=== PATIENT | female | born 1965 | race Caucasian/White ===

== ENCOUNTER → 2017-08-22 14:17 | Outpatient (POV) | payer OTHER, MEDICAID, SELFPAY ==
[2017-08-22 14:52] VITALS: BP 135/79; PULSE 78; RESP 18; TEMP 36.3; O2SAT 94; BMI 27.3
--- NOTE | 2017-08-22 16:08 | HMH.PAINSOAP ---
[facility] Pain Management SOAP Note Subjective:: Patient is a pleasant 52-year-old white female who presents to our clinic for medication refills. We are treating her for pain secondary to degenerative disc disease of the lumbar spine and fibromyalgia. Patient has a quadriplegic son who she helps with the primary care for. Patient has chronic low back pain that she describes as constant, dull, aching. She also has intensifying of pain during long times of standing or having to help complete ADLs with her son. Patient is medically managed with [place] 7.5 mg 1 p.o. twice daily. She states that this does help her pain 50-60%. Patient is not currently on any anti-inflammatories. ROS General: no recent weight change, no fever, no sleep disturbances Respiratory: no cough, no shortness of air, no recurring pulmonary infections Cardiovascular/Peripheral Vascular: No chest pain, No palpitations, no edema, no shortness of breath. Gastrointestinal: no incontinence, normal bowel movements reported Genitourinary: no incontinence Musculoskeletal: Low back pain, neck pain Psychiatric: normal mood/ affect Neurological: [denies weakness in extremities], [denies balance issues] Objective:: Physical Exam General: Alert and oriented x3, no acute distress, pleasant and cooperative, [on room air] Lungs: Resps E/U, Symmetrical chest expansion, Musculoskeletal: Flexion and extension of lumbar spine somewhat guarded secondary to pain, deep tendon reflexes normal, strength in upper and lower extremities [5/5], normal gait noted Neurological: speech clear, screen printing machine operator equal, no gross sensory deficits Assessment:: Degenerative disc disease of the lumbar spine, fibromyalgia Plan:: We will plan on refilling the patient's medication will give her 2 prescriptions today of [place] 5 mg 1 p.o. twice daily. We will also start her on diclofenac 75 mg 1 p.o. twice daily to help with flares. Patient's Zamzam #[id number] reviewed and appropriate. Patient UDS has been appropriate in the past we will continue to monitor this. I have spoken with Dr. Sung he is reviewed the chart and he agrees with this plan of care. We will follow up with this patient in 3 months unless she needs this in the meantime. She can poultry picker one prescription in the interim. Patient has been prescribed a controlled substance after being counseled on the medication, medication safety, and possible side effects. ZAMZAM report has been obtained and reviewed prior to prescription and found to be appropriate. Opioid contract was reviewed and signed by the patient, and that they have agreed to all of the terms set forth by our compliance program. This note was dictated using voice recognition software may contain errors or omissions
--- NOTE | 2017-08-22 16:12 | P.CONS_ITS ---
[facility] Pain Management SOAP Note Subjective:: Patient is a pleasant 52-year-old white female who presents to our clinic for medication refills. We are treating her for pain secondary to degenerative disc disease of the lumbar spine and fibromyalgia. Patient has a quadriplegic son who she helps with the primary care for. Patient has chronic low back pain that she describes as constant, dull, aching. She also has intensifying of pain during long times of standing or having to help complete ADLs with her son. Patient is medically managed with [place] 7.5 mg 1 p.o. twice daily. She states that this does help her pain 50-60%. Patient is not currently on any anti-inflammatories. ROS General: no recent weight change, no fever, no sleep disturbances Respiratory: no cough, no shortness of air, no recurring pulmonary infections Cardiovascular/Peripheral Vascular: No chest pain, No palpitations, no edema, no shortness of breath. Gastrointestinal: no incontinence, normal bowel movements reported Genitourinary: no incontinence Musculoskeletal: Low back pain, neck pain Psychiatric: normal mood/ affect Neurological: [denies weakness in extremities], [denies balance issues] Objective:: Physical Exam General: Alert and oriented x3, no acute distress, pleasant and cooperative, [ on room air] Lungs: Resps E/U, Symmetrical chest expansion, Musculoskeletal: Flexion and extension of lumbar spine somewhat guarded secondary to pain, deep tendon reflexes normal, strength in upper and lower extremities [5/5], normal gait noted Neurological: speech clear, guidance counselor equal, no gross sensory deficits Assessment:: Degenerative disc disease of the lumbar spine, fibromyalgia Plan:: We will plan on refilling the patient's medication will give her 2 prescriptions today of [place] 5 mg 1 p.o. twice daily. We will also start her on diclofenac 75 mg 1 p.o. twice daily to help with flares. Patient's Zamzam # [id number] reviewed and appropriate. Patient UDS has been appropriate in the past we will continue to monitor this. I have spoken with Dr. Sung he is reviewed the chart and he agrees with this plan of care. We will follow up with this patient in 3 months unless she needs this in the meantime. She can fruit or nut picker one prescription in the interim. Patient has been prescribed a controlled substance after being counseled on the medication, medication safety, and possible side effects. ZAMZAM report has been obtained and reviewed prior to prescription and found to be appropriate. Opioid contract was reviewed and signed by the patient, and that they have agreed to all of the terms set forth by our compliance program. This note was dictated using voice recognition software may contain errors or omissions
--- NOTE | 2017-08-23 09:36 | PC.PHONENOTE ---
08/22/17-called in Rx for Diclofenac 75mg BID with 2 refills to pt pharmacy per provider order
== END ==
PROVIDERS: Family Provider Family Medicine Geriatric Medicine; PCP Family Medicine Geriatric Medicine; Visit Provider Clinical Nurse Specialist Family Health
DX: M51.36 Other intervertebral disc degeneration, lumbar region (principal)
CPT/HCPCS: 99212

== ENCOUNTER → 2017-10-24 09:12 | Outpatient (CLI) | payer OTHER, SELFPAY ==
[2017-10-24 11:29] LABS: Amphetamine/Metha Screen,Urine Negative ng/mL (<1000); Barbiturates Screen,Urine Negative ng/mL (<200); Benzodiazepines Screen,Urine Negative ng/mL (200); Cannabinoid Screen,Urine Negative ng/mL (<50); Cocaine Screen,Urine Negative ng/g (<300); Methadone Screen,Urine Negative ng/mL (<300); Opiate Screen,Urine Positive ng/mL (<300); Phencyclidine Screen,Urine Negative ng/mL (<25)
[2017-11-01 17:13] LABS: Codeine Negative (Cutoff=100); Hydrocodone Positive (.); Hydromorphone Negative (Cutoff=100); Morphine Negative (Cutoff=100)
[2017-11-02 14:45] LABS: Opiates Positive (.)
== END ==
PROVIDERS: Visit Provider Clinical Nurse Specialist Family Health
DX: Z79.899 Other long term (current) drug therapy (principal)
CPT/HCPCS: 80305; 80361; 80365; G0480

== ENCOUNTER → 2017-11-20 12:48 | Outpatient (POV) | payer OTHER, SELFPAY ==
[2017-11-20 13:04] VITALS: BP 120/87; PULSE 77; RESP 20; O2SAT 99; BMI 31.0
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
--- NOTE | 2018-03-12 08:25 | PC.NURSE ---
DICLOFENAC 75MG BID WITH TWO REFILLS FAXED TO [facility] IN [place]
== END ==
PROVIDERS: Family Provider Family Medicine Geriatric Medicine; PCP Family Medicine Geriatric Medicine; Visit Provider Clinical Nurse Specialist Family Health
DX: M79.7 Fibromyalgia (principal); M51.36 Other intervertebral disc degeneration, lumbar region
CPT/HCPCS: 99212

== ENCOUNTER → 2018-01-24 14:49 | Outpatient (CLI) | payer OTHER, SELFPAY ==
[2018-01-24 16:59] LABS: Amphetamine/Metha Screen,Urine Negative ng/mL (<1000); Barbiturates Screen,Urine Negative ng/mL (<200); Benzodiazepines Screen,Urine Negative ng/mL (<200); Cannabinoid Screen,Urine Negative ng/mL (<50); Cocaine Screen,Urine Negative ng/mL (<300); Methadone Screen,Urine Negative ng/mL (<300); Opiate Screen,Urine Positive ng/mL (<300); Phencyclidine Screen,Urine Negative ng/mL (<25)
[2018-02-05 22:12] LABS: Codeine Negative (Cutoff=100); Hydrocodone Positive (.); Hydromorphone Negative (Cutoff=100); Morphine Negative (Cutoff=100)
[2018-02-08 06:55] LABS: Opiates Positive (.)
== END ==
PROVIDERS: Visit Provider Clinical Nurse Specialist Family Health
DX: Z79.899 Other long term (current) drug therapy (principal)
CPT/HCPCS: 80305; 80361; 80365; G0480

== ENCOUNTER → 2018-03-27 09:38 | Outpatient (POV) | payer OTHER, SELFPAY ==
[2018-03-27 09:49] VITALS: BP 143/93; PULSE 66; RESP 18; O2SAT 98; BMI 28.1
--- NOTE | 2018-03-27 09:58 | HMH.PAINSOAP ---
[facility] Pain Management SOAP Note Subjective:: Patient is a pleasant 53-year-old white female who presents today for medication refills. Patient is currently being treated for pain secondary to degenerative disc disease lumbar spine and fibromyalgia. Patient is currently being managed with [place] 7.5 mg 1 p.o. twice daily. Patient was on Lyrica by her primary care and it worked very well for her. Patient would like to restart this. Patient was on Lyrica 75 mg 1 tab p.o. twice daily. Patient denies any side effects to this. Patient's tried and failed gabapentin, amitriptyline, Cymbalta. Patient states her medication helps up to 80% she rates her pain a 3 out of 10 today. Patient's ZAMZAM #[id number] reviewed and appropriate. ROS General: no recent weight change, no fever, no sleep disturbances Respiratory: no cough, no shortness of air, no recurring pulmonary infections Cardiovascular/Peripheral Vascular: No chest pain, No palpitations, no edema, no shortness of breath. Gastrointestinal: no incontinence, normal bowel movements reported Genitourinary: no incontinence Musculoskeletal: Back pain Psychiatric: normal mood/ affect Neurological: [denies weakness in extremities], [denies balance issues] Objective:: Physical Exam General: Alert and oriented x3, no acute distress, pleasant and cooperative, [on room air] Lungs: Resps E/U, Symmetrical chest expansion, Eyes: PERRL Musculoskeletal: Flexion and extension of lumbar spine somewhat guarded secondary to pain, deep tendon reflexes normal, strength in upper and lower extremities [5/5], slightly antalgic gait noted Neurological: speech clear, associate automation engineer equal, no gross sensory deficits Assessment:: Degenerative disc disease lumbar spine with lumbar radiculopathy, fibromyalgia Plan:: We will refill the patient's [place] 7.5 mg 1 p.o. twice daily and her Lyrica 75 mg 1 p.o. twice daily. We will give HER-2 months worth of prescriptions and she can sweet pickle maker the third month in the interim. Dr. Dennis is reviewed this chart and agrees with this plan of care. Patient's UDS has been appropriate in the past. Patient's ZAMZAM appropriate. I will follow-up with the patient in 3 months. Patient has been prescribed a controlled substance after being counseled on the medication, medication safety, and possible side effects. ZAMZAM report has been obtained and reviewed prior to prescription and found to be appropriate. Opioid contract was reviewed and signed by the patient, and that they have agreed to all of the terms set forth by our compliance program. This note was dictated using voice recognition software and may contain errors or omissions
--- NOTE | 2018-03-27 10:02 | P.CONS_ITS ---
[facility] Pain Management SOAP Note Subjective:: Patient is a pleasant 53-year-old white female who presents today for medication refills. Patient is currently being treated for pain secondary to degenerative disc disease lumbar spine and fibromyalgia. Patient is currently being managed with [place] 7.5 mg 1 p.o. twice daily. Patient was on Lyrica by her primary care and it worked very well for her. Patient would like to restart this. Patient was on Lyrica 75 mg 1 tab p.o. twice daily. Patient denies any side effects to this. Patient's tried and failed gabapentin, amitriptyline, Cymbalta. Patient states her medication helps up to 80% she rates her pain a 3 out of 10 today. Patient's ZAMZAM #[id number] reviewed and appropriate. ROS General: no recent weight change, no fever, no sleep disturbances Respiratory: no cough, no shortness of air, no recurring pulmonary infections Cardiovascular/Peripheral Vascular: No chest pain, No palpitations, no edema, no shortness of breath. Gastrointestinal: no incontinence, normal bowel movements reported Genitourinary: no incontinence Musculoskeletal: Back pain Psychiatric: normal mood/ affect Neurological: [denies weakness in extremities], [denies balance issues] Objective:: Physical Exam General: Alert and oriented x3, no acute distress, pleasant and cooperative, [on room air] Lungs: Resps E/U, Symmetrical chest expansion, Eyes: PERRL Musculoskeletal: Flexion and extension of lumbar spine somewhat guarded secondary to pain, deep tendon reflexes normal, strength in upper and lower extremities [5/5], slightly antalgic gait noted Neurological: speech clear, forming yardage control operator equal, no gross sensory deficits Assessment:: Degenerative disc disease lumbar spine with lumbar radiculopathy, fibromyalgia Plan:: We will refill the patient's [place] 7.5 mg 1 p.o. twice daily and her Lyrica 75 mg 1 p.o. twice daily. We will give HER-2 months worth of prescriptions and she can milk pickup driver the third month in the interim. Dr. Dennis is reviewed this chart and agrees with this plan of care. Patient's UDS has been appropriate in the past. Patient's ZAMZAM appropriate. I will follow-up with the patient in 3 months. Patient has been prescribed a controlled substance after being counseled on the medication, medication safety, and possible side effects. ZAMZAM report has been obtained and reviewed prior to prescription and found to be appropriate. Opioid contract was reviewed and signed by the patient, and that they have agreed to all of the terms set forth by our compliance program. This note was dictated using voice recognition software and may contain errors or omissions
--- NOTE | 2018-07-11 09:18 | PC.NURSE ---
07/09/18 refill for lyrica 75mg BID faxed to [facility] in [place]
== END ==
PROVIDERS: Family Provider Family Medicine Geriatric Medicine; PCP Family Medicine Geriatric Medicine; Visit Provider Clinical Nurse Specialist Family Health
DX: M51.16 Intervertebral disc disorders with radiculopathy, lumbar region (principal); M79.1 Myalgia
CPT/HCPCS: 99203

== ENCOUNTER → 2018-05-23 10:57 | Outpatient (CLI) | payer OTHER, SELFPAY ==
[2018-05-23 14:33] LABS: Amphetamine/Metha Screen,Urine Negative ng/mL (<1000); Barbiturates Screen,Urine Negative ng/mL (<200); Benzodiazepines Screen,Urine Negative ng/mL (<200); Cannabinoid Screen,Urine Negative ng/mL (<50); Cocaine Screen,Urine Negative ng/mL (<300); Methadone Screen,Urine Negative ng/mL (<300); Opiate Screen,Urine Positive ng/mL (<300); Phencyclidine Screen,Urine Negative ng/mL (<25)
[2018-05-30 15:59] LABS: Opiates Negative (Cutoff=100)
== END ==
PROVIDERS: Visit Provider Clinical Nurse Specialist Family Health
DX: Z79.899 Other long term (current) drug therapy (principal)
CPT/HCPCS: 80305; 80361; 80365; G0480

== ENCOUNTER → 2018-06-18 13:38 | Outpatient (POV) | payer OTHER, SELFPAY ==
[2018-06-18 14:06] VITALS: BP 171/99; PULSE 63; RESP 18; O2SAT 98; BMI 25.0
--- NOTE | 2018-06-18 14:34 | HMH.PAINSOAP ---
[facility] Pain Management SOAP Note Subjective:: Patient is a pleasant 53-year-old white female who presents today for medication refills. She is currently being treated for pain secondary to degenerative disc disease lumbar spine and fibromyalgia. She patient is doing well on her [place] 7.5 mg 1 p.o. twice daily. He denies side effects. Zamzam reviewed and appropriate. Patient is also on Lyrica 75 mg 1 p.o. twice daily ROS General: no recent weight change, no fever, no sleep disturbances Respiratory: no cough, no shortness of air, no recurring pulmonary infections Cardiovascular/Peripheral Vascular: No chest pain, No palpitations, no edema, no shortness of breath. Gastrointestinal: no incontinence, normal bowel movements reported Genitourinary: no incontinence Musculoskeletal: Back pain Psychiatric: normal mood/ affect Neurological: [denies weakness in extremities], [denies balance issues] Objective:: Physical Exam General: Alert and oriented x3, no acute distress, pleasant and cooperative, [on room air] Lungs: Resps E/U, Symmetrical chest expansion, Eyes: PERRL Musculoskeletal: Flexion and extension of lumbar spine somewhat guarded secondary to pain, deep tendon reflexes normal, strength in upper and lower extremities [5/5], antalgic gait noted Neurological: speech clear, wad printing machine operator equal, no gross sensory deficits Assessment:: Degenerative disc disease lumbar spine with lumbar radiculopathy and fibromyalgia Plan:: We will refill the patient's [place] 7.5 mg 1 p.o. twice daily and her Lyrica 75 mg 1 p.o. twice daily we will give her 2 months worth of prescriptions and she can diamond picker the third month in the interim. Zamzam reviewed and appropriate. Dr. Dennis is reviewed this chart and agrees with this plan of care. Patient has been prescribed a controlled substance after being counseled on the medication, medication safety, and possible side effects. ZAMZAM report has been obtained and reviewed prior to prescription and found to be appropriate. Opioid contract was reviewed and signed by the patient, and that they have agreed to all of the terms set forth by our compliance program. This note was dictated using voice recognition software and may contain errors or omissions
--- NOTE | 2018-06-18 14:40 | P.CONS_ITS ---
[facility] Pain Management SOAP Note Subjective:: Patient is a pleasant 53-year-old white female who presents today for medication refills. She is currently being treated for pain secondary to degenerative disc disease lumbar spine and fibromyalgia. She patient is doing well on her [place] 7.5 mg 1 p.o. twice daily. He denies side effects. Zamzam reviewed and appropriate. Patient is also on Lyrica 75 mg 1 p.o. twice daily ROS General: no recent weight change, no fever, no sleep disturbances Respiratory: no cough, no shortness of air, no recurring pulmonary infections Cardiovascular/Peripheral Vascular: No chest pain, No palpitations, no edema, no shortness of breath. Gastrointestinal: no incontinence, normal bowel movements reported Genitourinary: no incontinence Musculoskeletal: Back pain Psychiatric: normal mood/ affect Neurological: [denies weakness in extremities], [denies balance issues] Objective:: Physical Exam General: Alert and oriented x3, no acute distress, pleasant and cooperative, [on room air] Lungs: Resps E/U, Symmetrical chest expansion, Eyes: PERRL Musculoskeletal: Flexion and extension of lumbar spine somewhat guarded secondary to pain, deep tendon reflexes normal, strength in upper and lower extremities [5/5], antalgic gait noted Neurological: speech clear, cocktail server equal, no gross sensory deficits Assessment:: Degenerative disc disease lumbar spine with lumbar radiculopathy and fibromyalgia Plan:: We will refill the patient's [place] 7.5 mg 1 p.o. twice daily and her Lyrica 75 mg 1 p.o. twice daily we will give her 2 months worth of prescriptions and she can order picker the third month in the interim. Zamzam reviewed and appropriate. Dr. Dennis is reviewed this chart and agrees with this plan of care. Patient has been prescribed a controlled substance after being counseled on the medication, medication safety, and possible side effects. ZAMZAM report has been obtained and reviewed prior to prescription and found to be appropriate. Opioid contract was reviewed and signed by the patient, and that they have agreed to all of the terms set forth by our compliance program. This note was dictated using voice recognition software and may contain errors or omissions
[2018-06-18 18:41] LABS: Amphetamine/Metha Screen,Urine Negative ng/mL (<1000); Barbiturates Screen,Urine Negative ng/mL (<200); Benzodiazepines Screen,Urine Negative ng/mL (<200); Cannabinoid Screen,Urine Negative ng/mL (<50); Cocaine Screen,Urine Negative ng/mL (<300); Methadone Screen,Urine Negative ng/mL (<300); Opiate Screen,Urine Positive ng/mL (<300); Phencyclidine Screen,Urine Negative ng/mL (<25)
[2018-06-24 20:13] LABS: Codeine Negative (Cutoff=100); Hydrocodone Positive (.); Hydromorphone Negative (Cutoff=100); Morphine Negative (Cutoff=100)
[2018-06-24 21:27] LABS: Opiates Positive (.)
== END ==
PROVIDERS: PCP Family Medicine; Visit Provider Clinical Nurse Specialist Family Health
DX: M51.16 Intervertebral disc disorders with radiculopathy, lumbar region (principal); M79.7 Fibromyalgia; Z79.899 Other long term (current) drug therapy
CPT/HCPCS: 80305; 80361; 80365; 99213; G0480

== ENCOUNTER → 2018-09-11 10:42 | Outpatient (POV) | payer OTHER, SELFPAY ==
[2018-09-11 11:04] VITALS: BP 112/71; PULSE 62; RESP 18; O2SAT 98; BMI 28.1
--- NOTE | 2018-09-11 11:30 | HMH.PAINSOAP ---
[facility] Pain Management SOAP Note Subjective:: Patient is a pleasant 53-year-old white female who presents today for medication refills. She is currently being treated for pain secondary to degenerative disc disease lumbar spine and fibromyalgia. She is currently on [place] 7.5 mg 1 p.o. twice daily along with Lyrica 75 mg 1 p.o. twice daily. She rates her pain a 7 out of 10 today however she states that she takes her medication it is a 1 out of 10. Patient's ZAMZAM reviewed and appropriate. Urine drug screen has been appropriate. ROS General: no recent weight change, no fever, no sleep disturbances Respiratory: no cough, no shortness of air, no recurring pulmonary infections Cardiovascular/Peripheral Vascular: No chest pain, No palpitations, no edema, no shortness of breath. Gastrointestinal: no incontinence, normal bowel movements reported Genitourinary: no incontinence Musculoskeletal: Back pain, hip pain Psychiatric: normal mood/ affect, Neurological: [denies weakness in extremities], [denies balance issues] Objective:: Physical Exam General: Alert and oriented x3, no acute distress, pleasant and cooperative, [on room air] Lungs: Resps E/U, Symmetrical chest expansion, Eyes: PERRL Musculoskeletal: Flexion and extension of lumbar spine somewhat guarded secondary to pain, deep tendon reflexes normal, strength in upper and lower extremities [5/5], slightly antalgic gait noted Neurological: speech clear, contracts administrator equal, no gross sensory deficits Assessment:: Degenerative disc disease lumbar spine with lumbar radiculopathy along with fibromyalgia and hip pain Plan:: We will refill the patient's Piru 7.5 mg 1 p.o. twice daily and Lyrica 75 mg 1 p.o. twice daily we will give her 1 month worth of prescriptions she can be seen in 3 months she can fish bait picker her other prescriptions in the interim. We will also get an x-ray of her bilateral hips if she continues to have pain. Patient is going to call our office and let us know. Patient has been prescribed a controlled substance after being counseled on the medication, medication safety, and possible side effects. ZAMZAM report has been obtained and reviewed prior to prescription and found to be appropriate. Opioid contract was reviewed and signed by the patient, and that they have agreed to all of the terms set forth by our compliance program. Dr. Dennis has reviewed this note and agrees with this plan of care. This note was dictated using voice recognition software and may contain errors or omissions
== END ==
PROVIDERS: Visit Provider Clinical Nurse Specialist Family Health
DX: M51.16 Intervertebral disc disorders with radiculopathy, lumbar region (principal); M25.569 Pain in unspecified knee; M79.7 Fibromyalgia
CPT/HCPCS: 99213

== ENCOUNTER → 2018-10-17 13:08 | Outpatient (CLI) | payer OTHER, SELFPAY ==
[2018-10-17 17:39] LABS: Amphetamine/Metha Screen,Urine Negative ng/mL (<1000); Barbiturates Screen,Urine Negative ng/mL (<200); Benzodiazepines Screen,Urine Negative ng/mL (<200); Cannabinoid Screen,Urine Negative ng/mL (<50); Cocaine Screen,Urine Negative ng/mL (<300); Methadone Screen,Urine Negative ng/mL (<300); Opiate Screen,Urine Positive ng/mL (<300); Phencyclidine Screen,Urine Negative ng/mL (<25)
[2018-10-25 00:07] LABS: Codeine Negative (Cutoff=100); Hydrocodone Positive (.); Hydromorphone Negative (Cutoff=100); Morphine Negative (Cutoff=100)
[2018-10-25 07:11] LABS: Opiates Positive (.)
== END ==
PROVIDERS: Visit Provider Clinical Nurse Specialist Family Health
DX: Z79.899 Other long term (current) drug therapy (principal)
CPT/HCPCS: 80305; 80361; 80365; G0480

== ENCOUNTER → 2018-12-11 11:36 | Outpatient (POV) | payer OTHER, SELFPAY ==
[2018-12-11 11:47] VITALS: BP 143/77; PULSE 65; RESP 18; O2SAT 98; BMI 29.0
--- NOTE | 2018-12-11 12:07 | HMH.PAINSOAP ---
[facility] Pain Management SOAP Note Subjective:: Patient is a pleasant 53-year-old white female who presents today for medication refills. She is currently being treated for pain secondary to degenerative disc disease lumbar spine and fibromyalgia. She is currently on [place] 7.5 mg 1 p.o. twice daily along with Lyrica 75 mg 1 p.o. twice daily. She denies any side effects to her medications. [facility] #[id number] has been reviewed as appropriate. She rates her pain a 0 out of 10 today. However, she does complain of intermittent left hip pain. She says this is worse with ambulation, comes and goes, and is an achy pain. She does not have an interest in any type of steroid injection, states steroids always make me gained 30 to 40 pounds, even with an injection . 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 She says the medication is very effective in helping her print form her ADLs. The patient is continuing with NSAIDs and a home stretching program. ROS General: no recent weight change, no fever, no sleep disturbances Respiratory: no cough, no shortness of air, no recurring pulmonary infections Cardiovascular/Peripheral Vascular: No chest pain, No palpitations, no edema, no shortness of breath. Gastrointestinal: no incontinence, normal bowel movements reported Genitourinary: no incontinence Musculoskeletal: Back pain, left hip pain Psychiatric: normal mood/ affect, [denies depression], [denies anxiety] Neurological: [denies weakness in extremities], [denies balance issues] Objective:: Physical Exam General: Alert and oriented x3, no acute distress, pleasant and cooperative, [on room air] Lungs: Resps E/U, Symmetrical chest expansion, Eyes: PERRL Musculoskeletal: Flexion and extension of lumbar spine somewhat guarded secondary to pain, deep tendon reflexes normal, strength in upper and lower extremities [5/5], slightly antalgic gait noted Neurological: speech clear, homeowner association manager equal, no gross sensory deficits Assessment:: Degenerative disc disease lumbar spine with lumbar radiculopathy along with fibromyalgia and hip pain Plan:: We will refill patient's [place] 7.5 mg 1 p.o. twice daily she will continue her Lyrica 75 mg 1 p.o. twice daily. We will give her 2 months of her prescriptions and she can curing pickling packer her third month in the interim. She will follow-up in 3 months. She is been instructed to call the office if she has any concerns prior to her next appointment. Patient has been prescribed a controlled substance after being counseled on the medication, medication safety, and possible side effects. ZAMZAM report has been obtained and reviewed prior to prescription and found to be appropriate. Opioid contract was reviewed and signed by the patient, and that they have agreed to all of the terms set forth by our compliance program. Dr. Dennis has reviewed this note and agrees with this plan of care. This note was dictated using voice recognition software and may contain errors or omissions
--- NOTE | 2018-12-11 12:10 | P.CONS_ITS ---
[facility] Pain Management SOAP Note Subjective:: Patient is a pleasant 53-year-old white female who presents today for medication refills. She is currently being treated for pain secondary to degenerative disc disease lumbar spine and fibromyalgia. She is currently on [place] 7.5 mg 1 p.o. twice daily along with Lyrica 75 mg 1 p.o. twice daily. She denies any side effects to her medications. [facility] #[id number] has been reviewed as appropriate. She rates her pain a 0 out of 10 today. However, she does complain of intermittent left hip pain. She says this is worse with ambulation, comes and goes, and is an achy pain. She does not have an interest in any type of steroid injection, states steroids always make me gained 30 to 40 pounds, even with an injection . 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 She says the medication is very effective in helping her print form her ADLs. The patient is continuing with NSAIDs and a home stretching program. ROS General: no recent weight change, no fever, no sleep disturbances Respiratory: no cough, no shortness of air, no recurring pulmonary infections Cardiovascular/Peripheral Vascular: No chest pain, No palpitations, no edema, no shortness of breath. Gastrointestinal: no incontinence, normal bowel movements reported Genitourinary: no incontinence Musculoskeletal: Back pain, left hip pain Psychiatric: normal mood/ affect, [denies depression], [denies anxiety] Neurological: [denies weakness in extremities], [denies balance issues] Objective:: Physical Exam General: Alert and oriented x3, no acute distress, pleasant and cooperative, [on room air] Lungs: Resps E/U, Symmetrical chest expansion, Eyes: PERRL Musculoskeletal: Flexion and extension of lumbar spine somewhat guarded secondary to pain, deep tendon reflexes normal, strength in upper and lower extremities [5/5], slightly antalgic gait noted Neurological: speech clear, glass installer technician equal, no gross sensory deficits Assessment:: Degenerative disc disease lumbar spine with lumbar radiculopathy along with fibromyalgia and hip pain Plan:: We will refill patient's [place] 7.5 mg 1 p.o. twice daily she will continue her Lyrica 75 mg 1 p.o. twice daily. We will give her 2 months of her prescriptions and she can belt picker her third month in the interim. She will follow-up in 3 months. She is been instructed to call the office if she has any concerns prior to her next appointment. Patient has been prescribed a controlled substance after being counseled on the medication, medication safety, and possible side effects. ZAMZAM report has been obtained and reviewed prior to prescription and found to be appropriate. Opioid contract was reviewed and signed by the patient, and that they have agreed to all of the terms set forth by our compliance program. Dr. Dennis has reviewed this note and agrees with this plan of care. This note was dictated using voice recognition software and may contain errors or omissions
== END ==
PROVIDERS: PCP Family Medicine; Visit Provider Clinical Nurse Specialist Family Health
DX: M51.16 Intervertebral disc disorders with radiculopathy, lumbar region (principal); M79.18 Myalgia, other site; M25.559 Pain in unspecified hip
CPT/HCPCS: 99212

== ENCOUNTER → 2019-02-11 11:37 | Outpatient (POV) | payer OTHER, SELFPAY ==
[2019-02-11 11:59] VITALS: BP 133/88; PULSE 83; RESP 18; O2SAT 98; BMI 27.4
--- NOTE | 2019-02-11 12:16 | HMH.PAINSOAP ---
[facility] Pain Management SOAP Note Subjective:: Patient is a pleasant 53-year-old white female who presents today for follow-up. Patient is currently being treated for pain secondary to degenerative disc disease lumbar spine with lumbar radiculopathy along with fibromyalgia and hip pain. She presents today for medication refills. [facility] #[id number] reviewed and appropriate. She is on [place] 7.5 mg 1 p.o. twice daily along with Lyrica 75 mg 1 p.o. twice daily. Patient has had a diagnosis of a mandibular defect. Patient is having extreme pain in her jaw. Patient is awaiting a maxillofacial surgeon consultation. Patient and I discussed increasing to 3 times a day temporarily. She rates her pain today a 7 out of 10 in her jaw area. Urine drug screens have been appropriate. ROS General: no recent weight change, no fever, no sleep disturbances Respiratory: no cough, no shortness of air, no recurring pulmonary infections Cardiovascular/Peripheral Vascular: No chest pain, No palpitations, no edema, no shortness of breath. Gastrointestinal: no incontinence, normal bowel movements reported Genitourinary: no incontinence Musculoskeletal: Back pain, hip pain, left mandibular pain Psychiatric: normal mood/ affect Neurological: [denies weakness in extremities], [denies balance issues] Objective:: Physical Exam General: Alert and oriented x3, no acute distress, pleasant and cooperative, [on room air] Lungs: Resps E/U, Symmetrical chest expansion, Eyes: PERRL Musculoskeletal: Flexion and extension of lumbar spine somewhat guarded secondary to pain, deep tendon reflexes normal, strength in upper and lower extremities [5/5], slightly antalgic gait noted Neurological: speech clear, bioengineer equal, no gross sensory deficits Assessment:: Degenerative disc disease lumbar spine with lumbar radiculopathy along with fibromyalgia, hip pain, left jaw pain Plan:: We will refill the patient's [place] 7.5 mg 1 p.o. 3 times daily will continue her Lyrica 75 mg 1 p.o. twice daily. We will give her 2 months worth of prescriptions she will return in 2 months for follow-up and we will reassess at that time. I discussed with her her maxillofacial surgeon is a very important appointment to have. Patient has been prescribed a controlled substance after being counseled on the medication, medication safety, and possible side effects. ZAMZAM report has been obtained and reviewed prior to prescription and found to be appropriate. Opioid contract was reviewed and signed by the patient, and that they have agreed to all of the terms set forth by our compliance program. Dr. Dennis has reviewed this note and agrees with this plan of care. This note was dictated using voice recognition software and may contain errors or omissions Pain Management Hx Components *Have you ever received a pneumonia vaccine?: Yes *Have you received a flu vaccine this season?: Yes - *Social History *Occupational Status:: other *Travel in the last 8 weeks: None
--- NOTE | 2019-02-11 12:19 | P.CONS_ITS ---
[facility] Pain Management SOAP Note Subjective:: Patient is a pleasant 53-year-old white female who presents today for follow-up. Patient is currently being treated for pain secondary to degenerative disc disease lumbar spine with lumbar radiculopathy along with fibromyalgia and hip pain. She presents today for medication refills. [facility]zam #[id number] reviewed and appropriate. She is on [place] 7.5 mg 1 p.o. twice daily along with Lyrica 75 mg 1 p.o. twice daily. Patient has had a diagnosis of a mandibular defect. Patient is having extreme pain in her jaw. Patient is awaiting a maxillofacial surgeon consultation. Patient and I discussed increasing to 3 times a day temporarily. She rates her pain today a 7 out of 10 in her jaw area. Urine drug screens have been appropriate. ROS General: no recent weight change, no fever, no sleep disturbances Respiratory: no cough, no shortness of air, no recurring pulmonary infections Cardiovascular/Peripheral Vascular: No chest pain, No palpitations, no edema, no shortness of breath. Gastrointestinal: no incontinence, normal bowel movements reported Genitourinary: no incontinence Musculoskeletal: Back pain, hip pain, left mandibular pain Psychiatric: normal mood/ affect Neurological: [denies weakness in extremities], [denies balance issues] Objective:: Physical Exam General: Alert and oriented x3, no acute distress, pleasant and cooperative, [on room air] Lungs: Resps E/U, Symmetrical chest expansion, Eyes: PERRL Musculoskeletal: Flexion and extension of lumbar spine somewhat guarded secondary to pain, deep tendon reflexes normal, strength in upper and lower extremities [5/5], slightly antalgic gait noted Neurological: speech clear, tub mender equal, no gross sensory deficits Assessment:: Degenerative disc disease lumbar spine with lumbar radiculopathy along with fibromyalgia, hip pain, left jaw pain Plan:: We will refill the patient's [place] 7.5 mg 1 p.o. 3 times daily will continue her Lyrica 75 mg 1 p.o. twice daily. We will give her 2 months worth of prescriptions she will return in 2 months for follow-up and we will reassess at that time. I discussed with her her maxillofacial surgeon is a very important appointment to have. Patient has been prescribed a controlled substance after being counseled on the medication, medication safety, and possible side effects. ZAMZAM report has been obtained and reviewed prior to prescription and found to be appropriate. Opioid contract was reviewed and signed by the patient, and that they have agreed to all of the terms set forth by our compliance program. Dr. Dennis has reviewed this note and agrees with this plan of care. This note was dictated using voice recognition software and may contain errors or omissions Pain Management Hx Components *Have you ever received a pneumonia vaccine?: Yes *Have you received a flu vaccine this season?: Yes - *Social History *Occupational Status:: other *Travel in the last 8 weeks: None
[2019-02-11 15:12] LABS: Amphetamine/Metha Screen,Urine Negative ng/mL (<1000); Barbiturates Screen,Urine Negative ng/mL (<200); Benzodiazepines Screen,Urine Negative ng/mL (<200); Cannabinoid Screen,Urine Negative ng/mL (<50); Cocaine Screen,Urine Negative ng/mL (<300); Methadone Screen,Urine Negative ng/mL (<300); Opiate Screen,Urine Positive ng/mL (<300); Phencyclidine Screen,Urine Negative ng/mL (<25)
[2019-02-17 22:14] LABS: Codeine Negative (Cutoff=100); Hydrocodone Positive (.); Hydromorphone Negative (Cutoff=100); Morphine Negative (Cutoff=100)
[2019-02-17 22:48] LABS: Opiates Positive (.)
--- NOTE | 2019-03-14 09:50 | PC.NURSE ---
LYRICA 75MG PO BID WITH 2 REFILLS CALLED INTO [facility] PER PROVIDER ORDER
== END ==
PROVIDERS: PCP Nurse Practitioner Family; Visit Provider Clinical Nurse Specialist Family Health
DX: M51.16 Intervertebral disc disorders with radiculopathy, lumbar region (principal); M79.7 Fibromyalgia; M25.559 Pain in unspecified hip; R68.84 Jaw pain
CPT/HCPCS: 80305; 80361; 80365; 99212; G0480

== ENCOUNTER → 2019-05-13 12:50 | Outpatient (POV) | payer OTHER, SELFPAY ==
[2019-05-13 13:24] VITALS: BP 154/91; PULSE 104; RESP 18; O2SAT 98; BMI 24.7
--- NOTE | 2019-05-13 13:31 | HMH.PAINSOAP ---
[facility] Pain Management SOAP Note Subjective:: Patient is a pleasant 54-year-old white female who presents today for follow-up and medication refill she is currently being treated for pain secondary to degenerative disc disease lumbar spine with lumbar radiculopathy along with fibromyalgia and hip pain. 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 Patient is having injections of steroids placed in her eardrum. She is also having a appointment on June 10 with a maxillofacial surgeon. In regards to her jaw pain ROS General: no recent weight change, no fever, no sleep disturbances Respiratory: no cough, no shortness of air, no recurring pulmonary infections Cardiovascular/Peripheral Vascular: No chest pain, No palpitations, no edema, no shortness of breath. Gastrointestinal: no new onset incontinence, normal bowel movements reported Genitourinary: no new onset incontinence Musculoskeletal: Back pain, jaw pain, joint pain Psychiatric: normal mood/ affect, Neurological: [denies new onset weakness in extremities], [denies new onset balance issues] Objective:: Physical Exam General: Alert and oriented x3, no acute distress, pleasant and cooperative, [on room air] Lungs: Resps E/U, Symmetrical chest expansion, Eyes: PERRL Musculoskeletal: Flexion and extension of lumbar spine somewhat guarded secondary to pain, deep tendon reflexes normal, strength in upper and lower extremities [5/5], [abnormal gait noted] Neurological: speech clear, transitional kindergarten teacher equal, no gross sensory deficits Assessment:: Degenerative disc disease lumbar spine with lumbar radiculopathy and left jaw pain Plan:: We will refill her [place] 7.5 mg 1 p.o. 3 times daily and give her 2 months worth of medication. She can greens picker her third month in the interim. We will see her back in 3 months reassess her symptoms that time she is been instructed to call the office if she has any issues prior to her next appointment. Patient has been prescribed a controlled substance after being counseled on the medication, medication safety, and possible side effects. ZAMZAM report has been obtained and reviewed prior to prescription and found to be appropriate. Opioid contract was reviewed and signed by the patient, and that they have agreed to all of the terms set forth by our compliance program. Dr. Dennis has reviewed this note and agrees with this plan of care. This note was dictated using voice recognition software and may contain errors or omissions [facility] History I have reviewed the patient's past medical history: Yes *Have you ever received a pneumonia vaccine?: Yes *Have you received a flu vaccine this season?: Yes - *Social History *Occupational Status:: other *Travel in the last 8 weeks: None Family Hx:: Non-contributory
--- NOTE | 2019-05-13 13:36 | P.CONS_ITS ---
[facility] Pain Management SOAP Note Subjective:: Patient is a pleasant 54-year-old white female who presents today for follow-up and medication refill she is currently being treated for pain secondary to degenerative disc disease lumbar spine with lumbar radiculopathy along with fibromyalgia and hip pain. 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 Patient is having injections of steroids placed in her eardrum. She is also having a appointment on June 10 with a maxillofacial surgeon. In regards to her jaw pain ROS General: no recent weight change, no fever, no sleep disturbances Respiratory: no cough, no shortness of air, no recurring pulmonary infections Cardiovascular/Peripheral Vascular: No chest pain, No palpitations, no edema, no shortness of breath. Gastrointestinal: no new onset incontinence, normal bowel movements reported Genitourinary: no new onset incontinence Musculoskeletal: Back pain, jaw pain, joint pain Psychiatric: normal mood/ affect, Neurological: [denies new onset weakness in extremities], [denies new onset balance issues] Objective:: Physical Exam General: Alert and oriented x3, no acute distress, pleasant and cooperative, [on room air] Lungs: Resps E/U, Symmetrical chest expansion, Eyes: PERRL Musculoskeletal: Flexion and extension of lumbar spine somewhat guarded secondary to pain, deep tendon reflexes normal, strength in upper and lower extremities [5/5], [abnormal gait noted] Neurological: speech clear, client service representative equal, no gross sensory deficits Assessment:: Degenerative disc disease lumbar spine with lumbar radiculopathy and left jaw pain Plan:: We will refill her [place] 7.5 mg 1 p.o. 3 times daily and give her 2 months worth of medication. She can bead picker her third month in the interim. We will see her back in 3 months reassess her symptoms that time she is been instructed to call the office if she has any issues prior to her next appointment. Patient has been prescribed a controlled substance after being counseled on the medication, medication safety, and possible side effects. ZAMZAM report has been obtained and reviewed prior to prescription and found to be appropriate. Opioid contract was reviewed and signed by the patient, and that they have agreed to all of the terms set forth by our compliance program. Dr. Dennis has reviewed this note and agrees with this plan of care. This note was dictated using voice recognition software and may contain errors or omissions [facility] History I have reviewed the patient's past medical history: Yes *Have you ever received a pneumonia vaccine?: Yes *Have you received a flu vaccine this season?: Yes - *Social History *Occupational Status:: other *Travel in the last 8 weeks: None Family Hx:: Non-contributory
== END ==
PROVIDERS: PCP Nurse Practitioner Family; Visit Provider Clinical Nurse Specialist Family Health
DX: M51.16 Intervertebral disc disorders with radiculopathy, lumbar region (principal)
CPT/HCPCS: 99212

== ENCOUNTER → 2019-07-24 13:00 | Outpatient (CLI) | payer OTHER, SELFPAY ==
[2019-07-24 13:47] LABS: Amphetamine/Metha Screen,Urine Positive ng/mL (<1000); Barbiturates Screen,Urine Negative ng/mL (<200); Benzodiazepines Screen,Urine Negative ng/mL (<200); Cannabinoid Screen,Urine Negative ng/mL (<50); Cocaine Screen,Urine Negative ng/mL (<300); Methadone Screen,Urine Negative ng/mL (<300); Opiate Screen,Urine Positive ng/mL (<300); Phencyclidine Screen,Urine Negative ng/mL (<25)
[2019-07-28 14:22] LABS: Codeine Negative (Cutoff=100); Hydrocodone Positive (.); Hydromorphone Negative (Cutoff=100); Morphine Negative (Cutoff=100)
[2019-07-28 17:08] LABS: Opiates Positive (.)
== END ==
PROVIDERS: Visit Provider Clinical Nurse Specialist Family Health
DX: Z79.899 Other long term (current) drug therapy (principal)
CPT/HCPCS: 80305; 80361; 80365; G0480

== ENCOUNTER → 2019-08-13 09:23 | Outpatient (POV) | payer OTHER, SELFPAY ==
[2019-08-13 09:42] VITALS: BP 113/42; PULSE 75; RESP 18; O2SAT 99; BMI 24.2
--- NOTE | 2019-08-13 09:42 | HMH.PAINSOAP ---
[facility] Pain Management SOAP Note Subjective:: Patient is a pleasant 54-year-old white female who presents today for medication refills. Patient has regained some of her hearing in her right ear and a little bit of nerve sensation in that area. Patient was having injections however she is now got chronic tinnitus. She has an appointment with the maxillofacial surgeon for surgery on the August 28 she is going to let us know if she has any medicine from that visit. Patient is currently on [place] 7.5 mg 1 p.o. 3 times daily and Lyrica 75 mg 1 p.o. twice daily. Patient denies side effects or medication. Overall doing well with them. Zamzam #[id number] reviewed and appropriate. Patient did have an a urine drug screens are positive for amphetamines however she was taking cold medicine at the time we will continue to monitor. General: no recent weight change, no fever, no sleep disturbances Respiratory: no cough, no shortness of air, no recurring pulmonary infections Cardiovascular/Peripheral Vascular: No chest pain, No palpitations, no edema, no shortness of breath. Gastrointestinal: no new onset incontinence, normal bowel movements reported Genitourinary: no new onset incontinence Musculoskeletal: Back pain, leg pain Psychiatric: normal mood/ affect Neurological: [denies new onset weakness in extremities], [denies new onset balance issues] Objective:: Physical Exam General: Alert and oriented x3, no acute distress, pleasant and cooperative, [on room air] Lungs: Resps E/U, Symmetrical chest expansion, Eyes: PERRL Musculoskeletal: Flexion and extension of lumbar spine somewhat guarded secondary to pain, deep tendon reflexes normal, strength in upper and lower extremities [5/5], [abnormal gait noted] Neurological: speech clear, assembler carbon brushes equal, no gross sensory deficits Assessment:: Degenerative disc disease lumbar spine with lumbar radiculopathy Plan:: We will refill her [place] 7.5 mg 1 p.o. 3 times daily and see her back in 3 months. She has been instructed to call the office if she has any issues prior to her next appointment will give her 2 months prescriptions and then we will allow her to pick up truck driver 1 in the interim. Patient has been prescribed a controlled substance after being counseled on the medication, medication safety, and possible side effects. ZAMZAM report has been obtained and reviewed prior to prescription and found to be appropriate. Opioid contract was reviewed and signed by the patient, and that they have agreed to all of the terms set forth by our compliance program. Dr. Dennis has reviewed this note and agrees with this plan of care. This note was dictated using voice recognition software and may contain errors or omissions [facility] History I have reviewed the patient's past medical history: Yes *Have you ever received a pneumonia vaccine?: Yes *Have you received a flu vaccine this season?: Yes - *Social History *Occupational Status:: other *Travel in the last 8 weeks: None Family Hx:: Non-contributory
== END ==
PROVIDERS: PCP Nurse Practitioner Family; Visit Provider Clinical Nurse Specialist Family Health
DX: M51.16 Intervertebral disc disorders with radiculopathy, lumbar region (principal)
CPT/HCPCS: 99212

== ENCOUNTER → 2019-11-28 11:02 | Outpatient (POV) | payer OTHER, SELFPAY ==
--- NOTE | 2019-11-28 13:12 | HMH.PAINSOAP ---
[facility] Pain Management SOAP Note Subjective:: Patient is a pleasant 54-year-old white female who is following up today via telehealth medicine. This encounter was performed as telemedicine. The visit was performed via a secure to a video and audio to minimize risk and transmission of COVID19. Patient understands limitations of telemedicine visits which include inability to check reflexes, possibly missing subtle findings on the physical exam. Alternative options were presented to the patient and the patient did elect to proceed with the visit. The patient and I specifically discussed risk factors for COVID19. These risks include, but are not limited to age greater than 60, heart or lung disease, diabetes, immunosuppression, and travel. We also discussed NSAIDs may worsen COVID19 infection or symptoms. Patient should not use NSAIDs to treat COVID19 signs or symptoms. Patient was also informed that any type of corticosteroid of any form (oral or injection) will decrease the patient's immune system response and may increase the likelihood of COVID19 infection and symptoms. Patient is following up today for medication refills. At last visit, the patient was reportedly seeking treatment with a maxillofacial surgeon for possible surgical intervention of jaw pain. Patient says she did undergo surgery, and is slowly getting relief. She does report to still have some tinnitus in her right ear. Patient is being treated with our clinic for degenerative disc disease lumbar spine with lumbar radiculopathy symptoms. Patient does take [place] 7.5 mg 1 tablet p.o. 3 times daily. She denies any side effects to the medication. She also takes Lyrica 75 mg 1 tablet p.o. twice daily. She denies any side effects from medication. Her Angel #[id number] has been reviewed and is appropriate. Her urine drug screens have been appropriate. Her morphine equivalent is 23. Review of Systems General: No recent weight changes, no fever, no sleep disturbances Respiratory: No cough, no shortness of air, no recurring pulmonary infections Cardiovascular/peripheral vascular: No chest pain, no palpitations, no edema, no shortness of breath Gastrointestinal: No new onset incontinence, normal bowel movements reported Genitourinary: No new onset incontinence Musculoskeletal: Low back pain Psychiatric: Normal mood/affect Neurological: [Denies weakness in extremities], [denies balance issues] Objective:: Constitutional: Healthy appearing, well-developed, alert and oriented, no acute distress noted Psychiatric: Judgment and insight intact. Mood normal, affect appropriate Head: Normocephalic, atraumatic, extraocular movement intact Respiratory: Nonlabored, non-dyspneic Cardiovascular: No cyanosis, no clubbing, no edema observed Skin: Head and neck, no lesions or rashes noted. 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 Patient has been instructed to contact clinic if she has any before her next appointment. Dr. Dennis has reviewed this note and agrees with this plan of care. This note was dictated using voice recognition software and make contain errors or omissions. [facility] History I have reviewed the patient's past medical history: Yes *Have you ever received a pneumonia vaccine?: Yes *Have you received a flu vaccine this season?: Yes - *Social History *Occupational Status:: other *Travel in the last 8 weeks: None Family Hx:: Non-contributory
== END ==
PROVIDERS: Visit Provider Clinical Nurse Specialist Family Health
DX: M51.16 Intervertebral disc disorders with radiculopathy, lumbar region (principal)
CPT/HCPCS: 99212

== ENCOUNTER → 2020-03-02 11:30 | Outpatient (POV) | payer OTHER, SELFPAY ==
--- NOTE | 2020-03-02 12:15 | HMH.PAINSOAP ---
[facility] Pain Management SOAP Note Subjective:: Patient is a pleasant 55-year-old white female who we are following up with today. Patient is currently being medically managed with [place] 7.5 mg 1 tab p.o. 3 times daily and Lyrica 75 mg 1 p.o. twice daily. She denies side effects from medication. [facility] #[id number] reviewed and appropriate. Patient did receive some medication from her dentist. She has had quite a bit of surgery and will be returning on the to see [facility] for potential breaking and readjustment of her jaw. Her current morphine equivalent is 23. Patient's pain medication is mostly for her lower back. It does benefit her. ROS General: no recent weight change, no fever, no sleep disturbances Respiratory: no cough, no shortness of air, no recurring pulmonary infections Cardiovascular/Peripheral Vascular: No chest pain, No palpitations, no edema, no shortness of breath. Gastrointestinal: no new onset incontinence, normal bowel movements reported Genitourinary: no new onset incontinence Musculoskeletal: Mouth pain, jaw pain, back pain Psychiatric: normal mood/ affect Neurological: [denies new onset weakness in extremities], [denies new onset balance issues] Objective:: Physical Exam General: Alert and oriented x3, no acute distress, pleasant and cooperative, [on room air] Lungs: Resps E/U, Symmetrical chest expansion, Eyes: PERRL Musculoskeletal: Flexion and extension of lumbar spine somewhat guarded secondary to pain, deep tendon reflexes normal, strength in upper and lower extremities [5/5], normal gait noted Neurological: speech clear, laborer aquatic life equal, no gross sensory deficits Assessment:: Degenerative disc disease lumbar spine lumbar radiculopathy Plan:: We will continue her [place] 7.5 mg 1 p.o. 3 times daily and Lyrica 75 mg 1 p.o. twice daily. We will give her 2 months with medication see her back in 2 months reassess her symptoms at that time she has been instructed to call the office if she has any issues prior to her next appointment. Dr. Dennis has reviewed this note and agrees with this plan of care. This note was dictated using voice recognition software and may contain errors or omissions [facility] History I have reviewed the patient's past medical history: Yes *Have you ever received a pneumonia vaccine?: Yes *Have you received a flu vaccine this season?: Yes - *Social History *Occupational Status:: other *Travel in the last 8 weeks: None Family Hx:: Non-contributory
== END ==
PROVIDERS: PCP Nurse Practitioner Family; Visit Provider Clinical Nurse Specialist Family Health
DX: M51.16 Intervertebral disc disorders with radiculopathy, lumbar region (principal)
CPT/HCPCS: 99212

== ENCOUNTER → 2020-05-25 10:58 | Outpatient (POV) | payer OTHER, SELFPAY ==
[2020-05-25 11:10] VITALS: BP 125/88; PULSE 79; RESP 18; TEMP 36.8; O2SAT 98; BMI 21.7
--- NOTE | 2020-05-25 11:50 | P.CONS_ITS ---
[facility] Pain Management SOAP Note Subjective:: Pleasant 55-year-old white female who we are following up with today. She is currently being medically managed with [place] 7.5 mg 1 p.o. 3 times daily. She is also on Lyrica 75 mg 1 p.o. twice daily. She is currently undergoing treatment for jaw pain. Patient is currently going to have her have a breaking and readjustment of her jaw. Her current morphine equivalent is 23. Zamzam reviewed and appropriate. Zamzam #[id number] reviewed. ROS General: no recent weight change, no fever, no sleep disturbances Respiratory: no cough, no shortness of air, no recurring pulmonary infections Cardiovascular/Peripheral Vascular: No chest pain, No palpitations, no edema, no shortness of breath. Gastrointestinal: no new onset incontinence, normal bowel movements reported Genitourinary: no new onset incontinence Musculoskeletal: Back pain, leg pain mouth pain, jaw pain Psychiatric: normal mood/ affect. Neurological: [denies new onset weakness in extremities], [denies new onset balance issues] Objective:: Physical Exam General: Alert and oriented x3, no acute distress, pleasant and cooperative, [on room air] Lungs: Resps E/U, Symmetrical chest expansion, Eyes: PERRL Musculoskeletal: Flexion and extension of lumbar spine somewhat guarded secondary to pain, deep tendon reflexes normal, strength in upper and lower extremities [5/5], [abnormal gait noted] Neurological: speech clear, event organizer equal, no gross sensory deficits Assessment:: Degenerative disc disease lumbar spine with lumbar radiculopathy Plan:: We will continue her [place] 7.5 mg 1 p.o. 3 times daily and Lyrica 75 mg 1 p.o. twice daily. Patient will be seen back in 3 months reassess at that time she has been instructed to call the office if she has any issues prior to her next appointment. Dr. Dennis has reviewed this note and agrees with this plan of care. This note was dictated using voice recognition software and may contain errors or omissions Patient has been prescribed a controlled substance after being counseled on the medication, medication safety, and possible side effects. ZAMZAM report has been obtained and reviewed prior to prescription and found to be appropriate. Opioid contract was reviewed and signed by the patient, and that they have agreed to all of the terms set forth by our compliance program. [facility] History I have reviewed the patient's past medical history: Yes *Have you ever received a pneumonia vaccine?: Yes *Have you received a flu vaccine this season?: Yes - *Social History *Occupational Status:: other *Travel in the last 8 weeks: None Family Hx:: Non-contributory
== END ==
PROVIDERS: PCP Nurse Practitioner Family; Visit Provider Clinical Nurse Specialist Family Health
DX: M51.16 Intervertebral disc disorders with radiculopathy, lumbar region (principal)
CPT/HCPCS: 99212

== ENCOUNTER → 2020-08-31 09:46 | Outpatient (POV) | payer OTHER, SELFPAY ==
--- NOTE | 2020-08-31 09:57 | HMH.VVPMSO ---
[facility] PM Virtual Visit SOAP Consent for virtual visit:: With the recent concerns about the COVID-19, we are trying to minimize exposure to you by shifting to telehealth appointments whenever possible. It restricts me from seeing you in person, but the trade off is protecting you during this pandemic. Can you see and hear me okay, and do you consent to this option? If not, I would be happy to see if we can reschedule your appointment in the future, when feasible. Has patient consented to this virtual visit?: Yes Subjective:: Patient is a pleasant 55-year-old white female who presents today for virtual visit. Patient currently being medically managed with [place] 7.5 mg 1 p.o. 3 times daily and Lyrica 75 mg 1 p.o. twice daily. Patient's Zamzam reviewed per [facility]. Patient appropriate. Current morphine equivalent is 23. Patient was unable to make her appointment due to her son being currently hospitalized at . Patient rates her pain today 4 out of 10. She still having difficulty with her jaw. ROS General: no recent weight change, no fever, no sleep disturbances Respiratory: no cough, no shortness of air, no recurring pulmonary infections Cardiovascular/Peripheral Vascular: No chest pain, No palpitations, no edema, no shortness of breath. Gastrointestinal: no new onset incontinence, normal bowel movements reported Genitourinary: no new onset incontinence Musculoskeletal: Back pain, leg pain, mouth pain, jaw pain Psychiatric: normal mood/ affect Neurological: [denies new onset weakness in extremities], [denies new onset balance issues] Objective:: Physical exam: Constitutional: Healthy appearing, well-developed, alert, in no acute distress Psychiatric: Judgment and insight intact, Alert and oriented x4 Mood and affect: Mood normal, affect appropriate Head and face: Inspection: Normocephalic atraumatic, extraocular movement intact Respiratory: Breathing nonlabored, nondyspneic Cardiovascular: No cyanosis, clubbing, or edema observed Skin: Head and neck: Skin with no lesions or rash observed Gait: Able to walk without assistive device: Able to heel and toe walk Neurologic: Sensation grossly intact per patient Musculoskeletal: Decreased range of motion lumbar spine noted Assessment:: Degenerative disc disease lumbar spine lumbar radiculopathy and back pain Plan:: We will continue her Erwin 7.5 mg 1 p.o. 3 times daily and Lyrica 75 mg 1 p.o. twice daily. Patient will be back in 3 months and reassess at that time. She has been instructed to call the office if she has any issues prior to her next appointment. Patient has been prescribed a controlled substance after being counseled on the medication, medication safety, and possible side effects. ZAMZAM report has been obtained and reviewed prior to prescription and found to be appropriate. Opioid contract was reviewed and signed by the patient, and that they have agreed to all of the terms set forth by our compliance program. This encounter was performed as a telemedicine visit via secure 2 way video and audio to minimize risk and transmission of Covid-19. The patient and we understand the limitations of a telemedicine visit including inability to check reflexes, possibly missing subtle findings on physical exam. Alternative options were presented to the patient and the patient elected to proceed with the visit. Dr. Dennis has reviewed this patient's chart and this note and agrees with plan of care. Patient has been instructed to call the office if they have any issues prior to the next appointment. Time In:: 09:50 Time Out:: 10:00 [facility] History I have reviewed the patient's past medical history: Yes *Have you ever received a pneumonia vaccine?: Yes *Have you received a flu vaccine this season?: Yes - *Social History *Occupational Status:: other *Travel in the last 8 weeks: None Family Hx:: Non-contributory
== END ==
PROVIDERS: Visit Provider Clinical Nurse Specialist Family Health
DX: M51.16 Intervertebral disc disorders with radiculopathy, lumbar region (principal)
CPT/HCPCS: 99212; G0463

== ENCOUNTER → 2020-12-03 14:43 | Outpatient (POV) | payer OTHER, SELFPAY ==
[2020-12-03 14:59] VITALS: BP 135/82; PULSE 78; RESP 18; O2SAT 97; BMI 24.2
--- NOTE | 2020-12-03 16:04 | HMH.PAINSOAP ---
[facility] Pain Management SOAP Note Subjective:: Patient is a 55-year-old white female who presents today for follow-up and for medication refills. She has been treated for degenerative disc disease lumbar spine with lumbar radiculopathy symptoms. 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 She is managed with [place] 7.5 mg 1 tablet p.o. 3 times daily and Lyrica 75 mg 1 tablet p.o. twice daily. She denies any side effects to the medication. The patient's Zamzam and drug screens have been appropriate. She does rate her pain a 7 out of 10. Review of Systems General: No recent weight changes, no fever, no sleep disturbances Respiratory: No cough, no shortness of air, no recurring pulmonary infections Cardiovascular/peripheral vascular: No chest pain, no palpitations, no edema, no shortness of breath Gastrointestinal: No new onset incontinence, normal bowel movements reported Genitourinary: No new onset incontinence Musculoskeletal: Chronic low back pain Psychiatric: Normal mood/affect Neurological: [Denies weakness in extremities], [denies balance issues] Objective:: Physical exam General: Alert and oriented x3, no acute distress, pleasant and cooperative, [on room air] Lungs: Respirations even and unlabored, symmetrical chest expansion Eyes: PERRL Musculoskeletal: Flexion and extension of lumbar spine somewhat guarded secondary to pain, deep tendon reflexes normal, strength in upper and lower extremities [5/5], [abnormal gait noted] Neurological: Speech clear, brick layer equal, no gross sensory deficit Assessment:: Degenerative disc disease lumbar spine with lumbar radiculopathy symptoms Plan:: We will refill the patient's [place] 7.5 mg 1 tablet p.o. 3 times daily and Lyrica 75 mg 1 tablet p.o. twice daily. We discussed a month of Skelaxin to try for her musculoskeletal pain. We will plan to see her back in the clinic in 3 months for reevaluation of symptoms. We will give her a month of medication. She will need to contact clinic for her second and third months. Patient has been prescribed a controlled substance after being counseled on the medication, medication safety, and possible side effects. ZAMZAM report has been obtained and reviewed prior to prescription and found to be appropriate. Opioid contract was reviewed and signed by the patient, and that they have agreed to all of the terms set forth by our compliance program. Risks and benefits of the medication have been explained in detail to the patient. The patient has been advised to consult with his/her primary care provider and pharmacist regarding drug-drug interaction of medications currently prescribed. Patient has been instructed to contact the clinic with any concerns before the next appointment. Dr. Dennis has reviewed this note and agrees with this plan of care. This note was dictated using voice recognition software and make contain errors or omissions. [facility] History I have reviewed the patient's past medical history: Yes *Have you ever received a pneumonia vaccine?: No *Have you received a flu vaccine this season?: No - *Social History Smoking Status: Never smoker Alcohol Intake: never *Occupational Status:: unemployed *Travel in the last 8 weeks: None Family Hx:: Non-contributory
== END ==
PROVIDERS: Visit Provider Clinical Nurse Specialist Family Health
DX: M51.16 Intervertebral disc disorders with radiculopathy, lumbar region (principal)
CPT/HCPCS: 99212; G0463

== ENCOUNTER → 2021-02-01 13:47 | Outpatient (POV) | payer OTHER, SELFPAY ==
[2021-02-01 14:01] VITALS: BP 114/67; PULSE 66; RESP 18; O2SAT 95; BMI 21.9
--- NOTE | 2021-02-01 14:01 | P.CONS_ITS ---
[facility] Pain Management SOAP Note Subjective:: Patient is a pleasant 55-year-old white female who presents today for follow-up and medication refills. She is currently being treated for degenerative disc disease of the lumbar spine with lumbar radiculopathy. She is rating her pain today a 4 out of 10. She denies any changes to the location or type of pain today. She is currently managed with [place] 7.51 tablet p.o. 3 times a day and Lyrica 75 mg 1 tablet p.o. twice daily. She states that sometimes the medication does make her feel nauseous. She tries to take the medication with food. She has not been prescribed Zofran in the past to help with her nausea. Her Angel number is [phone] she has an active morphine equivalent of 23 her previous drug screens have been reviewed and appropriate. Review of Systems General: No recent weight changes, no fever, no sleep disturbances Respiratory: No cough, no shortness of air, no recurring pulmonary infections Cardiovascular/peripheral vascular: No chest pain, no palpitations, no edema, no shortness of breath Gastrointestinal: No new onset incontinence, normal bowel movements reported Genitourinary: No new onset incontinence Musculoskeletal: Low back pain Psychiatric: [Normal mood/affect] Neurological: [Denies weakness in extremities], [denies balance issues] Objective:: Physical exam General: Alert and oriented x3 no acute distress, pleasant and cooperative, [on room air] Lungs: Respirations even and unlabored, symmetrical chest expansion Eyes: PERRL Musculoskeletal: Flexion and extension of the lumbar spine nonguarded, deep tendon reflexes normal, strength in upper and lower extremities 5 out of 5 normal gait noted Neurological: Speech clear, gem expert equal, no gross sensory deficit Assessment:: Degenerative disc disease lumbar spine with lumbar radiculopathy Plan:: We will provide the patient with 1 month worth of Lyrica 75 mg twice daily and [place] 7.5/325 3 times a day. We will need to see the patient back in 1 month for follow-up and medication refills. She is welcome to contact the clinic if she has any questions or concerns prior to her next appointment date. Dr. Dennis has reviewed this note and agrees with this plan of care. This note was dictated using voice recognition software and make contain errors or omissions. [facility] History *Have you ever received a pneumonia vaccine?: No *Have you received a flu vaccine this season?: No - *Social History Smoking Status: Never smoker Alcohol Intake: never *Occupational Status:: unemployed *Travel in the last 8 weeks: None Family Hx:: Non-contributory
== END ==
PROVIDERS: Visit Provider Family Medicine
DX: M51.16 Intervertebral disc disorders with radiculopathy, lumbar region (principal)
CPT/HCPCS: 99212; G0463

== ENCOUNTER → 2021-03-04 12:29 | Outpatient (POV) | payer OTHER, SELFPAY ==
--- NOTE | 2021-03-04 12:45 | P.CONS_ITS ---
[facility] Pain Management SOAP Note Subjective:: Patient is a 56-year-old white female who presents today for medication refills. She has been treated for degenerative disc disease lumbar spine with lumbar radiculopathy symptoms. Her pain score 3 out of 10 today. 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 She reports that she, along with her mother and son had Covid approximately 3 weeks ago. The symptoms have subsided. She is managed with [place] 7.5 mg 1 tablet p.o. 3 times daily and Lyrica 75 mg 1 tablet p.o. twice daily. She does get significant relief with her medication regimen. She says that it helps her to be able to care for her son. She is treated for low back pain with pain into her lower extremities. Review of Systems General: No recent weight changes, no fever, no sleep disturbances Respiratory: No cough, no shortness of air, no recurring pulmonary infections Cardiovascular/peripheral vascular: No chest pain, no palpitations, no edema, no shortness of breath Gastrointestinal: No new onset incontinence, normal bowel movements reported Genitourinary: No new onset incontinence Musculoskeletal: [] Low back pain with radiation into bilateral legs Psychiatric: [Normal mood/affect] Neurological: [Denies weakness in extremities], [denies balance issues] Objective:: Physical exam General: Alert and oriented x3, no acute distress, pleasant and cooperative, [on room air] Lungs: Respirations even and unlabored, symmetrical chest expansion Eyes: PERRL Musculoskeletal: Flexion and extension of [] lumbar [spine] somewhat guarded secondary to pain, strength in upper and lower extremities [5/5], [antalgic gait noted] Neurological: Speech clear, [group leader wafer polishing equal], no gross sensory deficit Assessment:: Degenerative disc disease lumbar spine with lumbar radiculopathy symptoms Plan:: We will refill the patient's [place] 7.5 mg 1 tablet p.o. 3 times daily and Lyrica 75 mg 1 tablet p.o. twice daily. Patient's Zamzam #[id number] has been reviewed and is appropriate. Drug screen is appropriate. Morphine equivalent is 23. Patient will get a month medication will be seen back in the clinic in 1 month. Risks and benefits of the medication have been explained in detail to the patient. The patient has been advised to consult with his/her primary care provider and pharmacist regarding drug-drug interaction of medications currently prescribed. Patient has been prescribed a controlled substance after being counseled on the medication, medication safety, and possible side effects. ZAMZAM report has been obtained and reviewed prior to prescription and found to be appropriate. Opioid contract was reviewed and signed by the patient, and that they have agreed to all of the terms set forth by our compliance program. Patient has been instructed to contact the clinic with any concerns before the next appointment. Dr. Dennis has reviewed this note and agrees with this plan of care. This note was dictated using voice recognition software and make contain errors or omissions. [facility] History I have reviewed the patient's past medical history: Yes *Have you ever received a pneumonia vaccine?: No *Have you received a flu vaccine this season?: No - *Social History Smoking Status: Never smoker Alcohol Intake: never *Occupational Status:: unemployed *Travel in the last 8 weeks: None Family Hx:: Non-contributory
[2021-03-04 12:55] VITALS: BP 125/56; PULSE 78; RESP 18; O2SAT 96; BMI 21.9
== END ==
PROVIDERS: Visit Provider Clinical Nurse Specialist Family Health
DX: M51.16 Intervertebral disc disorders with radiculopathy, lumbar region (principal)
CPT/HCPCS: 99212; G0463

== ENCOUNTER → 2021-04-01 13:24 | Outpatient (POV) | payer OTHER, SELFPAY ==
[2021-04-01 13:41] VITALS: BP 117/70; PULSE 85; RESP 18; O2SAT 95; BMI 21.9
--- NOTE | 2021-04-01 14:14 | HMH.PAINSOAP ---
[facility] Pain Management SOAP Note Subjective:: Patient is a pleasant 56-year-old female who presents today for medication refills. Patient rates her pain a 2 out of 10. She is doing well overall with her medication regimen. She does continue to have low back pain and does do heavy lifting throughout the day. She takes care of her son who is quadriplegic. She is managed with Victor 7.5 mg 1 tablet p.o. 3 times daily and Lyrica 75 mg 1 tablet p.o. twice daily. Patient will undergo a drug screen today. She denies any side effects to the medicine. Zamzam #[id number] has been reviewed and is appropriate. Morphine equivalent is 23. Review of Systems General: No recent weight changes, no fever, no sleep disturbances Respiratory: No cough, no shortness of air, no recurring pulmonary infections Cardiovascular/peripheral vascular: No chest pain, no palpitations, no edema, no shortness of breath Gastrointestinal: No new onset incontinence, normal bowel movements reported Genitourinary: No new onset incontinence Musculoskeletal: Chronic low back pain Psychiatric: [Normal mood/affect] Neurological: [Denies weakness in extremities], [denies balance issues] Objective:: Physical exam General: Alert and oriented x3, no acute distress, pleasant and cooperative, [on room air] Lungs: Respirations even and unlabored, symmetrical chest expansion Eyes: PERRL Musculoskeletal: Flexion and extension of lumbar [spine] somewhat guarded secondary to pain, strength in upper and lower extremities [5/5], [antalgic gait noted] Neurological: Speech clear, [pbx technician equal], no gross sensory deficit Assessment:: Degenerative disc disease lumbar spine with lumbar radiculopathy symptoms Plan:: We will refill the patient's Lyrica 75 mg 1 tablet p.o. twice daily and Victor 7.5 mg 1 tablet p.o. 3 times daily. Patient will get a month medication will be seen back in the clinic in 1 month for reevaluation of symptoms. Risks and benefits of the medication have been explained in detail to the patient. The patient has been advised to consult with his/her primary care provider and pharmacist regarding drug-drug interaction of medications currently prescribed. Patient has been prescribed a controlled substance after being counseled on the medication, medication safety, and possible side effects. ZAMZAM report has been obtained and reviewed prior to prescription and found to be appropriate. Opioid contract was reviewed and signed by the patient, and that they have agreed to all of the terms set forth by our compliance program. Patient has been instructed to contact the clinic with any concerns before the next appointment. Dr. Dennis has reviewed this note and agrees with this plan of care. This note was dictated using voice recognition software and make contain errors or omissions. [facility] History I have reviewed the patient's past medical history: Yes *Have you ever received a pneumonia vaccine?: No *Have you received a flu vaccine this season?: No - *Social History Smoking Status: Never smoker Alcohol Intake: never *Occupational Status:: unemployed *Travel in the last 8 weeks: None Family Hx:: Non-contributory
[2021-04-01 15:09] LABS: Amphetamine/Metha Screen,Urine Negative ng/ml (<1000)
[2021-04-01 15:11] LABS: Barbiturates Screen,Urine Negative ng/ml (<200); Benzodiazepines Screen,Urine Negative ng/ml (<200)
[2021-04-01 15:12] LABS: Cannabinoid Screen,Urine Negative ng/ml (<50)
[2021-04-01 15:13] LABS: Cocaine Screen,Urine Negative ng/ml (<300); Methadone Screen,Urine Negative ng/ml (<300)
[2021-04-01 15:14] LABS: Opiate Screen,Urine Positive ng/ml (<300)
[2021-04-01 15:15] LABS: Phencyclidine Screen,Urine Negative ng/ml (<25)
[2021-04-13 15:38] LABS: Codeine Negative (Cutoff=100); Hydrocodone Positive (.); Hydrocodone Confirm 723 ng/mL (Cutoff=100); Hydromorphone Negative (Cutoff=100); Morphine Negative (Cutoff=100); Opiates Positive (.)
== END ==
PROVIDERS: Visit Provider Clinical Nurse Specialist Family Health
DX: M51.16 Intervertebral disc disorders with radiculopathy, lumbar region (principal)
CPT/HCPCS: 80305; 80361; 99212; G0463; G0480

== ENCOUNTER → 2021-04-29 13:59 | Outpatient (POV) | payer OTHER, SELFPAY ==
[2021-04-29 14:24] VITALS: BP 125/68; PULSE 74; RESP 18; O2SAT 95; BMI 21.9
--- NOTE | 2021-05-03 07:55 | HMH.PAINSOAP ---
[facility] Pain Management SOAP Note Subjective:: Patient is a 56-year-old white female who presents today for medication refills. The patient is having significantly increased pain into her low back area. She does heavy lifting throughout the day. She does care for her quadriplegic son who is nearly 300 pounds. She is his sole caregiver. She says that she is feeling worse pain in her low back area. She does rate her pain at 7 out of 10. The patient is managed with [place] 7.51 tablet p.o. 3 times daily and Lyrica 75 mg 1 tablet p.o. twice daily. She denies any side effects to the medicine. The Zamzam and drug screen are appropriate. Patient says the pain does go into her bilateral lower extremities causing extremities along with pain into her lower extremities. Review of Systems General: No recent weight changes, no fever, no sleep disturbances Respiratory: No cough, no shortness of air, no recurring pulmonary infections Cardiovascular/peripheral vascular: No chest pain, no palpitations, no edema, no shortness of breath Gastrointestinal: No new onset incontinence, normal bowel movements reported Genitourinary: No new onset incontinence Musculoskeletal: Low back pain with radiation into bilateral lower extremities Psychiatric: [Normal mood/affect] Neurological: [Denies weakness in extremities], [denies balance issues] Objective:: Physical exam General: Alert and oriented x3, no acute distress, pleasant and cooperative Lungs: Respirations even and unlabored, symmetrical chest expansion Eyes: PERRL Musculoskeletal: Flexion and extension of lumbar [spine] somewhat guarded secondary to pain, [antalgic gait noted] Neurological: Speech clear, no gross sensory deficit Assessment:: Degenerative disc disease lumbar spine with lumbar radiculopathy symptoms Plan:: Patient and I did discuss increasing her medication today. We will increase her [place] to 7.5 mg 1 tablet p.o. 4 times daily and Lyrica will stay at 75 mg 1 tablet p.o. twice daily. We will give the patient a month medication plan to see her back in the clinic in 1 month for reevaluation of symptoms. Risks and benefits of the medication have been explained in detail to the patient. The patient does understand the risk of dependence on the medication when given over a prolonged period. Patient has been advised of risks of oversedation with the prescribed medication. Narcan has been offered to the paitent in the event of oversedation. Patient has been advised that a family member should also be educated regarding administration of Narcan. The patient has been advised to consult with his/her primary care provider and pharmacist regarding drug-drug interaction of medications currently prescribed. Patient has been prescribed a controlled substance after being counseled on the medication, medication safety, and possible side effects. ZAMZAM report has been obtained and reviewed prior to prescription and found to be appropriate. Opioid contract was reviewed and signed by the patient, and that they have agreed to all of the terms set forth by our compliance program. Patient has been instructed to contact the clinic with any concerns before the next appointment. Dr. Dennis has reviewed this note and agrees with this plan of care. This note was dictated using voice recognition software and make contain errors or omissions. [facility] History I have reviewed the patient's past medical history: Yes *Have you ever received a pneumonia vaccine?: No *Have you received a flu vaccine this season?: No - *Social History Smoking Status: Never smoker Alcohol Intake: never *Occupational Status:: unemployed *Travel in the last 8 weeks: None Family Hx:: Non-contributory
== END ==
PROVIDERS: Visit Provider Clinical Nurse Specialist Family Health
DX: M51.16 Intervertebral disc disorders with radiculopathy, lumbar region (principal)
CPT/HCPCS: 99212; G0463

== ENCOUNTER → 2021-06-03 14:44 | Outpatient (POV) | payer OTHER, SELFPAY ==
[2021-06-03 14:56] VITALS: BP 173/74; PULSE 89; RESP 18; O2SAT 97; BMI 21.9
--- NOTE | 2021-06-03 15:06 | HMH.PAINSOAP ---
[facility] Pain Management SOAP Note Subjective:: Patient is a 56-year-old white female who presents today for medication refills. She is treated for continued low back pain. We have the patient on [place] 7.5 mg 1 tablet p.o. 4 times daily and Lyrica 75 mg 1 tablet p.o. twice daily. She is reported to have significant constipation. She has tried MiraLAX, Mylanta, as well as senna stool softeners. She is got minimal relief. She says that the severe constipation is causing her to have worsening low back pain. Today, she rates her pain a 6 out of 10. She says she does have a history of IBS in her 20s. She does say that she does have opiate-induced constipation as well. Review of Systems General: No recent weight changes, no fever, no sleep disturbances Respiratory: No cough, no shortness of air, no recurring pulmonary infections Cardiovascular/peripheral vascular: No chest pain, no palpitations, no edema, no shortness of breath Gastrointestinal: No new onset incontinence, severe constipation Genitourinary: No new onset incontinence Musculoskeletal: Low back pain with radiation into bilateral lower extremities Psychiatric: [Normal mood/affect] Neurological: [Denies weakness in extremities], [denies balance issues] Objective:: Physical exam General: Alert and oriented x3, no acute distress, pleasant and cooperative Lungs: Respirations even and unlabored, symmetrical chest expansion Eyes: PERRL Musculoskeletal: Flexion and extension of lumbar [spine] somewhat guarded secondary to pain, [antalgic gait noted] Neurological: Speech clear, no gross sensory deficit Assessment:: Degenerative disc disease lumbar spine with lumbar radiculopathy symptoms, opiate-induced constipation Plan:: We will continue the patient's [place] 7.5 mg 1 tablet p.o. 4 times daily, Lyrica 75 mg 1 tablet p.o. twice daily, and Movantik 12.5 mg 1 tablet p.o. daily. We will see her back in a month for further evaluation. She plans to ask for GI consult with her primary care provider next week with her follow-up with him. Risks and benefits of the medication have been explained in detail to the patient. The patient does understand the risk of dependence on the medication when given over a prolonged period. Patient has been advised of risks of oversedation with the prescribed medication. Narcan has been offered to the paitent in the event of oversedation. Patient has been advised that a family member should also be educated regarding administration of Narcan. The patient has been advised to consult with his/her primary care provider and pharmacist regarding drug-drug interaction of medications currently prescribed. Patient has been prescribed a controlled substance after being counseled on the medication, medication safety, and possible side effects. ZAMZAM report has been obtained and reviewed prior to prescription and found to be appropriate. Opioid contract was reviewed and signed by the patient, and that they have agreed to all of the terms set forth by our compliance program. Patient has been instructed to contact the clinic with any concerns before the next appointment. Dr. Dennis has reviewed this note and agrees with this plan of care. This note was dictated using voice recognition software and make contain errors or omissions. [facility] History I have reviewed the patient's past medical history: Yes *Have you ever received a pneumonia vaccine?: No *Have you received a flu vaccine this season?: Yes - *Social History Smoking Status: Never smoker Alcohol Intake: never *Occupational Status:: unemployed *Travel in the last 8 weeks: None Family Hx:: Non-contributory
[2021-06-03 15:57] LABS: Amphetamine/Metha Screen,Urine Negative ng/ml (<1000)
[2021-06-03 15:58] LABS: Barbiturates Screen,Urine Negative ng/ml (<200); Benzodiazepines Screen,Urine Negative ng/ml (<200)
[2021-06-03 15:59] LABS: Cannabinoid Screen,Urine Negative ng/ml (<50)
[2021-06-03 16:00] LABS: Cocaine Screen,Urine Negative ng/ml (<300); Methadone Screen,Urine Negative ng/ml (<300)
[2021-06-03 16:01] LABS: Opiate Screen,Urine Positive ng/ml (<300); Phencyclidine Screen,Urine Negative ng/ml (<25)
== END ==
PROVIDERS: Visit Provider Clinical Nurse Specialist Family Health
DX: M51.16 Intervertebral disc disorders with radiculopathy, lumbar region (principal); K59.03 Drug induced constipation; T40.605A Adverse effect of unspecified narcotics, initial encounter
CPT/HCPCS: 80305; 99212; G0463

== ENCOUNTER → 2021-07-08 10:47 | Outpatient (POV) | payer OTHER, SELFPAY ==
--- NOTE | 2021-07-08 10:53 | HMH.VVPMSO ---
[facility] PM Virtual Visit SOAP Consent for virtual visit:: With the recent concerns about the COVID-19, we are trying to minimize exposure to you by shifting to telehealth appointments whenever possible. It restricts me from seeing you in person, but the trade off is protecting you during this pandemic. Can you see and hear me okay, and do you consent to this option? If not, I would be happy to see if we can reschedule your appointment in the future, when feasible. Has patient consented to this virtual visit?: Yes Subjective:: Patient is a 56-year-old white female who is following up today via telehealth. Due to weather, we have rescheduled patient for telehealth visit today. Patient is treated in the clinic with oral medications. She does have chronic low back pain. She cares for her paraplegic son at home who is morbidly obese. She does have significant pain that goes into her lower extremities as well. We do manage the patient with [place] 7.5 mg 1 tablet p.o. 4 times daily, Lyrica 75 mg 1 tablet p.o. twice daily. She does also have severe constipation that is opiate induced. She takes [id number] medications with MiraLAX daily, Mylanta and stool softeners. She is got minimal relief. We did order Movantik for the patient, but the medication was denied by her insurance. The patient's PCP did order her Trulance which she says gave her excellent results, but was also denied by insurance. She has been seen a Cologuard test home by her insurance company. The patient says that the constipation does worsen her pain to the low back area. She has tried [id number] remedies with minimal relief. Today, the patient rates her pain a 6 out of 10. This is baseline for the patient. The patient is currently in her home, provider is in clinic setting. Review of Systems General: No recent weight changes, no fever, no sleep disturbances Respiratory: No cough, no shortness of air, no recurring pulmonary infections Cardiovascular/peripheral vascular: No chest pain, no palpitations, no edema, no shortness of breath Gastrointestinal: No new onset incontinence, normal bowel movements reported Genitourinary: No new onset incontinence Musculoskeletal: Low back pain with radiation into bilateral lower extremities Psychiatric: [Normal mood/affect] Neurological: [Denies weakness in extremities], [denies balance issues] Objective:: Physical exam General: Alert and oriented x3, no acute distress, pleasant and cooperative Assessment:: Degenerative disc disease lumbar spine with lumbar radiculopathy symptoms Plan:: We will continue the patient on [place] 7.5 mg 1 tablet p.o. 4 times daily and Lyrica 75 mg 1 tablet p.o. twice daily. She is consulting with her PCP to get approval from her insurance for CONEXANCE MD which helped her tremendously with her constipation patient symptoms. We will follow-up with patient in 1 month for further evaluation medication refill. Zamzam #[id number] has been reviewed and is appropriate. Morphine equivalent is 30. Drug screen is appropriate. Risks and benefits of the medication have been explained in detail to the patient. The patient does understand the risk of dependence on the medication when given over a prolonged period. Patient has been advised of risks of oversedation with the prescribed medication. Narcan has been offered to the paitent in the event of oversedation. Patient has been advised that a family member should also be educated regarding administration of Narcan. The patient has been advised to consult with his/her primary care provider and pharmacist regarding drug-drug interaction of medications currently prescribed. Patient has been prescribed a controlled substance after being counseled on the medication, medication safety, and possible side effects. ZAMZAM report has been obtained and reviewed prior to prescription and found to be appropriate. Opioid contract was reviewed and sign
== END ==
PROVIDERS: Visit Provider Clinical Nurse Specialist Family Health
DX: M51.16 Intervertebral disc disorders with radiculopathy, lumbar region (principal)
CPT/HCPCS: 99212; G0463

== ENCOUNTER → 2021-08-05 07:52 | Outpatient (POV) | payer OTHER, SELFPAY ==
--- NOTE | 2021-08-05 09:12 | HMH.VVPMSO ---
[facility] Virtual Visit SOAP Consent for virtual visit:: With the recent concerns about the COVID-19, we are trying to minimize exposure to you by shifting to telehealth appointments whenever possible. It restricts me from seeing you in person, but the trade off is protecting you during this pandemic. Can you see and hear me okay, and do you consent to this option? If not, I would be happy to see if we can reschedule your appointment in the future, when feasible. Has patient consented to this virtual visit?: Yes Subjective:: Patient is a 56-year-old white female who is following up via telehealth medicine by phone call today. We are doing telehealth visit due to weather conditions medically. Patient is managed with oral medications for chronic low back pain with lumbar radicular symptoms. She take care of her paraplegic son at home. She does do all care for him with heavy lifting throughout the day. We do manage the patient with [place] 7.5 mg 1 tablet p.o. 4 times daily and Lyrica 75 mg 1 tablet p.o. twice daily. She denies any side effects and is doing well with the medicines. She gets up to 60% relief with the medicines. Zamzam's and drug screens have been appropriate. Review of Systems General: No recent weight changes, no fever, no sleep disturbances Respiratory: No cough, no shortness of air, no recurring pulmonary infections Cardiovascular/peripheral vascular: No chest pain, no palpitations, no edema, no shortness of breath Gastrointestinal: No new onset incontinence, normal bowel movements reported Genitourinary: No new onset incontinence Musculoskeletal: Chronic low back pain Psychiatric: [Normal mood/affect] Neurological: [Denies weakness in extremities], [denies balance issues] Objective:: Physical exam General: Alert and oriented x3, no acute distress, pleasant and cooperative Assessment:: Degenerative disc disease lumbar spine with lumbar radiculopathy symptoms Plan:: We will continue the patient's [place] 7.5 mg 1 tablet p.o. 4 times daily and Lyrica 75 mg 1 tablet p.o. twice daily. We will give the patient a month medication she will be seen back in the clinic in 1 month. Risks and benefits of the medication have been explained in detail to the patient. The patient does understand the risk of dependence on the medication when given over a prolonged period. Patient has been advised of risks of oversedation with the prescribed medication. Narcan has been offered to the paitent in the event of oversedation. Patient has been advised that a family member should also be educated regarding administration of Narcan. The patient has been advised to consult with his/her primary care provider and pharmacist regarding drug-drug interaction of medications currently prescribed. Patient has been prescribed a controlled substance after being counseled on the medication, medication safety, and possible side effects. ZAMZAM report has been obtained and reviewed prior to prescription and found to be appropriate. Opioid contract was reviewed and signed by the patient, and that they have agreed to all of the terms set forth by our compliance program. Patient has been instructed to contact the clinic with any concerns before the next appointment. Dr. Dennis has reviewed this note and agrees with this plan of care. This note was dictated using voice recognition software and make contain errors or omissions. Time In:: 09:05 Time Out:: 09:18 [facility] History I have reviewed the patient's past medical history: Yes *Have you ever received a pneumonia vaccine?: No *Have you received a flu vaccine this season?: Yes - *Social History Smoking Status: Never smoker Alcohol Intake: never *Occupational Status:: unemployed *Travel in the last 8 weeks: None Family Hx:: Non-contributory
== END ==
PROVIDERS: Visit Provider Clinical Nurse Specialist Family Health
DX: M51.16 Intervertebral disc disorders with radiculopathy, lumbar region (principal)
CPT/HCPCS: 99212; G0463

== ENCOUNTER → 2021-09-13 11:42 | Outpatient (POV) | payer OTHER, SELFPAY ==
[2021-09-13 12:04] VITALS: BP 123/63; PULSE 71; RESP 20; TEMP 36.8; O2SAT 99; BMI 23.3
--- NOTE | 2021-09-13 12:17 | P.CONS_ITS ---
[facility] Pain Management SOAP Note Subjective:: This patient is a very pleasant 56-year-old white female who follows up in our clinic today for evaluation and medication refills. Patient is being managed with oral medications for chronic low back pain as well as lumbar radiculopathy symptoms. Patient has labor-intensive home life in regards to caring for her quadriplegic son. She continues each day with heavy lifting. We do manage her with [place] 7.5 mg 1 p.o. 4 times daily. Lyrica 75 mg 1 p.o. twice daily. She denies any side effects with the medications. She is getting 60 to 70% improvement with the medications. Angel and drug screens have been appropriate in the past. Objective:: Patient is awake alert oriented x3. No acute distress. Flexion-extension lumbar spine somewhat guarded secondary to pain. Deep tendon reflexes upper and lower extremities normal. Motor strength lumbar extremities normal. Gait is normal. Assessment:: Degenerative disc lumbar spine multilevels. Lumbar radiculopathy symptoms. Plan:: We will refill patient's medications as listed above. Patient also complaining of some right index finger pain. Discussed options of referral to orthopedic surgery. However, patient not interested at this time. Upon examination of the fingers she does have some point tenderness over the proximal knuckle. Otherwise full range of motion. She will return to see us in 1 month. [facility] History *Have you ever received a pneumonia vaccine?: No *Have you received a flu vaccine this season?: Yes - *Social History Smoking Status: Never smoker Alcohol Intake: never *Occupational Status:: other *Travel in the last 8 weeks: None Family Hx:: Non-contributory
[2021-09-13 16:58] LABS: Barbiturates Screen,Urine Negative ng/ml (<200)
[2021-09-13 16:59] LABS: Benzodiazepines Screen,Urine Negative ng/ml (<200); Cannabinoid Screen,Urine Negative ng/ml (<50)
[2021-09-13 17:00] LABS: Cocaine Screen,Urine Negative ng/ml (<300); Methadone Screen,Urine Negative ng/ml (<300)
[2021-09-13 17:02] LABS: Opiate Screen,Urine Negative ng/ml (<300); Phencyclidine Screen,Urine Negative ng/ml (<25)
[2021-09-13 17:15] LABS: Amphetamine/Metha Screen,Urine Negative ng/ml (<1000)
[2021-09-29 11:13] LABS: Opiates Negative (Cutoff=100)
== END ==
PROVIDERS: Visit Provider Nurse Anesthetist, Certified Registered
DX: M51.16 Intervertebral disc disorders with radiculopathy, lumbar region (principal)
CPT/HCPCS: 80305; 80361; 80365; 99212; G0463; G0480

== ENCOUNTER → 2021-10-14 13:33 | Outpatient (POV) | payer OTHER, SELFPAY ==
[2021-10-14 14:30] VITALS: BP 110/79; PULSE 72; RESP 18; TEMP 36.4; O2SAT 99; BMI 990.9
== END ==
PROVIDERS: Visit Provider Student in an Organized Health Care Education/Training Program
DX: M51.16 Intervertebral disc disorders with radiculopathy, lumbar region (principal)
CPT/HCPCS: 99212; G0463

== ENCOUNTER → 2021-10-14 14:09 | Outpatient (CLI) | payer OTHER, SELFPAY ==
--- NOTE | 2021-10-14 15:10 | P.CONS_ITS ---
[facility] Pain Management SOAP Note Subjective:: Patient is a pleasant 56-year-old female who is here for medication refill and follow-up. Patient is currently being treated for degenerative disc disease of the lumbar spine with lumbar radiculopathy symptoms. Patient is being managed with Lyrica 75 mg twice a day and [place] 7.5 mg 4 times a day. Patient denies any side effects from the medications. Patient denies any changes to the location and type of pain. Patient states that this is adequately helping manage their pain. Rates pain as 3 out of 10. Angel number [phone] with an active morphine equivalent 30. Drug screens have been reviewed and appropriate. Review of Systems: General: No recent weight changes, no fever, no sleep disturbances Respiratory: No cough, no shortness of air, no recurring pulmonary infections Cardiovascular/peripheral vascular: No chest pain, no palpitations, no edema, no shortness of breath Gastrointestinal: No new onset incontinence, normal bowel movements reported Genitourinary: No new onset incontinence Musculoskeletal: Low back pain Psychiatric: [Normal mood/affect] Neurological: [Denies weakness in extremities], [denies balance issues] Objective:: Physical Exam: General: Alert and oriented x3, no acute distress, pleasant and cooperative, [on room air] Lungs: Respirations even and unlabored, symmetrical chest expansion Eyes: PERRL Musculoskeletal: Flexion and extension of lumbar [spine] somewhat guarded secondary to pain, [antalgic gait noted] Neurological: Speech clear, no gross sensory deficit Assessment:: Degenerative disc disease of lumbar spine with lumbar radiculopathy symptoms Plan:: We will continue the patient's Lyrica 75 mg twice a day and [place] 7.5 mg 4 times a day. We will provide the patient with 1 month of refills. We would like to see the patient back in 1 month for follow-up and reevaluation of chronic pain syndrome. Patient has been advised of risks of oversedation with the prescribed medication. Narcan has been offered to the patient in the event of oversedation. Patient has been advised that a family member should also be educated regarding administration of Narcan. Patient has been instructed to contact the clinic with any concerns before the next appointment. Dr. Dennis has reviewed this note and agrees with this plan of care. This note was dictated using voice recognition software and make contain errors or omissions. [facility] History *Have you ever received a pneumonia vaccine?: No *Have you received a flu vaccine this season?: Yes - *Social History Smoking Status: Never smoker Alcohol Intake: never *Occupational Status:: employed *Travel in the last 8 weeks: Inside the [facility] Family Hx:: Non-contributory
[2021-10-14 17:32] LABS: Barbiturates Screen,Urine Negative ng/ml (<200)
[2021-10-14 17:33] LABS: Benzodiazepines Screen,Urine Negative ng/ml (<200)
[2021-10-14 17:34] LABS: Amphetamine/Metha Screen,Urine Negative ng/ml (<1000); Cannabinoid Screen,Urine Negative ng/ml (<50)
[2021-10-14 17:35] LABS: Cocaine Screen,Urine Negative ng/ml (<300)
[2021-10-14 17:36] LABS: Methadone Screen,Urine Negative ng/ml (<300); Opiate Screen,Urine Positive ng/ml (<300)
[2021-10-14 17:37] LABS: Phencyclidine Screen,Urine Negative ng/ml (<25)
[2021-10-28 22:08] LABS: Codeine Negative (Cutoff=100); Hydrocodone Positive (.); Hydromorphone Negative (Cutoff=100); Morphine Negative (Cutoff=100); Opiates Positive (.)
== END ==
PROVIDERS: Visit Provider Student in an Organized Health Care Education/Training Program
DX: Z79.891 Long term (current) use of opiate analgesic (principal)
CPT/HCPCS: 80305; 80361; 80365; G0480

== ENCOUNTER → 2021-11-11 14:40 | Outpatient (POV) | payer OTHER, SELFPAY ==
[2021-11-11 15:16] VITALS: BP 126/74; PULSE 66; RESP 18; TEMP 36.9; O2SAT 95; BMI 22.6
--- NOTE | 2021-11-11 15:57 | P.CONS_ITS ---
[facility] Pain Management SOAP Note Subjective:: Patient is a pleasant 56-year-old female who is here for medication refill and follow-up. Patient is currently being treated for degenerative disc disease of the lumbar spine with lumbar radiculopathy symptoms. Patient is being managed with Lyrica 75 mg twice a day and [employer] 7.5 mg 4 times a day. Patient denies any side effects from the medications. Patient denies any changes to the location and type of pain. Patient states that this is adequately helping manage their pain. Rates pain as 4 out of 10. [facility] number [id number] with an active morphine equivalent 30. Drug screens have been reviewed and appropriate. Review of Systems: General: No recent weight changes, no fever, no sleep disturbances Respiratory: No cough, no shortness of air, no recurring pulmonary infections Cardiovascular/peripheral vascular: No chest pain, no palpitations, no edema, no shortness of breath Gastrointestinal: No new onset incontinence, normal bowel movements reported Genitourinary: No new onset incontinence Musculoskeletal: Low back pain Psychiatric: [Normal mood/affect] Neurological: [Denies weakness in extremities], [denies balance issues] Objective:: Physical Exam: General: Alert and oriented x3, no acute distress, pleasant and cooperative Lungs: Respirations even and unlabored, symmetrical chest expansion Eyes: PERRL Musculoskeletal: Flexion and extension of lumbar [spine] somewhat guarded secondary to pain, [antalgic gait noted] Neurological: Speech clear, no gross sensory deficit Assessment:: Degenerative disc disease of lumbar spine with lumbar radiculopathy symptoms Plan:: We will continue the patient's [employer] 7.5 mg 4 times a day and Lyrica 75 mg twice a day. We will provide the patient with 1 month of refills. We would like to see the patient back in 1 month for follow-up and reevaluation of chronic pain syndrome. Patient has been advised of risks of oversedation with the prescribed medication. Narcan has been offered to the patient in the event of oversedation. Patient has been advised that a family member should also be educated regarding administration of Narcan. Patient has been instructed to contact the clinic with any concerns before the next appointment. Dr. Dennis has reviewed this note and agrees with this plan of care. This note was dictated using voice recognition software and make contain errors or omissions. [facility] History *Have you ever received a pneumonia vaccine?: No *Have you received a flu vaccine this season?: Yes - *Social History Smoking Status: Never smoker Alcohol Intake: never *Occupational Status:: employed *Travel in the last 8 weeks: None Family Hx:: Non-contributory
== END ==
PROVIDERS: Visit Provider Student in an Organized Health Care Education/Training Program
DX: M51.16 Intervertebral disc disorders with radiculopathy, lumbar region (principal)
CPT/HCPCS: 99212; G0463

== ENCOUNTER → 2021-12-16 12:46 | Outpatient (POV) | payer OTHER, SELFPAY ==
[2021-12-16 13:04] VITALS: BP 121/79; PULSE 75; RESP 20; TEMP 37.1; O2SAT 97; BMI 21.9
--- NOTE | 2021-12-16 15:04 | HMH.PAINSOAP ---
[facility] Pain Management SOAP Note Subjective:: Patient is a pleasant 56-year-old female who is here for medication refill and follow-up. Patient is currently being treated for degenerative disc disease of lumbar spine with lumbar radiculopathy symptoms. Patient is being managed with Lyrica 75 mg twice a day and [place] 7.5 mg 4 times a day. Patient denies any side effects from the medications. Patient denies any changes to the location and type of pain. Patient states that this is adequately helping manage their pain. Rates pain as 6 out of 10. [facility] number [id number] with an active morphine equivalent 30. Drug screens have been reviewed and appropriate. Review of Systems: General: No recent weight changes, no fever, no sleep disturbances Respiratory: No cough, no shortness of air, no recurring pulmonary infections Cardiovascular/peripheral vascular: No chest pain, no palpitations, no edema, no shortness of breath Gastrointestinal: No new onset incontinence, normal bowel movements reported Genitourinary: No new onset incontinence Musculoskeletal: Low back pain Psychiatric: [Normal mood/affect] Neurological: [Denies weakness in extremities], [denies balance issues] Objective:: Physical Exam: General: Alert and oriented x3, no acute distress, pleasant and cooperative Lungs: Respirations even and unlabored, symmetrical chest expansion Eyes: PERRL Musculoskeletal: Flexion and extension of lumbar [spine] somewhat guarded secondary to pain, [antalgic gait noted] Neurological: Speech clear, no gross sensory deficit Assessment:: Degenerative disease of lumbar spine with lumbar radiculopathy symptoms Plan:: We will continue the patient's [place] 7.5 mg 4 times a day and Lyrica 75 mg twice a day. We will provide the patient with 1 month of refills. We would like to see the patient back in 1 month for follow-up and reevaluation of chronic pain syndrome. Patient has been advised of risks of oversedation with the prescribed medication. Narcan has been offered to the patient in the event of oversedation. Patient has been advised that a family member should also be educated regarding administration of Narcan. Patient has been instructed to contact the clinic with any concerns before the next appointment. Dr. Dennis has reviewed this note and agrees with this plan of care. This note was dictated using voice recognition software and make contain errors or omissions. [facility] History *Have you ever received a pneumonia vaccine?: No *Have you received a flu vaccine this season?: Yes - *Social History Smoking Status: Never smoker Alcohol Intake: never *Occupational Status:: other *Travel in the last 8 weeks: None Family Hx:: Non-contributory
== END ==
PROVIDERS: Visit Provider Student in an Organized Health Care Education/Training Program
DX: M51.16 Intervertebral disc disorders with radiculopathy, lumbar region (principal)
CPT/HCPCS: 99212; G0463

== ENCOUNTER → 2022-01-25 13:49 | Outpatient (POV) | payer OTHER, SELFPAY ==
--- NOTE | 2022-01-25 14:01 | HMH.PAINSOAP ---
[facility] Pain Management SOAP Note Subjective:: This patient is a pleasantHe is Currently being managed with Dilaudid 5 mg/mL patient is a pleasant 56-year-old female who presents today for medication refill and follow-up. We are currently treating the patient for degenerative disc disease of lumbar spine with lumbar radiculopathy symptoms. She is being managed with Lyrica 75 mg twice a day and [place] 7.5 mg 4 times a day. Patient denies any side effects from these medications. Today she rates her pain a 8 out of 10. She states her pain is in her lower back and describes it as a throbbing sensation. She states her medicine does adequately help manage this pain however today she may have overdone it helping her quadriplegic son this morning. She denies any change in the location or type of pain. Patient's Angel is [phone]. It has been reviewed and is appropriate. Review of Systems: General: No recent weight changes, no fever, no sleep disturbances Respiratory: No cough, no shortness of air, no recurring pulmonary infections Cardiovascular/peripheral vascular: No chest pain, no palpitations, no edema, no shortness of breath Gastrointestinal: No new onset incontinence, normal bowel movements reported Genitourinary: No new onset incontinence Musculoskeletal: Low back pain Psychiatric: [Normal mood/affect] Neurological: [Denies weakness in extremities], [denies balance issues] Objective:: Physical Exam: General: Alert and oriented x3, no acute distress, pleasant and cooperative Lungs: Respirations even and unlabored, symmetrical chest expansion Eyes: PERRL Musculoskeletal: Flexion and extension of lumbar [spine] somewhat guarded secondary to pain, [antalgic gait noted] Neurological: Speech clear, no gross sensory deficit Assessment:: Degenerative disease of lumbar spine with lumbar radiculopathy symptoms Plan:: Plan: Patient is having significant pain at today's visit, however she states this is not a normal occurrence. We will continue the patient's [place] 7.5 mg 4 times a day and Lyrica 75 mg twice a day. We will provide the patient with 1 month of refills. Patient will return to clinic in 1 month for follow-up and medication refill. Patient has been advised of risks of oversedation with the prescribed medication. Narcan has been offered to the patient in the event of oversedation. Patient has been advised that a family member should also be educated regarding administration of Narcan. Patient has been instructed to contact the clinic with any concerns before the next appointment. Dr. Dennis has reviewed this note and agrees with this plan of care. This note was dictated using voice recognition software and make contain errors or omissions. [facility] History I have reviewed the patient's past medical history: Yes *Have you ever received a pneumonia vaccine?: No *Have you received a flu vaccine this season?: Yes - *Social History Smoking Status: Never smoker Alcohol Intake: never *Occupational Status:: other *Travel in the last 8 weeks: Inside the [facility] Family Hx:: Non-contributory
[2022-01-25 14:15] VITALS: BP 134/81; PULSE 71; RESP 18; TEMP 36.8; O2SAT 100; BMI 21.9
== END ==
PROVIDERS: Visit Provider Nurse Anesthetist, Certified Registered
DX: M51.16 Intervertebral disc disorders with radiculopathy, lumbar region (principal)
CPT/HCPCS: 99212; G0463

== ENCOUNTER → 2022-02-28 14:37 | Outpatient (POV) | payer OTHER, SELFPAY ==
[2022-02-28 14:50] VITALS: BP 136/84; PULSE 79; RESP 20; TEMP 36.9; O2SAT 97; BMI 21.1
--- NOTE | 2022-02-28 14:56 | A.OFFVIS_ITS ---
[facility] Pain Management SOAP Note Subjective:: Patient is a pleasant 57-year-old female who presents today for follow-up and medication refill. We are currently treating the patient for degenerative disc disease of lumbar spine with lumbar radiculopathy symptoms. Today she rates her pain a 3 out of 10 and states the pain is primarily in her low back. She states that this is a aching, throbbing sensation that is worse with increased activity. 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 She is currently managed with Lyrica 75 mg twice a day and [place] 7.5 mg 4 times a day. Patient denies any side effects from this medication. She states these medications are providing adequate pain relief. Patient does have medication for constipation as needed. Her Angel is [phone]. Its been reviewed and appropriate. Review of Systems: General: No recent weight changes, no fever, no sleep disturbances Respiratory: No cough, no shortness of air, no recurring pulmonary infections Cardiovascular/peripheral vascular: No chest pain, no palpitations, no edema, no shortness of breath Gastrointestinal: No new onset incontinence, normal bowel movements reported Genitourinary: No new onset incontinence Musculoskeletal: Low back pain Psychiatric: [Normal mood/affect] Neurological: [Denies weakness in extremities], [denies balance issues] Objective:: Physical Exam: General: Alert and oriented x3, no acute distress, pleasant and cooperative Lungs: Respirations even and unlabored, symmetrical chest expansion Eyes: PERRL Musculoskeletal: Flexion and extension of lumbar [spine] somewhat guarded seco ndary to pain, [antalgic gait noted] Neurological: Speech clear, no gross sensory deficit Assessment:: Degenerative disc disease of lumbar spine with lumbar radiculopathy symptoms Plan:: Patient continues to have significant pain in her low back with increased activity. I will refill the patient's [place] 7.5 mg 4 times a day and Lyrica 75 mg twice a day. I will provide the patient with a 1 month supply of these medications. Patient will return to clinic in 1 month for follow-up, medication refill and reevaluation of symptoms. Patient has been instructed to contact the clinic with any concerns before the next appointment. Dr. Dennis has reviewed this note and agrees with this plan of care. This note was dictated using voice recognition software and make contain errors or omissions. PFSH PFSH Social History Smoking Status: Never smoker alcohol intake: never current occupational status: other Travel in the last 8 weeks: None
== END | disposition home or self-care (01) ==
PROVIDERS: PCP Nurse Practitioner Family; Visit Provider Nurse Practitioner Family
DX: M51.16 Intervertebral disc disorders with radiculopathy, lumbar region (principal)
CPT/HCPCS: 99212; G0463

== ENCOUNTER → 2022-03-31 13:50 | Outpatient (POV) | payer OTHER, SELFPAY ==
--- NOTE | 2022-03-31 13:57 | EXP.PAIN.SOA ---
[facility] Pain Management SOAP Note Subjective:: Patient is a pleasant 57-year-old female who presents today for medication refill and follow-up. We are currently treating the patient for degenerative disc disease of lumbar spine with lumbar radiculopathy symptoms. Today she rates her pain a 7 out of 10. She states the pain is in her low back. She describes this as a aching, throbbing sensation that is worse with increased activity. 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 Patient is currently managed with Lyrica 75 mg twice a day and [place] 7.5 mg 4 times a day. Patient denies any side effects from these medications. She states these medications do adequately treat her pain. Her Angel is [phone]. It has been reviewed and appropriate. Review of Systems: General: No recent weight changes, no fever, no sleep disturbances Respiratory: No cough, no shortness of air, no recurring pulmonary infections Cardiovascular/peripheral vascular: No chest pain, no palpitations, no edema, no shortness of breath Gastrointestinal: No new onset incontinence, normal bowel movements reported Genitourinary: No new onset incontinence Musculoskeletal: Low back pain Psychiatric: [Normal mood/affect] Neurological: [Denies weakness in extremities], [denies balance issues] Objective:: Physical Exam: General: Alert and oriented x3, no acute distress, pleasant and cooperative Lungs: Respirations even and unlabored, symmetrical chest expansion Eyes: PERRL Musculoskeletal: Flexion and extension of lumbar [spine] somewhat guarded secondary to pain, [antalgic gait noted] Neurological: Speech clear, no gross sensory deficit Assessment:: Degenerative disc disease of lumbar spine with lumbar radiculopathy symptoms Plan:: Patient continues to have significant pain in her low back however it is managed with the current medication regimen. I will refill the patient's Lyrica 75 mg twice a day and [place] 7.5 mg 4 times a day and provide a 1 month supply of this medication. Patient will return to clinic in 1 month for follow-up, reevaluation of symptoms and medication refill. Patient has been advised of risks of oversedation with the prescribed medication. Narcan has been offered to the patient in the event of oversedation. Patient has been advised that a family member should also be educated regarding administration of Narcan. Patient has been instructed to contact the clinic with any concerns before the next appointment. Dr. Dennis has reviewed this note and agrees with this plan of care. This note was dictated using voice recognition software and make contain errors or omissions. PFSH PFSH Social History Smoking Status: Never smoker alcohol intake: never current occupational status: other Travel in the last 8 weeks: None
[2022-03-31 14:00] VITALS: BP 125/76; PULSE 77; RESP 18; TEMP 36.7; O2SAT 96; BMI 21.1
== END | disposition home or self-care (01) ==
PROVIDERS: Visit Provider Nurse Practitioner Family
DX: M51.16 Intervertebral disc disorders with radiculopathy, lumbar region (principal); Z79.899 Other long term (current) drug therapy
CPT/HCPCS: 99212; G0463

== ENCOUNTER → 2022-04-25 13:41 | Outpatient (POV) | payer OTHER, SELFPAY ==
[2022-04-25 13:48] VITALS: BP 129/77; PULSE 77; RESP 18; TEMP 36.9; O2SAT 98; BMI 21.9
--- NOTE | 2022-04-25 13:53 | A.OFFVIS_ITS ---
[facility] Pain Management SOAP Note Subjective:: Patient is a pleasant 57-year-old female who who presents today for medication refill and follow-up. We are currently treating the patient for degenerative disc disease of lumbar spine with lumbar radiculopathy symptoms. Today she rates her pain a 3 out of 10. She states the pain is in her low back and describes it as a aching throbbing sensation that is worse with increased activity. Patient denies any new trauma or or injury. Patient denies any change in location or type of pain she experiences. Patient is very active and has a quadriplegic son at home that she takes care of and requires frequent lifting. Patient is currently managed with pregabalin 75 mg twice a day and [place] 7.5 mg 4 times a day. Patient denies any side effects from this medication. She states these medications do adequately manage her pain symptoms. She is requesting refill at today's visit. Her Angel is [phone] with a morphine equivalent of 30. It has been reviewed and appropriate. Review of Systems: General: No recent weight changes, no fever, no sleep disturbances Respiratory: No cough, no shortness of air, no recurring pulmonary infections Cardiovascular/peripheral vascular: No chest pain, no palpitations, no edema, no shortness of breath Gastrointestinal: No new onset incontinence, normal bowel movements reported Genitourinary: No new onset incontinence Musculoskeletal: Low back pain Psychiatric: [Normal mood/affect] Neurological: [Denies weakness in extremities], [denies balance issues] Objective:: Physical Exam: General: Alert and oriented x3, no acute distress, pleasant and cooperative Lungs: Respirations even and unlabored, symmetrical chest expansion Eyes: PERRL Musculoskeletal: Flexion and extension of lumbar [spine] somewhat guarded secondary to pain, [antalgic gait noted] Neurological: Speech clear, no gross sensory deficit Assessment:: Degenerative disc disease lumbar spine with lumbar radiculopathy symptoms Plan:: Patient continues to have pain in her low back however she is managed well with her current medication regimen. I will refill the patient's pregabalin 75 mg twice a day and [place] 7.5 mg 4 times a day and provide a 1 month supply of this medication. Patient will return to clinic in 1 month for reevaluation of symptoms, medication refill and follow-up. Patient has been advised of risks of oversedation with the prescribed medication. Narcan has been offered to the patient in the event of oversedation. Patient has been advised that a family member should also be educated regarding administration of Narcan. Patient has been instructed to contact the clinic with any concerns before the next appointment. Dr. Dennis has reviewed this note and agrees with this plan of care. This note was dictated using voice recognition software and make contain errors or omissions. PFSH PFSH Social History Smoking Status: Never smoker alcohol intake: never current occupational status: unemployed Travel in the last 8 weeks: None
== END | disposition home or self-care (01) ==
PROVIDERS: Visit Provider Nurse Practitioner Family
DX: M51.16 Intervertebral disc disorders with radiculopathy, lumbar region (principal); Z79.899 Other long term (current) drug therapy
CPT/HCPCS: 99212; G0463

== ENCOUNTER → 2022-04-25 14:02 | Outpatient (CLI) | payer OTHER, SELFPAY ==
[2022-04-25 16:12] LABS: Amphetamine/Metha Screen,Urine Negative ng/ml (<1000)
[2022-04-25 16:14] LABS: Barbiturates Screen,Urine Negative ng/ml (<200); Benzodiazepines Screen,Urine Negative ng/ml (<200)
[2022-04-25 16:15] LABS: Cannabinoid Screen,Urine Negative ng/ml (<50)
[2022-04-25 16:20] LABS: Cocaine Screen,Urine Negative ng/ml (<300)
[2022-04-25 16:22] LABS: Methadone Screen,Urine Negative ng/ml (<300); Opiate Screen,Urine Positive ng/ml (<300)
[2022-04-25 16:23] LABS: Phencyclidine Screen,Urine Negative ng/ml (<25)
[2022-05-03 12:02] LABS: Codeine Negative (Cutoff=100); Hydrocodone Positive (.); Hydromorphone Negative (Cutoff=100); Morphine Negative (Cutoff=100); Opiates Positive (.)
== END ==
PROVIDERS: PCP Nurse Practitioner Family; Visit Provider Nurse Practitioner Family
DX: Z79.891 Long term (current) use of opiate analgesic (principal)
CPT/HCPCS: 80305; 80361; 80365; G0480

== ENCOUNTER → 2022-06-20 14:05 | Outpatient (POV) | payer OTHER, SELFPAY ==
[2022-06-20 14:35] VITALS: BP 106/62; PULSE 71; RESP 18; O2SAT 96; BMI 21.1
--- NOTE | 2022-06-20 15:51 | A.OFFVIS_ITS ---
[facility] Pain Management SOAP Note Subjective:: Patient is a pleasant 57 year-old female who is here for medication refill and follow-up. Patient is currently being treated for degenerative disease of lumbar spine with lumbar radiculopathy symptoms. Patient is being managed with Lyrica 75 mg twice a day and [place] 7.5 mg 4 times a day. Patient denies any side effects from the medications. Patient denies any changes to the location and type of pain. Patient states that this is adequately helping manage their pain. She does take care of her quadriplegic son at home. Rates pain as 7 out of 10. [facility] number [phone] with an active morphine equivalent 30. Drug screens have been reviewed and appropriate. Review of Systems: General: No recent weight changes, no fever, no sleep disturbances Respiratory: No cough, no shortness of air, no recurring pulmonary infections Cardiovascular/peripheral vascular: No chest pain, no palpitations, no edema, no shortness of breath Gastrointestinal: No new onset incontinence, normal bowel movements reported Genitourinary: No new onset incontinence Musculoskeletal: Low back pain Psychiatric: [Normal mood/affect] Neurological: [Denies weakness in extremities], [denies balance issues] Objective:: Physical Exam: General: Alert and oriented x3, no acute distress, pleasant and cooperative Lungs: Respirations even and unlabored, symmetrical chest expansion Eyes: PERRL Musculoskeletal: Flexion and extension of lumbar [spine] somewhat guarded s econdary to pain, [antalgic gait noted] Neurological: Speech clear, no gross sensory deficit Assessment:: Degenerative disc disease of lumbar spine with lumbar radiculopathy symptoms Plan:: We will continue the patient's Lyrica 75 mg twice a day and [place] 7.5 mg 4 times a day. We will provide the patient with 1 month of refills. We would like to see the patient back in 1 month for follow-up and reevaluation of chronic pain syndrome. Patient has been advised of risks of oversedation with the prescribed medication. Narcan has been offered to the patient in the event of oversedation. Patient has been advised that a family member should also be educated regarding administration of Narcan. Patient has been instructed to contact the clinic with any concerns before the next appointment. Dr. Dennis has reviewed this note and agrees with this plan of care. This note was dictated using voice recognition software and make contain errors or omissions. [facility] Disclaimer: The information contained in this section may have been updated after the patient was seen, as this information can be updated by other users. Social History Smoking Status: Never smoker alcohol intake: never current occupational status: unemployed Travel in the last 8 weeks: None
--- NOTE | 2022-06-20 15:54 | EXP.PAIN.SOA ---
[facility] Pain Management SOAP Note Subjective:: Patient is a pleasant 49-year-old female who PFSH PFSH Disclaimer: The information contained in this section may have been updated after the patient was seen, as this information can be updated by other users. Social History Smoking Status: Never smoker alcohol intake: never current occupational status: other Travel in the last 8 weeks: None
== END | disposition home or self-care (01) ==
PROVIDERS: Visit Provider Student in an Organized Health Care Education/Training Program
DX: M51.16 Intervertebral disc disorders with radiculopathy, lumbar region (principal)
CPT/HCPCS: 99212; G0463

== ENCOUNTER → 2022-08-01 14:57 | Outpatient (POV) | payer OTHER, SELFPAY ==
--- NOTE | 2022-08-01 15:37 | A.OFFVIS_ITS ---
[facility] Pain Management SOAP Note Subjective:: Patient is a pleasant 57-year-old female who presents today for medication refill and follow-up. We are currently treating the patient for degenerative disc disease of lumbar spine with lumbar radiculopathy symptoms. Today she rates her pain a 2 out of 10. Patient does state that she has been experiencing burning sensations in her right lower lumbar area over the last several months and has forgotten to tell us at prior visits. Patient states this is unrelated to any specific trauma or injury. Patient states it is random when she experiences this pain. Patient states initially she did think she was coming down with shingles however it never progressed any further and did go away h owever it has continued to flareup occasionally. Patient is currently managed with [place] 7.5 mg 4 times a day and pregabalin 75 mg twice a day. Patient denies any side effects from these medications. She states these medications do help manage her pain symptoms. Patient is requesting refills at today's visit. Her Angel is [phone]. Its been reviewed and appropriate. Review of Systems: General: No recent weight changes, no fever, no sleep disturbances Respiratory: No cough, no shortness of air, no recurring pulmonary infections Cardiovascular/peripheral vascular: No chest pain, no palpitations, no edema, no shortness of breath Gastrointestinal: No new onset incontinence, normal bowel movements reported Genitourinary: No new onset incontinence Musculoskeletal: Low back pain Psychiatric: [Normal mood/affect] Neurological: [Denies weakness in extremities], [denies balance issues] Objective:: Physical Exam: General: Alert and oriented x3, no acute distress, pleasant and cooperative Lungs: Respirations even and unlabored, symmetrical chest expansion Eyes: PERRL Musculoskeletal: Flexion and extension of lumbar [spine] somewhat guarded secondary to pain, [antalgic gait noted] Neurological: Speech clear, no gross sensory deficit ORT score updated with low risk Assessment:: Degenerative disc disease of lumbar spine with lumbar radiculopathy symptoms Plan:: Patient continues to experience significant pain in her low back with limited range of motion. I will refill the patient's pregabalin 75 mg twice a day and [place] 7.5 mg 4 times a day and provide a 1 month supply of this medication. I will order the patient a compounding cream at today's visit. Patient will return to clinic in 1 month for reevaluation of symptoms, medication refill and follow-up. Patient has been advised of risks of oversedation with the prescribed medication. Narcan has been offered to the patient in the event of oversedation. Patient has been advised that a family member should also be educated regarding administration of Narcan. Patient has been instructed to contact the clinic with any concerns before the next appointment. Dr. Dennis has reviewed this note and agrees with this plan of care. This note was dictated using voice recognition software and make contain errors or omissions. [facility] Disclaimer: The information contained in this section may have been updated after the patient was seen, as this information can be updated by other users. Social History Smoking Status: Never smoker alcohol intake: never current occupational status: unemployed Travel in the last 8 weeks: None
[2022-08-01 16:13] VITALS: BP 132/44; PULSE 86; RESP 18; O2SAT 98; BMI 21.1
[2022-08-01 17:00] LABS: Amphetamine/Metha Screen,Urine Negative ng/ml (<1000)
[2022-08-01 17:01] LABS: Barbiturates Screen,Urine Negative ng/ml (<200); Benzodiazepines Screen,Urine Negative ng/ml (<200)
[2022-08-01 17:02] LABS: Cannabinoid Screen,Urine Negative ng/ml (<50)
[2022-08-01 17:03] LABS: Cocaine Screen,Urine Negative ng/ml (<300)
[2022-08-01 17:04] LABS: Methadone Screen,Urine Negative ng/ml (<300); Opiate Screen,Urine Positive ng/ml (<300)
[2022-08-01 17:05] LABS: Phencyclidine Screen,Urine Negative ng/ml (<25)
[2022-08-08 23:25] LABS: Codeine Negative (Cutoff=100); Hydrocodone Positive (.); Hydromorphone Negative (Cutoff=100); Morphine Negative (Cutoff=100); Opiates Positive (.)
== END | disposition home or self-care (01) ==
PROVIDERS: Visit Provider Nurse Practitioner Family
DX: M51.16 Intervertebral disc disorders with radiculopathy, lumbar region (principal); Z79.899 Other long term (current) drug therapy
CPT/HCPCS: 80305; 80361; 80365; 99212; G0463; G0480

== ENCOUNTER → 2022-08-29 12:49 | Outpatient (POV) | payer OTHER, SELFPAY ==
[2022-08-29 13:07] VITALS: BP 120/67; PULSE 66; RESP 18; O2SAT 98; BMI 22.6
--- NOTE | 2022-08-29 13:08 | A.OFFVIS_ITS ---
[facility] Pain Management SOAP Note Subjective:: Patient is a pleasant 57-year-old female who presents today for medication refill and follow-up. We are currently treating the patient for degenerative disc disease of lumbar spine with lumbar radiculopathy symptoms. Today she rates her pain a 2 out of 10. Patient denies any new trauma or injury. Patient denies any change location or or type of pain she experiences. Patient is currently managed with [place] 7.5 mg 4 times a day and pregabalin 75 mg twice a day. Patient denies any side effects from these medications. Her Angel is [phone]. Its been reviewed and appropriate. Review of Systems: General: No recent weight changes, no fever, no sleep disturbances Respiratory: No cough, no shortness of air, no recurring pulmonary infections Cardiovascular/peripheral vascular: No chest pain, no palpitations, no edema, no shortness of breath Gastrointestinal: No new onset incontinence, normal bowel movements reported Genitourinary: No new onset incontinence Musculoskeletal: Low back pain Psychiatric: [Normal mood/affect] Neurological: [Denies weakness in extremities], [denies balance issues] Objective:: Physical Exam: General: Alert and oriented x3, no acute distress, pleasant and cooperative Lungs: Respirations even and unlabored, symmetrical chest expansion Eyes: PERRL Musculoskeletal: Flexion and extension of lumbar [spine] somewhat guarded secondary to pain, [antalgic gait noted] Neurological: Speech clear, no gross sensory deficit Assessment:: Degenerative disc disease of lumbar spine with lumbar radiculopathy symptoms Plan:: Patient is doing well with her current medication regimen. I will refill her [place] 7.5 mg 4 times a day and pregabalin 75 mg twice a day and provide a 1 month supply of this medication. Patient will return to clinic in 1 month for reevaluation of symptoms, medication refill and follow-up. Patient has been advised of risks of oversedation with the prescribed medication. Narcan has been offered to the patient in the event of oversedation. Patient has been advised that a family member should also be educated regarding administration of Narcan. Patient has been instructed to contact the clinic with any concerns before the next appointment. Dr. Dennis has reviewed this note and agrees with this plan of care. This note was dictated using voice recognition software and make contain errors or omissions. [facility] Disclaimer: The information contained in this section may have been updated after the patient was seen, as this information can be updated by other users. Social History Smoking Status: Never smoker alcohol intake: never current occupational status: other Travel in the last 8 weeks: None
== END | disposition home or self-care (01) ==
PROVIDERS: Visit Provider Nurse Practitioner Family
DX: M51.16 Intervertebral disc disorders with radiculopathy, lumbar region (principal)
CPT/HCPCS: 99212; G0463

== ENCOUNTER → 2022-10-26 14:43 | Outpatient (POV) | payer OTHER, SELFPAY ==
--- NOTE | 2022-10-26 14:44 | A.OFFVIS_ITS ---
[facility] Pain Management SOAP Note Subjective:: Patient is a pleasant 57-year-old female who presents today for 1 month follow- up and medication refill.? We are currently treating the patient for degenerative disc disease of lumbar spine with lumbar radiculopathy symptoms.? Today she rates her pain a 2 out of 10.? Patient denies any new trauma or injury.? Patient denies any change location or or type of pain she experiences.? Patient states she continues to have low back pain with radiating symptoms into her legs. She does describe this as an aching, throbbing sensation that is worse with increased activity. She also states that she does think she may be getting some arthritis into her right hand but states she has no other complai nts today. Patient is currently managed with [place] 7.5 mg 4 times a day and pregabalin 75 mg twice a day.? Patient denies any side effects from these medications.? Her Angel is [phone].? Its been reviewed and appropriate. Review of Systems: General: No recent weight changes, no fever, no sleep disturbances Respiratory: No cough, no shortness of air, no recurring pulmonary infections Cardiovascular/peripheral vascular: No chest pain, no palpitations,? no edema, no shortness of breath Gastrointestinal: No new onset incontinence, normal bowel movements reported Genitourinary: No new onset incontinence Musculoskeletal: Low back pain Psychiatric: [Normal mood/affect] Neurological: [Denies weakness in extremities], [denies balance issues] Objective:: Physical Exam: General: Alert and oriented x3, no acute distress, pleasant and cooperative Lungs: Respirations even and unlabored, symmetrical chest expansion Eyes: PERRL Musculoskeletal: Flexion and extension of lumbar [spine] somewhat guarded secondary to pain, [antalgic gait noted] Neurological: Speech clear, no gross sensory deficit Assessment:: Degenerative disc disease of lumbar spine with lumbar radiculopathy symptoms Plan:: Patient is doing well with her current medication regimen. I will refill her [place] 7.5 mg 4 times a day and pregabalin 75 mg twice a day and provide a 1 month supply of this medication. Patient will return to clinic in 1 month for reevaluation of symptoms and medication refill. Patient has been advised of risks of oversedation with the prescribed medication. Narcan has been offered to the patient in the event of oversedation. Patient has been advised that a family member should also be educated regarding administration of Narcan. Patient has been instructed to contact the clinic with any concerns before the next appointment. Dr. Dennis has reviewed this note and agrees with this plan of care. This note was dictated using voice recognition software and make contain errors or omissions. [facility] Disclaimer: The information contained in this section may have been updated after the patient was seen, as this information can be updated by other users. Social History Smoking Status: Never smoker alcohol intake: never current occupational status: other Travel in the last 8 weeks: None
[2022-10-26 15:05] VITALS: BP 116/77; PULSE 73; RESP 18; O2SAT 97; BMI 21.9
== END | disposition home or self-care (01) ==
PROVIDERS: PCP Nurse Practitioner Family; Visit Provider Nurse Practitioner Family
DX: M51.16 Intervertebral disc disorders with radiculopathy, lumbar region (principal)
CPT/HCPCS: 99212; G0463

== ENCOUNTER → 2022-12-19 15:04 | Outpatient (POV) | payer OTHER, SELFPAY ==
--- NOTE | 2022-12-19 15:27 | A.OFFVIS_ITS ---
[facility] Pain Management SOAP Note Subjective:: Patient is a pleasant 57-year-old female who presents today for medication refill and follow-up. We are currently treating the patient for degenerative disc disease of lumbar spine with lumbar radiculopathy symptoms. Today she rates her pain a 3 out of 10. Patient denies any new trauma or injury. Patient denies any change location or type of pain she experiences. Patient is currently managed with pregabalin 75 mg twice a day and [place] 7.5 mg 4 times a day. Patient denies any side effects from this medication. She is requesting a refill at today's visit. Her Angel is [phone]. Its been reviewed and appropriate. Review of Systems: General: No recent weight changes, no fever, no sleep disturbances Respiratory: No cough, no shortness of air, no recurring pulmonary infections Cardiovascular/peripheral vascular: No chest pain, no palpitations, no edema, no shortness of breath Gastrointestinal: No new onset incontinence, normal bowel movements reported Genitourinary: No new onset incontinence Musculoskeletal: Low back pain Psychiatric: [Normal mood/affect] Neurological: [Denies weakness in extremities], [denies balance issues] Objective:: Physical Exam: General: Alert and oriented x3, no acute distress, pleasant and cooperative Lungs: Respirations even and unlabored, symmetrical chest expansion Eyes: PERRL Musculoskeletal: Flexion and extension of lumbar [spine] somewhat guarded secondary to pain, [antalgic gait noted] Neurological: Speech clear, no gross sensory deficit Assessment:: Degenerative disc disease of lumbar spine with lumbar radiculopathy symptoms Plan:: We will refill the patient's [place] 7.5 mg 4 times a day and pregabalin 75 mg twice a day and provide a 1 month supply of this medication. Patient will return to clinic in 1 month for reevaluation of symptoms and medication refill. Patient has been advised of risks of oversedation with the prescribed medication. Narcan has been offered to the patient in the event of oversedation. Patient has been advised that a family member should also be educated regarding administration of Narcan. Patient has been instructed to contact the clinic with any concerns before the next appointment. Dr. Dennis has reviewed this note and agrees with this plan of care. This note was dictated using voice recognition software and make contain errors or omissions. [facility] Disclaimer: The information contained in this section may have been updated after the patient was seen, as this information can be updated by other users. Social History Smoking Status: Never smoker alcohol intake: never current occupational status: other Travel in the last 8 weeks: None
[2022-12-19 15:42] VITALS: BP 131/63; PULSE 69; RESP 18; BMI 22.6
== END | disposition home or self-care (01) ==
PROVIDERS: Visit Provider Nurse Practitioner Family
DX: M51.16 Intervertebral disc disorders with radiculopathy, lumbar region (principal)
CPT/HCPCS: 99212; G0463

== ENCOUNTER → 2022-12-19 15:51 | Outpatient (CLI) | payer OTHER, SELFPAY ==
[2022-12-19 16:35] LABS: Barbiturates Screen,Urine Negative ng/ml (<200)
[2022-12-19 16:36] LABS: Benzodiazepines Screen,Urine Negative ng/ml (<200)
[2022-12-19 16:37] LABS: Amphetamine/Metha Screen,Urine Negative ng/ml (<1000); Methadone Screen,Urine Negative ng/ml (<300)
[2022-12-19 16:38] LABS: Cannabinoid Screen,Urine Negative ng/ml (<50)
[2022-12-19 16:39] LABS: Cocaine Screen,Urine Negative ng/ml (<300); Opiate Screen,Urine Positive ng/ml (<300)
[2022-12-19 16:40] LABS: Phencyclidine Screen,Urine Negative ng/ml (<25)
[2022-12-26 10:29] LABS: Codeine Negative (Cutoff=100); Hydrocodone Positive (.); Hydromorphone Negative (Cutoff=100); Morphine Negative (Cutoff=100); Opiates Positive (.)
== END ==
PROVIDERS: Nurse Practitioner Family; Visit Provider Anesthesiology
DX: Z79.891 Long term (current) use of opiate analgesic (principal)
CPT/HCPCS: 80305; 80361; 80365; G0480

== ENCOUNTER → 2023-01-16 15:26 | Outpatient (POV) | payer OTHER, SELFPAY ==
--- NOTE | 2023-01-16 15:28 | A.OFFVIS_ITS ---
[facility] Pain Management SOAP Note Subjective:: Patient is a pleasant 57-year-old female who presents today for 1 month follow- up and medication refill. We are currently treating the patient for degenerative disc disease of lumbar spine with lumbar radiculopathy symptoms. Today she rates her pain a 7 out of 10. Patient denies any new trauma or injury. Patient denies any change location or type of pain she experiences. Patient is currently managed with pregabalin 75 mg twice a day and [place] 7.5 mg 4 times a day. Patient denies any side effects from this medication. She is requesting a refill at today's visit. She is prescribed compounding cream that she states provides additional improvement. Her Angel is [phone]. Its been reviewed and appropriate. Review of Systems: General: No recent weight changes, no fever, no sleep disturbances Respiratory: No cough, no shortness of air, no recurring pulmonary infections Cardiovascular/peripheral vascular: No chest pain, no palpitations, no edema, no shortness of breath Gastrointestinal: No new onset incontinence, normal bowel movements reported Genitourinary: No new onset incontinence Musculoskeletal: Low back pain Psychiatric: [Normal mood/affect] Neurological: [Denies weakness in extremities], [denies balance issues] Objective:: Physical Exam: General: Alert and oriented x3, no acute distress, pleasant and cooperative Lungs: Respirations even and unlabored, symmetrical chest expansion Eyes: PERRL Musculoskeletal: Flexion and extension of lumbar [spine] somewhat guarded secondary to pain, [antalgic gait noted] Neurological: Speech clear, no gross sensory deficit Assessment:: Degenerative disc disease of lumbar spine with lumbar radiculopathy symptoms Plan:: I will refill the patient's pregabalin 75 mg twice a day and [place] 7.5 mg 4 times a day and provide a 1 month supply of this medication. Patient will return to clinic in 1 month for reevaluation of symptoms and medication refill. Patient has been advised of risks of oversedation with the prescribed medication. Narcan has been offered to the patient in the event of oversedation. Patient has been advised that a family member should also be educated regarding administration of Narcan. Patient has been instructed to contact the clinic with any concerns before the next appointment. Dr. Dennis has reviewed this note and agrees with this plan of care. This note was dictated using voice recognition software and make contain errors or omissions. [facility] Disclaimer: The information contained in this section may have been updated after the patient was seen, as this information can be updated by other users. Social History Smoking Status: Never smoker alcohol intake: never current occupational status: unemployed Travel in the last 8 weeks: None
[2023-01-16 15:30] VITALS: BP 135/71; PULSE 77; RESP 18; O2SAT 97; BMI 22.3
== END | disposition home or self-care (01) ==
PROVIDERS: Visit Provider Nurse Practitioner Family
DX: M51.16 Intervertebral disc disorders with radiculopathy, lumbar region (principal)
CPT/HCPCS: 99212; G0463

== ENCOUNTER → 2023-02-16 14:38 | Outpatient (POV) | payer OTHER, SELFPAY ==
--- NOTE | 2023-02-16 15:03 | A.OFFVIS_ITS ---
[facility] Pain Management SOAP Note Subjective:: Patient is a pleasant 57-year-old female who presents today for 1 month follow- up and medication refill. We are currently treating the patient for degenerative disc disease of lumbar spine with lumbar radiculopathy symptoms. Today she rates her pain a 4 out of 10. Patient denies any new trauma or injury. She does state that she continues to have low back pain however is doing well with her current medication regimen. Patient is currently managed with pregabalin 75 mg twice a day and [place] 7.5 mg 4 times a day. She denies any side effects from this medication. Her Angel is [phone]. Its been reviewed and appropriate. Review of Systems: General: No recent weight changes, no fever, no sleep disturbances Respiratory: No cough, no shortness of air, no recurring pulmonary infections Cardiovascular/peripheral vascular: No chest pain, no palpitations, no edema, no shortness of breath Gastrointestinal: No new onset incontinence, normal bowel movements reported Genitourinary: No new onset incontinence Musculoskeletal: Low back pain Psychiatric: [Normal mood/affect] Neurological: [Denies weakness in extremities], [denies balance issues] Objective:: Physical Exam: General: Alert and oriented x3, no acute distress, pleasant and cooperative Lungs: Respirations even and unlabored, symmetrical chest expansion Eyes: PERRL Musculoskeletal: Flexion and extension of lumbar [spine] somewhat guarded secondary to pain, [antalgic gait noted] Neurological: Speech clear, no gross sensory deficit Assessment:: Degenerative disc disease of lumbar spine with lumbar radiculopathy symptoms Plan:: I will refill the patient's pregabalin 75 mg twice a day and [place] 7.5 mg 4 times a day and provide a 1 month supply of this medication. Patient will return to clinic in 1 month for reevaluation of symptoms and plan of care. Patient has been advised of risks of oversedation with the prescribed medication. Narcan has been offered to the patient in the event of oversedation. Patient has been advised that a family member should also be educated regarding administration of Narcan. Patient has been instructed to contact the clinic with any concerns before the next appointment. Dr. Dennis has reviewed this note and agrees with this plan of care. This note was dictated using voice recognition software and make contain errors or omissions. [facility] Disclaimer: The information contained in this section may have been updated after the patient was seen, as this information can be updated by other users. Social History Smoking Status: Never smoker alcohol intake: never current occupational status: unemployed Travel in the last 8 weeks: None
[2023-02-16 15:15] VITALS: RESP 18; BMI 23.3
== END | disposition home or self-care (01) ==
PROVIDERS: Visit Provider Nurse Practitioner Family
DX: M51.16 Intervertebral disc disorders with radiculopathy, lumbar region (principal)
CPT/HCPCS: 99212; G0463

== ENCOUNTER → 2023-03-23 13:26 | Outpatient (POV) | payer OTHER, SELFPAY ==
--- NOTE | 2023-03-23 13:48 | EXP.PAIN.SOA ---
[facility] Pain Management SOAP Note Subjective:: Patient is a pleasant 58-year-old female who presents today for medication refill. We are currently treating the patient for degenerative disc disease of the lumbar spine with lumbar radiculopathy symptoms. Today she rates her pain a 4 out of 10. Patient does state here in the last couple of weeks she has been experiencing leg weakness where they will give out and she has fallen a couple of times. Patient denies any significant trauma or injury related to these falls however she is concerned whether or not if something new is going on. Patient does take care of her disabled son who is upwards of 300+ pounds and that she does pick him up from time to time. Patient denies any recent physical therapy. She states that she frequently does not have a lot of time to herself due to take caring of her disabled son. Patient also has a history of restless leg syndrome and is on 2 mg at night for this. Patient is also prescribed Skelaxin 800 mg twice daily from her primary care provider. She is scheduled pregabalin 75 mg twice a day and [place] 7.5 mg 4 times a day from our office. Patient denies any side effects from these medications. Her Angel is [phone]. Its been reviewed and appropriate. Review of Systems: General: No recent weight changes, no fever, no sleep disturbances Respiratory: No cough, no shortness of air, no recurring pulmonary infections Cardiovascular/peripheral vascular: No chest pain, no palpitations, no edema, no shortness of breath Gastrointestinal: No new onset incontinence, normal bowel movements reported Genitourinary: No new onset incontinence Musculoskeletal: Bilateral hip pain Psychiatric: [Normal mood/affect] Neurological: [Denies weakness in extremities], [denies balance issues] Objective:: Physical Exam: General: Alert and oriented x3, no acute distress, pleasant and cooperative Lungs: Respirations even and unlabored, symmetrical chest expansion Eyes: PERRL Musculoskeletal: Flexion and extension of bilateral hips somewhat guarded secondary to pain, [antalgic gait noted] Neurological: Speech clear, no gross sensory deficit Assessment:: Degenerative disc disease of lumbar spine with lumbar radiculopathy symptoms, bilateral hip pain Plan:: Patient is experiencing pain into her bilateral hips with limited range of motion. I have discussed with the patient that she may benefit from intra-articular hip injections however she states she cannot tolerate the steroid and the injections. I will order x-ray imaging of her bilateral hips and sacroiliac joints. I will also send in her refills of her pregabalin 75 mg twice a day and [place] 7.5 mg 4 times a day and provide a 1 month supply of these medications. Patient has also been counseled that she may benefit from physical therapy however at this time she states her schedule is very difficult due to caring for her son and that she does not think she be able to go to these appointments. I have counseled her that she can call at a later date if she decides she would like us to proceed forward in order this evaluation. Patient will return to clinic in 1 month for reevaluation of symptoms and plan of care. Patient has been advised of risks of oversedation with the prescribed medication. Narcan has been offered to the patient in the event of oversedation. Patient has been advised that a family member should also be educated regarding administration of Narcan. Patient has been instructed to contact the clinic with any concerns before the next appointment. Dr. Dennis has reviewed this note and agrees with this plan of care. This note was dictated using voice recognition software and make contain errors or omissions. [facility] Disclaimer: The information contained in this section may have been updated after the patient was seen, as this information can be updated by other users. Social History Smoking Status: Never smoker alcohol intake: never
[2023-03-23 14:14] VITALS: BP 120/66; PULSE 83; RESP 18; O2SAT 95; BMI 22.6
== END | disposition home or self-care (01) ==
PROVIDERS: Visit Provider Nurse Practitioner Family
DX: M51.16 Intervertebral disc disorders with radiculopathy, lumbar region (principal); M25.551 Pain in right hip; M25.552 Pain in left hip
CPT/HCPCS: 99212; G0463

== ENCOUNTER → 2023-03-23 13:53 | Outpatient (CLI) | payer OTHER, SELFPAY ==
--- NOTE | 2023-03-23 13:57 | XR_ITS ---
FINAL REPORT CLINICAL HISTORY: NEW SAMEER HIP PAIN COMPARISON: None FINDINGS: LEFT HIP: Two views of the left hip demonstrate no acute fracture or dislocation. The joint spaces appear normal. The visualized bony structures are well aligned. No soft tissue abnormality is seen. IMPRESSION: No acute bony abnormality. Reviewed, Interpreted and Dictated by Redd Harris MD Transcribed by Bela Moran Authenticated and . [facility]
--- NOTE | 2023-03-23 13:57 | XR_ITS ---
FINAL REPORT CLINICAL HISTORY: NEW SAMEER HIP PAIN COMPARISON: None FINDINGS: RIGHT HIP Two views of the right hip demonstrate no acute fracture or dislocation. The joint spaces appear normal. The visualized bony structures are well aligned. No soft tissue abnormality is seen. IMPRESSION: No acute bony abnormality. Reviewed, Interpreted and Dictated by Redd Harris MD Transcribed by Bela Moran Authenticated and . [facility]
--- NOTE | 2023-03-23 13:57 | XR_ITS ---
FINAL REPORT TECHNIQUE: SI joints 3 views CLINICAL HISTORY: NEW SAMEER HIP PAIN COMPARISON: None FINDINGS: SACROILIAC JOINTS: The sacroiliac joints are normal in appearance. No evidence of fracture or dislocation is seen. IMPRESSION: Unremarkable SI joints. Reviewed, Interpreted and Dictated by Redd Harris MD Transcribed by Bela Moran Authenticated and [facility]
== END ==
PROVIDERS: PCP Nurse Practitioner Family; Visit Provider Nurse Practitioner Family
DX: M25.551 Pain in right hip (principal); M25.552 Pain in left hip; M53.3 Sacrococcygeal disorders, not elsewhere classified
CPT/HCPCS: 72202; 73502

== ENCOUNTER → 2023-05-03 14:22 | Outpatient (POV) | payer OTHER, SELFPAY ==
--- NOTE | 2023-05-03 14:26 | A.OFFVIS_ITS ---
[facility] Pain Management SOAP Note Subjective:: Patient is a pleasant 58-year-old female who presents today for medication refill and follow-up. We are currently treating the patient for degenerative disc disease of lumbar spine with lumbar radiculopathy symptoms. Today she rates her pain a 3 out of 10. Patient denies any new trauma or injury. She does state that she is a little under the weather today and that she has just been having some headache and a little sore throat and believe it is going through around her house. Patient is currently managed with Skelaxin 800 mg twice a day from her PCP and pregabalin 75 mg twice a day and [place] 7.5 mg 4 times a day from our office. Patient denies any side effects from this medication. Her Angel has been reviewed and is appropriate. Review of Systems: General: No recent weight changes, no fever, no sleep disturbances Respiratory: No cough, no shortness of air, no recurring pulmonary infections Cardiovascular/peripheral vascular: No chest pain, no palpitations, no edema, no shortness of breath Gastrointestinal: No new onset incontinence, normal bowel movements reported Genitourinary: No new onset incontinence Musculoskeletal: Low back pain Psychiatric: [Normal mood/affect] Neurological: [Denies weakness in extremities], [denies balance issues] Objective:: Physical Exam: General: Alert and oriented x3, no acute distress, pleasant and cooperative Lungs: Respirations even and unlabored, symmetrical chest expansion Eyes: PERRL Musculoskeletal: Flexion and extension of lumbar spine somewhat guarded secondary to pain, [antalgic gait noted] Neurological: Speech clear, no gross sensory deficit Assessment:: Degenerative disc disease of lumbar spine with lumbar radiculopathy symptoms Plan:: Patient continues to do well with her current medication regimen. I will refill the patient's [place] 7.5 mg 4 times a day and pregabalin 75 mg twice a day and provide a 1 month supply of these medications. Patient will return to clinic in 1 month for reevaluation of symptoms and medication refill. Patient has been advised of risks of oversedation with the prescribed medication. Narcan has been offered to the patient in the event of oversedation. Patient has been advised that a family member should also be educated regarding administration of Narcan. Patient has been instructed to contact the clinic with any concerns before the next appointment. Dr. Dennis has reviewed this note and agrees with this plan of care. This note was dictated using voice recognition software and make contain errors or omissions. [facility] Disclaimer: The information contained in this section may have been updated after the patient was seen, as this information can be updated by other users. Social History Smoking Status: Never smoker alcohol intake: never current occupational status: other Travel in the last 8 weeks: None
[2023-05-03 14:55] VITALS: BP 128/71; PULSE 80; RESP 18; O2SAT 97; BMI 22.6
== END | disposition home or self-care (01) ==
PROVIDERS: Visit Provider Nurse Practitioner Family
DX: M51.16 Intervertebral disc disorders with radiculopathy, lumbar region (principal)
CPT/HCPCS: 99212; G0463

== ENCOUNTER → 2023-06-12 14:56 | Outpatient (POV) | payer OTHER, SELFPAY ==
[2023-06-12 15:15] VITALS: BP 129/71; PULSE 87; RESP 18; O2SAT 95; BMI 22.6
--- NOTE | 2023-06-12 15:18 | A.OFFVIS_ITS ---
[facility] Pain Management SOAP Note Subjective:: Patient is a pleasant 58-year-old female who presents today for medication refill and 1 month follow-up. We are currently treating the patient for degenerative disc disease of lumbar spine with lumbar radiculopathy symptoms. Today she rates her pain a 3 out of 10. Patient denies any new trauma or injury. She is currently managed with Skelaxin 800 mg twice a day from her primary care provider and pregabalin 75 mg twice a day with [place] 7.5 mg 4 times a day from the office. Patient denies any side effects from this medication. Her Angel has been reviewed and is appropriate. Review of Systems: General: No recent weight changes, no fever, no sleep disturbances Respiratory: No cough, no shortness of air, no recurring pulmonary infections Cardiovascular/peripheral vascular: No chest pain, no palpitations, no edema, no shortness of breath Gastrointestinal: No new onset incontinence, normal bowel movements reported Genitourinary: No new onset incontinence Musculoskeletal: Low back pain Psychiatric: [Normal mood/affect] Neurological: [Denies weakness in extremities], [denies balance issues] Objective:: Physical Exam: General: Alert and oriented x3, no acute distress, pleasant and cooperative Lungs: Respirations even and unlabored, symmetrical chest expansion Eyes: PERRL Musculoskeletal: Flexion and extension of lumbar [spine] somewhat guarded secondary to pain, [antalgic gait noted] Neurological: Speech clear, no gross sensory deficit Assessment:: Degenerative disc disease of lumbar spine with lumbar radiculopathy symptoms Plan:: We will refill her pregabalin 75 mg twice a day and [place] 7.5 mg 4 times a day and provide a 1 month supply of these medications. Patient will return to clinic in 1 month for reevaluation of symptoms and plan of care. Patient has been advised of risks of oversedation with the prescribed medication. Narcan has been offered to the patient in the event of oversedation. Patient has been advised that a family member should also be educated regarding administration of Narcan. Patient has been instructed to contact the clinic with any concerns before the next appointment. Dr. Dennis has reviewed this note and agrees with this plan of care. This note was dictated using voice recognition software and make contain errors or omissions. [facility] Disclaimer: The information contained in this section may have been updated after the patient was seen, as this information can be updated by other users. Social History Smoking Status: Never smoker alcohol intake: never current occupational status: other Travel in the last 8 weeks: None
== END | disposition home or self-care (01) ==
PROVIDERS: Visit Provider Nurse Practitioner Family
DX: M51.16 Intervertebral disc disorders with radiculopathy, lumbar region (principal)
CPT/HCPCS: 99212; G0463

== ENCOUNTER → 2023-07-10 14:41 | Outpatient (POV) | payer OTHER, SELFPAY ==
[2023-07-10 14:51] VITALS: BP 129/70; PULSE 73; RESP 18; O2SAT 98; BMI 22.6
--- NOTE | 2023-07-10 14:55 | EXP.PAIN.SOA ---
[facility] Pain Management SOAP Note Subjective:: Patient is a pleasant 58-year-old female who presents today for 1 month follow-up and medication refill. We are currently treating the patient for degenerative disc disease of lumbar spine with lumbar radiculopathy symptoms. Today she rates her pain a 3 out of 10. Patient denies any new trauma or injury. She is currently managed with Skelaxin 800 mg twice a day from her primary care provider and pregabalin 75 mg twice a day and [place] 7.5 mg 4 times a day from our office. She denies any side effects from this medication. She does state that she needs a refill on her constipation medication. Patient does state that her son just got out of the hospital for UTI symptoms. Patient does take care of her son. Her Angel has been reviewed and is appropriate. Review of Systems: General: No recent weight changes, no fever, no sleep disturbances Respiratory: No cough, no shortness of air, no recurring pulmonary infections Cardiovascular/peripheral vascular: No chest pain, no palpitations, no edema, no shortness of breath Gastrointestinal: No new onset incontinence, normal bowel movements reported Genitourinary: No new onset incontinence Musculoskeletal: Low back pain Psychiatric: [Normal mood/affect] Neurological: [Denies weakness in extremities], [denies balance issues] Objective:: Physical Exam: General: Alert and oriented x3, no acute distress, pleasant and cooperative Lungs: Respirations even and unlabored, symmetrical chest expansion Eyes: PERRL Musculoskeletal: Flexion and extension of lumbar [spine] somewhat guarded secondary to pain, [antalgic gait noted] Neurological: Speech clear, no gross sensory deficit Assessment:: Degenerative disc disease of lumbar spine with lumbar radiculopathy symptoms Plan:: I will refill the patient's pregabalin 75 mg twice daily, [place] 7.5 mg 4 times a day and naloxegol 12.5 mg daily and provide a 1 month supply of these medications. Patient will return to clinic in 1 month for reevaluation of symptoms and plan of care. Patient has been advised of risks of oversedation with the prescribed medication. Narcan has been offered to the patient in the event of oversedation. Patient has been advised that a family member should also be educated regarding administration of Narcan. Patient has been instructed to contact the clinic with any concerns before the next appointment. Dr. Dennis has reviewed this note and agrees with this plan of care. This note was dictated using voice recognition software and make contain errors or omissions. [facility] Disclaimer: The information contained in this section may have been updated after the patient was seen, as this information can be updated by other users. Social History Smoking Status: Never smoker alcohol intake: never current occupational status: other Travel in the last 8 weeks: None
== END | disposition home or self-care (01) ==
PROVIDERS: Visit Provider Nurse Practitioner Family
DX: M51.16 Intervertebral disc disorders with radiculopathy, lumbar region (principal)
CPT/HCPCS: 99212; G0463

== ENCOUNTER → 2023-08-23 13:01 | Outpatient (POV) | payer OTHER, SELFPAY ==
--- NOTE | 2023-08-23 13:24 | EXP.PAIN.SOA ---
[facility] Pain Management SOAP Note Subjective:: Patient is a pleasant 58-year-old female who presents today for medication refill and follow-up. We are currently treating the patient for degenerative disc disease of lumbar spine. Today she rates her pain a 5 out of 10. Patient denies any new trauma or injury. Patient is currently managed with pregabalin 75 mg twice a day and [place] 7.5 mg 3 times a day. She denies any side effects from this medication. Her Angel has been reviewed and is appropriate. Review of Systems: General: No recent weight changes, no fever, no sleep disturbances Respiratory: No cough, no shortness of air, no recurring pulmonary infections Cardiovascular/peripheral vascular: No chest pain, no palpitations, no edema, no shortness of breath Gastrointestinal: No new onset incontinence, normal bowel movements reported Genitourinary: No new onset incontinence Musculoskeletal: Low back pain Psychiatric: [Normal mood/affect] Neurological: [Denies weakness in extremities], [denies balance issues] Objective:: Physical Exam: General: Alert and oriented x3, no acute distress, pleasant and cooperative Lungs: Respirations even and unlabored, symmetrical chest expansion Eyes: PERRL Musculoskeletal: Flexion and extension of lumbar [spine] somewhat guarded secondary to pain, [antalgic gait noted] Neurological: Speech clear, no gross sensory deficit Assessment:: Degenerative disc disease of lumbar spine with lumbar radiculopathy symptoms Plan:: I will refill the patient's pregabalin 75 mg twice a day and [place] 7.5 mg 3 times a day and provide a 1 month supply of this medication. Patient will return to clinic in 1 month for reevaluation of symptoms and plan of care. Risks and benefits of the medication have been explained in detail to the patient. The patient does understand the risk of dependence on the medication when given over a prolonged period. Patient has been advised of risks of oversedation with the prescribed medication. Narcan has been offered to the paitent in the event of oversedation. Patient has been advised that a family member should also be educated regarding administration of Narcan. The patient has been advised to consult with his/her primary care provider and pharmacist regarding drug-drug interaction of medications currently prescribed. Patient has been prescribed a controlled substance after being counseled on the medication, medication safety, and possible side effects. Opioid contract was reviewed and signed by the patient, and that they have agreed to all of the terms set forth by our compliance program. Patient has been instructed to contact the clinic with any concerns before the next appointment. Dr. Dennis has reviewed this note and agrees with this plan of care. This note was dictated using voice recognition software and make contain errors or omissions. [facility] Disclaimer: The information contained in this section may have been updated after the patient was seen, as this information can be updated by other users. Social History Smoking Status: Never smoker alcohol intake: never current occupational status: other Travel in the last 8 weeks: None
[2023-08-23 14:03] VITALS: BP 128/78; PULSE 71; RESP 18; O2SAT 96; BMI 21.7
[2023-08-23 18:45] LABS: Amphetamine/Metha Screen,Urine Negative ng/ml (<1000)
[2023-08-23 18:46] LABS: Barbiturates Screen,Urine Negative ng/ml (<200); Benzodiazepines Screen,Urine Negative ng/ml (<200)
[2023-08-23 18:47] LABS: Cannabinoid Screen,Urine Negative ng/ml (<50)
[2023-08-23 18:48] LABS: Cocaine Screen,Urine Negative ng/ml (<300); Methadone Screen,Urine Negative ng/ml (<300)
[2023-08-23 18:49] LABS: Opiate Screen,Urine Positive ng/ml (<300)
[2023-08-23 18:58] LABS: Phencyclidine Screen,Urine Negative ng/ml (<25)
[2023-08-29 04:07] LABS: Codeine Negative (Cutoff=100); Hydrocodone Positive (.); Hydromorphone Negative (Cutoff=100); Morphine Negative (Cutoff=100); Opiates Positive (.)
== END | disposition home or self-care (01) ==
PROVIDERS: PCP Nurse Practitioner Family; Visit Provider Nurse Practitioner Family
DX: M51.16 Intervertebral disc disorders with radiculopathy, lumbar region (principal)
CPT/HCPCS: 36415; 80307; 80361; 80365; 99212; G0463; G0480

== ENCOUNTER 2023-10-30 15:00 | Outpatient (POV) | payer OTHER, SELFPAY ==
[2023-10-30 15:12] VITALS: BP 107/43; PULSE 47; RESP 16; O2SAT 97; BMI 20.9
--- NOTE | 2023-10-30 15:15 | A.OFFVIS_ITS ---
[facility] Pain Management SOAP Note Subjective:: Patient is a pleasant 58-year-old female who presents today for medication refill and follow-up. Today she rates her pain a 4 out of 10. Patient denies any new trauma or injury. Patient states she did miss her last appointment due to a in the family. Patient is currently managed with pregabalin 75 mg twice a day and [place] 7.5 mg 3 times a day. She denies any side effects from this medication. Her Angel has been reviewed and is appropriate. Review of Systems: General: No recent weight changes, no fever, no sleep disturbances Respiratory: No cough, no shortness of air, no recurring pulmonary infections Cardiovascular/peripheral vascular: No chest pain, no palpitations, no edema, no shortness of breath Gastrointestinal: No new onset incontinence, normal bowel movements reported Genitourinary: No new onset incontinence Musculoskeletal: Low back pain Psychiatric: [Normal mood/affect] Neurological: [Denies weakness in extremities], [denies balance issues] Objective:: Physical Exam: General: Alert and oriented x3, no acute distress, pleasant and cooperative Lungs: Respirations even and unlabored, symmetrical chest expansion Eyes: PERRL Musculoskeletal: Flexion and extension of lumbar [spine] somewhat guarded secondary to pain, [antalgic gait noted] Neurological: Speech clear, no gross sensory deficit Assessment:: Degenerative disc disease of lumbar spine with lumbar radiculopathy symptoms Plan:: I will refill the patient's pregabalin 75 mg twice a day and [place] 7.5 mg 3 times a day and provide a 1 month supply of this medication. Patient will return to clinic in 1 month for reevaluation of symptoms and plan of care. Risks and benefits of the medication have been explained in detail to the patient. The patient does understand the risk of dependence on the medication when given over a prolonged period. Patient has been advised of risks of oversedation with the prescribed medication. Narcan has been offered to the paitent in the event of oversedation. Patient has been advised that a family member should also be educated regarding administration of Narcan. The patient has been advised to consult with his/her primary care provider and pharmacist regarding drug-drug interaction of medications currently prescribed. Patient has been prescribed a controlled substance after being counseled on the medication, medication safety, and possible side effects. Opioid contract was reviewed and signed by the patient, and that they have agreed to all of the terms set forth by our compliance program. Patient has been instructed to contact the clinic with any concerns before the next appointment. Dr. Dennis has reviewed this note and agrees with this plan of care. This note was dictated using voice recognition software and make contain errors or omissions. [facility] Disclaimer: The information contained in this section may have been updated after the patient was seen, as this information can be updated by other users. Social History Smoking Status: Never smoker alcohol intake: never current occupational status: other Travel in the last 8 weeks: None
== END 2023-10-30 23:59 | disposition home or self-care (01) ==
PROVIDERS: Visit Provider Nurse Practitioner Family
DX: M51.16 Intervertebral disc disorders with radiculopathy, lumbar region (principal)
CPT/HCPCS: 99212; G0463

== ENCOUNTER 2023-11-23 15:06 | Outpatient (POV) | payer OTHER, SELFPAY ==
[2023-11-23 15:15] VITALS: BP 123/81; PULSE 81; RESP 16; O2SAT 98; BMI 20.1
--- NOTE | 2023-11-23 15:27 | A.OFFVIS_ITS ---
[facility] Pain Management SOAP Note Subjective:: Patient is a pleasant 58-year-old female who presents today for 1 month follow- up and medication refill. She rates her pain today at 3 out of 10. She denies any new trauma or injury. She is currently managed with pregabalin 75 mg twice a day and [place] 7.5 mg 3 times a day. She denies any side effects from this medication. Patient does state that she still is caring for her disabled son and initially today's visit she felt that he might be getting ready to get sick however he ended up feeling okay. Patient does state that she is scheduled for vacation next week to go to [place]. Her Angel has been reviewed and is appropriate. Review of Systems: General: No recent weight changes, no fever, no sleep disturbances Respiratory: No cough, no shortness of air, no recurring pulmonary infections Cardiovascular/peripheral vascular: No chest pain, no palpitations, no edema, no shortness of breath Gastrointestinal: No new onset incontinence, normal bowel movements reported Genitourinary: No new onset incontinence Musculoskeletal: Low back pain Psychiatric: [Normal mood/affect] Neurological: [Denies weakness in extremities], [denies balance issues] Objective:: Physical Exam: General: Alert and oriented x3, no acute distress, pleasant and cooperative Lungs: Respirations even and unlabored, symmetrical chest expansion Eyes: PERRL Musculoskeletal: Flexion and extension of lumbar [spine] somewhat guarded secondary to pain, [antalgic gait noted] Neurological: Speech clear, no gross sensory deficit Assessment:: Degenerative disc disease of lumbar spine with lumbar radiculopathy symptoms Plan:: I will refill the patient's pregabalin and [place] and provide a 1 month supply of this medication. I have counseled the patient in future if there is an issue where her son ends up getting sick and she is not able to make her appointment week hand from time to time to do a telehealth visit in that scenario. Patient acknowledges understanding and agrees with plan of care. Patient will return to clinic in 1 month for reevaluation of symptoms and plan of care. Risks and benefits of the medication have been explained in detail to the patient. The patient does understand the risk of dependence on the medication when given over a prolonged period. Patient has been advised of risks of oversedation with the prescribed me dication. Narcan has been offered to the paitent in the event of oversedation. Patient has been advised that a family member should also be educated regarding administration of Narcan. The patient has been advised to consult with his/her primary care provider and pharmacist regarding drug-drug interaction of medications currently prescribed. Patient has been prescribed a controlled substance after being counseled on the medication, medication safety, and possible side effects. Opioid contract was reviewed and signed by the patient, and that they have agreed to all of the terms set forth by our compliance program. Patient has been instructed to contact the clinic with any concerns before the next appointment. Dr. Dennis has reviewed this note and agrees with this plan of care. This note was dictated using voice recognition software and make contain errors or omissions. [facility] Disclaimer: The information contained in this section may have been updated after the patient was seen, as this information can be updated by other users. Social History Smoking Status: Never smoker alcohol intake: never current occupational status: other Travel in the last 8 weeks: None
== END 2023-11-23 23:59 | disposition home or self-care (01) ==
PROVIDERS: Visit Provider Nurse Practitioner Family
DX: M51.16 Intervertebral disc disorders with radiculopathy, lumbar region (principal)
CPT/HCPCS: 99212; G0463

== ENCOUNTER 2023-12-20 15:22 | Outpatient (POV) | payer OTHER, SELFPAY ==
--- NOTE | 2023-12-20 15:38 | A.OFFVIS_ITS ---
[facility] Pain Management SOAP Note Subjective:: Patient is a pleasant 58-year-old female who presents today for medication refill and follow-up. Today she rates her pain a 3 out of 10. Patient denies any new trauma or injury. Patient does state that she ended up going on vacation however she woke up the first day and was sick. Patient also states that they had flank issues with being able to use their debit cards but thankfully they did bring vinson. Patient denies any other new changes from her last visit. She states she is still doing well with her pregabalin 75 mg twice a day and [place] 7.5 mg 3 times a day. Her Angel has been reviewed and is appropriate. Review of Systems: General: No recent weight changes, no fever, no sleep disturbances Respiratory: No cough, no shortness of air, no recurring pulmonary infections Cardiovascular/peripheral vascular: No chest pain, no palpitations, no edema, no shortness of breath Gastrointestinal: No new onset incontinence, normal bowel movements reported Genitourinary: No new onset incontinence Musculoskeletal: Low back pain Psychiatric: [Normal mood/affect] Neurological: [Denies weakness in extremities], [denies balance issues] Objective:: Physical Exam: General: Alert and oriented x3, no acute distress, pleasant and cooperative Lungs: Respirations even and unlabored, symmetrical chest expansion Eyes: PERRL Musculoskeletal: Flexion and extension of lumbar [spine] somewhat guarded secondary to pain, [antalgic gait noted] Neurological: Speech clear, no gross sensory deficit Assessment:: Degenerative disc disease of lumbar spine with lumbar radiculopathy symptoms Plan:: I will refill the patient's pregabalin and [place] and provide a 1 month supply of this medication. Patient will return to clinic in 1 month for reevaluation of symptoms and plan of care. Risks and benefits of the medication have been explained in detail to the patient. The patient does understand the risk of dependence on the medication when given over a prolonged period. Patient has been advised of risks of oversedation with the prescribed medication. Narcan has been offered to the paitent in the event of oversedation. Patient has been advised that a family member should also be educated regarding administration of Narcan. The patient has been advised to consult with his/her primary care provider and pharmacist regarding drug-drug interaction of medications currently prescribed. Patient has been prescribed a controlled substance after being counseled on the medication, medication safety, and possible side effects. Opioid contract was reviewed and signed by the patient, and that they have agreed to all of the terms set forth by our compliance program. Patient has been instructed to contact the clinic with any concerns before the next appointment. Dr. Dennis has reviewed this note and agrees with this plan of care. This note was dictated using voice recognition software and make contain errors or omissions. [facility] Disclaimer: The information contained in this section may have been updated after the patient was seen, as this information can be updated by other users. Social History Smoking Status: Never smoker alcohol intake: never current occupational status: other Travel in the last 8 weeks: None
[2023-12-20 15:44] VITALS: BP 126/67; PULSE 75; RESP 18; O2SAT 96; BMI 21.7
== END 2023-12-20 23:59 | disposition home or self-care (01) ==
PROVIDERS: Visit Provider Nurse Practitioner Family
DX: M51.16 Intervertebral disc disorders with radiculopathy, lumbar region (principal)
CPT/HCPCS: 99212; G0463

== ENCOUNTER 2024-01-18 14:42 | Outpatient (POV) | payer OTHER, SELFPAY ==
[2024-01-18 14:50] VITALS: BP 139/81; PULSE 71; RESP 16; O2SAT 96; BMI 21.7
--- NOTE | 2024-01-18 15:04 | EXP.PAIN.SOA ---
[facility] Disclaimer: The information contained in this section may have been updated after the patient was seen, as this information can be updated by other users. Social History Smoking Status: Never smoker alcohol intake: never current occupational status: other Travel in the last 8 weeks: None PM Subjective & Objective Subjective Subjective:: Patient is a pleasant 58-year-old female who presents today for medication refill and follow-up. Today she rates her pain a 3 out of 10. Patient denies any new trauma or injury. She does state that she still has her chronic low back pain but she is having a lot of pain in her right index finger. Patient states she has not hit it on anything and does not believe that it is broken however there it feels like it is. She states the pain is just constant throbbing. Patient states that her medications just do not seem to touch it. She is prescribed pregabalin 75 mg twice a day and [place] 7.5 mg 3 times a day. Her Angel has been reviewed and is appropriate. Review of Systems: General: No recent weight changes, no fever, no sleep disturbances Respiratory: No cough, no shortness of air, no recurring pulmonary infections Cardiovascular/peripheral vascular: No chest pain, no palpitations, no edema, no shortness of breath Gastrointestinal: No new onset incontinence, normal bowel movements reported Genitourinary: No new onset incontinence Musculoskeletal: Low back pain, right index finger pain Psychiatric: [Normal mood/affect] Neurological: [Denies weakness in extremities], [denies balance issues] Pain at rest (0-10 scale): 3 Objective Objective:: Physical Exam: General: Alert and oriented x3, no acute distress, pleasant and cooperative Lungs: Respirations even and unlabored, symmetrical chest expansion Eyes: PERRL Musculoskeletal: Flexion and extension of lumbar [spine] somewhat guarded secondary to pain, [antalgic gait noted] Neurological: Speech clear, no gross sensory deficit Has patient had previous pain injection?: No Conservative treatment options previously tried: Home exercise plan Length of treatment: Longer than 6 weeks Meds Home Medications and Allergies Home Medications Medication Instructions Recorded Confirmed Type ropinirole 2 mg tablet,extended 2 mg PO HS Pain 03/27/18 01/18/24 History release 24 hr metaxalone 800 mg tablet 800 mg PO BID . 09/13/21 01/18/24 History naloxegol 12.5 mg tablet 12.5 mg PO DAILY . #30 tabs 07/10/23 01/18/24 Rx pregabalin 75 mg capsule 75 mg PO BID Pain #60 caps 11/23/23 01/18/24 Rx hydrocodone 7.5 mg-acetaminophen 1 tab PO QID Pain #120 tabs 12/20/23 01/18/24 Rx 325 mg tablet pregabalin 75 mg capsule (Lyrica) 75 mg PO BID #60 caps 12/20/23 01/18/24 Rx New Prescriptions to Start Prescriptions: Allergies Allergy/AdvReac Type Severity Reaction Status Date / Time penicillin G [PENICILLIN G] Allergy Unknown I-HIVES Unverified 06/20/17 14:11 Assessment and Plan *Assessment and plan (1) Degenerative disc disease, lumbar: Status: Acute Category: Medical Code(s): M51.36 - Other intervertebral disc degeneration, lumbar region (2) Lumbar radiculopathy: Status: Acute Category: Medical Code(s): M54.16 - Radiculopathy, lumbar region (3) Strain of right index finger: Status: Acute Category: Medical Plan I will refill the patient's pregabalin and [place] and provide a 1 month supply of this medication. I will also send in refills on her compounded cream. I have recommended that she try the cream on her index finger however if it does not get better we can always do a injection. We will follow-up with this at her next visit in 1 month. Risks and benefits of the medication have been explained in detail to the patient. The patient does understand the risk of dependence on the medication when given over a prolonged period. Patient has been advised of risks of oversedation with the prescribed medication. Narcan has been offered to the paitent in the event of oversedation. Patient has been advised that a family member should also be educated regarding administration of Narcan. The patient has been advised to consult with his/her primary care provider and pharmacist regarding drug-drug interaction of medications currently prescribed. Patient has been prescribed a controlled substance after being counseled on the medication, medication safety, and possible side effects. Opioid contract was reviewed and signed by the patient, and that they have agreed to all of the terms set forth by our compliance program. Patient has been instructed to contact the clinic with any concerns before the next appointment. Dr. Bux has reviewed this note and agrees with this plan of care. This note was dictated using voice recognition software and make contain errors or omissions.
== END 2024-01-18 23:59 | disposition home or self-care (01) ==
PROVIDERS: Visit Provider Nurse Practitioner Family
DX: M51.16 Intervertebral disc disorders with radiculopathy, lumbar region (principal); S66.510A Strain of intrinsic muscle, fascia and tendon of right index finger at wrist and hand level, initial encounter
CPT/HCPCS: 99212; G0463

== ENCOUNTER 2024-04-04 15:29 | Outpatient (POV) | payer OTHER, SELFPAY ==
[2024-04-04 15:42] VITALS: BP 120/63; PULSE 68; RESP 18; O2SAT 95; BMI 22.6
--- NOTE | 2024-04-04 15:47 | EXP.PAIN.SOA ---
[facility] Disclaimer: The information contained in this section may have been updated after the patient was seen, as this information can be updated by other users. Social History Smoking Status: Never smoker alcohol intake: never current occupational status: other Travel in the last 8 weeks: None PM Subjective & Objective Subjective Subjective:: Patient is a pleasant 59-year-old female who presents today for medication refill and follow-up. Today she rates her pain a 3 out of 10. She denies any new trauma or injury. She does state that her finger is doing better and that she did try the compounded cream on it and it did seem to help. Patient is currently managed with pregabalin 75 mg twice a day and [place] 7.5 mg 3 times a day. She denies any side effects from this medication. Her Angel has been reviewed and is appropriate. Review of Systems: General: No recent weight changes, no fever, no sleep disturbances Respiratory: No cough, no shortness of air, no recurring pulmonary infections Cardiovascular/peripheral vascular: No chest pain, no palpitations, no edema, no shortness of breath Gastrointestinal: No new onset incontinence, normal bowel movements reported Genitourinary: No new onset incontinence Musculoskeletal: Low back pain Psychiatric: [Normal mood/affect] Neurological: [Denies weakness in extremities], [denies balance issues] Pain at rest (0-10 scale): 3 Objective Objective:: Physical Exam: General: Alert and oriented x3, no acute distress, pleasant and cooperative Lungs: Respirations even and unlabored, symmetrical chest expansion Eyes: PERRL Musculoskeletal: Flexion and extension of lumbar [spine] somewhat guarded secondary to pain, [antalgic gait noted] Neurological: Speech clear, no gross sensory deficit Has patient had previous pain injection?: No Conservative treatment options previously tried: Home exercise plan Length of treatment: Longer than 12 weeks Meds Home Medications and Allergies Home Medications ?Medication ?Instructions ?Recorded ?Confirmed ?Type ropinirole 2 mg tablet,extended 2 mg PO HS Pain 03/27/18 04/04/24 History release 24 hr metaxalone 800 mg tablet 800 mg PO BID . 09/13/21 04/04/24 History naloxegol 12.5 mg tablet 12.5 mg PO DAILY . #30 tabs 07/10/23 04/04/24 Rx pregabalin 75 mg capsule (Lyrica) 75 mg PO BID #60 caps 01/18/24 04/04/24 Rx hydrocodone 7.5 mg-acetaminophen 1 tab PO QID #72 tabs 03/18/24 04/04/24 Rx 325 mg tablet New Prescriptions to Start Prescriptions: Allergies Allergy/AdvReac Type Severity Reaction Status Date / Time penicillin G [PENICILLIN G] Allergy Unknown I-HIVES Unverified 06/20/17 14:11 Assessment and Plan *Assessment and plan (1) Lumbar radiculopathy: Status: Acute Category: Medical Code(s): M54.16 - Radiculopathy, lumbar region (2) Degenerative disc disease, lumbar: Status: Acute Category: Medical Code(s): M51.36 - Other intervertebral disc degeneration, lumbar region Plan Patient's pregabalin and [place] will be sent in with a 1 month supply. Patient will return to clinic in 1 month for reevaluation of symptoms and plan of care. Risks and benefits of the medication have been explained in detail to the patient. The patient does understand the risk of dependence on the medication when given over a prolonged period. Patient has been advised of risks of oversedation with the prescribed medication. Narcan has been offered to the paitent in the event of oversedation. Patient has been advised that a family member should also be educated regarding administration of Narcan. The patient has been advised to consult with his/her primary care provider and pharmacist regarding drug-drug interaction of medications currently prescribed. Patient has been prescribed a controlled substance after being counseled on the medication, medication safety, and possible side effects. Opioid contract was reviewed and signed by the patient, and that they have agreed to all of the terms set forth by our compliance program. Patient has been instructed to contact the clinic with any concerns before the next appointment. Dr. Dennis has reviewed this note and agrees with this plan of care. This note was dictated using voice recognition software and make contain errors or omissions.
== END 2024-04-04 23:59 | disposition home or self-care (01) ==
PROVIDERS: PCP Nurse Practitioner Family; Visit Provider Nurse Practitioner Family
DX: M51.16 Intervertebral disc disorders with radiculopathy, lumbar region (principal)
CPT/HCPCS: 99212; G0463

== ENCOUNTER 2024-05-13 13:49 | Outpatient (POV) | payer OTHER, SELFPAY ==
--- NOTE | 2024-05-13 14:34 | EXP.PAIN.SOA ---
[facility] Disclaimer: The information contained in this section may have been updated after the patient was seen, as this information can be updated by other users. Social History Smoking Status: Never smoker alcohol intake: never current occupational status: other Travel in the last 8 weeks: None PM Subjective & Objective Subjective Subjective:: Patient is a pleasant 59-year-old female who presents today for medication refill and 1 month follow-up. Today she rates her pain a 5 out of 10. Patient states that she still has her chronic pain however she has been experiencing more pain in her right hand related to arthritis. She states this has made her very limited of her activities. She states her mom also fell and that she is having to care for her with dealing with a broken wrist. 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 Patient is currently managed with pregabalin 75 mg twice a day and [place] 7.5 mg 3 times a day. She denies any side effects from this medication. Her Angel has been reviewed and is appropriate. Review of Systems: General: No recent weight changes, no fever, no sleep disturbances Respiratory: No cough, no shortness of air, no recurring pulmonary infections Cardiovascular/peripheral vascular: No chest pain, no palpitations, no edema, no shortness of breath Gastrointestinal: No new onset incontinence, normal bowel movements reported Genitourinary: No new onset incontinence Musculoskeletal: Right hand pain, low back pain Psychiatric: [Normal mood/affect] Neurological: [Denies weakness in extremities], [denies balance issues] Pain at rest (0-10 scale): 5 Objective Objective:: Physical Exam: General: Alert and oriented x3, no acute distress, pleasant and cooperative Lungs: Respirations even and unlabored, symmetrical chest expansion Eyes: PERRL Musculoskeletal: Flexion and extension of lumbar [spine] somewhat guarded secondary to pain, [antalgic gait noted] Neurological: Speech clear, no gross sensory deficit Has patient had previous pain injection?: No Conservative treatment options previously tried: Home exercise plan Length of treatment: Longer than 12 weeks Meds Home Medications and Allergies Home Medications ?Medication ?Instructions ?Recorded ?Confirmed ?Type ropinirole 2 mg tablet,extended 2 mg PO HS Pain 03/27/18 04/04/24 History release 24 hr metaxalone 800 mg tablet 800 mg PO BID . 03/14/22 10/03/24 History naloxegol 12.5 mg tablet 12.5 mg PO DAILY . #30 tabs 07/10/23 04/04/24 Rx hydrocodone 7.5 mg-acetaminophen 1 tab PO QID #120 tabs 04/04/24 Rx 325 mg tablet hydrocodone 7.5 mg-acetaminophen 1 tab PO TID #90 tabs 04/04/24 Rx 325 mg tablet pregabalin 75 mg capsule (Lyrica) 75 mg PO BID #60 caps 04/04/24 Rx pregabalin 75 mg capsule (Lyrica) 75 mg PO BID #60 caps 04/04/24 Rx hydrocodone 7.5 mg-acetaminophen 1 tab PO QID #32 tabs 05/06/24 Rx 325 mg tablet New Prescriptions to Start Prescriptions: Allergies Allergy/AdvReac Type Severity Reaction Status Date / Time penicillin G [PENICILLIN G] Allergy Unknown I-HIVES Unverified 06/20/17 14:11 Assessment and Plan *Assessment and plan (1) Lumbar radiculopathy: Status: Acute Category: Medical Code(s): M54.16 - Radiculopathy, lumbar region (2) Degenerative disc disease, lumbar: Status: Acute Category: Medical Code(s): M51.36 - Other intervertebral disc degeneration, lumbar region Plan Patient is experiencing worsening pain in her right hand related to arthritis. I did discuss with the patient that she may benefit from Voltaren gel as well as a daily anti-inflammatory. Patient denies any heart or kidney issue. I will send in a prescription of meloxicam 15 mg daily with a 2-week dose. Patient was counseled to discontinue all other NSAIDs while taking this medication and to take it with food to minimize GI upset. Patient was counseled if it does help she can call her office between now and her next visit to get additional refills. I will refill the patient's pregabalin and [place] and provide a 1 month supply of this medication. Patient will return to clinic in 1 month for reevaluation of symptoms and plan of care. Risks and benefits of the medication have been explained in detail to the patient. The patient does understand the risk of dependence on the medication when given over a prolonged period. Patient has been advised of risks of oversedation with the prescribed medication. Narcan has been offered to the paitent in the event of oversedation. Patient has been advised that a family member should also be educated regarding administration of Narcan. The patient has been advised to consult with his/her primary care provider and pharmacist regarding drug-drug interaction of medications currently prescribed. Patient has been prescribed a controlled substance after being counseled on the medication, medication safety, and possible side effects. Opioid contract was reviewed and signed by the patient, and that they have agreed to all of the terms set forth by our compliance program. Patient has been instructed to contact the clinic with any concerns before the next appointment. Dr. Dennis has reviewed this note and agrees with this plan of care. This note was dictated using voice recognition software and make contain errors or omissions.
[2024-05-13 14:57] VITALS: BP 124/75; PULSE 66; RESP 16; O2SAT 97; BMI 21.7
== END 2024-05-13 23:59 | disposition home or self-care (01) ==
PROVIDERS: PCP Nurse Practitioner Family; Visit Provider Nurse Practitioner Family
DX: M51.16 Intervertebral disc disorders with radiculopathy, lumbar region (principal)
CPT/HCPCS: 99212; G0463

== ENCOUNTER 2024-06-10 11:32 | Outpatient (POV) | payer OTHER, SELFPAY ==
--- NOTE | 2024-06-10 11:36 | A.OFFVIS_ITS ---
[facility] Disclaimer: The information contained in this section may have been updated after the patient was seen, as this information can be updated by other users. Social History Smoking Status: Never smoker alcohol intake: never current occupational status: other Travel in the last 8 weeks: None PM Subjective & Objective Subjective Subjective:: Patient is a pleasant 59-year-old female who presents today via telehealth appointment for medication refill and follow-up. Today she rates her pain a 5 out of 10. She denies any new trauma or injury or change to her pains. She does state that her entire household has came down with COVID and she is recovering from it currently however her mother just came down with it. Patient is currently managed with pregabalin 75 mg twice a day and [place] 7.5 mg 3 times a day. She denies any side effects from this medication. At our last visit she did get a prescription of meloxicam 15 mg daily to see if that would help daily aches and pains as well. Patient was having issues with her right hand and states that she did also try the compounded cream and it really did help. Patient states since the cream helped she did not go ahead and take the meloxicam. Her Angel has been reviewed and is appropriate. Review of Systems: General: No recent weight changes, no fever, no sleep disturbances Respiratory: No cough, no shortness of air, no recurring pulmonary infections Cardiovascular/peripheral vascular: No chest pain, no palpitations, no edema, no shortness of breath Gastrointestinal: No new onset incontinence, normal bowel movements reported Genitourinary: No new onset incontinence Musculoskeletal: Low back pain Psychiatric: [Normal mood/affect] Neurological: [Denies weakness in extremities], [denies balance issues] Pain at rest (0-10 scale): 5 Objective Objective:: General: Alert and oriented x3, pleasant and cooperative Lungs: Patient is able to say complete sentences without dyspnea Neurological: Speech clear Has patient had previous pain injection?: No Conservative treatment options previously tried: Home exercise plan Length of treatment: Longer than 12 weeks Meds Home Medications and Allergies Home Medications ?Medication ?Instructions ?Recorded ?Confirmed ?Type ropinirole 2 mg tablet,extended 2 mg PO HS Pain 03/27/18 05/13/24 History release 24 hr metaxalone 800 mg tablet 800 mg PO BID . 09/13/21 05/13/24 History naloxegol 12.5 mg tablet 12.5 mg PO DAILY . #30 tabs 07/10/23 05/13/24 Rx hydrocodone 7.5 mg-acetaminophen 1 tab PO TID #90 tabs 04/04/24 05/13/24 Rx 325 mg tablet pregabalin 75 mg capsule (Lyrica) 75 mg PO BID #60 caps 04/04/24 05/13/24 Rx hydrocodone 7.5 mg-acetaminophen 1 tab PO QID #32 tabs 05/06/24 05/13/24 Rx 325 mg tablet diclofenac sodium 1 % topical gel 2 g topical QID #100 grams 05/13/24 Rx (Arthritis Pain (diclofenac)) hydrocodone 7.5 mg-acetaminophen 1 tab PO QID #120 tabs 05/13/24 Rx 325 mg tablet meloxicam 15 mg tablet 15 mg PO DAILY #14 tabs 05/13/24 Rx pregabalin 75 mg capsule (Lyrica) 75 mg PO BID #60 caps 05/13/24 Rx New Prescriptions to Start Prescriptions: Allergies Allergy/AdvReac Type Severity Reaction Status Date / Time penicillin G (PENICILLIN G) Allergy Unknown I-HIVES Unverified 06/20/17 14:11 Assessment and Plan *Assessment and plan (1) Lumbar radiculopathy: Status: Acute Category: Medical Code(s): M54.16 - Radiculopathy, lumbar region (2) Degenerative disc disease, lumbar: Status: Acute Category: Medical Code(s): M51.36 - Other intervertebral disc degeneration, lumbar region Plan I will refill the patient's pregabalin and [place] and provide a 1 month supply of this medication. Patient will return to clinic in 1 month for reevaluation of symptoms and plan of care. Patient did give verbal consent for this audio appointment and it did last for approximately 5 minutes [id number] Risks and benefits of the medication have been explained in detail to the patient. The patient does understand the risk of dependence on the medication when given over a prolonged period. Patient has been advised of risks of oversedation with the prescribed medication. Narcan has been offered to the paitent in the event of oversedation. Patient has been advised that a family member should also be educated regarding administration of Narcan. The patient has been advised to consult with his/her primary care provider and pharmacist regarding drug-drug interaction of medications currently prescribed. Patient has been prescribed a controlled substance after being counseled on the medication, medication safety, and possible side effects. Opioid contract was reviewed and signed by the patient, and that they have agreed to all of the terms set forth by our compliance program. Patient has been instructed to contact the clinic with any concerns before the next appointment. Dr. Dennis has reviewed this note and agrees with this plan of care. This note was dictated using voice recognition software and make contain errors or omissions.
== END 2024-06-10 23:59 | disposition home or self-care (01) ==
PROVIDERS: Visit Provider Nurse Practitioner Family
DX: M51.16 Intervertebral disc disorders with radiculopathy, lumbar region (principal)
CPT/HCPCS: 99212; G0463

== ENCOUNTER 2024-07-22 14:46 | Outpatient (POV) | payer OTHER, SELFPAY ==
--- NOTE | 2024-07-22 15:02 | EXP.PAIN.SOA ---
[facility] Disclaimer: The information contained in this section may have been updated after the patient was seen, as this information can be updated by other users. Social History Smoking Status: Never smoker alcohol intake: never current occupational status: other Travel in the last 8 weeks: None Have you lived/traveled outside [place] in past 30 days?: No Contact w/someone who lives/traveled outside [place] past 30 days?: No Exposure to someone with infectious disease in past 14 days?: No Do you have a fever (greater than 100.4 F or 38 C)?: No Have you tested positive for COVID-19: No Exposed to someone with COVID-19 in past 14 days?: No Do you have a sore throat?: No Do you have a cough?: No Do you have any weakness?: No Do you have any diarrhea?: No Are you experiencing any unusual bleeding?: No Do you have any muscle aches/pain?: No Do you have any abdominal pain?: No Are you experiencing loss of taste or smell?: No PM Subjective & Objective Subjective Subjective:: Patient is a pleasant 5-year-old female who presents today for medication refill and follow-up. Today she rates her pain a 3 out of 10. Patient does state that she is finally started recovering from COVID. She states that it did end up getting everybody in her household sick. Patient is currently managed with [place] 7.5 mg 3 times a day and pregabalin 75 mg twice a day. She denies any side effects from this medication. Her Angel has been reviewed and is appropriate. Review of Systems: General: No recent weight changes, no fever, no sleep disturbances Respiratory: No cough, no shortness of air, no recurring pulmonary infections Cardiovascular/peripheral vascular: No chest pain, no palpitations, no edema, no shortness of breath Gastrointestinal: No new onset incontinence, normal bowel movements reported Genitourinary: No new onset incontinence Musculoskeletal: Low back pain Psychiatric: [Normal mood/affect] Neurological: [Denies weakness in extremities], [denies balance issues] Pain at rest (0-10 scale): 3 Objective Objective:: Physical Exam: General: Alert and oriented x3, no acute distress, pleasant and cooperative Lungs: Respirations even and unlabored, symmetrical chest expansion Eyes: PERRL Musculoskeletal: Flexion and extension of lumbar [spine] somewhat guarded secondary to pain, [antalgic gait noted] Neurological: Speech clear, no gross sensory deficit Has patient had previous pain injection?: No Conservative treatment options previously tried: Prescription medications Length of treatment: Longer than 12 weeks Meds Home Medications and Allergies Home Medications ?Medication ?Instructions ?Recorded ?Confirmed ?Type ropinirole 2 mg tablet,extended 2 mg PO HS Pain 03/27/18 05/13/24 History release 24 hr metaxalone 800 mg tablet 800 mg PO BID . 09/13/21 05/13/24 History naloxegol 12.5 mg tablet 12.5 mg PO DAILY . #30 tabs 07/10/23 05/13/24 Rx hydrocodone 7.5 mg-acetaminophen 1 tab PO QID #32 tabs 05/06/24 05/13/24 Rx 325 mg tablet diclofenac sodium 1 % topical gel 2 g topical QID #100 grams 05/13/24 Rx (Arthritis Pain (diclofenac)) hydrocodone 7.5 mg-acetaminophen 1 tab PO QID #120 tabs 05/13/24 Rx 325 mg tablet meloxicam 15 mg tablet 15 mg PO DAILY #14 tabs 05/13/24 Rx hydrocodone 7.5 mg-acetaminophen 1 tab PO TID #90 tabs 06/10/24 Rx 325 mg tablet pregabalin 75 mg capsule (Lyrica) 75 mg PO BID #60 caps 06/10/24 Rx pregabalin 75 mg capsule (Lyrica) 75 mg PO BID #16 caps 07/15/24 Rx New Prescriptions to Start Prescriptions: Allergies Allergy/AdvReac Type Severity Reaction Status Date / Time penicillin G (PENICILLIN G) Allergy Unknown I-HIVES Unverified 06/20/17 14:11 Assessment and Plan *Assessment and plan (1) Lumbar radiculopathy: Status: Acute Category: Medical Code(s): M54.16 - Radiculopathy, lumbar region (2) Degenerative disc disease, lumbar: Status: Acute Category: Medical Code(s): M51.369 - Other intervertebral disc degeneration, lumbar region without mention of lumbar back pain or lower extremity pain Plan Will refill the patient's pregabalin and [place] and provide a 1 month supply of this medication. Patient will return to clinic in 1 month for reevaluation of symptoms and plan of care. Risks and benefits of the medication have been explained in detail to the patient. The patient does understand the risk of dependence on the medication when given over a prolonged period. Patient has been advised of risks of oversedation with the prescribed medication. Narcan has been offered to the paitent in the event of oversedation. Patient has been advised that a family member should also be educated regarding administration of Narcan. The patient has been advised to consult with his/her primary care provider and pharmacist regarding drug-drug interaction of medications currently prescribed. Patient has been prescribed a controlled substance after being counseled on the medication, medication safety, and possible side effects. Opioid contract was reviewed and signed by the patient, and that they have agreed to all of the terms set forth by our compliance program. A UDS is needed to verify patient's compliance with our office pain contract. This is ordered based off specific treatments related to chronic pain with the potential to abuse certain medications. Patient has been instructed to contact the clinic with any concerns before the next appointment. Dr. Dennis has reviewed this note and agrees with this plan of care. This note was dictated using voice recognition software and make contain errors or omissions.
[2024-07-22 15:40] VITALS: BP 138/62; PULSE 76; RESP 18; O2SAT 95; BMI 21.6
== END 2024-07-22 23:59 | disposition home or self-care (01) ==
PROVIDERS: PCP Nurse Practitioner Family; Visit Provider Nurse Practitioner Family
DX: M51.16 Intervertebral disc disorders with radiculopathy, lumbar region (principal)
CPT/HCPCS: 99212; G0463

== ENCOUNTER 2024-08-22 14:46 | Outpatient (POV) | payer OTHER, SELFPAY ==
--- NOTE | 2024-08-22 14:53 | EXP.PAIN.SOA ---
[facility] Disclaimer: The information contained in this section may have been updated after the patient was seen, as this information can be updated by other users. Social History Smoking Status: Never smoker alcohol intake: never current occupational status: other Travel in the last 8 weeks: None PM Subjective & Objective Subjective Subjective:: Patient is a pleasant 59-year-old female who presents today for 1 month follow-up and medication refill. Today she rates her pain a 3 out of 10. She denies any new trauma or injury. She does states that everyone is healthy in her household currently and that she is hoping that that stays that way. Patient has previously been under the weather with COVID. She is managed with [place] 7.5 mg 3 times a day and pregabalin 75 mg twice a day from our office. She is also managed with compounded cream. She denies any side effects or changes to her pharmacy. Her Angel has been reviewed and is appropriate. Review of Systems: General: No recent weight changes, no fever, no sleep disturbances Respiratory: No cough, no shortness of air, no recurring pulmonary infections Cardiovascular/peripheral vascular: No chest pain, no palpitations, no edema, no shortness of breath Gastrointestinal: No new onset incontinence, normal bowel movements reported Genitourinary: No new onset incontinence Musculoskeletal: Low back pain Psychiatric: [Normal mood/affect] Neurological: [Denies weakness in extremities], [denies balance issues] Pain at rest (0-10 scale): 3 Objective Objective:: Physical Exam: General: Alert and oriented x3, no acute distress, pleasant and cooperative Lungs: Respirations even and unlabored, symmetrical chest expansion Eyes: PERRL Musculoskeletal: Flexion and extension of lumbar [spine] somewhat guarded secondary to pain, [antalgic gait noted] Neurological: Speech clear, no gross sensory deficit Has patient had previous pain injection?: No Conservative treatment options previously tried: Prescription medications Length of treatment: Longer than 12 weeks Meds Home Medications and Allergies Home Medications ?Medication ?Instructions ?Recorded ?Confirmed ?Type ropinirole 2 mg tablet,extended 2 mg PO HS Pain 03/27/18 07/22/24 History release 24 hr metaxalone 800 mg tablet 800 mg PO BID . 09/13/21 07/22/24 History naloxegol 12.5 mg tablet 12.5 mg PO DAILY . #30 tabs 07/10/23 07/22/24 Rx diclofenac sodium 1 % topical gel 2 g topical QID #100 grams 05/13/24 07/22/24 Rx (Arthritis Pain (diclofenac)) meloxicam 15 mg tablet 15 mg PO DAILY #14 tabs 05/13/24 07/22/24 Rx hydrocodone 7.5 mg-acetaminophen 1 tab PO TID #90 tabs 06/10/24 07/22/24 Rx 325 mg tablet pregabalin 75 mg capsule (Lyrica) 75 mg PO BID #16 caps 07/15/24 07/22/24 Rx hydrocodone 7.5 mg-acetaminophen 1 tab PO QID #120 tabs 07/22/24 Rx 325 mg tablet pregabalin 75 mg capsule (Lyrica) 75 mg PO BID #60 caps 07/22/24 Rx New Prescriptions to Start Prescriptions: Allergies Allergy/AdvReac Type Severity Reaction Status Date / Time penicillin G (PENICILLIN G) Allergy Unknown I-HIVES Unverified 06/20/17 14:11 Assessment and Plan *Assessment and plan (1) Lumbar radiculopathy: Status: Acute Category: Medical Code(s): M54.16 - Radiculopathy, lumbar region (2) Degenerative disc disease, lumbar: Status: Acute Category: Medical Code(s): M51.369 - Other intervertebral disc degeneration, lumbar region without mention of lumbar back pain or lower extremity pain Plan I will refill the patient's [place] and pregabalin and provide a 1 month supply of these medications. Patient will return to clinic in 1 month. Risks and benefits of the medication have been explained in detail to the patient. The patient does understand the risk of dependence on the medication when given over a prolonged period. Patient has been advised of risks of oversedation with the prescribed medication. Narcan has been offered to the paitent in the event of oversedation. Patient has been advised that a family member should also be educated regarding administration of Narcan. The patient has been advised to consult with his/her primary care provider and pharmacist regarding drug-drug interaction of medications currently prescribed. Patient has been prescribed a controlled substance after being counseled on the medication, medication safety, and possible side effects. Opioid contract was reviewed and signed by the patient, and that they have agreed to all of the terms set forth by our compliance program. A UDS is needed to verify patient's compliance with our office pain contract. This is ordered based off specific treatments related to chronic pain with the potential to abuse certain medications. Patient has been instructed to contact the clinic with any concerns before the next appointment. Dr. Dennis has reviewed this note and agrees with this plan of care. This note was dictated using voice recognition software and make contain errors or omissions.
[2024-08-22 15:06] VITALS: BP 127/65; PULSE 71; RESP 18; O2SAT 96; BMI 22.2
== END 2024-08-22 23:59 | disposition home or self-care (01) ==
PROVIDERS: PCP Nurse Practitioner Family; Visit Provider Nurse Practitioner Family
DX: M51.16 Intervertebral disc disorders with radiculopathy, lumbar region (principal)
CPT/HCPCS: 99212; G0463

== ENCOUNTER 2024-09-19 14:49 | Outpatient (POV) | payer OTHER, SELFPAY ==
[2024-09-19 15:36] VITALS: BP 118/76; PULSE 95; RESP 14; O2SAT 95; BMI 22.2
--- NOTE | 2024-09-19 15:49 | A.OFFVIS_ITS ---
[facility] Disclaimer: The information contained in this section may have been updated after the patient was seen, as this information can be updated by other users. Social History Smoking Status: Never smoker alcohol intake: never current occupational status: other Travel in the last 8 weeks: None PM Subjective & Objective Subjective Subjective:: Patient is a pleasant 59-year-old female who presents today for monthly medication refill. She rates her pain today at 3 out of 10. She denies any new injuries or falls. She is doing well with the [place] 7.5 mg 3 times a day and pregabalin 75 mg twice a day and compounded cream. She denies any side effects. Her Angel has been reviewed and is appropriate. Review of Systems: General: No recent weight changes, no fever, no sleep disturbances Respiratory: No cough, no shortness of air, no recurring pulmonary infections Cardiovascular/peripheral vascular: No chest pain, no palpitations, no edema, no shortness of breath Gastrointestinal: No new onset incontinence, normal bowel movements reported Genitourinary: No new onset incontinence Musculoskeletal: Low back pain Psychiatric: [Normal mood/affect] Neurological: [Denies weakness in extremities], [denies balance issues] Pain at rest (0-10 scale): 3 Objective Objective:: Physical Exam: General: Alert and oriented x3, no acute distress, pleasant and cooperative Lungs: Respirations even and unlabored, symmetrical chest expansion Eyes: PERRL Musculoskeletal: Flexion and extension of lumbar [spine] somewhat guarded secondary to pain Neurological: Speech clear, no gross sensory deficit Has patient had previous pain injection?: No Conservative treatment options previously tried: Prescription medications Length of treatment: Longer than 12 weeks Meds Home Medications and Allergies Home Medications ?Medication ?Instructions ?Recorded ?Confirmed ?Type ropinirole 2 mg tablet,extended 2 mg PO HS Pain 03/27/18 09/19/24 History release 24 hr metaxalone 800 mg tablet 800 mg PO BID . 09/13/21 09/19/24 History naloxegol 12.5 mg tablet 12.5 mg PO DAILY . #30 tabs 07/10/23 09/19/24 Rx diclofenac sodium 1 % topical gel 2 g topical QID #100 grams 05/13/24 09/19/24 Rx (Arthritis Pain (diclofenac)) meloxicam 15 mg tablet 15 mg PO DAILY #14 tabs 05/13/24 09/19/24 Rx pregabalin 75 mg capsule (Lyrica) 75 mg PO BID #16 caps 07/15/24 09/19/24 Rx hydrocodone 7.5 mg-acetaminophen 1 tab PO QID #120 tabs 07/22/24 09/19/24 Rx 325 mg tablet hydrocodone 7.5 mg-acetaminophen 1 tab PO TID #90 tabs 08/22/24 09/19/24 Rx 325 mg tablet pregabalin 75 mg capsule (Lyrica) 75 mg PO BID #60 caps 08/22/24 09/19/24 Rx New Prescriptions to Start Prescriptions: Allergies Allergy/AdvReac Type Severity Reaction Status Date / Time penicillin G (PENICILLIN G) Allergy Unknown I-HIVES Unverified 06/20/17 14:11 Assessment and Plan *Assessment and plan (1) Lumbar radiculopathy: Status: Acute Category: Medical Code(s): M54.16 - Radiculopathy, lumbar region (2) Degenerative disc disease, lumbar: Status: Acute Category: Medical Code(s): M51.369 - Other intervertebral disc degeneration, lumbar region without mention of lumbar back pain or lower extremity pain Plan I will refill her [place] and pregabalin and provide a 1 month supply of this medication. Patient will return to clinic in 1 month. Risks and benefits of the medication have been explained in detail to the patient. The patient does understand the risk of dependence on the medication when given over a prolonged period. Patient has been advised of risks of oversedation with the prescribed me dication. Narcan has been offered to the paitent in the event of oversedation. Patient has been advised that a family member should also be educated regarding administration of Narcan. The patient has been advised to consult with his/her primary care provider and pharmacist regarding drug-drug interaction of medications currently prescribed. Patient has been prescribed a controlled substance after being counseled on the medication, medication safety, and possible side effects. Opioid contract was reviewed and signed by the patient, and that they have agreed to all of the terms set forth by our compliance program. A UDS is needed to verify patient's compliance with our office pain contract. This is ordered based off specific treatments related to chronic pain with the potential to abuse certain medications. Patient has been instructed to contact the clinic with any concerns before the next appointment. Dr. Dennis has reviewed this note and agrees with this plan of care. This note was dictated using voice recognition software and make contain errors or omissions.
== END 2024-09-19 23:59 | disposition home or self-care (01) ==
PROVIDERS: PCP Nurse Practitioner Family; Visit Provider Nurse Practitioner Family
DX: M51.16 Intervertebral disc disorders with radiculopathy, lumbar region (principal)
CPT/HCPCS: 99212; G0463

== ENCOUNTER 2024-10-28 15:04 | Outpatient (POV) | payer OTHER, SELFPAY ==
--- OUTSIDE RECORDS SUMMARY | 2024-10-28 15:06 | XMS_ITS | Continuity of Care Document ---
Author Organization [facility] Phone Care Team Providers Care Elevator Pilot Name Role Phone MEL BELL Unavailable ZACHARY BREEN Primary Care MEL BELL Primary Attending MEL BELL Admitting ALLERGIES AND ADVERSE REACTIONS ALLERGIES AND ADVERSE REACTIONS Code System Allergy Substance Adverse Reaction Date Reaction (Severity) Comment Status Reported By Updated By [id number] RXNorm PENICILLIN Hives hives active [id number] 5 on October 26, 2024 1:07:11 PM UTC FAMILY HISTORY RELATION: Father Status: Cause of : Unknown Age at : Unknown SNOMED-CT Diagnosis Age At Onset Information not available RELATION: Mother Status: LIVING SNOMED-CT Diagnosis Age At Onset Information not available RESULTS Patient: MAYUR SHAH Date of : [birth year] LABORATORY RESULTS ORDER 100: UA AND MICRO/CULT IF INDICATED (LOINC: 72290-9) ORDER DATE: October 26, 2024 1:19:00 PM UTC Specimen Source: URINE Specimen Type: Urine specime n PERFORMING LAB: [facility] [address] [facility] [place] [id number] Result Comment: Final Result Date: October 26, 2024 1:33:00 PM UTC (TECH: KSM) LOINC TEST FLAG RESULT REFERENCE RANGE UPDA RINA BY 5778-6 Color of Urine N yellow YELLOW October 26, 2024 1:33:00 PM UTC (TECH: KSM) 5767-9 Appearance of Urine N clear CLEAR October 26, 2024 1:33:00 PM UTC (TECH: KSM) 5792-7 Glucose [Mass/volume] in Urine by Test strip N NORM NORMAL October 26, 2024 1:33:00 PM UTC (TECH: KSM) 23302-8 Bilirubin.total [Mass/volume] in Urine by Automated test strip N NEGATIVE NEGATIVE October 26, 2024 1:33:00 PM UTC (TECH: Yhat) 5797-6 Ketones [Mass/volume] in Urine by Test strip N NEGATIVE NEGATIVE October 26, 2024 1:33:00 PM UTC (TECH: Yhat) 2965-2 Specific gravity of Urine N 1.010 1.005 - 1.035 October 26, 2024 1:33:00 PM UTC (TECH: Yhat) 76218-1 Erythrocytes [#/volume] in Urine by Automated test strip N NEGATIVE NEGATIVE October 26, 2024 1:33:00 PM UTC (TECH: Yhat) 50151-0 pH of Urine by Automated test strip N 6.00 5.0 - 7.5 October 26, 2024 1:33:00 PM UTC (TECH: Yhat) 96866-3 Protein [Presence] in Urine by Test strip N 15 (TRACE) mg/dL NEGATIVE October 26, 2024 1:33:00 PM UTC (TECH: Yhat) 86775-9 Urobilinogen [Mass/volume] in Urine by Automated test strip N NORM NORMAL October 26, 2024 1:33:00 PM UTC (TECH: Yhat) 88257-5 Nitrate [Presence] in Urine N NEGATIVE NEGATIVE October 26, 2024 1:33:00 PM UTC (TECH: Yhat) 28647-3 Leukocytes [#/volume] in Urine by Test strip N NEGATIVE NEGATIVE October 26, 2024 1:33:00 PM UTC (TECH: Yhat) 08128-0 Other elements in Urine sediment N NOT REQUIRED October 26, 2024 1:33:00 PM UTC (TECH: Yhat) 17576-6 Microscopic observation [Identifier] in Urine sediment by Light microscopy N NO October 26, 2024 1:33:00 PM UTC (TECH: Yhat) ORDER 200: URINE DRUG SCREEN - EXL MAX (LOINC: 22748-3) ORDER DATE: October 26, 2024 1:19:00 PM UTC Specimen Source: URINE Specimen Type: Urine specime n PERFORMING LAB: [address] [id number] Result Comment: Final Result Date: October 26, 2024 1:45:00 PM UTC (TECH: KSM) LOINC TEST [place] [address]-9 Amphetamine+Methamph eta mine [Presence] in Urine N NEGATIVE NEGATIVE October 26, 2024 1:45:00 PM UTC (TECH: KSM) 3377-9 Barbiturates [Presen ce] in Urine N NEGATIVE NEGATIVE October 26, 2024 1:45:00 PM UTC (TECH: KSM) 54170-8 Benzodiazepine metabolites [Presence] in Urine by Screen method N NEGATIVE NEGATIVE October 26, 2024 1:45:00 PM UTC (TECH: KSM) 3414-0 Buprenorphine [Presence] in Urine N NEGATIVE NEGATIVE October 26 1:45:00 PM UTC (TECH: KSM) 3397-7 Cocaine [Presence] i n Urine N NEGATIVE NEGATIVE October 26, 2024 1:45:00 PM UTC (TECH: KSM) 49311-3 Methadone [Presence] in Specimen N NEGATIVE NEGATIVE October 26, 2024 1:45:00 PM UTC (TECH: KSM) 32908-6 Opiates [Mass/volume ] in Specimen N NEGATIVE NEGATIVE October 26, 2024 1:45:00 PM UTC (TECH: KSM) 69616-3 oxyCODONE [Presence] in Specimen N NEGATIVE NEGATIVE October 26, 2024 1:45:00 PM UTC (TECH: KSM) 3427-2 Cannabinoids [Presen ce] in Urine N NEGATIVE NEGATIVE October 26, 2024 1:45:00 PM UTC (TECH: KSM) 39684-8 Phencyclidine [Presence] in Specimen N NEGATIVE NEGATIVE October 26, 2024 1:45:00 PM UTC (TECH: KSM) 57911-2 Fentanyl [Presence] in Urine N NEGATIVE NEGATIVE October 26, 2024 1:45:00 PM UTC (TECH: KSM) 85721-1 Tricyclic antidepressants [Presence] in Specimen N NEGATIVE NEGATIVE October 26, 2024 1:45:00 PM UTC (TECH: KSM) 58583-3 Internal control result N PASS PASS October 26, 2024 1:45:00 PM UTC (TECH: KSM) ORDER 300: CBC AUTO W DIFF ( LOINC: 28513-6) ORDER DATE: October 26, 2024 1:19:00 PM UTC Specimen Source: Whole Blood Specimen Type: Whole blood s ample PERFORMING LAB: [address] [id number] Result Comment: Final Result Date: October 26, 2024 1:35:00 PM UTC (TECH: Yhat) LOINC TEST FLAG RESULT REFERENCE RANGE UPDA RINA BY 6690-2 Leukocytes [#/volume] in Blood by Automated count N 8.4 10^3/uL 4.5 10^3/uL - 11.5 10^3/uL October 26, 2024 1:35:00 PM UTC (TECH: Yhat) 789-8 Erythrocytes [#/volume] in Blood by Automated count N 4.31 10^6/uL 4.25 10^6/uL - 5.57 10^6/uL October 26, 2024 1:35:00 PM UTC (TECH: Yhat) 718-7 Hemoglobin [Mass/volume] in Blood N 13.0 g/dL 12.0 g/dL - 15.7 g/dL October 26, 2024 1:35:00 PM UTC (TECH: Yhat) 17095-3 Hematocrit [Volume Fraction] of Blood N 40.7 % 36.0 % - 47.0 % October 26 1:35:00 PM UTC (TECH: Yhat) 787-2 Erythrocyte mean corpuscular volume [Entitic volume] by Automated count N 94.4 fl 80 fl - 95 fl October 26, 2024 1:35:00 PM UTC (TECH: Yhat) 86589-9 Erythrocyte mean corpuscular hemoglobin [Entitic mass] in Blood from Fetus by Automated count N 30.2 pg 27.0 pg - 34.0 pg October 26, 2024 1:35:00 PM UTC (TECH: Yhat) 70584-6 Erythrocyte mean corpuscular hemoglobin concentration [Mass/volume] in Blood from Fetus by Automated count L 31.9 g/dL 32.0 g/dL - 36.0 g/dL October 26, 2024 1:35:00 PM UTC (TECH: Yhat) 50352-9 Platelets [#/volume] in Blood N 222 10^3/uL 150 10^3/uL - 450 10^3/uL October 26, 2024 1:35:00 PM UTC (TECH: Yhat) 33617-1 Erythrocyte distribution width [Ratio] L 11.8 % 12.3 % - 15.1 % October 26, 2024 1:35:00 PM UTC (TECH: Yhat) 50805-2 Platelet mean volume [Entitic volume] in Blood by Automated count N 9.5 fl 7.4 fl - 10.4 fl October 26, 2024 1:35:00 PM UTC (TECH: Yhat) 77216-2 Granulocytes/100 leukocytes in Blood by Automated count H 75.6 % 40 % - 75 % October 26 1:35:00 PM UTC (TECH: Yhat) 736-9 Lymphocytes/100 leukocytes in Blood by Automated count L 14.0 % 15 % - 57 % October 26 1:35:00 PM UTC (TECH: Yhat) 5905-5 Monocytes/100 leukocytes in Blood by Automated count N 8.6 % 4.0 % - 12.0 % October 26 1:35:00 PM UTC (TECH: Yhat) 713-8 Eosinophils/100 leukocytes in Blood by Automated count N 1.0 % 0.0 % - 4.0 % October 26 1:35:00 PM UTC (TECH: Yhat) 706-2 Basophils/100 leukocytes in Blood by Automated count N 0.4 % 0.0 % - 1.0 % October 26 1:35:00 PM UTC (TECH: Yhat) 71395-6 Immature granulocytes [#/volume] in Blood N 0.4 % 0.0 % - 0.8 % October 26 1:35:00 PM UTC (TECH: Yhat) 19668-7 Granulocytes [#/volume] in Blood by Automated count N 6.38 10^3/uL October 26 1:35:00 PM UTC (TECH: Yhat) 731-0 Lymphocytes [#/volume] in Blood by Automated count N 1.18 10^3/uL October 26 1:35:00 PM UTC (TECH: Yhat) 742-7 Monocytes [#/volume] in Blood by Automated count N 0.72 10^3/uL October 26, 2024 1:35:00 PM UTC (TECH: Yhat) 711-2 Eosinophils [#/volume] in Blood by Automated count N 0.08 10^3/uL October 26 1:35:00 PM UTC (TECH: Yhat) 704-7 Basophils [#/volume] in Blood by Automated count N 0.03 10^3/uL October 26, 2024 1:35:00 PM UTC (TECH: Yhat) 02716-0 Immature granulocytes [#/volume] in Blood N 0.03 10^3/uL October 26 1:35:00 PM UTC (TECH: Yhat) 95756-3 Manual differential performed [Presence] in Blood N NO October 26, 2024 1:35:00 PM UTC (TECH: Yhat) ORDER 400: COMP METABOLIC PA TANA (LOINC: 77112-7) ORDER DATE: October 26, 2024 1:19:00 PM UTC Specimen Source: Plasma Specimen Type: Plasma specim en PERFORMING LAB: [address] [id number] Result Comment: Final Result Date: October 26, 2024 1:46:00 PM UTC (TECH: [employer]) LOINC TEST FLAG RESULT REFERENCE RANGE UPDA RINA BY 2951-2 Sodium [Moles/volume ] in Serum or Plasma N 141 mmol/L 136 mmol/L - 145 mmol/L October 26, 2024 1:46:00 PM UTC (TECH: Yhat) 2823-3 Potassium [Moles/volume] in Serum or Plasma N 4.3 mmol/L 3.5 mmol/L - 5.1 mmol/L October 26, 2024 1:46:00 PM UTC (TECH: KSM) 5-0 Chloride [Moles/volu me] in Serum or Plasma N 105 mmol/L 98 mmol/L - 107 mmol/L October 26, 2024 1:46:00 PM UTC (TECH: KSM) 2027-9 Carbon dioxide, tota l [Moles/volume] in Serum or Plasma N 30 mmol/L 21 mmol/L - 32 mmol/L October 26, 2024 1:46:00 PM UTC (TECH: KSM) 74770-6 Anion gap 3 in Serum or Plasma N 6.0 October 26, 2024 1:46:00 PM UTC (TECH: Yhat) 2345-7 Glucose [Mass/volume ] in Serum or Plasma N 98 mg/dL 70 mg/dL - 110 mg/dL October 26, 2024 1:46:00 PM UT (TECH: Yhat) 3094-0 Urea nitrogen [Mass/volume] in Serum or Plasma N 18 mg/dL 7 mg/dL - 18 mg/dL October 26, 2024 1:46:00 PM UTC (TECH: Yhat) 2160-0 Creatinine [Mass/volume] in Serum or Plasma H 1.7 mg/dL 0.6 mg/dL - 1.0 mg/dL October 26, 2024 1:46:00 PM UT (TECH: Yhat) 3097-3 Urea nitrogen/Creatinine [Mass Ratio] in Serum or Plasma N 10.6 - October 26, 2024 1:46:00 PM [facility] (TECH: Yhat) 66129-6 Glomerular filtratio n rate/1.73 sq M.predicted by Creatinine-based formula (MDRD) L 34 mL/min >60 October 26, 2024 1:46:00 PM UT (TECH: Yhat) 27051-2 Osmolality of Serum or Plasma by calculated by sum of electrolytes N 295 mosm/kg 275 mosm/kg - 301 mosm/kg October 26, 2024 1:46:00 PM UT (TECH: Yhat) 2885-2 Protein [Mass/volume ] in Serum or Plasma N 7.2 g/dL 6.4 g/dL - 8.2 g/dL October 26, 2024 1:46:00 PM UT (TECH: Yhat) 1751-7 Albumin [Mass/volume ] in Serum or Plasma N 3.8 g/dL 3.4 g/dL - 5.0 g/dL October 26, 2024 1:46:00 PM UT (TECH: Yhat) 91588-2 Calcium [Mass/volume ] in Serum or Plasma H 11.1 mg/dL 8.5 mg/dL - 10.1 mg/dL October 26, 2024 1:46:00 PM UT (TECH: Yhat) 22551-3 Calcium [Mass/volume ] corrected for total protein in Serum or Plasma H 11.3 mg/dL 8.5 mg/dL - 10.1 mg/dL October 26, 2024 1:46:00 PM UTC (TECH: Yhat) 1975-2 Bilirubin.total [Mass/volume] in Serum or Plasma N 0.7 mg/dL 0.4 mg/dL - 1.5 mg/dL October 26, 2024 1:46:00 PM UTC (TECH: Yhat) 1920-8 Aspartate aminotransferase [Enzymatic activity/volume] in Serum or Plasma N 36 U/L 15 U/L - 37 U/L October 26, 2024 1:46:00 PM UTC (TECH: Yhat) 1742-6 Alanine aminotransferase [Enzymatic activity/volume] in Serum or Plasma N 35 U/L 12 U/L - 78 U/L October 26, 2024 1:46:00 PM UTC (TECH: Yhat) 6768-6 Alkaline phosphatase [Enzymatic activity/volume] in Serum or Plasma N 77 U/L 53 U/L - 141 U/L October 26, 2024 1:46:00 PM UTC (TECH: Yhat) ORDER 500: MAGNESIUM (LOINC: 74378-6) ORDER DATE: October 26, 2024 1:19:00 PM UTC Specimen Source: Plasma Specimen Type: Plasma specim en PERFORMING LAB: [address] [id number] Result Comment: Final Result Date: October 26, 2024 1:46:00 PM UTC (TECH: Yhat) LOINC TEST FLAG [place] [address]-6 Magnesium [Mass/volume] in Serum or Plasma H 2.8 mg/dL 1.8 mg/dL - 2.4 mg/dL October 26, 2024 1:46:00 PM UTC (TECH: Yhat) ORDER 600: LIPASE (LOINC: 30 40-3) ORDER DATE: October 26, 2024 1:19:00 PM UTC Specimen Source: Plasma Specimen Type: Plasma specim en PERFORMING LAB: [address] [id number] Result Comment: Final Result Date: October 26, 2024 1:46:00 PM UTC (TECH: [employer]) LOINC TEST FLAG RESULT REFERENCE RANGE UPDA RINA BY 3040-3 Lipase [Enzymatic activity/volume] in Serum or Plasma N 19 U/L 16 U/L - 77 U/L October 26, 2024 1:46:00 PM UTC (TECH: KSM) ORDER 700: TROPONIN QUANT (L OINC: 06384-2) ORDER DATE: October 26, 2024 1:19:00 PM UTC Specimen Source: Plasma Specimen Type: Plasma specim en PERFORMING LAB: [address] [id number] Result Comment: Final Result Date: October 26, 2024 1:45:00 PM UTC (TECH: KSM) LOINC TEST FLAG [place] [address]-4 Troponin I.cardiac panel - Serum or Plasma by High sensitivity method N 5 ng/L 0 ng/L - 51 ng/L October 26 1:45:00 PM UTC (TECH: KSM) ORDER 800: LACTIC ACID (LOIN C: 96592-5) ORDER DATE: October 26, 2024 1:19:00 PM UTC Specimen Source: Serum/Plasm a Specimen Type: Acellular blo od (serum or plasma) specimen PERFORMING LAB: [address] [id number] Result Comment: Final Result Date: October 26, 2024 1:52:00 PM UTC (TECH: KSM) LOINC TEST [place] [address]-5 Lactate [Mass/volume] in Serum or Plasma N 2.0 mmole/L 0.4 mmole/L - 2.0 mmole/L October 26, 2024 1:52:00 PM UTC (TECH: KSM) ORDER 900: PROCALCITONIN (LO INC: 10785-4) ORDER DATE: October 26, 2024 1:19:00 PM UTC Specimen Source: Serum/Plasm a Specimen Type: Acellular blo od (serum or plasma) specimen PERFORMING LAB: [address] [id number] Result Comment: Final Result Date: October 26, 2024 1:54:00 PM UTC (TECH: KSM) LOINC TEST [place] [address]-5 Procalcitonin [Mass/volume] in Serum or Plasma N 0.11 ng/ml 0.00 ng/ml - 0.5 ng/ml October 26, 2024 1:54:00 PM UTC (TECH: KSM) LABORATORY NARRATIVE RESULTS Information is not available RADIOLOGY RESULTS ORDER 1200: CT ABD/PELVIS OR AL CONTR ONLY (LOINC: 11927-7) ORDER DATE: October 26, 2024 2:02:00 PM [facility] PERFORMING LAB: [address] [id number] Final Result Date: October 26, 2024 2:21:[address] [place] [address] Name: PABLO MERCHANT Exam Date: 10/26/2024 : 1965 Age 59 years Gender: F Physician: MEL BELL Facility: [facility] Facility HSV: Outpatient Exam: CT ABD/PELVIS ORAL CONTR ONLY CT ABDOMEN PELVIS WITHOUT IV CONTRAST, 10/26/2024 9:21 AM CDT CLINICAL INDICATION: Female, 59 years old. Pain LLQ TECHNIQUE: CT abdomen and pelvis was performed without IV contrast, as per department protocol. Axial, sagittal and coronal reconstructions were obtained. One or more of the following dose reduction techniques were used: Automated exposure control, adjustment of the mA and/or kV according to patient size, and/or iterative reconstruction. Unless otherwise specified, incidental findings do not require dedicated imaging follow-up. [id number]. ORAL CONTRAST: Yes. COMPARISON: Abdominal radiograph 10/25/2023 FINDINGS: LOWER CHEST: The visualized lung bases are clear. LIVER: Multiple simple fluid density probably lobular appearing lesions in the liver favored to represent hepatic cysts. The largest of these measures 3.5 cm in the dome of the liver. GALLBLADDER: Cholelithiasis in an otherwise normal-appearing gallbladder. BILE DUCTS: No significant biliary ductal dilatation. PANCREAS: Grossly normal noncontrasted appearance of the pancreas without peripancreatic inflammation or peripancreatic fluid collection. SPLEEN: Normal size. ADRENALS: Grossly normal. KIDNEYS AND URETERS: Grossly normal noncontrasted appearance of the kidneys. No hydronephrosis. URINARY BLADDER: Grossly normal given its level distention. GASTROINTESTINAL TRACT: Moderate to large hiatal hernia. No abnormal distention of the stomach, small bowel, or colon to suggest bowel obstruction. No pericolonic inflammatory change. Oral contrast extends to the rectum. APPENDIX: The appendix is not well visualized, but there are no inflammatory changes in the expected region of the appendix. LYMPH NODES: No lymphadenopathy. VASCULATURE: No abdominal aortic aneurysm. REPRODUCTIVE ORGANS: Uterus surgically absent. No suspicious adnexal mass appreciated. MUSCULOSKELETAL: No acute fracture. No suspicious lytic or sclerotic lesion. PERITONEUM: No free fluid visualized in the abdomen or pelvis. No Legally authenticated by JAYDEN STRAUSS 2024-10-26 10:21:53 pneumoperitoneum. IMPRESSION: No acute abnormality visualized in the abdomen or pelvis. No evidence of bowel obstruction. Oral contrast extends to the rectum. Moderate to large hiatal hernia. Electronically signed by: Rica Simms MD 10/26/2024 10:29 AM EDT RP Dictated By: RICA SIMMS Transcribed By: Transcribed On: 10/26/2024 10:21 AM Electronically signed by: RICA SIMMS 10/26/2024 Thank you for referring PABLO MERCHANT to [facility]. Legally authenticated by JAYDEN STRAUSS 2024-10-26 10:21:53 PATHOLOGY NARRATIVE RESULTS Information is not available MICROBIOLOGY RESULTS No Micro Labs/Results Exist for Patient BLOOD ADMIN RESULTS Information is not available MEDICATIONS HOME MEDICATIONS Status RXNORM [facility] Medication Dose Route Frequency Dates Comments Reported By Updated By Active [id number] 7007 hydrocodone -acetaminop hen 7.5-325 mg tablet 1.0 TAB ORAL QID Last Dose: [id number] on October 26, 2024 1:09:40 PM [facility] Active [employer] tMed omeprazole oral unknown 0.0 Last Dose: [id number] on October 26, 2024 1:09:40 PM [facility] DISCHARGE MEDICATIONS Status RXNORM [facility] Medication Dose Route Frequency Dates Comments Physician Updated By No Discharge Medication Info rmation Available INPATIENT MEDICATIONS Status RXNORM [facility] Medication Dose Route Frequency Rat e Quantity Dates Comments Physician Updated By Lauren inued [id number] 7036 911 dicyclomine (BENTYL) 10 MG CAPS 10.0 MG ORAL ONE TIME ONLY Start: October 26, 2024 2:34:0 0 PM [place] End: October 26, 2024 2:34:0 0 PM [facility] RAY Avendano MD INTERFAC ED on October 26, 2024 2:33:00 PM [facility] SOCIAL HISTORY SOCIAL HISTORY SNOMED-CT Social History Element Description Effective Dates Offered Cessation Comment UpdatedBy [id number] Current Tobacco smoking status Current Every Day Smoker [email or web address] on October 26, 2024 1:10:34 PM [place] [id number] Historical Tobacco smoking status Never Smoked [id number] on October 25, 2024 1:31:59 PM UT [id number] Historical Tobacco smoking status Former Smoker Yes [id number] on July 01, 2015 7:52:42 PM [place] SOCIAL HISTORY - Gender Sex: Female SOCIAL HISTORY - Status : status i nformation is not available Intention in Next Year: intention information is not available SOCIAL HISTORY - Sexual Behavior Sexual Orientation Gender Identity SNOMED-CT Description SNO MED -CT Description Activity Level No of Partners Partner Type UpdatedBy Information is not available VITAL SIGNS PATIENT VITAL SIGNS This section displays the mo st recent value for each vital sign as of October 28, 2024 6:11:47 AM [place] Loinc Code Vital Sign Activity Date Result Updated By 8310-5 Body temperature October 26, 2024 12:56:00 PM UT 97.8 [degF] [id number] on October 27, 2024 3:24:[place] [address]-4 Body weight Measured October 26 025 1:06:58 PM [place] 63.0 kg (139.0 lb) [id number] on October 26, 2024 1:06:58 PM UT 8462-4 Diastolic blood pressure October 26, 2024 2:00:00 PM UT 56.0 mm[Hg] [id number] on October 27, 2024 3:24:18 PM UT 8867-4 Heart rate October 26, 2024 1:59:00 PM UT 71 /min [id number] on October 27, 2024 3:24:17 [place] [address]-5 Oxygen saturation in Arterial blood by Pulse oximetry October 26, 2024 1:59:00 PM UT 99.0 % [id number] on October 27, 2024 3:24:17 PM UT 9279-1 Respiratory rate October 26, 2024 1:59:00 PM UT 17 /min [id number] on October 27, 2024 3:24:17 PM UT 8480-6 Systolic blood pressure October 26, 2024 2:00:00 PM UT 113.0 mm[Hg] [id number] on October 27, 2024 3:24:18 PM [place] PEDIATRIC GROWTH CHART - VITAL SIGNS This section displays Head C ircumference Percentile, Weight for Length Percentile and BMI Percentile Loinc Code Pediatric Measure Age (Months) Result Updat ed By No Pediatric Growth Chart Pe rcentile Information Available. HEALTH CONCERNS Problems Concern Status Health Concern problem infor mation not available. Smoking Status Status Years Used Consumed packs p er day Health Concern smoking histo ry information not available. Family History Concern Status Health Concern family histor y information not available. ENCOUNTERS ENCOUNTER INFORMATION Reason for Visit CONSTIPATION Admission October 26, 2024 12:55:00 PM [place] B [address] [id number] Discharge October 26, 2024 3:23:00 PM [facility] DI SCHARGED TO HOME OR SELF CARE ENCOUNTER DIAGNOSES Notes information is not erlin ilable. Code System Diagnosis Onset Date Diagnosis information is not available. ABSTRACT DIAGNOSES Code System Diagnosis Updated By R10.32 ICD10 LEFT LOWER QUADRANT PAIN BYE 3630 on October 28, 2024 6:11:13 AM [facility] K59.00 ICD10 CONSTIPATION, UNSPECIFIED BY [id number] on October 28, 2024 6:11:13 AM [facility] K21.9 ICD10 GASTRO-ESOPHAGEA L REFLUX DISEASE WITHOUT ESOPHAGITIS [id number] on October 28, 2024 6:11:14 AM [facility] K80.80 ICD10 OTHER CHOLELITHI ASIS WITHOUT OBSTRUCTION [id number] on October 28, 2024 6:11:14 AM [facility] K58.0 ICD10 IRRITABLE BOWEL SYNDROME WIT H DIARRHEA [id number] on October 28, 2024 6:11:14 AM [facility] Z72.0 ICD10 TOBACCO USE [id number] on 2024 6:11:14 AM [facility] Z88.0 ICD10 ALLERGY STATUS TO PENICILLIN [id number] on October 28, 2024 6:11:14 AM [facility] Z79.899 ICD10 OTHER SHELTER (CURRENT) DR ERNST THERAPY [id number] on October 28, 2024 6:11:14 AM [facility] CARE TEAM Care Elevator Pilot Role MEL BELL Referring MORIAH YUE Primary Care MEL BELL Primary Attending MEL BELL Admitting CARE TEAM CARE pet care worker Role on Team Status Start Date End Date Update d By RAY Avendano MD Referring normal October 26, 2024 1:01:58 PM [place] October 26, 2024 3:23:00 PM [facility] [id number] on October 26, 2024 1:01:58 PM [facility] RAY Avendano MD Attending normal October 26, 2024 1:01:58 PM [facility] October 26, 2024 3:23:00 PM [facility] [id number] on October 26, 2024 1:01:58 PM [facility] RAY Avendano MD Admitting normal October 26, 2024 1:01:58 PM [facility] October 26, 2024 3:23:00 PM [facility] [id number] on October 26, 2024 1:01:58 PM [facility] NUHA MALDONADO PCP normal October 26, 2024 12:55:13 PM [place] October 26, 2024 3:23:00 PM [facility] [id number] on October 26, 2024 1:01:58 PM [facility]
--- OUTSIDE RECORDS SUMMARY | 2024-10-28 15:06 | XMS_ITS | Data Portability ---
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 [email or web address] Not available 02/18/2023 04:12:33 Plan of Treatment Reminders Order Date Submit Date Provider Last Modified By Organization Details Last Modified Time Details Appointments FOLLOW UP 2024 02:30P M ZACHARY BREEN NP Not available Not available Not available Lab urinalysi s, dipstick 2023 024 [facility], [address] [place], [address], 08/15/2023 12:54:27 vitamin B12 + folate, serum or blood [email or web address] (Laboratory), [address] [place], [address], 02/24/2023 07:57:18 vitamin D, 25-hydrox y, total, serum [email or web address] (Laboratory), [address], [address], 02/24/2023 07:57:18 iron + TIBC + ferritin, serum [address] (Laboratory), [address] [place], [address], 02/24/2023 07:57:18 CBC w/ auto diff 2022 023 [facility] (Laboratory), [address], [address], 02/17/2023 16:39:59 CMP, serum or plasma 2022 023 [facility] (Laboratory), [address], [address], 02/17/2023 17:44:44 CITLALI (antinucl ear antibodie s) screen, serum [address] (Laboratory), [address] [place], [address], 02/24/2023 07:57:18 TSH + free T4, serum [address] (Laboratory), [address], [address], 02/24/2023 07:57:18 CMP, serum or plasma 2022 023 [facility] (Laboratory), [address], [address], 10/19/2022 16:52:48 CBC w/ auto diff 2022 023 [facility] (Laboratory), [address], [address], 10/19/2022 16:52:48 lipid panel, serum 2022 023 [facility] (Laboratory), [address], [address], 10/19/2022 16:52:48 TSH, serum or plasma 2022 023 [facility] (Laboratory), [address] [place], [address], 10/19/2022 16:52:48 Referral None recorded. Procedures None recorded. Surgeries None recorded. Imaging None recorded. Medication Orders Tubersol 5 tub. unit/0.1 mL intraderm al injection solution 2023 024 [email or web address] Not available 10/02/2023 12:35:59 Bactrim DS 800 mg-160 mg tablet 2023 024 [id number], [address] [place], [address], 08/15/2023 11:43:59 Amitiza 24 mcg capsule 2022 023 [id number], [address] [place], [address], 10/20/2022 11:09:17 atorvasta tin 40 mg tablet 2022 023 [facility], [address] [place], [address], 10/20/2022 11:09:07 omeprazol e 40 mg capsule,d elayed release 2022 023 [facility], [address] [place], [address], 10/20/2022 11:09:06 fluoxetin e 40 mg capsule 2022 023 [facility]/Pharmacy #3016, [address] [place], [address], 10/20/2022 11:09:13 buspirone 10 mg tablet 2022 023 [facility]/Pharmacy #3016, [address] [place], [address], 10/20/2022 11:09:07 bupropion HCl XL 300 mg 24 hr tablet, extended release 2022 023 [facility]/Pharmacy #3016, [address], [place], [address], 10/20/2022 11:09:12 Patient TargetsNo targets recorded. Patient InstructionsNo instructions recorded. Reason for Referral None Reported. Results Created Date Observation Date Name Description Value Unit Range Abnormal Flag Note LastModifiedBy Organization Detail LastModifiedTime 10/20/1910/19/2022 CBC AUTO W DIFF WBC 5.2 10 4.5-11 .5 Not Available [facility] (Lab Registration) [address] [place], [address], 10/19/2022 16:57:59 10/20/19 23 10/19/2022 CBC AUTO W DIFF RBC 4.25 10 4.25-5 .57 Not Available [facility] (Lab Registration) [address] [place], [address], 10/19/2022 16:57:59 10/20/19 23 10/19/2022 CBC AUTO W DIFF HGB 12.8 g/dL 12.0-1 5.7 Not Available [facility] (Lab Registration) [address] [place], [address], 10/19/2022 16:57:59 10/20/19 23 10/19/2022 CBC AUTO W DIFF HCT 39.4 % 36.0-4 7.0 Not Available [facility] (Lab Registration) [address] [place], [address], 10/19/2022 16:57:59 10/20/19 23 10/19/2022 CBC AUTO W DIFF MCV 92.7 fL 80-95 Not Available [facility] (Lab Registration) [address] [place], [address], 10/19/2022 16:57:59 10/20/19 23 10/19/2022 CBC AUTO W DIFF MCH 30.1 pg 27.0-3 4.0 Not Available [facility] (Lab Registration) [address] [place], [address], 10/19/2022 16:57:59 10/20/19 23 10/19/2022 CBC AUTO W DIFF MCHC 32.5 g/dL 32.0-3 6.0 Not Available [facility] (Lab Registration) [address], [address], 10/19/2022 16:57:59 10/20/19 23 10/19/2022 CBC AUTO W DIFF platelet count 308 10 150-45 0 Not Available [facility] (Lab Registration) [address] [place], [address], 10/19/2022 16:57:59 10/20/19 23 10/19/2022 CBC AUTO W DIFF RDW 11.8 % 12.3-1 5.1 low Not Available [facility] (Lab Registration) [address] [place], [address], 10/19/2022 16:57:59 10/20/19 23 10/19/2022 CBC AUTO W DIFF MPV 10.1 fL 7.4-10 .4 Not Available [facility] (Lab Registration) [address] [place], [address], 10/19/2022 16:57:59 10/20/19 23 10/19/2022 CBC AUTO W DIFF granulocyte% 60.1 % 40-75 Not Available [facility] (Lab Registration) [address], [address], 10/19/2022 16:57:59 10/20/19 23 10/19/2022 CBC AUTO W DIFF lymphocyte% 30.7 % 15-57 Not Available [facility] (Lab Registration) [address] [place], [address], 10/19/2022 16:57:59 10/20/19 23 10/19/2022 CBC AUTO W DIFF monocyte% 7.1 % 4.0-12 .0 Not Available [facility] (Lab Registration) [address] [place], [address], 10/19/2022 16:57:59 10/20/19 23 10/19/2022 CBC AUTO W DIFF eosinophil% 1.3 % 0.0-4. 0 Not Available [facility] (Lab Registration) [address] [place], [address], 10/19/2022 16:57:59 10/20/19 23 10/19/2022 CBC AUTO W DIFF basophil% 0.8 % 0.0-1. 0 Not Available [facility] (Lab Registration) [address] [place], [address], 10/19/2022 16:57:59 10/20/19 23 10/19/2022 CBC AUTO W DIFF immature granulocytes % 0.0 % 0.0-0. 8 Not Available [facility] (Lab Registration) [address], [address], 10/19/2022 16:57:59 10/20/19 23 10/19/2022 CBC AUTO W DIFF granulocyte# 3.14 10 Not Available [facility] (Lab Registration) [address], [address], 10/19/2022 16:57:59 10/20/19 23 10/19/2022 CBC AUTO W DIFF lymphocyte# 1.60 10 Not Available [facility] (Lab Registration) [address], [address], 10/19/2022 16:57:59 10/20/19 23 10/19/2022 CBC AUTO W DIFF monocyte# 0.37 10 Not Available [facility] (Lab Registration) [address] [place], [address], 10/19/2022 16:57:59 10/20/19 23 10/19/2022 CBC AUTO W DIFF eosinophil# 0.07 10 Not Available [facility] (Lab Registration) [address] [place], [address], 10/19/2022 16:57:59 10/20/19 23 10/19/2022 CBC AUTO W DIFF basophil# 0.04 10 Not Available [facility] (Lab Registration) [address] [place], [address], 10/19/2022 16:57:59 10/20/19 23 10/19/2022 CBC AUTO W DIFF immature granulocytes # 0.00 10 Not Available [facility] (Lab Registration) [address] [place], [address], 10/19/2022 16:57:59 10/20/19 23 10/19/2022 CBC AUTO W DIFF manual differential NO Not Available [facility] (Lab Registration) [address] [place], [address], 10/19/2022 16:57:59 10/20/19 23 10/19/2022 CBC AUTO W DIFF note Brandon s other porras noted testi ng perfo rmed at: [facility] [address] [place], [place] [address] [phone] Praneeth smith MD CLIA: [id number] Not Available [facility] (Lab Registration) [address] [place], [address], 10/19/2022 16:57:59 10/20/19 23 10/19/2022 THYRO ID STIMU LATIN G HORMO NE thyroid stimulating hormone 0.92 mIU/m L 0.34-4 .80 Not Available [facility] (Lab Registration) [address] [place], [address], 10/19/2022 17:18:44 10/20/19 23 10/19/2022 THYRO ID STIMU LATIN G HORMO NE note Brandon smith other porras noted testi ng perfo rmed at: [facility] [address] [place], [place] [address] [phone] Praneeth smith MD CLIA: [id number] Not Available [facility] (Lab Registration) [address], [address], 10/19/2022 17:18:44 10/20/19 23 10/19/2022 COMP METAB OLIC PANEL sodium 138 mmol/ L 136-14 5 Not Available [facility] (Lab Registration) [address], [address], 10/19/2022 17:18:45 10/20/19 23 10/19/2022 COMP METAB OLIC PANEL potassium 4.4 mmol/ L 3.5-5. 1 Not Available [facility] (Lab Registration) [address], [address], 10/19/2022 17:18:45 10/20/19 23 10/19/2022 COMP METAB OLIC PANEL chloride 103 mmol/ L 98-107 Not Available [facility] (Lab Registration) [address], [address], 10/19/2022 17:18:45 10/20/19 23 10/19/2022 COMP METAB OLIC PANEL carbon dioxide 30 mmol/ L 21-32 Not Available [facility] (Lab Registration) [address], [address], 10/19/2022 17:18:45 10/20/19 23 10/19/2022 COMP METAB OLIC PANEL anion gap 5.0 Not Available [facility] (Lab Registration) [address], [address], 10/19/2022 17:18:45 10/20/19 23 10/19/2022 COMP METAB OLIC PANEL glucose 82 mg/dL 70-110 Not Available [facility] (Lab Registration) [address], [address], 10/19/2022 17:18:45 10/20/19 23 10/19/2022 COMP METAB OLIC PANEL blood urea nitrogen 17 mg/dL 7-18 Not Available [facility] (Lab Registration) [address], [address], 10/19/2022 17:18:45 10/20/19 23 10/19/2022 COMP METAB OLIC PANEL creatinine 0.9 mg/dL 0.6-1. 0 Not Available [facility] (Lab Registration) [address], [address], 10/19/2022 17:18:45 10/20/19 23 10/19/2022 COMP METAB OLIC PANEL BUN/creatini ne ratio 18.9 ratio 9-21 Not Available [facility] (Lab Registration) [address], [address], 10/19/2022 17:18:45 10/20/19 23 10/19/2022 COMP METAB OLIC PANEL estimated glom filtration rate 68 mL/mi n >60- Not Available [facility] (Lab Registration) [address], [address], 10/19/2022 17:18:45 10/20/19 23 10/19/2022 COMP METAB OLIC PANEL total protein 7.3 g/dL 6.4-8. 2 Not Available [facility] (Lab Registration) [address], [address], 10/19/2022 17:18:45 10/20/19 23 10/19/2022 COMP METAB OLIC PANEL albumin 4.1 g/dL 3.4-5. 0 Not Available [facility] (Lab Registration) [address], [address], 10/19/2022 17:18:45 10/20/19 23 10/19/2022 COMP METAB OLIC PANEL calcium 10.7 mg/dL 8.5-10 .1 high Not Available [facility] (Lab Registration) [address], [address], 10/19/2022 17:18:45 10/20/19 23 10/19/2022 COMP METAB OLIC PANEL corrected calcium 10.6 mg/dL 8.5-10 .1 high Not Available [facility] (Lab Registration) [address], [address], 10/19/2022 17:18:45 10/20/19 23 10/19/2022 COMP METAB OLIC PANEL bilirubin total 0.6 mg/dL 0.4-1. 5 Not Available [facility] (Lab Registration) [address], [address], 10/19/2022 17:18:45 10/20/19 23 10/19/2022 COMP METAB OLIC PANEL AST (SGOT) 26 U/L 15-37 Not Available [facility] (Lab Registration) [address], [address], 10/19/2022 17:18:45 10/20/19 23 10/19/2022 COMP METAB OLIC PANEL ALT (SGPT) 31 U/L 12-78 Not Available [facility] (Lab Registration) [address], [address], 10/19/2022 17:18:45 10/20/19 23 10/19/2022 COMP METAB OLIC PANEL alk phosphatase 87 U/L 50-120 Not Available [facility] (Lab Registration) [address], [address], 10/19/2022 17:18:45 10/20/19 23 10/19/2022 COMP METAB OLIC PANEL note Unles s other porras noted testi ng perfo rmed at: [facility] [address] [facility] [address] [employer] [place] [address] [phone] Praneeth smith MD CLIA: [id number] Not Available [facility] (Lab Registration) [address], [address], 10/19/2022 17:18:45 10/20/19 23 10/19/2022 LIPID PANEL triglyceride 132 mg/dL 20-200 The [employer] n[employer] (NCEP ) has set the follo wing guide lines for Fasti ng Trigl yceri jsoeluis: LOGAN L: <150 mg/dL BORDE RLINE HIGH: 150 - 199 mg/dL HIGH: 200 - 499 mg/dL VERY HIGH: > or =500 mg/dL Not Available [facility] (Lab Registration) [address] [place], [address], 10/19/2022 17:18:46 10/20/19 23 10/19/2022 LIPID PANEL cholesterol 152 mg/dL 0-200 The Natio nal [employer]ca t[employer]gr am (NCEP ) has set the follo wing guide lines for Fasti ng Suzanna stero l: AME ABLE: <200 mg/dL BORDE RLINE HIGH: 200 - 239 mg/dL HIGH: > or =240 mg/dL Not Available [facility] (Lab Registration) [address], [address], 10/19/2022 17:18:46 10/20/1910/19/2022 LIPID PANEL HDL cholesterol 55 mg/dL 60- low The Natio nal Suaznna [employer] l [employer]ca tion [employer]gr am (NCEP ) has set the follo wing guide lines for Fasti ng HDL Suzanna stero l: LOW HDL: <40 mg/dL LOGAN L: 40 - 60 mg/dL AME ABLE: >60 mg/dL Not Available [facility] (Lab Registration) [address], [address], 10/19/2022 17:18:46 10/20/1910/19/2022 LIPID PANEL LDL calculated 71 mg/dL 100- low The [employer]io nal [employer]ca t[employer]gr am (NCEP ) has set the follo wing guide lines for Fasti ng LDL Suzanna stero l: OPTIM AL: < 100 mg/dL LOW RISK: 100 - 129 mg/dL BORDE RLINE HIGH: 130 - 159 mg/dL HIGH: 160 - 189 mg/dL VERY HIGH: > or = 190 mg/dL Not Available [facility] (Lab Registration) [address], [place], [address], 10/19/2022 17:18:46 10/20/19 23 10/19/2022 LIPID PANEL chol/HDL ratio 3 ratio -5 Not Available [facility] (Lab Registration) [address], [address], 10/19/2022 17:18:46 10/20/19 23 10/19/2022 LIPID PANEL note Unles s other porras noted testi ng perfo rmed at: [facility] [address] [employer] [employer] [place] [address] [phone] Praneeth smith MD CLIA: [id number] Not Available [facility] (Lab Registration) [address] [place], [address], 10/19/2022 17:18:46 02/18/20 23 02/17/2023 CBC AUTO W DIFF WBC 5.2 10 4.5-11 .5 Not Available [facility] (Lab Registration) [address], [address], 02/17/2023 16:39:59 02/18/20 23 02/17/2023 CBC AUTO W DIFF RBC 4.49 10 4.25-5 .57 Not Available [facility] (Lab Registration) [address] [place], [address], 02/17/2023 16:39:59 02/18/20 23 02/17/2023 CBC AUTO W DIFF HGB 13.4 g/dL 12.0-1 5.7 Not Available [facility] (Lab Registration) [address], [address], 02/17/2023 16:39:59 02/18/20 23 02/17/2023 CBC AUTO W DIFF HCT 41.2 % 36.0-4 7.0 Not Available [facility] (Lab Registration) [address] [place], [address], 02/17/2023 16:39:59 02/18/20 23 02/17/2023 CBC AUTO W DIFF MCV 91.8 fL 80-95 Not Available [facility] (Lab Registration) [address], [address], 02/17/2023 16:39:59 02/18/20 23 02/17/2023 CBC AUTO W DIFF MCH 29.8 pg 27.0-3 4.0 Not Available [facility] (Lab Registration) [address], [address], 02/17/2023 16:39:59 02/18/20 23 02/17/2023 CBC AUTO W DIFF MCHC 32.5 g/dL 32.0-3 6.0 Not Available [facility] (Lab Registration) [address] [place], [address], 02/17/2023 16:39:59 02/18/20 23 02/17/2023 CBC AUTO W DIFF platelet count 314 10 150-45 0 Not Available [facility] (Lab Registration) [address] [place], [address], 02/17/2023 16:39:59 02/18/20 23 02/17/2023 CBC AUTO W DIFF RDW 11.8 % 12.3-1 5.1 low Not Available [facility] (Lab Registration) [address] [place], [address], 02/17/2023 16:39:59 02/18/20 23 02/17/2023 CBC AUTO W DIFF MPV 10.5 fL 7.4-10 .4 high Not Available [facility] (Lab Registration) [address] [place], [address], 02/17/2023 16:39:59 02/18/20 23 02/17/2023 CBC AUTO W DIFF granulocyte% 57.6 % 40-75 Not Available [facility] (Lab Registration) [address] [place], [address], 02/17/2023 16:39:59 02/18/20 23 02/17/2023 CBC AUTO W DIFF lymphocyte% 33.2 % 15-57 Not Available [facility] (Lab Registration) [address] [place], [address], 02/17/2023 16:39:59 02/18/20 23 02/17/2023 CBC AUTO W DIFF monocyte% 7.1 % 4.0-12 .0 Not Available [facility] (Lab Registration) [address], [address], 02/17/2023 16:39:59 02/18/20 23 02/17/2023 CBC AUTO W DIFF eosinophil% 1.3 % 0.0-4. 0 Not Available [facility] (Lab Registration) [address] [place], [address], 02/17/2023 16:39:59 02/18/20 23 02/17/2023 CBC AUTO W DIFF basophil% 0.8 % 0.0-1. 0 Not Available [facility] (Lab Registration) [address] [place], [address], 02/17/2023 16:39:59 02/18/20 23 02/17/2023 CBC AUTO W DIFF immature granulocytes % 0.0 % 0.0-0. 8 Not Available [facility] (Lab Registration) [address] [place], [address], 02/17/2023 16:39:59 02/18/20 23 02/17/2023 CBC AUTO W DIFF granulocyte# 3.02 10 Not Available [facility] (Lab Registration) [address] [place], [address], 02/17/2023 16:39:59 02/18/20 23 02/17/2023 CBC AUTO W DIFF lymphocyte# 1.74 10 Not Available [facility] (Lab Registration) [address], [place], [address], 02/17/2023 16:39:59 02/18/20 23 02/17/2023 CBC AUTO W DIFF monocyte# 0.37 10 Not Available [facility] (Lab Registration) [address], [address], 02/17/2023 16:39:59 02/18/20 23 02/17/2023 CBC AUTO W DIFF eosinophil# 0.07 10 Not Available [facility] (Lab Registration) [address], [address], 02/17/2023 16:39:59 02/18/20 23 02/17/2023 CBC AUTO W DIFF basophil# 0.04 10 Not Available [facility] (Lab Registration) [address] [place], [address], 02/17/2023 16:39:59 02/18/20 23 02/17/2023 CBC AUTO W DIFF immature granulocytes # 0.00 10 Not Available [facility] (Lab Registration) [address], [address], 02/17/2023 16:39:59 02/18/20 23 02/17/2023 CBC AUTO W DIFF manual differential NO Not Available [facility] (Lab Registration) [address], [address], 02/17/2023 16:39:59 02/18/20 23 02/17/2023 CBC AUTO W DIFF note Unles s other porras noted testi ng perfo rmed at: [facility] [facility] [address] [employer] [address] [phone] Praneeth smith MD CLIA: [id number] Not Available [facility] (Lab Registration) [address], [address], 02/17/2023 16:39:59 02/18/20 23 02/17/2023 THYRO ID STIMU LATIN G HORMO NE thyroid stimulating hormone 0.97 mIU/m L 0.34-4 .80 Not Available [facility] (Lab Registration) [address], [address], 02/17/2023 17:44:42 02/18/20 23 02/17/2023 THYRO ID STIMU LATIN G HORMO NE note Unles s other porras noted testi ng perfo rmed at: [facility] [address] [place] [address] [phone] Praneeth smith MD CLIA: [id number] Not Available [facility] (Lab Registration) [address], [address], 02/17/2023 17:44:42 02/18/20 23 02/17/2023 T4 FREE T4,free 0.98 NG/dL 0.76-1 .46 Effec tive today 013 new Refer ence Range . Not Available [facility] (Lab Registration) [address], [address], 02/17/2023 17:44:42 02/18/20 23 02/17/2023 T4 FREE note Unles s other porras noted testi ng perfo rmed at: [facility] [address] [facility] [address] [place] [address] [phone] Praneeth smith MD CLIA: [id number] Not Available [facility] (Lab Registration) [address], [address], 02/17/2023 17:44:42 02/18/20 23 02/17/2023 VITAM IN D TOTAL (D2+D 3) vitamin D25 (D2+D3) 58.9 NG/mL 30-100 Not Available [facility] (Lab Registration) [address], [address], 02/17/2023 17:44:43 08/18/20 23 02/17/2023 VITAM IN D TOTAL (D2+D 3) note Unles s other porras noted testi ng perfo rmed at: [facility] [address] [place] [address] [phone] Praneeth smith MD CLIA: [id number] Not Available [facility] (Lab Registration) [address], [place], [address], 02/17/2023 17:44:43 02/18/20 23 02/17/2023 VITAM IN B12 vitamin B12 918 pg/mL 193-98 6 Not Available [facility] (Lab Registration) [address], [place], [address], 02/17/2023 17:44:44 02/18/20 23 02/17/2023 VITAM IN B12 folate (folic acid), serum 51.5 NG/mL 8.6-58 .9 Not Available [facility] (Lab Registration) [address], [place], [address], 02/17/2023 17:44:44 02/18/20 23 02/17/2023 VITAM IN B12 note Unles s other porras noted testi ng perfo rmed at: [facility] [address] [facility] [address] [place] [address] [phone] Praneeth simth MD CLIA: [id number] Not Available [facility] (Lab Registration) [address], [place], [address], 02/17/2023 17:44:44 02/18/20 23 02/17/2023 COMP METAB OLIC PANEL sodium 140 mmol/ L 136-14 5 Not Available [facility] (Lab Registration) [address] [place], [address], 02/17/2023 17:44:44 02/18/20 23 02/17/2023 COMP METAB OLIC PANEL potassium 4.3 mmol/ L 3.5-5. 1 Not Available [facility] (Lab Registration) [address], [address], 02/17/2023 17:44:44 02/18/20 23 02/17/2023 COMP METAB OLIC PANEL chloride 103 mmol/ L 98-107 Not Available [facility] (Lab Registration) [address], [address], 02/17/2023 17:44:44 02/18/20 23 02/17/2023 COMP METAB OLIC PANEL carbon dioxide 28 mmol/ L 21-32 Not Available [facility] (Lab Registration) [address], [address], 02/17/2023 17:44:44 02/18/20 23 02/17/2023 COMP METAB OLIC PANEL anion gap 9.0 Not Available [facility] (Lab Registration) [address], [address], 02/17/2023 17:44:44 02/18/20 23 02/17/2023 COMP METAB OLIC PANEL glucose 85 mg/dL 70-110 Not Available [facility] (Lab Registration) [address], [address], 02/17/2023 17:44:44 02/18/20 23 02/17/2023 COMP METAB OLIC PANEL blood urea nitrogen 19 mg/dL 7-18 high Not Available [facility] (Lab Registration) [address], [address], 02/17/2023 17:44:44 02/18/20 23 02/17/2023 COMP METAB OLIC PANEL creatinine 0.9 mg/dL 0.6-1. 0 Not Available [facility] (Lab Registration) [address], [address], 02/17/2023 17:44:44 02/18/20 23 02/17/2023 COMP METAB OLIC PANEL BUN/creatini ne ratio 21.1 ratio 9-21 high Not Available [facility] (Lab Registration) [address], [address], 02/17/2023 17:44:44 02/18/20 23 02/17/2023 COMP METAB OLIC PANEL estimated glom filtration rate 68 mL/mi n >60- Not Available [facility] (Lab Registration) [address], [address], 02/17/2023 17:44:44 02/18/20 23 02/17/2023 COMP METAB OLIC PANEL total protein 7.8 g/dL 6.4-8. 2 Not Available [facility] (Lab Registration) [address], [address], 02/17/2023 17:44:44 02/18/20 23 02/17/2023 COMP METAB OLIC PANEL albumin 4.4 g/dL 3.4-5. 0 Not Available [facility] (Lab Registration) [address], [address], 02/17/2023 17:44:44 02/18/20 23 02/17/2023 COMP METAB OLIC PANEL calcium 10.9 mg/dL 8.5-10 .1 high Not Available [facility] (Lab Registration) [address] [place], [address], 02/17/2023 17:44:44 02/18/20 23 02/17/2023 COMP METAB OLIC PANEL corrected calcium 10.6 mg/dL 8.5-10 .1 high Not Available [facility] (Lab Registration) [address], [address], 02/17/2023 17:44:44 02/18/20 23 02/17/2023 COMP METAB OLIC PANEL bilirubin total 0.5 mg/dL 0.4-1. 5 Not Available [facility] (Lab Registration) [address], [address], 02/17/2023 17:44:44 02/18/20 23 02/17/2023 COMP METAB OLIC PANEL AST (SGOT) 25 U/L 15-37 Not Available [facility] (Lab Registration) [address], [place], [address], 02/17/2023 17:44:44 02/18/20 23 02/17/2023 COMP METAB OLIC PANEL ALT (SGPT) 30 U/L 12-78 Not Available [facility] (Lab Registration) [address], [place], [address], 02/17/2023 17:44:44 02/18/20 23 02/17/2023 COMP METAB OLIC PANEL alk phosphatase 82 U/L 50-120 Not Available [facility] (Lab Registration) [address] [place], [address], 02/17/2023 17:44:44 02/18/20 23 02/17/2023 COMP METAB OLIC PANEL note Unles s other porras noted testi ng perfo rmed at: [facility] [address] [place] [address] [phone] Praneeth smith MD CLIA: [id number] Not Available [facility] (Lab Registration) [address] [place], [address], 02/17/2023 17:44:44 02/18/20 23 02/17/2023 PRINCE TIN ferritin 81 NG/mL 8-388 Not Available [facility] (Lab Registration) [address] [place], [address], 02/17/2023 17:45:40 02/18/20 23 02/17/2023 PRINCE TIN note Unles s other porras noted testi ng perfo rmed at: [facility] [address] [place] [address] [phone] Praneeth smith MD CLIA: [id number] Not Available [facility] (Lab Registration) [address] [place], [address], 02/17/2023 17:45:40 02/18/20 23 02/17/2023 IRON/ TIBC/ %SAT (IRON STUDI ES) iron 75 ug/dL 35-150 Not Available [facility] (Lab Registration) [address], [address], 02/17/2023 17:45:41 02/18/20 23 02/17/2023 IRON/ TIBC/ %SAT (IRON STUDI ES) total iron bind cap (TIBC) 368 ug/dL 250-45 0 Not Available [facility] (Lab Registration) [address] [place], [address], 02/17/2023 17:45:41 02/18/20 23 02/17/2023 IRON/ TIBC/ %SAT (IRON STUDI ES) % saturation 20 % 15-55 Not Available [facility] (Lab Registration) [address] [place], [address], 02/17/2023 17:45:41 02/18/20 23 02/17/2023 IRON/ TIBC/ %SAT (IRON STUDI ES) note Unles s other porras noted testi ng perfo rmed at: [facility] [address] [place] [address] [phone] Praneeth smith MD CLIA: [id number] Not Available [facility] (Lab Registration) [address] [place], [address], 02/17/2023 17:45:41 02/18/20 23 02/17/2023 CITLALI QUAL SCREE N note Unles s other porras noted testi ng perfo rmed at: [facility] [address] [place] [address] [phone] Praneeth smith MD CLIA: [id number] Not Available [facility] (Lab Registration) [address] [place], [address], 2023 13:10:51 02/18/2002/20/2023 CITLALI QUAL SCREE N CITLALI direct Negati ve negati ve Perfo rmed at: - [facility] [address], [place] [address] Lab Direc tor: Joe andrew PhD, Phone : [phone] SENT TO REFER [facility]CE LAB Not Available [facility] (Lab Registration) [address] [place], [address], 2023 13:10:51 08/15/19 24 08/15/2023 urina lysis , dipst ick Leukocytes (reference range) modera te Not Available [address] [place], [address], 08/15/2023 11:52:20 08/15/19 24 08/15/2023 urina lysis , dipst ick Nitrite (reference range:) negati ve Not Available [place] [address] [place], [address], 08/15/2023 11:52:20 08/15/19 24 08/15/2023 urina lysis , dipst ick Urobilinogen (reference range) 0.2 Not Available [place] [address] [place], [address], 08/15/2023 11:52:20 08/15/19 24 08/15/2023 urina lysis , dipst ick Protein (reference range) negati ve Not Available [place] [address] [place], [address], 08/15/2023 11:52:20 08/15/19 24 08/15/2023 urina lysis , dipst ick pH (reference range 5-8.5) 5.5 Not Available [place] [address] [place], [address], 08/15/2023 11:52:20 08/15/19 24 08/15/2023 urina lysis , dipst ick Blood (reference range:) large Not Available [address] [place], [address], 08/15/2023 11:52:20 08/15/19 24 08/15/2023 urina lysis , dipst ick Specific [place] (reference range) 1.030 Not Available [address] [place], [address], 08/15/2023 11:52:20 08/15/19 24 08/15/2023 urina lysis , dipst ick Ketone (reference range) negati ve Not Available [address] [place], [address], 08/15/2023 11:52:20 08/15/19 24 08/15/2023 urina lysis , dipst ick Bilirubin (reference range) small Not Available [address] [place], [address], 08/15/2023 11:52:20 08/15/19 24 08/15/2023 urina lysis , dipst ick Glucose (reference range) negati ve Not Available [address] [place], [address], 08/15/2023 11:52:20 08/15/19 24 08/15/2023 urina lysis , dipst ick Color (reference range: yellow-brown ) Dark Yellow Not Available [address] [place], [address], 08/15/2023 11:52:20 02/16/20 23 02/07/2018 MAMMO , cristinoe silverio, digit al, bilat eral No observ ation record ed. [email or web address] Not Available 2022 09:32:40 02/16/2007/08/2015 colon oscop y proce dure (PROC ) No observ ation record ed. Not Available 2022 09:31:45 03/23/2003/23/2023 imagi ng inter preta tion No observ ation record ed. [address], [place], [address], 03/24/2023 14:41:33 03/23/20 23 03/23/2023 imagi ng inter preta tion No observ ation record ed. [address], [place], [address], 03/24/2023 14:41:28 03/23/20 23 03/23/2023 imagi ng inter preta tion No observ ation record ed. [address], [place], [address], 03/24/2023 14:41:23 Result Notes None recorded. Problems Name Problem SNOMED Code Status Onset Date Resolution Date Notes Provider Name and Address Organization Details Recorded Time Fibromyalgia 096429999 Active 2022 MORIAH Padilla - [facility] - [place] & [place] 3 15:45:05 Chronic pain 17616195 Active 2022 Suzy lozoya [place] - [facility] - [place] & [place] 3 15:45:12 Anxiety 21983417 Active 2022 Suzy lozoya [place] - [facility] - [place] [facility] [place] 3 15:45:17 Gastroesophage al reflux disease 638403021 Active 2022 Suzy lozoya [place] - [facility] - [place] [facility] [place] 3 15:45:24 Irritable bowel syndrome 17572960 Active 2022 Suzy lozoya [place] - [facility] - [place] [facility] [place] 3 15:45:30 Mixed hyperlipidemia 649376073 Active 2022 Suzy Sky null, [place] - [facility] - [place] [facility] [place] 3 15:45:41 Essential hypertension 22040829 Active 2022 Suzy Sky null, [place] - [facility] - [place] [facility] [place] 3 15:45:57 Chronic constipation 836357642 Active 2022 Suzy Sky null[place] - [facility] - [place] [facility] [place] 3 15:46:10 Depressive disorder 60773081 Active 2022 Suzy Sky null, [place] - [facility] - [place] [facility] [place] 3 15:46:20 Restless legs 01396345 Active 2022 Suzy Sky null, [place] - [facility] - [place] [facility] [place] 3 15:46:29 Problem Notes None recorded. Procedures Surgical History Date Name Laterality Status Provider Name and Address Organization Details Recorded Time 07/08/19 16 colonoscopy completed Angela Muñoz [place] - [facility] - [place] [facility] [place] 02/15/2023 09:28:53 section completed Suzy Alvinna [place] - [facility] - [place] [facility] [place] 10/19/2022 15:47:48 Hysterectomy completed Suzydoug MAJOR - [facility] - [place] [facility] [place] 10/19/2022 15:47:59 Imaging Results Imaging Date Name Status LastModified by Organization Details LastModified Time 02/07/2018 MAMMO, screening, digital, bilateral completed [email or web address] Information not available 02/15/2023 09:32:40 07/08/2015 colonoscopy procedure (PROC) completed [email or web address] Information not available 02/15/2023 09:31:45 03/23/2023 imaging interpretation completed [address], [place], [address], 03/24/2023 14:41:33 03/23/2023 imaging interpretation completed [address], [place], [address], 03/24/2023 14:41:28 03/23/2023 imaging interpretation completed [email or web address] [facility] [address], [place], [address], 03/24/2023 14:41:23 Procedure Notes None recorded. Medical Equipment None Reported. Allergies Allergen ID Allergen Name Allergen Category Reaction Reaction Severity Criticality Documentation Date Start Date Code Code System Note Provider Name and Address Organization Details Recorded Time 57258 Product containin g penicilli n (product) medicatio n Not available Not available Not available 02/15/2023 47765 8001 SNOMED Angela [facility], [place] - [facility] - [place] & [place] 3 09:28:03 Medications Name Sig Start Date Stop Date Status Note LastModified by Organization Details LastModified Time amantadine HCl 100 mg tablet 08/15 completed Not Available Not Available Not Available fluoxetine 40 mg capsule TAKE 2 CAPSULES BY MOUTH EVERY MORNING active Not Available Not Available No t Available atorvastati n 40 mg tablet TAKE 1 TABLET BY MOUTH EVERY DAY active Not Available Not Available No t Available loperamide 2 mg capsule TAKE 1 CAPSULE AFTER FIRST LOOSE STOOL AND AFTER EACH SUBSEQUEN T BOWEL MOVEMENT. MAX 8 CAPSULES/ DAY active Not Available Not Available No t Available azithromyci n 250 mg tablet 02/17 completed Not Available Not Available Not Available ondansetron HCl 4 mg tablet TAKE 1 TABLET BY MOUTH EVERY 6 HOURS NEEDED FOR NAUSEA AND VOMITING. active Not Available Not Available No t Available Tubersol 5 tub. unit/0.1 mL intradermal injection solution Inject 0.1 mL by intraderm al route. 2023 active Not Available Not Available Not Avai lable sulfamethox azole 800 mg-trimetho prim 160 mg tablet TAKE 1 TABLET BY MOUTH EVERY 12 HOURS FOR 7 DAYS active Not Available Not Available No t Available omeprazole 40 mg capsule,del ayed release TAKE 1 CAPSULE BY MOUTH EVERY DAY 30 MINUTES BEFORE MORNING MEAL active Not Available Not Available No t Available hydrocodone 7.5 mg-acetamin ophen 325 mg tablet TAKE 1 TABLET BY MOUTH FOUR TIMES A DAY FOR PAIN active Not Available Not Available No t Available ropinirole 0.5 mg tablet TAKE 1 TABLET BY MOUTH 1 TO 3 HOURS BEFORE BEDTIME ONCE A DAY 10/19 completed Not Available Not Available Not Available buspirone 10 mg tablet Take 1 tablet twice a day by oral route for 90 days. 2023 active Not Available Not Available Not Avai lable polymyxin B sulfate 10,000 unit-trimet hoprim 1 mg/mL eye drops INSTILL 1 DROP INTO AFFECTED EYE EVERY 6 HOURS active Not Available Not Available No t Available mupirocin 2 % topical ointment active Not Available Not Available Not Available dicyclomine 10 mg capsule TAKE 1 CAPSULE BY MOUTH EVERY 6 HOURS NEEDED active Not Available Not Available No t Available bupropion HCl XL 300 mg 24 hr tablet, extended release TAKE 1 TABLET BY MOUTH EVERY DAY IN THE MORNING active Not Available Not Available No t Available pregabalin 75 mg capsule TAKE 1 CAPSULE BY MOUTH TWICE A DAY FOR PAIN active Not Available Not Available No t Available Amitiza 24 mcg capsule Take 1 capsule twice a day by oral route for 90 days. 2022 active Not Available Not Available Not Avai lable Movantik 12.5 mg tablet active Not Available Not Available Not Available Vitals Date Recorded Body height Body mass index (BMI) Body weight Body temperature Oxygen saturation Oxygen saturation in Arterial blood by Pulse oximetry Heart rate Systolic blood pressure Diastolic blood pressure Provider Name and Address Organization Details Last Updated DateTime 3 165.1 cm 24.3 kg/m2 67987.4 9 g 97 [degF] 97 % 97 % 78 /min 117 mm[Hg] 62 mm[Hg] Suzy Esquivelna MD - NT [facility] & [place] 3 14:53:17 Date Recorded Body height Body mass index (BMI) Body weight Body temperature Oxygen saturation Oxygen saturation in Arterial blood by Pulse oximetry Heart rate Respiratory rate Systolic blood pressure Diastolic blood pressure Provider Name and Address Organization Details Last Updated DateTime 3 165.1 cm 24.5 kg/m2 67303.5 2 g 97.5 [degF] 97 % 97 % 81 /min 16 /min 122 mm[Hg] 71 mm[Hg] Thania Givens [place] - [facility] & [place] 3 14:02:38 Date Recorded Body height Body mass index (BMI) Body weight Body temperature Oxygen saturation Oxygen saturation in Arterial blood by Pulse oximetry Heart rate Respiratory rate Systolic blood pressure Diastolic blood pressure Provider Name and Address Organization Details Last Updated DateTime 3 165.1 cm 24 kg/m2 42122.3 g 98.1 [degF] 97 % 97 % 82 /min 18 /min 131 mm[Hg] 86 mm[Hg] Jordan MAJOR [facility] & [place] 3 14:30:56 Date Recorded Body height Body mass index (BMI) Body weight Body temperature Oxygen saturation Oxygen saturation in Arterial blood by Pulse oximetry Heart rate Respiratory rate Systolic blood pressure Diastolic blood pressure Provider Name and Address Organization Details Last Updated DateTime 4 165.1 cm 22.8 kg/m2 06530.1 5 g 97.5 [degF] 96 % 96 % 68 /min 18 /min 117 mm[Hg] 70 mm[Hg] Jordan MAJOR [facility] & [place] 4 11:36:07 Social History Question Answer Notes LastModified by Organizat ion Details LastModified Time Tobacco Smoking Status [facility] [place] 10/19/2022 14:55:16 Do You Have An Advance Directive? No Information not available 11/29/2022 What Is Your Level Of Alcohol Consumption? None Information not available 10/19/2022 Are You Blind Or Do You Have Difficulty Seeing? No Information not available 11/29/2022 What Is Your Level Of Caffeine Consumption? Moderate Information not available 11/29/2022 When Did You Quit Smoking? 6-10yearssinc elastcigarett e Information not available 11/29/2022 What Was The Date Of Your Most Recent Tobacco Screening? 10/16/2022 Information not available 11/29/2022 At What Age Did You Start Smoking Tobacco? 15 Information not available 11/29/2022 Are You Passively Exposed To Smoke? No Information no t available 11/29/2022 Do You Feel Stressed (tense, Restless, Nervous, Or Anxious, Or Unable To Sleep At Night)? [id number] Information not available 11/29/2022 Do You Use Any Illicit Or Recreational Drugs? No Information not available 10/19/2022 Has Tobacco Cessation Counseling Been Provided? No Information not available 11/29/2022 How Many Years Have You Smoked Tobacco? 36 Information not available 11/29/2022 Do You Or Have You Ever Used Any Other Forms Of Tobacco Or Nicotine? No Information not available 11/29/2022 Sex: Unknown Functional Status Question Answer Note LastModified by Organization D etails LastModified Time What is your exercise level? Moderate Information not available 11/29/2022 Mental Status None recorded. Family History Relationship Description Onset Age of this Age Resolved Age Notes LastModified by Organization Details LastModified Time Mother Essential hypertension [email or web address] Not available 15:46:53 Father Malignant neoplasm of lung dece ed [email or web address] Not available 10/19/2022 15:47:05 Father Malignant neoplasm of liver dece ed [email or web address] Not available 10/19/2022 15:47:24 Father Essential hypertension [email or web address] Not available 15:47:29 Medical History Condition Response None Y Depression Y Constipation Y Anxiety Disorder Y Reflux/GERD Y High Cholesterol Y Fibromyalgia Y Hypertension Y Gynecological HistoryNo gynecological history recorded. Obstetrics History GPAL:G 0 P 0 0 0 0 Immunizations Vaccine Type Date Status Note Provider Nam e and Address Organization Details Recorded Time Influenza, recombinant, quadrivalent, PF 05/06/2020 christy [place] [facility] [place] [facility] [place] 02/15/2023 09:21:16 COVID-19, mRNA, LNP-S, PF, 30 mcg/0.3 mL dose 07/23/2020 christy [place]zoya[place] [facility] [place] [facility] [place] 02/15/2023 09:21:16 COVID-19, mRNA, LNP-S, PF, 30 mcg/0.3 mL dose 08/14/2020 christy Muñoz null, [place] - [facility] & [place] 02/15/2023 09:21:16 COVID-19, mRNA, LNP-S, PF, 30 mcg/0.3 mL dose 05/25/2021 christy lozoya[place] - [facility] - [place] [facility] [place] 02/15/2023 09:21:16 TST-PPD intradermal 09/13/2018 christy Miller Muñoz null, [place] - [facility] & [place] 02/15/2023 09:21:16 Influenza, split virus, quadrivalent, PF 07/05/2019 completed Angela Toni null, [place] - [facility] - [place] [facility] [place] 02/15/2023 09:21:16 Influenza, split virus, quadrivalent, PF 04/27/2017 completed Angela Toni null, [place]IAH Jacob [facility] - [place] [facility] [place] 02/15/2023 09:21:16 Influenza, split virus, quadrivalent, PF 05/14/2018 completed Angela Toni null, [place]IA[place] Jacob [facility] & [place] 02/15/2023 09:21:16 Influenza, split virus, quadrivalent, PF 05/19/2021 completed Angela Toni lozoya, [place] Jacob [facility] & [place] 02/15/2023 09:21:16 Past Encounters Encounter ID Performer Location Encounter Start Date Encounter Closed Date Diagnosis/Indication Diagnosis SNOMED-CT Code Diagnosis ICD10 Code Diagnosis Note [id number] ZACHARY BREEN NP [email or web address] [address] [address] 10/19/2022 14:26:14 10/19/2022 16:02:29 Essential hypertension 13161946 I10 educated on goal of less than 130/90meet ing goaladvise d low sodium diet, healthy lifestyle including exercise as ablecontin ue current medication regimenER if any symptoms such as chest pain, shortness of breath lab work obtained by roberta escobar ac Fatigue 57475231 R53.83 sleep hygienecar egiver burden, have own time Gastroesop hageal reflux disease 461274081 K21.9 Avoid spicy foods, carbonated beverages, lying down 30 minutes to 1 hour after eating Eat smaller portion sizes Take medication s as prescribed Weight management Depressive disorder 6688 9007 F33.1 controlled denies SI/HIconti nue medication s as prescribed Mixed hyperlipidemia 267 495605 E78.2 Patient advised to exercise, eat a prudent diet and lose weight as appropriat e. Chronic constipation 236 804381 K59.09 T40.2X5S opioid induced constipati oncontroll edcontinue as prescribed [id number] ZACHARY BREEN NP [address] [place] [address] 11/29/2022 13:49:07 11/29/2022 14:27:44 Infection of skin 994567002 L08.9 continue antibiotic therapyrev iewed ER recordsdis cussed hibiclens, gave to pt in clinicavoi d scratching keep clean and dryf/u if symptoms persist or worsen [id number] ZACHARY BREEN NP [address] [place] [address] 02/17/2023 14:09:49 02/17/2023 15:00:45 Loss of hair 686771827 L65.9 awaiting lab workf/u if symptoms persist or worsen consider dermatolog y referral [id number] Floyd Olmedo MD [address] [place] [address] 08/15/2023 11:22:58 08/15/2023 11:45:00 Urinary tract infectious disease 22954316 N39.0 urinalysis is abnormal Acute hemo rrhagic cystitis 55369898 N30.01 Patient having systemic symptoms with fatigue poor appetite and chills. proceed with antibiotic treatment. [id number] Mehran Simms MD [address] [place] [address] 10/02/2023 12:24:27 10/02/2023 12:30:57 Tuberculosis screening 974685063 Z11.1 Health Concerns Section Related Observation LastModified by Organization Detai ls LastModified Time None Recorded Concern Status LastModified by Organization Details LastModified Time None Recorded Advance Directives Directive N: Payers Encounter Date Sequence Insurance Name Policy Number Policy Cordero Covered Member ID Cordero Member ID Guarantor Name 10/19/2022 1 [employer] [facility] (MEDICAID HMO) Jeane Bee [id number] Jeane Bee 11/29/2022 1 [employer] [facility] (MEDICAID HMO) Jeane Bee [id number] Jeane Bee 02/17/2023 1 [employer] [facility] (MEDICAID HMO) Jeane Bee [id number] Jeane eBe 08/15/2023 1 [facility] (MEDICAID HMO) Jeane Bee [id number] Jeane Bee 10/02/2023 1 [facility] (MEDICAID HMO) Jeane Bee [id number] Jeane Bee Notes Date Note Type Note Provider Name and Address Organization Details Recorded Time 10/19/2022 text/html 57 yr old female who presents for chronic care follow up. 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 TMJ improved after surgery but has constant ringing in her ear. Taking all medications as prescribed. Denies chest pain, shortness of breath. Seeing pain management for pain medications and lyrica. ZACHARY BREEN NP [address] [place], [address], [facility] & [place] 10/20/2022 11:10:13 11/29/2022 text/html 57 yr old female who presents with lesions of right hand, middle finger swelling, right leg, left hand and left heel. Reports lesions doing fine with normal nicks or cat scratch then took care of son with positive infection of wounds. Seen in ER and given bactrim and zpack which she is taking. Reports throat was also swabbed and strep positive. ER visit was 2 days ago. Some improvement with antibiotic regimen ZACHARY BREEN NP [address] [place], [address], [facility] & [place] 12/01/2022 21:46:58 02/17/2023 text/html Ms. Bee pres ents today for follow-up on hair loss and labs.Jeane has been having hair loss since the end of October. Her regular hairdresser said that she has thin hair, breakage, and has changed texture. She denies any rash infection or COVID. She has a history of hypothyroidism. She did her hair before her wedding and by the time she got , she has lost a lot of hair. The only thing that she could think of that she had done different was taking one month? s worth of collagen supplement for hair, nails, and skin for people that are aging. Since the discontinuation of her supplement, her hair hasn't improved. She has spent a lot of money for conditioning her hair. She has upcoming appointment with her hairdresser next week for hair conditioning. She is afraid to color her hair. She has been using two different hair products. She states her hair is getting better because she has been trying to take care of it and only washing once or twice a week. She ordered a big bottle of tea tree shampoo and conditioner from [facility], but they were not sealed, so she threw them away. ZACHARY BREEN NP [address] [place] [address], [phone], [facility] & [place] 02/19/2023 19:18:34 08/15/2023 text/html patient seen for acute visit. She reports 2 week history of dysuria frequency. Today she saw blood in her urine she has had some fatigue poor appetite and felt chilled. She denies any flank pain. No recent urinary tract infections. Floyd Olmedo MD [address] [place] [address], [phone], [facility] & [place] 08/15/2023 12:23:53 OBGyn Episode No OBEpisode recorded.
[2024-10-28 15:16] VITALS: BP 127/75; PULSE 72; RESP 16; O2SAT 96; BMI 22.6
--- NOTE | 2024-10-28 15:25 | A.OFFVIS_ITS ---
[facility] Disclaimer: The information contained in this section may have been updated after the patient was seen, as this information can be updated by other users. Social History Smoking Status: Never smoker alcohol intake: never current occupational status: other Travel in the last 8 weeks: None PM Subjective & Objective Subjective Subjective:: Patient is a pleasant 59-year-old female who presents today for 1 month follow- up and medication refill. Today she rates her pain a 8 out of 10. She does state that she has been recently hospitalized due to an IBS flareup. Patient states she did also have her liver with a cyst on it and stated that the provider also mentioned that her kidney did not look well. Patient states that they were recommending she be seen to have her gallbladder taken out. Patient is scheduled to see a provider there in [place] however she states she really does not know how she would be able to do this due to the fact that she cares for her son. Patient does state that the medication for the opioid induced constipation naloxeol is helping. Patient is managed with our office of Haughton 7.5 mg 3 times a day and pregabalin 75 mg twice a day along with compounded cream. She denies any side effects. Patient was also just refilled on meloxicam however she does state today that she did not request that that it was the pharmacy. Patient denies any other changes. Her Angel has been reviewed and is appropriate. Review of Systems: General: No recent weight changes, no fever, no sleep disturbances Respiratory: No cough, no shortness of air, no recurring pulmonary infections Cardiovascular/peripheral vascular: No chest pain, no palpitations, no edema, no shortness of breath Gastrointestinal: No new onset incontinence, normal bowel movements reported Genitourinary: No new onset incontinence Musculoskeletal: Low back pain, abdominal pain Psychiatric: [Normal mood/affect] Neurological: [Denies weakness in extremities], [denies balance issues] Pain at rest (0-10 scale): 8 Objective Objective:: Physical Exam: General: Alert and oriented x3, no acute distress, pleasant and cooperative Lungs: Respirations even and unlabored, symmetrical chest expansion Eyes: PERRL Musculoskeletal: Flexion and extension of lumbar [spine] somewhat guarded secondary to pain Neurological: Speech clear, no gross sensory deficit Has patient had previous pain injection?: No Conservative treatment options previously tried: Prescription medications Length of treatment: Longer than 12 weeks Meds Home Medications and Allergies Home Medications ?Medication ?Instructions ?Recorded ?Confirmed ?Type ropinirole 2 mg tablet,extended 2 mg PO HS Pain 03/27/18 10/28/24 History release 24 hr metaxalone 800 mg tablet 800 mg PO BID . 09/13/21 10/28/24 History naloxegol 12.5 mg tablet 12.5 mg PO DAILY . #30 tabs 07/10/23 10/28/24 Rx diclofenac sodium 1 % topical gel 2 g topical QID #100 grams 05/13/24 10/28/24 Rx (Arthritis Pain (diclofenac)) pregabalin 75 mg capsule (Lyrica) 75 mg PO BID #16 caps 07/15/24 10/28/24 Rx hydrocodone 7.5 mg-acetaminophen 1 tab PO QID #120 tabs 09/19/24 10/28/24 Rx 325 mg tablet meloxicam 15 mg tablet See Rx Instructions .Route 10/16/24 10/28/24 Rx .COMPLEX #30 tabs hydrocodone 7.5 mg-acetaminophen 1 tab PO TID #90 tabs 10/28/24 Rx 325 mg tablet pregabalin 75 mg capsule (Lyrica) 75 mg PO BID #60 caps 10/28/24 Rx New Prescriptions to Start Prescriptions: hydrocodone-acetaminophen FrancisJanet Annalise pregabalin [Lyrica] Janet Blanco Allergies Allergy/AdvReac Type Severity Reaction Status Date / Time penicillin G (PENICILLIN G) Allergy Unknown I-HIVES Unverified 06/20/17 14:11 Assessment and Plan *Assessment and plan (1) Lumbar radiculopathy: Status: Acute Category: Medical Code(s): M54.16 - Radiculopathy, lumbar region (2) Degenerative disc disease, lumbar: Status: Acute Category: Medical Code(s): M51.369 - Other intervertebral disc degeneration, lumbar region without mention of lumbar back pain or lower extremity pain Plan I will refill the patient's pregabalin and Haughton and provide a 1 month supply of this medication along with the naloxegol. Patient will return to clinic in 1 month for reevaluation of symptoms and plan of care. Risks and benefits of the medication have been explained in detail to the patient. The patient does understand the risk of dependence on the medication when given over a prolonged period. Patient has been advised of risks of oversedation with the prescribed medication. Narcan has been offered to the paitent in the event of oversedation. Patient has been advised that a family member should also be educated regarding administration of Narcan. The patient has been advised to consult with his/her primary care provider and pharmacist regarding drug-drug interaction of medications currently prescribed. Patient has been prescribed a controlled substance after being counseled on the medication, medication safety, and possible side effects. Opioid contract was reviewed and signed by the patient, and that they have agreed to all of the terms set forth by our compliance program. A UDS is needed to verify patient's compliance with our office pain contract. This is ordered based off specific treatments related to chronic pain with the potential to abuse certain medications. Patient has been instructed to contact the clinic with any concerns before the next appointment. Dr. Dennis has reviewed this note and agrees with this plan of care. This note was dictated using voice recognition software and make contain errors or omissions.
== END 2024-10-28 23:59 | disposition home or self-care (01) ==
PROVIDERS: PCP Nurse Practitioner Family; Visit Provider Nurse Practitioner Family
DX: M51.16 Intervertebral disc disorders with radiculopathy, lumbar region (principal); Z79.891 Long term (current) use of opiate analgesic
CPT/HCPCS: 99212; G0463

== ENCOUNTER 2024-12-06 15:19 | Outpatient (POV) | payer OTHER, SELFPAY ==
--- OUTSIDE RECORDS SUMMARY | 2024-11-01 22:17 | XMS_ITS | Continuity of Care Document ---
Author Organization [facility] [employer] Phone Care Team Providers Care Biofuels Engineering Manager Name Role Phone ZACHARY BREEN Unavailable ZACHARY BREEN Admitting [phone] ZACHARY BREEN Primary Care [phone] ZACHARY BREEN Primary Attending ALLERGIES AND ADVERSE REACTIONS FAMILY HISTORY RESULTS MEDICATIONS SOCIAL HISTORY HEALTH CONCERNS ENCOUNTERS CARE TEAM
--- OUTSIDE RECORDS SUMMARY | 2024-11-19 08:00 | XMS_ITS | Encounter Summary ---
Author Organization [facility] Address [address] [place] [address] Care Team Providers Care Air Drier Name Role Phone Ian Nelson APRN Primary Care Provider + Reason for Referral * Consultation (Routine) - Closed Specialty Diagnoses / Procedures Referred By Kalli chang Referred To Contact Oral Surgery Diagnoses Pain, dental Seyd Kumari DDS [address] [address] Phone: tel: fax: [facility] [address] [address] Phone: tel: fax: Referral ID Status Reason Start Date Expiration Date V isits Requested Visits Authorized [id number] Closed Specialty Services Required 11/19/2024 05/21/2026 1 1 Scheduling Instructions Please evaluate and EXT #31. Thanks Reason for Visit * Reason Comments Dental Pain LR Pain Encounter Details Date Type Department Care Team (Late st Contact Info) Description 11/19/2024 8:00 AM EDT Office Visit [facility] [address] [place] [address] Care, Dentistry Urgent Pain, dental (Primary Dx) Social History Tobacco Use Types Packs/Day Years Used Date Smoking Tobacco: Never Smokeless Tobacco: Never Tobacco Cessation:Counseling Given: Not Answered Alcohol Use Standard Drinks/Week Comments Never 0 (1 standard drink = 0.6 oz pur e alcohol) Comments Unknown Sex and Gender Information Value Date Recorded Sex Assigned at Not on file Legal Sex Female 8:50 PM EDT Gender Identity Not on file Sexual Orientation Not on file documented as of this encounter Last Filed Vital Signs Vital Sign Reading Time Taken Comments Blood Pressure 128/84 11/19/2024 8:13 AM EDT Pulse 80 11/19/2024 8:13 AM EDT Temperature - - Respiratory Rate - - Oxygen Saturation - - Inhaled Oxygen Concentration - - Weight - - Height - - Body Mass Index - - documented in this encounter Miscellaneous Notes * Addendum Note - Pipo Treadwell - 11/19/2024 8:00 AM EDTAddended by: PIPO TREADWELL on: 11/19/2024 09:16 AM Modules accepted: Orders * Progress Notes - Pipo Treadwell - 11/19/2024 8:00 AM EDT Urgent Care Assessment Chief Complaint Patient presents with Dental Pain LR Pain Pt reports biting a hamburger the day before yesterday and a LR tooth broke exposing a nerve . Pt went to [facility] dental yesterday and they took an xray and said #31 needed EXT. Dental Pain This is a new problem. The current episode started in the past 7 days. The problem occurs constantly. The problem has been gradually improving. The pain is at a severity of 10/10. The pain is severe.Pertinent negatives include no difficulty swallowing, facial pain, fever, oral bleeding, sinus pressure or thermal sensitivity. She has tried acetaminophen for the symptoms. The treatment provided mild relief. ROS Negative for: shortness of breath, chest pain, fever, and fatigue Positive for: None Patient is alert, awake, and well oriented. Medical History[1] Current Medications[2] New Medications Ordered This Visit Medications HYDROcodone-acetaminophen (Hycet) 7.5-325 MG/15ML solution Sig: Take by mouth every 6 hours as needed for severe pain. buPROPion XL (Wellbutrin XL) 300 MG 24 hr tablet Sig: Take 1 tablet by mouth daily. Do not crush, chew, or split. atorvastatin (Lipitor) 40 MG tablet Sig: Take 1 tablet by mouth daily. dicyclomine (Bentyl) 10 MG capsule Sig: Take 1 capsule by mouth 4 times a day. omeprazole (PriLOSEC) [address] capsule Sig: Take 1 capsule by mouth daily. Do not crush or chew. FLUoxetine (PROzac) 40 MG capsule Sig: Take 1 capsule by mouth daily. busPIRone (Buspar) 10 MG tablet Sig: Take by mouth 3 times a day. Allergies[3] Tobacco Use History[4] Patient reports no history of alcohol use. Visit Vitals BP 128/84 Pulse 80 Smoking Status Never Clinical Exam: Extraoral: normal findings Intraoral: CC Area: LR #31 Diagnostic Testing: Palpation: Positive Percussion: Positive Cold: Prolonged, 11 sec Mobility: Class 0 General Appearance: Swelling: No Remaining Dentition: in good health Multiple Missing Teeth: Yes Radiographic Exam: Film ordered: Panoramic film Date Ordered: 11/19/24 Radiographic Indications: Dental pain Location: LRQ Radiographic Observations: #31 old nondenominational, possible fracture Radiographic Interpretation/Diagnosis: Dental pain Assessment/Diagnosis: Tooth/teeth # : 31 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 Do not crush, chew,or split., Disp: , Rfl: busPIRone (Buspar) 10 MG tablet, Take by mouth 3 times a day., Disp: , Rfl: dicyclomine (Bentyl) 10 MG capsule, Take 1 capsule by mouth 4 times a day., Disp: , Rfl: FLUoxetine (PROzac) 40 MG capsule, Take 1 capsule by mouth daily., Disp: , Rfl: HYDROcodone-acetaminophen (Hycet) 7.5-325 MG/15ML solution, Take by mouth every 6 hours as needed for severe pain., Disp: , Rfl: omeprazole (PriLOSEC) [address] capsule, Take 1 capsule by mouth daily. Do not crush or chew., Disp:, Rfl: [3] Allergies Allergen Reactions Penicillins Rash [4] Social History Tobacco Use Smoking Status Never Smokeless Tobacco Never Cosigned by Jerome Sylvester DMD at 11/28/2024 10:27 AM EDT Associated attestation - Jerome Sylvester DMD - 11/28/2024 10:27 AM EDT I was present with the dental student for the service. I personally examined the patient, authorized the procedures that were performed, and evaluated the performance of the procedure after it was completed. I have verified all of the dental student???s documentation for this encounter. documented in this encounter Plan of Treatment Scheduled Referrals Name Type Priority Associated Diagnoses Order Schedule Referral to Oral Maxillofacial Surgery Outpatient Referral Routine Pain, dental Expected: 11/19/2024, Expires: 05/22/2026 documented as of this encounter Procedures Procedure Name Priority Date/Time Associated Diagnosis Comments PANORAMIC RADIOGRAPHIC IMAGE Routine 11/19/2024 8:00 AM EDT Pain, dental LIMITED ORAL EVALUATION - PROBLEM FOCUSED Routine 11/19/2024 8:00 AM EDT Pain, dental documented in this encounter Visit Diagnoses Diagnosis Pain, dental- Primary documented in this encounter Additional Health Concerns Assessment Noted Time A Body Mass Index follow-up plan has been documented for the patient 11/19/2024 9:07 AM EDT documented as of this encounter Care Teams Air Drier Relationship Specialty Start Date End Date Ian Nelson APRN [facility] [address], [place] [address] PCP - General 11/13/20 documented as of this encounter
--- OUTSIDE RECORDS SUMMARY | 2024-11-19 10:15 | XMS_ITS | Encounter Summary ---
Author Organization [facility] Address [address] [place] [address] Care Team Providers Care Trains Service Conductor Name Role Phone Nathanmelodie Ian Conley APRN Primary Care Provider + Reason for Visit * Reason Comments Dental Pain I need my tooth out . * Consultation (Routine) - Closed Specialty Diagnoses / Procedures Referred By Kalli chang Referred To Contact Oral Surgery Diagnoses Pain, dental Syed Kumari, DDS [address] [facility] [address] [place] [address] Phone: tel: fax: [facility] delinquent tax collector assistant [facility] [address] [address] Phone: tel: fax: Referral ID Status Reason Start Date Expiration Date V isits Requested Visits Authorized [id number] Closed Specialty Services Required 11/19/2024 05/21/2026 1 1 Encounter Details Date Type Department Care Team (Late st Contact Info) Description 11/19/2024 10:15 AM EDT Evaluation [facility] [address] [phone] Bruss, Ynes Pain, dental Social [...] Ynes Perez - 11/19/2024 10:15 AM EDT [facility] Operative Report - EXT #31 Patient presents to [facility] sl[facility] from [facility] clinic. Patient [facility] [place] [facility] [place] and wasreferred to us for treatment. Medical, Surgical, and medication history was taken by DMD student in [facility] and confirmed withpatient at this appointment. Vitals: 11/19/24 1030 BP: 127/84 Pulse: 102 SpO2: 98% PMH and R/B/A's reviewed, informed consent signed. [facility]. Pre-op dx: Symptomatic irreversible pulpitis / Symptomatic [...] pain Location: LRQ Radiographic Observations: #31 old yarsani, possible fracture Radiographic Interpretation/Diagnosis: Dental pain Ynes Perez Cosigned by Howard Dickens DDS at 12/03/2024 12:40 PM EDT Associated attestation - Howard Dickens DDS - 12/03/2024 12:40 PM EDT I was present during all critical and ovalles portions of the procedure(s) and immediately available [facility] services the entire duration. See resident note [...] documented as of this encounter Care Teams Trains Service Conductor Relationship Specialty Start Date End Date Ian Nelson APRN [address] [place], [place] [address] PCP - General 11/13/20 documented as of this encounter
--- OUTSIDE RECORDS SUMMARY | 2024-12-06 15:21 | XMS_ITS | Encounter Summary ---
Author Organization [facility] Address [address] [place] [address] Care Team Providers Care C++ Quant Developer Name Role Phone Ian Nelson GLASS MOULD CLEANER Primary Care Provider + Encounter Details Date Type Department Care Team (Latest Contact Info) Description 11/19/2024 Travel Social History Tobacco Use Types Packs/Day Years [...] on file documented as of this encounter Plan of Treatment Not on file documented as of this encounter Visit Diagnoses Not on filedocumented in this encounter Additional Health Concerns Assessment Noted Time A Body Mass Index follow-up plan has been documented for the patient 11/19/2024 9:07 AM EDT documented as of this encounter Care Teams C++ Quant Developer Relationship Specialty Start Date End Date Ian Nelson, GLASS MOULD CLEANER [address] [place] [address] PCP - General 11/13/20 documented as of this encounter
--- OUTSIDE RECORDS SUMMARY | 2024-12-06 15:21 | XMS_ITS | Clinical Summary ---
Author Organization [facility] Address [address] [place] [address] Care Team Providers Care Mixing Plant Dumper Name Role Phone Ian Nelson APRN Primary Care Provider + Allergies Active Allergy Reactions Criticality Noted Date Comments Penicillins Rash Low 11/19/2024 Medications HYDROcodone-chani taminophen (Hycet) 7.5-325 MG/15ML solution Take by mouth every 6 hours as needed for severe pain. Active buPROPion XL (Wellbutrin XL) 300 MG 24 hr tablet Take 1 tablet by mouth daily. Do not crush, chew, or split. Active atorvastatin (Lipitor) 40 MG tablet Take 1 tablet by mouth daily. Active dicyclomine (Bentyl) 10 MG capsule Take 1 capsule by mouth 4 times a day. Active omeprazole (PriLOSEC) [address] capsule Take 1 capsule by mouth daily. Do not crush or chew. Active FLUoxetine (PROzac) 40 MG capsule Take 1 capsule by mouth daily. Active busPIRone (Buspar) 10 MG tablet Take by mouth 3 times a day. Active Active Problems No known active problems Encounters Date Type Department Care Team Description 11/19/2024 10:15 AM EDT Evaluation [facility] [address] [address] Bruss, Ynes Pain, dental 11/19/2024 8:00 AM EDT Office Visit [facility] [address] [place] [address] Care, Dentistry Urgent Pain, dental (Primary Dx) 11/19/2024 Travel from Last 3 Months Social History Tobacco Use Types Packs/Day Years [...] on file Sexual Orientation Not on file Last Filed Vital Signs Vital Sign Reading [...] Mass Index 22.6 11/19/2024 10:30 AM EDT Plan of Treatment Health Maintenance Due Date Last Done Comments Dental Oral Exam 1964 Dental Prophylaxis 1964 Dental X-Ray: Bitewings 1964 [facility]-Depression Screening 1964 [facility]-HIV Screening 1964 [facility]-/Child/Adol SDOH Screenings 1964 [facility]- SDOH Screenings 02/19/1982 [facility]-Adult SDOH Screenings 02/19/1982 [facility]-DTaP,Tdap,and Td Vaccines (1 - Tdap) 02/19/1983 [facility]-Pap Smear 02/19/1985 [facility]-Cervical Cancer Screening 02/19/1994 [facility]-HPV/Cotest 02/19/1994 CT Colonography 02/19/2009 Colonoscopy 02/19/2009 FIT-DNA 02/19/2009 FIT 02/19/2009 FOBT 02/19/2009 Sigmoidoscopy 02/19/2009 [facility]-Colorectal Cancer Screening 02/19/2009 [facility]-Breast Cancer Screening 02/19/2014 [facility]-Pneumococcal Vaccine: 50+ Years (1 of 1 - PCV) 02/19/2014 [facility]-Zoster Vaccines (1 of 2) 02/19/2014 [id number]-15 Vaccine ( season) 2024 05/25/2021, 08/14/2020, 07/23/2020 [facility]-Influenza Vaccine (Season Ended) 2025 05/19/2021, 05/06/2020, 07/05/2019, Additional history exists Dental X-Ray: Full Mouth 11/21/2027 11/19/2024 [facility]-RSV Vaccine: 60+ Years or (1 - 1-dose 75+ series) 02/19/2039 [facility]-Hepatitis C Screening Completed 04/30/2019 HPV Vaccines Aged Out No longer eligi ble based on patient's age to complete this topic [facility]-HIB Vaccines Aged Out No longer e ligible based on patient's age to complete this topic [facility]-Hepatitis A Vaccines Aged Out No longer eligible based on patient's age to complete this topic [facility]-IPV Vaccines Aged Out No longer e ligible based on patient's age to complete this topic [facility]-Rotavirus Vaccines Aged Out No lo nger eligible based on patient's age to complete this topic Procedures Procedure Name Priority Date/Time Associated Diagnosis Comments 31 EXTRACTION, ERUPTED TOOTH REQUIRING REMOVAL OF BONE AND/OR SECTIONING OF TOOTH, AND INCLUDING ELEVATION OF MUCOPERIOSTEAL FLAP IF INDICATED Routine 11/19/2024 10:15 AM EDT Pain, dental PANORAMIC RADIOGRAPHIC IMAGE Routine 11/19/2024 8:00 AM EDT Pain, dental LIMITED ORAL EVALUATION - PROBLEM FOCUSED Routine 11/19/2024 8:00 AM EDT Pain, dental HEPATITIS C ANTIBODY - ED W/REFLEX TO HCV QUANT PCR Routine 04/30/2019 1:47 PM EDT from Last 3 Months or Most Recently Relevant to Health Maintenance Results * [place] Hepatitis C Antibody (04/30/2019 1:47 PM EDT) [place] Hepatitis C Ab NEGATIVE Reference Range: Negative SUNQUEST 04/30/2019 1:47 PM EDT 04/30/2019 3:36 PM EDT us Dru Demarco MD LAB BLOOD ORDERABLES Final Res ult SUNQUEST from Last 3 Months or Most Recently Relevant to Health Maintenance Insurance [facility] MEDICAID [facility] MEDICAID [facility] MEDICAID DENTAL Care Teams Mixing Plant Dumper Relationship Specialty Start Date End Date Ian Nelson APRN [address] [place] [address] PCP - General 11/13/20
--- OUTSIDE RECORDS SUMMARY | 2024-12-06 15:21 | XMS_ITS | Continuity of Care Document ---
Author Organization [place] - [facility] [place] - [address] Address [address] [facility], [facility] [place] [address] Care Team Providers Care Print Designer Name Role Phone ZACHARY BREEN Primary Care Provider Assessment No assessment recorded. Plan of Treatment Reminders Order Date Submit Date Provider Last Modified By Organization Details Last Modified Time Details Appointments SURGERY 60 2024 08:00A Curt SEAY, DO Not available Not available Not available OV EST 15 2024 09:30A Curt SEAY, DO Not available Not available Not available Lab None recorded . Referral None recorded . Procedures None recorded . Surgeries None recorded . Imaging None recorded . Medication Orders None recorded . Patient TargetsNo targets recorded. Patient InstructionsNo instructions recorded. Reason for Referral None Reported. Results Created Date Observation Date Name Description Value Unit Range Abnormal Flag Note LastModifiedBy Organization Detail LastModifiedTime 11/02/19 25 10/29/2024 XR, pelvi s, 1 or 2 view [facility] [address] [place] [address] Phone: Fax: Name: AGUSTIN Noble PABLO Exam Date: 025 : 964 Age 59 years Gender : F Access ion: [id number] Physic jose luis: MORIAH PONCE Y Facili ty: [facility] Facili ty HSV: Outpat ient Exam: PELVIS 1 TO 2V INDICA TIONS - 59 years Female with pelvic pain TECHNI QUE: One view of the Pelvis . COMPAR STEVEN: CT abdome n/pelv is 025 FINDIN GS: Small volume of dense stool is visual ized in the sigmoi d and descen ding colon. Scatte red stool visual ized in the right colon with no signif icant stool visual ized within the rectum . The bony pelvis is intact . No discre te eviden ce of acute fractu re. No eviden ce of destru ctive change . SI joints are unrema rkable . The hips appear unrema rkable . IMPRES ALEJO: Small volume of dense stool in the descen ding colon and rectum , likely repres enting residu al contra st within stool. No eviden ce of acute osseou s abnorm ality of the bony pelvis , nor bilate ral hips. Electr onical ly signed by: Lobito Pino MD 2024 08:44 AM EDT RP Workst ation: [id number] Dictat ed By: LOBITO PINO Transc ribed By: Transc ribed On: 025 4:02 PM Electr onical ly signed by: LOBITO PINO 025 Thank you for referr PABLO Callahan to [facility]. Legall y authen ticate d by ODETTE ROBIN 10-29 16:02: 30 CC'ed Logic: Orderi ng Provid er: AMBURG EY TAFFAN Y CC Provid er: AMBURG EY TAFFAN Y Attend ing Provid er: AMBURG EY TAFFAN Y Referr ing Provid er: AMBURG EY TAFFAN Y Admitt ing Provid er: AMBURG EY TAFFAN Y [id number] [facility], [address], 11/01/2024 11:09:28 11/20/19 25 10/26/2024 CT, abdom en + pelvi s, w/o contr ast No observ ation record ed. [facility] (Radiology) [address] [place], [id number], 11/20/2024 12:49:23 Result Notes None recorded. Problems Name Problem SNOMED Code Status Onset Date Resolution Date Notes Provider Name and Address Organization Details Recorded Time Fibromyalgia 592259108 Active 2022 Suzy Sky null, [place] - [facility] [place] & [place] 3 15:45:05 Chronic pain 66080254 Active 2022 Suzy [place] [facility] [place] 3 15:45:12 Anxiety 04783595 Active 2022 Suzy [place] null[place] [facility] [place] & [place] 3 15:45:17 Gastroesophage al reflux disease 360734010 Active 2022 Suzy [place] [facility] [place] 3 15:45:24 Irritable bowel syndrome 38131325 Active 2022 Suzy Sky null[place] [facility] [place] & [place] 3 15:45:30 Mixed hyperlipidemia 495051070 Active 2022 Suzy [place] [facility] [place] 3 15:45:41 Essential hypertension 64708491 Active 2022 Suzy Sky null[place] [facility] [place] 3 15:45:57 Chronic constipation 208462498 Active 2022 Suzy [place] [facility] [place] 3 15:46:10 Depressive disorder 04532252 Active 2022 Suzy Sky null[place] [facility] [place] & [place] 3 15:46:20 Restless legs 86630075 Active 2022 Suzy Sky null[place] [facility] [place] & [place] 3 15:46:29 Problem Notes None recorded. Procedures Surgical History Date Name Laterality Status Provider Name and Address Organization Details Recorded Time 07/08/19 16 colonoscopy completed Angela Muñoz [place] - [facility] [place] & [place] 02/15/2023 09:28:53 section completed Suzy Sky [place] - [facility] [place] & [place] 10/19/2022 15:47:48 Hysterectomy completed Suzy Sky [place] [facility] & [place] 10/19/2022 15:47:59 Imaging Results None recorded. Procedure Notes None recorded. Medical Equipment None Reported. Allergies Allergen ID Allergen Name Allergen Category Reaction Reaction Severity Criticality Documentation Date Start Date Code Code System Note Provider Name and Address Organization Details Recorded Time 24128 Product containin g penicilli n (product) medicatio n Not available Not available Not available 02/15/2023 15790 8001 SNOMED Angela lozoya, [facility] & [place] 3 09:28:03 Medications Name Sig [...] T BOWEL MOVEMENT. MAX 8 CAPSULES/ DAY 10/29 completed Not Available Not Available Not Available azithromyci n 250 mg tablet 02/17 completed Not Available Not Available Not Available meloxicam 15 mg tablet TAKE 1 TABLET BY MOUTH EVERY DAY active Not Available Not Available No t Available ondansetron HCl 4 mg tablet TAKE 1 TABLET BY MOUTH EVERY 6 HOURS NEEDED FOR NAUSEA AND VOMITING. active Not Available Not Available No t Available Tubersol 5 tub. unit/0.1 mL intradermal injection solution Inject 0.1 mL by intraderm al route. 10/29 completed Not Available Not Available Not Available ciprofloxac in 500 mg tablet TAKE 1 TABLET BY MOUTH EVERY 12 HOURS FOR 5 DAYS 11/06 completed Not Available Not Available Not Available sulfamethox azole 800 mg-trimetho prim 160 mg tablet TAKE 1 TABLET BY MOUTH EVERY 12 HOURS FOR 7 DAYS 10/29 completed Not Available Not Available Not Available omeprazole 40 mg capsule,del ayed release TAKE 1 CAPSULE BY MOUTH EVERY DAY 30 MINUTES BEFORE MORNING MEAL active Not Available Not Available No t Available hydrocodone 7.5 mg-acetamin ophen 325 mg tablet TAKE 1 TABLET BY MOUTH THREE TIMES A DAY active Not Available Not Available No t Available ropinirole 0.5 mg tablet TAKE 1 TABLET BY MOUTH 1 TO 3 HOURS BEFORE BEDTIME ONCE A DAY 10/19 completed Not Available Not Available Not Available buspirone 10 mg tablet TAKE 1 TABLET TWICE A DAY BY ORAL ROUTE FOR 90 DAYS. 2024 active Not Available Not Available Not Avai lable polymyxin B sulfate 10,000 unit-trimet hoprim 1 mg/mL eye drops INSTILL 1 DROP INTO AFFECTED EYE EVERY 6 HOURS 10/29 completed Not Available Not Available Not Available mupirocin 2 % topical ointment active Not Available Not Available Not Available dicyclomine 10 mg capsule TAKE 1 CAPSULE BY MOUTH THREE TIMES A DAY NEEDED FOR 30 DAYS 2024 active Not Available Not Available Not Avai lable bupropion HCl XL 300 mg 24 hr tablet, extended release TAKE 1 TABLET BY MOUTH EVERY DAY IN THE MORNING active Not Available Not Available No t Available pregabalin 75 mg capsule TAKE 1 CAPSULE BY MOUTH TWICE A DAY active Not Available Not Available No t Available Amitiza 24 mcg capsule Take 1 capsule twice a day by oral route for 90 days. 2022 active Not Available Not Available Not Avai lable Movantik 12.5 mg tablet 10/29 completed Not Available Not Available Not Available Arthritis Pain (diclofenac ) 1 % topical gel APPLY 2 GRAMS TO SINGLE ELBOW, WRIST OR HAND (INCLUDES PALM/FING ERS/BACK OF HAND) 4 TIMES A DAY active Not Available Not Available No t Available Vitals Date Recorded Body height Provider Name an d Address Organization Details Last Updated DateTime 11/06/2024 165.1 cm Leesa Tamez [place] - [facility] & [place] 11/06/2024 15:37:39 Date Recorded Body mass index (BMI) Body weight Heart rate Oxygen saturation Oxygen saturation in Arterial blood by Pulse oximetry Body temperature Systolic blood pressure Diastolic blood pressure Provider Name and Address Organization Details Last Updated DateTime 5 23.8 kg/m2 79672.9 9 g 66 /min 97 % 97 % 97.8 [degF] 122 mm[Hg] 83 mm[Hg] Mariella MAJOR - [facility] & [place] 15:42:11 Social History Question Answer Notes LastModified by Organizat Libretto Details LastModified Time Tobacco Smoking Status Former Smoker Suzy Esquivelna [facility], [facility] & [place] 10/19/2022 14:55:16 Do You Have An Advance Directive? No Information not available 11/29/2022 Are You Blind Or Do You Have [...] You Passively Exposed To Smoke? No Information not available 11/29/2022 Has Tobacco Cessation Counseling Been Provided? No Information not available 11/29/2022 How Many Years Have You Smoked Tobacco? 36 Information not available 11/29/2022 Sex: Unknown Functional Status Question Answer Note LastModified by Organizat ion Details LastModified Time Do you use any illicit or recreational drugs? No Information not available 10/19/2022 Do you or have you ever used any other forms of tobacco or nicotine? No Information not available 11/29/2022 What is your level of alcohol consumption? None Information not available 10/19/2022 What is your exercise level? Moderate Information not available 11/29/2022 Mental Status Question Answer Note LastModified by Organization D etails LastModified Time Do you feel stressed (tense, restless, nervous, or anxious, or unable to sleep at night)? [id number] Information not available 11/29/2022 Family History Relationship Description Onset Age of this Age Resolved Age Notes LastModified by Organization Details LastModified Time Mother Essential hypertension CHART_MERGE Not available 0 10/29/2024 16:51:23 Father Malignant neoplasm of lung deceas ed CHART_MERGE Not available 10/29/2024 16:51:23 Father Malignant neoplasm of liver deceas ed CHART_MERGE Not available 10/29/2024 16:51:23 Father Essential hypertension CHART_MERGE Not available 0 10/29/2024 16:51:23 Medical History Condition Response Anxiety Disorder Y None Y Arthritis Y Reflux/GERD Y Constipation Y High Cholesterol Y Fibromyalgia Y Diverticulitis Y Hypertension Y Depression Y Gynecological HistoryNo gynecological history recorded. Obstetrics History GPAL:G 0 P 0 0 0 0 Immunizations Vaccine Type Date Status Note Provider Nam e and Address Organization Details Recorded Time Influenza, recombinant, quadrivalent, PF 05/06/2020 completed Angela Muñoz null, [place] - [facility] & [place] 02/15/2023 09:21:16 COVID-19, mRNA, LNP-S, PF, 30 mcg/0.3 mL dose 07/23/2020 completed Angela Muñoz null, [place] [facility] & [place] 02/15/2023 09:21:16 COVID-19, mRNA, LNP-S, PF, 30 mcg/0.3 mL dose 08/14/2020 completed Angela Muñoz null, [place] [facility] & [place] 02/15/2023 09:21:16 COVID-19, mRNA, LNP-S, PF, 30 mcg/0.3 mL dose 05/25/2021 completed Angela Muñoz null, [place] [facility] & [place] 02/15/2023 09:21:16 TST-PPD intradermal 09/13/2018 completed Angela Muñ[place] [facility] & [place] 02/15/2023 09:21:16 Influenza, split virus, quadrivalent, PF 07/05/2019 completed Angela Muñ[place] [facility] & [place] 02/15/2023 09:21:16 Influenza, split virus, quadrivalent, PF 04/27/2017 completed Angela Muñ[place] null[place] [facility] & [place] 02/15/2023 09:21:16 Influenza, split virus, quadrivalent, PF 05/14/2018 completed Angela Muñ[place] null[place] [facility] & [place] 02/15/2023 09:21:16 Influenza, split virus, quadrivalent, PF 05/19/2021 completed MORIAH Palacio - [facility] - [place] & [place] 02/15/2023 09:21:16 Past Encounters Encounter ID Performer Location Encounter Start Date Encounter Closed Date Diagnosis/Indication Diagnosis SNOMED-CT Code Diagnosis ICD10 Code Diagnosis Note [id number] ZACHARY BREEN NP [facility] [address] [address] 10/29/2024 14:46:29 10/30/2024 07:49:58 Pain in pelvis 69911199 R10.2 awaiting additional imaging Dysuria 47273563 R30.0 urine sent for culture and office will call after culture received. Take all medicines prescribed for you for the allotted time period. Push fluids especially water. If no better in 48-72 hours or if you develop abdominal or back pain, with fever chills nausea or vomiting come back or go to the emergency room immediatel y Gallstone 460605513 K80. 20 gallstones on imaging from ER, general surgery referral Mixed hyperlipidemia 267 254017 E78.2 recheck lab work today, currently on statin therapy, refill provided Depressive disorder 3548 9007 F33.1 controlled denies SI/HIconti nue medication s as prescribed Irritable bowel syndrome 00865997 K58.9 request refill, advised not something we want her using all the time, recommend GI referral Gastroesop hageal reflux disease 017456594 K21.9 Avoid spicy foods, carbonated beverages, lying down 30 minutes to 1 hour after eatingEat smaller portion sizesTake medication s as prescribed Controlled refill provided Thyroid di sorder screening 183964861 Z13.29 Diabetes m ellitus screening 001064257 Z13.1 [id number] DO Esvin JONES [facility] [place] - [address] [facility], [address] [place] [address] 11/06/2024 15:17:21 11/06/2024 15:57:24 Left lower quadrant pain 092155510 R10.32 - patient with persistent left lower quadrant abdominal pain-due to patient's family history high-risk colon polyps as well as her 10+ year history since her last colonoscop y would recommend colonoscop y as initial started a workup- discussed with the patient that if colonoscop y is normal patient may benefit from diagnostic laparoscop y to identify possible intra-abdo michael adhesions from her previous hysterecto my-discuss ed indication s for screening colonoscop y-discusse d the risks (including bleeding, perforatio n, missed lesions), benefits, alternativ es to screening colonoscop y-patient agrees to proceed with endoscopic evaluation -patient to be scheduled at their earliest convenienc e Hiatal hernia 07717515 K 44.9 - patient was significan t GERD symptoms as well as a hiatal hernia seen on imaging- recommend EGD at time of colonoscop y-discusse d indication s for esophagoga stroduoden oscopy-dis cussed the risks (including bleeding, perforatio n, missed lesions), benefits, alternativ es to EGD-patien t agrees to proceed with endoscopic evaluation -patient to be scheduled at their earliest convenienc e Health Concerns Section Related Observation LastModified by Organization Detai ls LastModified Time None Recorded Concern Status LastModified by Organization Details LastModified Time None Recorded Payers Encounter Date Sequence Insurance Name Policy Number Policy Cordero Covered Member ID Cordero Member ID Guarantor Name 11/06/2024 1 [employer] [facility] (MEDICAID HMO) Pablo Bee [id number] Pablo Bee Notes Date Note Type Note Provider Name and Address Organization Details Recorded Time 11/06/2024 text/html 59-year-old nedra salomon presents to the office for left lower quadrant abdominal pain. Patient states she has had this pain for about a week or 2 and has had similar symptoms with constipation in the past. Patient was seen in the ER and underwent a workup which included a CT abdomen pelvis which revealed gallstones and questionable colitis. Patient states she is taken medicine and had multiple bowel movements and is still having this pulling sensation in the left lower quadrant. Patient states her last colonoscopy was 10 years ago or more. Patient states that her dad did have cancerous polyps that were removed endoscopically. She also reports history of GERD refractory to PPI therapy and a moderate-sized hiatal hernia was noted on imaging HALLEY SEAY, [address], [address], [place], [address], [facility] - [place] & [place] 11/06/2024 16:20:30 OBGyn Episode No OBEpisode recorded.
--- OUTSIDE RECORDS SUMMARY | 2024-12-06 15:21 | XMS_ITS | Data Portability ---
Author Organization [facility]OR[facility] & DANIA Rodriguez ADMIN Address [address] [place] [id number] Care Team Providers Care Retail Loss Prevention Specialist Name Role Phone CHRISTY BREENGUERRERO Primary Care Provider Assessment Encounter Date Assessment Date Assessment LastModified by Organization Details LastModified Time 02/17/2023 02/17/2023 History of hypothyroidis m: Recheck thyroid level and vitamin levels. [email or web address] Not available 02/18/2023 04:12:33 Plan of Treatment Reminders Order Date Submit Date Provider Last Modified By Organization Details Last Modified Time Details Appointments SURGERY 60 2024 08:00A Curt FOY, DO Not available Not available Not available OV EST 15 2024 09:30A Curt FOY, DO Not available Not available Not available Lab culture, urine 2024 025 [facility] (Laboratory), [address] [place], [address], 10/30/2024 07:20:19 lipid panel, serum 2024 025 [facility] (Laboratory), [address], [address], 10/29/2024 17:52:46 CMP, serum or plasma 2024 025 [facility] (Laboratory), [address] [place], [address], 10/29/2024 17:52:44 CBC w/ auto diff 2024 025 [facility] (Laboratory), [address], [address], 10/29/2024 16:27:35 TSH + free T4, serum [address] (Laboratory), [address] [place], [address], 11/05/2024 06:57:32 hemoglobi n A1c + average glucose, QN, blood [address] (Laboratory), [address] [place], [address], 11/05/2024 06:57:32 urinalysi s, dipstick 2023 024 [email or web address] [facility], [address] [place] [address] [place], [address], 08/15/2023 12:54:27 vitamin B12 + folate, serum or blood [address] (Laboratory), [address] [place], [address], 02/24/2023 07:57:18 vitamin D, 25-hydrox y, total, serum [address] (Laboratory), [address] [place], [address], 02/24/2023 07:57:18 iron + TIBC + ferritin, serum [address] (Laboratory), [address], [address], 02/24/2023 07:57:18 CBC w/ auto diff 2022 023 [facility] (Laboratory), [address], [address], 02/17/2023 16:39:59 CMP, serum or plasma 2022 023 [facility] (Laboratory), [address] [place], [address], 02/17/2023 17:44:44 CITLALI (antinucl ear antibodie s) screen, serum [address] (Laboratory), [address], [address], 02/24/2023 07:57:18 TSH + free T4, serum [address] (Laboratory), [address], [address], 02/24/2023 07:57:18 Referral general surgeon referral 2024 025 GIGI Adam Foy DO, [address], [place], [address], 11/06/2024 16:23:31 Procedures None recorded. Surgeries None recorded. Imaging US, transvagi nal 2024 025 [email or web address] [facility] (Scheduling), [address] [place], [address], 12/03/2024 07:43:41 XR, pelvis, 1 or 2 view 2024 025 [facility] (Scheduling), [address], [address], 11/01/2024 08:50:18 Medication Orders dicyclomi ne 10 mg capsule [address]/Pharmacy #3016, [address] [place], [address], 11/20/2024 10:43:30 Cipro 500 mg tablet 2024 025 [facility]/Pharmacy #3016, [address] [place], [address], 11/06/2024 15:39:04 atorvasta tin 40 mg tablet 2024 025 [facility] [address] [place], [address], 10/29/2024 16:27:22 omeprazol e 40 mg capsule,d elayed release 2024 025 [facility] [address] [place], [address], 10/29/2024 16:27:23 bupropion HCl XL 300 mg 24 hr tablet, extended release 2024 025 [facility] [address] [place], [address], 10/29/2024 16:27:23 fluoxetin e 40 mg capsule 2024 025 [facility] [address] [place], [address], 10/29/2024 16:27:23 Tubersol 5 tub. unit/0.1 mL intraderm al injection solution 2023 024 [email or web address] Not available 10/29/2024 15:11:19 Bactrim DS 800 mg-160 mg tablet 2023 024 [facility] [address] [place], [address], 10/29/2024 15:11:16 Patient TargetsNo targets recorded. Patient InstructionsNo instructions recorded. Reason for Referral General Surgeon Referral for Gallstone Referring Physician: Ian Breen, Family Medicine, Encounter Date: 10/29/2024 Results Created Date Observation Date Name Description Value Unit Range Abnormal Flag Note LastModifiedBy Organization Detail LastModifiedTime 02/18/20 23 02/17/2023 CBC AUTO W DIFF WBC 5.2 10 4.5-11 .5 Not Available [facility] (Lab Registration) [address] [place], [address], 02/17/2023 16:39:59 02/18/20 23 02/17/2023 CBC AUTO W DIFF RBC 4.49 10 4.25-5 .57 Not Available [facility] (Lab Registration) [address] [place], [address], 02/17/2023 16:39:59 02/18/20 23 02/17/2023 CBC AUTO W DIFF HGB 13.4 g/dL 12.0-1 5.7 Not Available [facility] (Lab Registration) [address] [place], [address], 02/17/2023 16:39:59 02/18/20 23 02/17/2023 CBC AUTO W DIFF HCT 41.2 % 36.0-4 7.0 Not Available [facility] (Lab Registration) [address] [place], [address], 02/17/2023 16:39:59 02/18/20 23 02/17/2023 CBC AUTO W DIFF MCV 91.8 fL 80-95 Not Available [facility] (Lab Registration) [address] [place], [address], 02/17/2023 16:39:59 02/18/20 23 02/17/2023 CBC AUTO W DIFF MCH 29.8 pg 27.0-3 4.0 Not Available [facility] (Lab Registration) [address] [place], [address], 02/17/2023 16:39:59 02/18/20 23 02/17/2023 CBC AUTO W DIFF MCHC 32.5 g/dL 32.0-3 6.0 Not Available [facility] (Lab Registration) [address] [place], [address], 02/17/2023 16:39:59 02/18/20 23 02/17/2023 CBC AUTO W DIFF platelet count 314 10 150-45 0 Not Available [facility] (Lab Registration) [address] [place], [address], 02/17/2023 16:39:59 02/18/20 23 02/17/2023 CBC AUTO W DIFF RDW 11.8 % 12.3-1 5.1 low Not Available [facility] (Lab Registration) [address], [address], 02/17/2023 16:39:59 02/18/20 23 02/17/2023 CBC AUTO W DIFF MPV 10.5 fL 7.4-10 .4 high Not Available [facility] (Lab Registration) [address] [address] [place], [address], 02/17/2023 16:39:59 02/18/20 23 02/17/2023 CBC AUTO W DIFF granulocyte% 57.6 % 40-75 Not Available [facility] (Lab Registration) [address] [place], [address], 02/17/2023 16:39:59 02/18/20 23 02/17/2023 CBC AUTO W DIFF lymphocyte% 33.2 % 15-57 Not Available [facility] [address], [address], 02/17/2023 16:39:59 02/18/20 23 02/17/2023 CBC AUTO W DIFF monocyte% 7.1 % 4.0-12 .0 Not Available [facility] (Lab Registration) [address] [place], [address], 02/17/2023 16:39:59 02/18/20 23 02/17/2023 CBC AUTO W DIFF eosinophil% 1.3 % 0.0-4. 0 Not Available [facility] (Lab Registration) [address] [place], [address], 02/17/2023 16:39:59 02/18/20 23 02/17/2023 CBC AUTO W DIFF basophil% 0.8 % 0.0-1. 0 Not Available [facility] (Lab Registration) [address] [place], [address], 02/17/2023 16:39:59 02/18/20 23 02/17/2023 CBC AUTO W DIFF immature granulocytes % 0.0 % 0.0-0. 8 Not Available [facility] (Lab Registration) [address], [address], 02/17/2023 16:39:59 02/18/20 23 02/17/2023 CBC AUTO W DIFF granulocyte# 3.02 10 Not Available [facility] (Lab Registration) [address] [place], [address], 02/17/2023 16:39:59 02/18/20 23 02/17/2023 CBC AUTO W DIFF lymphocyte# 1.74 10 Not Available [facility] ([facility]) [address], [address], 02/17/2023 16:39:59 02/18/20 23 02/17/2023 CBC AUTO W DIFF monocyte# 0.37 10 Not Available [facility] (Lab Registration) [address], [address], 02/17/2023 16:39:59 02/18/20 23 02/17/2023 CBC AUTO W DIFF eosinophil# 0.07 10 Not Available [facility] ([facility]) [address] [address] [place], [address], 02/17/2023 16:39:59 02/18/20 23 02/17/2023 CBC AUTO W DIFF basophil# 0.04 10 Not Available [facility] (Lab Registration) [address] [place], [address], 02/17/2023 16:39:59 02/18/20 23 02/17/2023 CBC AUTO W DIFF immature granulocytes # 0.00 10 Not Available [facility] ([facility]) [address], [place], [address], 02/17/2023 16:39:59 02/18/20 23 02/17/2023 CBC AUTO W DIFF manual differential NO Not Available [facility] (Lab Registration) [address], [place], [address], 02/17/2023 16:39:59 02/18/20 23 02/17/2023 CBC AUTO W DIFF note Unles s other porras noted testi ng perfo rmed at: [facility] [address] [place] [address] [phone] Praneeth smith MD CLIA: [id number] Not Available [facility] (Lab Registration) [address], [place], [address], 02/17/2023 16:39:59 02/18/20 23 02/17/2023 THYRO ID STIMU LATIN G HORMO NE thyroid stimulating hormone 0.97 mIU/m L 0.34-4 .80 Not Available [facility] (Lab Registration) [address], [place], [address], 02/17/2023 17:44:42 02/18/20 23 02/17/2023 THYRO ID STIMU LATIN G HORMO NE note Unles s other porras noted testi ng perfo rmed at: [facility] [address] [place] [address] [phone] Praneeth smith MD CLIA: [id number] Not Available [facility] (Lab Registration) [address] [place], [address], 02/17/2023 17:44:42 02/18/20 23 02/17/2023 T4 FREE T4,free 0.98 NG/dL 0.76-1 .46 Effec tive today 013 new Refer ence Range . Not Available [facility] (Lab Registration) [address] [place], [address], 02/17/2023 17:44:42 02/18/20 23 02/17/2023 T4 FREE note Unles s other porras noted testi ng perfo rmed at: [facility] [facility] [address] [place] [address] [phone] Praneeth smith MD CLIA: [id number] Not Available [facility] (Lab Registration) [address] [place], [address], 02/17/2023 17:44:42 02/18/20 23 02/17/2023 VITAM IN D TOTAL (D2+D 3) vitamin D25 (D2+D3) 58.9 NG/mL 30-100 Not Available [facility] ([facility]) [address] [place], [address], 02/17/2023 17:44:43 02/18/20 23 02/17/2023 VITAM IN D TOTAL (D2+D 3) note Unles s other porras noted testi ng perfo rmed at: [facility] [address] [place] [address] [phone] Praneeth smith MD CLIA: [id number] Not Available [facility] (Lab Registration) [address] [place], [address], 02/17/2023 17:44:43 02/18/20 23 02/17/2023 VITAM IN B12 vitamin B12 918 pg/mL 193-98 6 Not Available [facility] (Lab Registration) [address] [place], [address], 02/17/2023 17:44:44 02/18/20 23 02/17/2023 VITAM IN B12 folate (folic acid), serum 51.5 NG/mL 8.6-58 .9 Not Available [facility] (Lab Registration) [address] [place], [address], 02/17/2023 17:44:44 02/18/20 23 02/17/2023 VITAM IN B12 note Unles s other porras noted testi ng perfo rmed at: [facility] [address] [place] [address] [phone] Praneeth smith MD CLIA: [id number] Not Available [facility] (Lab Registration) [address], [place], [address], 02/17/2023 17:44:44 02/18/20 23 02/17/2023 COMP METAB OLIC PANEL sodium 140 mmol/ L 136-14 5 Not Available [facility] (Lab Registration) [address] [place], [address], 02/17/2023 17:44:44 02/18/20 23 02/17/2023 COMP METAB OLIC PANEL potassium 4.3 mmol/ L 3.5-5. 1 Not Available [facility] (Lab Registration) [address] [place], [address], 02/17/2023 17:44:44 02/18/20 23 02/17/2023 COMP METAB OLIC PANEL chloride 103 mmol/ L 98-107 Not Available [facility] (Lab Registration) [address] [place], [address], 02/17/2023 17:44:44 02/18/20 23 02/17/2023 COMP METAB OLIC PANEL carbon dioxide 28 mmol/ L 21-32 Not Available [facility] (Lab Registration) [address] [place], [address], 02/17/2023 17:44:44 02/18/20 23 02/17/2023 COMP METAB OLIC PANEL anion gap 9.0 Not Available [facility] (Lab Registration) [address] [place], [address], 02/17/2023 17:44:44 02/18/20 23 02/17/2023 COMP METAB OLIC PANEL glucose 85 mg/dL 70-110 Not Available [facility] (Lab Registration) [address], [address], 02/17/2023 17:44:44 02/18/20 23 02/17/2023 COMP METAB OLIC PANEL blood urea nitrogen 19 mg/dL 7-18 high Not Available [facility] ([facility]) [address], [address], 02/17/2023 17:44:44 02/18/20 23 02/17/2023 COMP METAB OLIC PANEL creatinine 0.9 mg/dL 0.6-1. 0 Not Available [facility] (Lab Registration) [address], [address], 02/17/2023 17:44:44 02/18/20 23 02/17/2023 COMP METAB OLIC PANEL BUN/creatini ne ratio 21.1 ratio 9-21 high Not Available [facility] ([facility]) [address], [address], 02/17/2023 17:44:44 02/18/20 23 02/17/2023 COMP METAB OLIC PANEL estimated glom filtration rate 68 mL/mi n >60- Not Available [facility] (Lab Registration) [address], [address], 02/17/2023 17:44:44 02/18/20 23 02/17/2023 COMP METAB OLIC PANEL total protein 7.8 g/dL 6.4-8. 2 Not Available [facility] (Lab Registration) [address], [address], 02/17/2023 17:44:44 02/18/20 23 02/17/2023 COMP METAB OLIC PANEL albumin 4.4 g/dL 3.4-5. 0 Not Available [facility] (Lab Registration) [address], [address], 02/17/2023 17:44:44 02/18/20 23 02/17/2023 COMP METAB OLIC PANEL calcium 10.9 mg/dL 8.5-10 .1 high Not Available [facility] (Lab Registration) [address], [place], [address], 02/17/2023 17:44:44 02/18/20 23 02/17/2023 COMP METAB OLIC PANEL corrected calcium 10.6 mg/dL 8.5-10 .1 high Not Available [facility] (Lab Registration) [address], [address], 02/17/2023 17:44:44 02/18/20 23 02/17/2023 COMP METAB OLIC PANEL bilirubin total 0.5 mg/dL 0.4-1. 5 Not Available [facility] (Lab Registration) [address], [address], 02/17/2023 17:44:44 02/18/20 23 02/17/2023 COMP METAB OLIC PANEL AST (SGOT) 25 U/L 15-37 Not Available [facility] (Lab Registration) [address], [address], 02/17/2023 17:44:44 02/18/20 23 02/17/2023 COMP METAB OLIC PANEL ALT (SGPT) 30 U/L 12-78 Not Available [facility] (Lab Registration) [address], [address], 02/17/2023 17:44:44 02/18/20 23 02/17/2023 COMP METAB OLIC PANEL alk phosphatase 82 U/L 50-120 Not Available [facility] (Lab Registration) [address], [address], 02/17/2023 17:44:44 02/18/20 23 02/17/2023 COMP METAB OLIC PANEL note Unles s other porras noted testi ng perfo rmed at: [facility] [facility] [address] [place] [address] [phone] Praneeth smith MD CLIA: [id number] Not Available [facility] (Lab Registration) [address], [place], [address], 02/17/2023 17:44:44 02/18/20 23 02/17/2023 PRINCE TIN ferritin 81 NG/mL 8-388 Not Available [facility] (Lab Registration) [address], [place], [address], 02/17/2023 17:45:40 02/18/20 23 02/17/2023 PRINCE TIN note Unles s other porras noted testi ng perfo rmed at: [facility] [address] [place] [address] [phone] Praneeth smith MD CLIA: [id number] Not Available [facility] (Lab Registration) [address], [place], [address], 02/17/2023 17:45:40 02/18/20 23 02/17/2023 IRON/ TIBC/ %SAT (IRON STUDI ES) iron 75 ug/dL 35-150 Not Available [facility] (Lab Registration) [address] [place], [address], 02/17/2023 17:45:41 02/18/20 23 02/17/2023 IRON/ TIBC/ %SAT (IRON STUDI ES) total iron bind cap (TIBC) 368 ug/dL 250-45 0 Not Available [facility] (Lab Registration) [address], [address], 02/17/2023 17:45:41 02/18/20 23 02/17/2023 IRON/ TIBC/ %SAT (IRON STUDI ES) % saturation 20 % 15-55 Not Available [facility] (Lab Registration) [address], [address], 02/17/2023 17:45:41 02/18/20 23 02/17/2023 IRON/ TIBC/ %SAT (IRON STUDI ES) note Unles s other porras noted testi ng perfo rmed at: [facility] [facility] [address], [place] [address] [phone] Praneeth smith MD CLIA: [id number] Not Available [facility] (Lab Registration) [address] [place], [address], 02/17/2023 17:45:41 02/18/20 23 02/17/2023 CITLALI QUAL SCREE N note Unles s other porras noted testi ng perfo rmed at: [facility] [facility] [address] [place], [place] [id number] [phone] Praneeth smith MD CLIA: [id number] Not Available [facility] (Lab Registration) [address] [place], [address], 2023 13:10:51 02/18/20 23 2023 CITLALI QUAL SCREE N CITLALI direct Negati ve negati ve Perfo rmed at: - [facility] [address] [id number] Lab Direc tor: Joe andrew PhD, Phone : [phone] SENT TO REFER ENCE LAB Not Available [facility] (Lab Registration) [address] [place], [address], 2023 13:10:51 08/15/19 24 08/15/2023 urina lysis , dipst ick Leukocytes (reference range) modera te Not Available [address] [address] [place], [address], 08/15/2023 11:52:20 08/15/19 24 08/15/2023 urina lysis , dipst ick Nitrite (reference range:) negati ve Not Available [address] [place], [address], 08/15/2023 11:52:20 08/15/19 24 08/15/2023 urina lysis , dipst ick Urobilinogen (reference range) 0.2 Not Available [address] [place], [address], 08/15/2023 11:52:20 08/15/19 24 08/15/2023 urina lysis , dipst ick Protein (reference range) negati ve Not Available [address] [place], [address], 08/15/2023 11:52:20 08/15/19 24 08/15/2023 urina lysis , dipst ick pH (reference range 5-8.5) 5.5 Not Available [address] [place], [address], 08/15/2023 11:52:20 08/15/19 24 08/15/2023 urina lysis , dipst ick Blood (reference range:) large Not Available [address] [place], [address], 08/15/2023 11:52:20 08/15/19 24 08/15/2023 urina lysis , dipst ick Specific [place] (reference range) 1.030 Not Available [address] [place], [address], 08/15/2023 11:52:20 08/15/19 24 08/15/2023 urina lysis , dipst ick Ketone (reference range) negati ve Not Available [address] [place], [address], 08/15/2023 11:52:20 08/15/19 24 08/15/2023 urina lysis , dipst ick Bilirubin (reference range) small Not Available [address] [place], [address], 08/15/2023 11:52:20 08/15/19 24 08/15/2023 urina lysis , dipst ick Glucose (reference range) negati ve Not Available [address] [place], [address], 08/15/2023 11:52:20 08/15/19 24 08/15/2023 urina lysis , dipst ick Color (reference range: yellow-brown ) Dark Yellow Not Available [address] [place], [address], 08/15/2023 11:52:20 10/30/19 25 10/29/2024 CBC AUTO W DIFF WBC 5.7 10 4.5-11 .5 Not Available [facility] (Lab Registration) [address], [address], 10/29/2024 16:27:35 10/30/19 25 10/29/2024 CBC AUTO W DIFF RBC 4.12 10 4.25-5 .57 low Not Available [facility] (Lab Registration) [address], [address], 10/29/2024 16:27:35 10/30/19 25 10/29/2024 CBC AUTO W DIFF HGB 12.3 g/dL 12.0-1 5.7 Not Available [facility] (Lab Registration) [address], [address], 10/29/2024 16:27:35 10/30/19 25 10/29/2024 CBC AUTO W DIFF HCT 39.2 % 36.0-4 7.0 Not Available [facility] (Lab Registration) [address], [address], 10/29/2024 16:27:35 10/30/19 25 10/29/2024 CBC AUTO W DIFF MCV 95.1 fL 80-95 high Not Available [facility] (Lab Registration) [address], [address], 10/29/2024 16:27:35 10/30/19 25 10/29/2024 CBC AUTO W DIFF MCH 29.9 pg 27.0-3 4.0 Not Available [facility] (Lab Registration) [address], [address], 10/29/2024 16:27:35 10/30/19 25 10/29/2024 CBC AUTO W DIFF MCHC 31.4 g/dL 32.0-3 6.0 low Not Available [facility] (Lab Registration) [address], [address], 10/29/2024 16:27:35 10/30/19 25 10/29/2024 CBC AUTO W DIFF platelet count 239 10 150-45 0 Not Available [facility] (Lab Registration) [address], [address], 10/29/2024 16:27:35 10/30/19 25 10/29/2024 CBC AUTO W DIFF RDW 11.8 % 12.3-1 5.1 low Not Available [facility] (Lab Registration) [address], [address], 10/29/2024 16:27:35 10/30/19 25 10/29/2024 CBC AUTO W DIFF MPV 9.7 fL 7.4-10 .4 Not Available [facility] (Lab Registration) [address], [address], 10/29/2024 16:27:35 10/30/19 25 10/29/2024 CBC AUTO W DIFF granulocyte% 64.8 % 40-75 Not Available [facility] (Lab Registration) [address], [address], 10/29/2024 16:27:35 10/30/19 25 10/29/2024 CBC AUTO W DIFF lymphocyte% 24.5 % 15-57 Not Available [facility] ([facility]) [address] [place], [address], 10/29/2024 16:27:35 10/30/19 25 10/29/2024 CBC AUTO W DIFF monocyte% 7.5 % 4.0-12 .0 Not Available [facility] (Lab Registration) [address], [address], 10/29/2024 16:27:35 10/30/19 25 10/29/2024 CBC AUTO W DIFF eosinophil% 2.3 % 0.0-4. 0 Not Available [facility] (Lab Registration) [address], [address], 10/29/2024 16:27:35 10/30/19 25 10/29/2024 CBC AUTO W DIFF basophil% 0.7 % 0.0-1. 0 Not Available [facility] (Lab Registration) [address] [place], [address], 10/29/2024 16:27:35 10/30/19 25 10/29/2024 CBC AUTO W DIFF immature granulocytes % 0.2 % 0.0-0. 8 Not Available [facility] (Lab Registration) [address] [place], [address], 10/29/2024 16:27:35 10/30/19 25 10/29/2024 CBC AUTO W DIFF granulocyte# 3.70 10 Not Available [facility] (Lab Registration) [address] [place], [address], 10/29/2024 16:27:35 10/30/19 25 10/29/2024 CBC AUTO W DIFF lymphocyte# 1.40 10 Not Available [facility] ([facility]) [address] [place], [address], 10/29/2024 16:27:35 10/30/19 25 10/29/2024 CBC AUTO W DIFF monocyte# 0.43 10 Not Available [facility] (Lab Registration) [address] [place], [address], 10/29/2024 16:27:35 10/30/19 25 10/29/2024 CBC AUTO W DIFF eosinophil# 0.13 10 Not Available [facility] (Lab Registration) [address], [id number], 10/29/2024 16:27:35 10/30/19 25 10/29/2024 CBC AUTO W DIFF basophil# 0.04 10 Not Available [facility] (Lab Registration) [address] [place], [id number], 10/29/2024 16:27:35 10/30/19 25 10/29/2024 CBC AUTO W DIFF immature granulocytes # 0.01 10 Not Available [facility] (Lab Registration) [address] [place], [id number], 10/29/2024 16:27:35 10/30/19 25 10/29/2024 CBC AUTO W DIFF manual differential NO Not Available [facility] (Lab Registration) [address] [place], [id number], 10/29/2024 16:27:35 10/30/19 25 10/29/2024 CBC AUTO W DIFF note Unles s other porras noted testi ng perfo rmed at: [facility] [address] [place] [address] [phone] Praneeth smith MD CLIA: [id number] Not Available [facility] (Lab Registration) [address] [place], [address], 10/29/2024 16:27:35 10/30/19 25 10/29/2024 HEMOG LOBIN A1C glycosylated hemoglobin A1C 5.5 % 4.5-6. 2 Not Available [facility] (Lab Registration) [address] [place], [address], 10/29/2024 16:39:34 10/30/19 25 10/29/2024 HEMOG LOBIN A1C estimated average glucose 111 mg/dL 82-131 Not Available [facility] ([facility]) [address], [place], [address], 10/29/2024 16:39:34 10/30/19 25 10/29/2024 HEMOG LOBIN A1C note Unles s other porras noted testi ng perfo rmed at: [facility] [address] [place] [address] [phone] Praneeth smith MD CLIA: [id number] Not Available [facility] (Lab Registration) [address], [place], [address], 10/29/2024 16:39:34 10/30/19 25 10/29/2024 THYRO ID STIMU LATIN G HORMO NE thyroid stimulating hormone 1.12 mIU/m L 0.34-4 .80 Not Available [facility] (Lab Registration) [address], [place], [address], 10/29/2024 17:52:42 10/30/19 25 10/29/2024 THYRO ID STIMU LATIN G HORMO NE note Brandon smith other porras noted testi ng perfo rmed at: [facility] [address] [place] [address] [phone] Praneeth smith MD CLIA: [id number] Not Available [facility] (Lab Registration) [address], [place], [address], 10/29/2024 17:52:42 10/30/19 25 10/29/2024 T4 FREE T4,free 0.93 NG/dL 0.76-1 .46 Effec tive today 013 new Refer ence Range . Not Available [facility] (Lab Registration) [address], [place], [address], 10/29/2024 17:52:43 10/30/19 25 10/29/2024 T4 FREE note Unles s other porras noted testi ng perfo rmed at: [facility] [address] [place] [address] [phone] Praneeth smith MD CLIA: [id number] Not Available [facility] (Lab Registration) [address], [place], [address], 10/29/2024 17:52:43 10/30/19 25 10/29/2024 COMP METAB OLIC PANEL sodium 144 mmol/ L 136-14 5 Not Available [facility] (Lab Registration) [address], [address], 10/29/2024 17:52:44 10/30/19 25 10/29/2024 COMP METAB OLIC PANEL potassium 4.5 mmol/ L 3.5-5. 1 Not Available [facility] (Lab Registration) [address], [address], 10/29/2024 17:52:44 10/30/19 25 10/29/2024 COMP METAB OLIC PANEL chloride 108 mmol/ L 98-107 high Not Available [facility] (Lab Registration) [address], [address], 10/29/2024 17:52:44 10/30/19 25 10/29/2024 COMP METAB OLIC PANEL carbon dioxide 31 mmol/ L 21-32 Not Available [facility] (Lab Registration) [address], [address], 10/29/2024 17:52:44 10/30/19 25 10/29/2024 COMP METAB OLIC PANEL anion gap 5.0 Not Available [facility] (Lab Registration) [address], [address], 10/29/2024 17:52:44 10/30/19 25 10/29/2024 COMP METAB OLIC PANEL glucose 77 mg/dL 70-110 Not Available [facility] (Lab Registration) [address], [place], [address], 10/29/2024 17:52:44 10/30/19 25 10/29/2024 COMP METAB OLIC PANEL blood urea nitrogen 15 mg/dL 7-18 Not Available [facility] (Lab Registration) [address], [place], [address], 10/29/2024 17:52:44 10/30/19 25 10/29/2024 COMP METAB OLIC PANEL creatinine 0.9 mg/dL 0.6-1. 0 Not Available [facility] (Lab Registration) [address], [place], [address], 10/29/2024 17:52:44 10/30/19 25 10/29/2024 COMP METAB OLIC PANEL BUN/creatini ne ratio 16.7 9-21 Not Available [facility] (Lab Registration) [address], [place], [address], 10/29/2024 17:52:44 10/30/19 25 10/29/2024 COMP METAB OLIC PANEL estimated glom filtration rate 73 mL/mi n >60- GFR LIMIT ATION : The eGFR equat ion CKD-E PI 2020 is not appli cable for pedia tric patie nts or great er than 90 years of age. The follo wing condi tions may alter the GFR resul t: extre mes in body size, malnu triti on or obesi ty, skele lane muscl e disea se, parap legia or quadr ipleg ia, veget valente diet or rapid ly wren ing kiney funct ion. Not Available [facility] (Lab Registration) [address], [place], [address], 10/29/2024 17:52:44 10/30/19 25 10/29/2024 COMP METAB OLIC PANEL osmolality (calculated) 299 mOsm/ kg 275-30 1 OSMOL ALITY IS A CALCU LATIO N UTILI ZING THE SERUM /PLAS MA SODIU M, GLUCO SE AND UREA NITRO GEN (BUN) LEVEL S. FOR THE MOST ACCUR ATE RESUL T A MEASU RED SERUM OSMOL ALICHUNG IS GISSELL RASHEEDD. Not Available [facility] (Lab Registration) [address], [place], [address], 10/29/2024 17:52:44 10/30/19 25 10/29/2024 COMP METAB OLIC PANEL total protein 6.8 g/dL 6.4-8. 2 Not Available [facility] (Lab Registration) [address], [place], [address], 10/29/2024 17:52:44 10/30/19 25 10/29/2024 COMP METAB OLIC PANEL albumin 3.7 g/dL 3.4-5. 0 Not Available [facility] (Lab Registration) [address], [place], [address], 10/29/2024 17:52:44 10/30/19 25 10/29/2024 COMP METAB OLIC PANEL calcium 10.5 mg/dL 8.5-10 .1 high Not Available [facility] (Lab Registration) [address] [place], [address], 10/29/2024 17:52:44 10/30/19 25 10/29/2024 COMP METAB OLIC PANEL corrected calcium 10.7 mg/dL 8.5-10 .1 high Not Available [facility] (Lab Registration) [address] [place], [address], 10/29/2024 17:52:44 10/30/19 25 10/29/2024 COMP METAB OLIC PANEL bilirubin total 0.3 mg/dL 0.4-1. 5 low Not Available [facility] (Lab Registration) [address] [place], [address], 10/29/2024 17:52:44 10/30/19 25 10/29/2024 COMP METAB OLIC PANEL AST (SGOT) 26 U/L 15-37 Not Available [facility] (Lab Registration) [address], [address], 10/29/2024 17:52:44 10/30/19 25 10/29/2024 COMP METAB OLIC PANEL ALT (SGPT) 27 U/L 12-78 Not Available [facility] (Lab Registration) [address], [address], 10/29/2024 17:52:44 10/30/19 25 10/29/2024 COMP METAB OLIC PANEL alk phosphatase 70 U/L 53-141 Not Available [facility] (Lab Registration) [address], [address], 10/29/2024 17:52:44 10/30/19 25 10/29/2024 COMP METAB OLIC PANEL note Unles s other porras noted testi ng perfo rmed at: [facility] [address] [facility] [place] [address] [phone] Praneeth smith MD CLIA: [id number] Not Available [facility] (Lab Registration) [address] [place], [address], 10/29/2024 17:52:44 10/30/19 25 10/29/2024 LIPID PANEL triglyceride 64 mg/dL 20-200 The Natio nal Suzanna [employer] l [employer]ca t[employer]gr am (NCEP ) has set the follo wing guide lines for Fasti ng Trigl yceri joseluis: LOGAN L: <150 mg/dL BORDE RLINE HIGH: 150 - 199 mg/dL HIGH: 200 - 499 mg/dL VERY HIGH: > or =500 mg/dL Not Available [facility] (Lab Registration) [address] [place], [address], 10/29/2024 17:52:46 10/30/19 25 10/29/2024 LIPID PANEL cholesterol 131 mg/dL 0-200 The Natio nal [employer] t[employer] am ([employer]CEP ) has set the follo wing guide lines for Fasti ng Suzanna stero l: AME ABLE: <200 mg/dL BORDE RLINE HIGH: 200 - 239 mg/dL HIGH: > or =240 mg/dL Not Available [facility] (Lab Registration) [address], [place], [address], 10/29/2024 17:52:46 10/30/19 25 10/29/2024 LIPID PANEL HDL cholesterol 61 mg/dL 60- The Natio nal [employer]ca t[employer]gr am ([facility] ) has set the follo wing guide lines for Fasti ng HDL Suzanna stero l: LOW HDL: <40 mg/dL LOGAN L: 40 - 60 mg/dL AME ABLE: >60 mg/dL Not Available [facility] (Lab Registration) [address] [place], [address], 10/29/2024 17:52:46 10/30/19 25 10/29/2024 LIPID PANEL LDL calculated 57 mg/dL 100- low The Natio nal [employer]gr am ([facility] ) has set the follo wing guide lines for Fasti ng LDL Suzanna stero l: OPTIM AL: < 100 mg/dL LOW RISK: 100 - 129 mg/dL BORDE RLINE HIGH: 130 - 159 mg/dL HIGH: 160 - 189 mg/dL VERY HIGH: > or = 190 mg/dL Not Available [facility] (Lab Registration) [address], [address], 10/29/2024 17:52:46 10/30/19 25 10/29/2024 LIPID PANEL chol/HDL ratio 2 -5 Not Available [facility] (Lab Registration) [address], [address], 10/29/2024 17:52:46 10/30/19 25 10/29/2024 LIPID PANEL note Unles s other porras noted testi ng perfo rmed at: [facility] [address] [place] [address] [phone] Praneeth smith MD CLIA: [id number] Not Available [facility] (Lab Registration) [address] , [place], [address], 10/29/2024 17:52:46 10/30/19 25 10/29/2024 CULTU RE URINE results MRB 10-30 718 Mixed Denisse of Three or More Organ isms Prese nt. Cultu re Indic ates Conta minat ion of Speci men Durin gColl ectio n. Sugge st Recol lecti on with Steri le Techn ique. Not Available [facility] (Lab Registration) [address] , [place], [address], 10/30/2024 07:20:19 10/30/1910/29/2024 CULTU RE URINE note Unles s other porras noted testi ng perfo rmed at: [facility] [address] [place] [address] [phone] Praneeth smith MD CLIA: [id number] Not Available [facility] (Lab Registration) [address] , [place], [address], 10/30/2024 07:20:19 02/16/20 23 02/07/2018 MAMMO , scree silverio, digit al, bilat eral No observ ation record ed. [email or web address] Not Available 2022 09:32:40 02/16/20 23 07/08/2015 colon oscop y proce dure (PROC ) No observ ation record ed. [email or web address] Not Available 2022 09:31:45 03/23/20 23 03/23/2023 imagi ng inter preta tion No observ ation record ed. [email or web address] [facility] [address], [place], [address], 03/24/2023 14:41:33 03/23/20 23 03/23/2023 imagi ng inter preta tion No observ ation record ed. [email or web address] [facility] [address], [place], [address], 03/24/2023 14:41:28 03/23/20 23 03/23/2023 imagi ng inter preta tion No observ ation record ed. [email or web address] [facility] [address], [place], [address], 03/24/2023 14:41:23 11/02/19 25 10/29/2024 XR, pelvi s, 1 or 2 view [facility] [address] [place] [address] Phone: Fax: Name: JEANE OMALLEY Exam Date: : 964 Age 59 years Gender : F Access ion: [id number] Physic jose luis: AMBURG EY, TAFFAN Y Facili ty: [facility] Facili ty HSV: Outpat ient Exam: [...] Electr onical ly signed by: LOBITO PINO Thank you for referr JEANE Callahan to [facility]. Legall y authen ticate d by ODETTE ROBIN 2024-0 10-29 16:02: 30 CC'ed Logic: Orderi ng Provid er: AMBURG EY TAFFAN Y CC Provid er: AMBURG EY TAFFAN Y Attend ing Provid er: AMBURG EY TAFFAN Y Referr ing Provid er: AMBURG EY TAFFAN Y Admitt ing Provid er: AMBURG EY TAFFAN Y [email or web address] [facility] (Radiology) [address] , [place], [address], 11/01/2024 11:09:28 11/20/19 25 10/26/2024 CT, abdom en + pelvi s, w/o contr ast No observ ation record ed. [facility] (Radiology) [address] [place], [address], 11/20/2024 12:49:23 Result Notes None recorded. Problems Name Problem SNOMED Code Status Onset Date Resolution Date Notes Provider Name and Address Organization Details Recorded Time Fibromyalgia 815229100 Active 2022 Suzy lozoya, [place] - [facility] - [place] & [place] 3 15:45:05 Chronic pain 77665841 Active 2022 Suzy [place], [place] [facility] [place] & [place] 3 15:45:12 Anxiety 55364484 Active 2022 Suzy [place], [place] - [facility] & [place] 3 15:45:17 Gastroesophage al reflux disease 058941205 Active 2022 Suzy [place], [place] - [facility] - [place] & [place] 3 15:45:24 Irritable bowel syndrome 55569782 Active 2022 Suzy lozoya [place] - [facility] - [place] & [place] 3 15:45:30 Mixed hyperlipidemia 643237856 Active 2022 Suzy lozoya, [place] - [facility] - [place] & [place] 3 15:45:41 Essential hypertension 30086929 Active 2022 Suzy lozoya, [place] - [facility] - [place] & [place] 3 15:45:57 Chronic constipation 930780372 Active 2022 Suzy lozoya, [place] - [facility] - [place] & [place] 3 15:46:10 Depressive disorder 83605637 Active 2022 Suzy lozoya, [place] - [facility] - [place] & [place] 3 15:46:20 Restless legs 63554399 Active 2022 Suzy lozoya, [place] Jacob [facility] - [place] & [place] 3 15:46:29 Problem Notes None recorded. Procedures Surgical History Date Name Laterality Status Provider Name and Address Organization Details Recorded Time 07/08/19 16 colonoscopy completed Angela Jacob [facility] [place] & [place] 02/15/2023 09:28:53 section completed Suzy Jacob [facility] - [place] & [place] 10/19/2022 15:47:48 Hysterectomy completed Suzy Jacob [facility] - [place] & [place] 10/19/2022 15:47:59 Imaging Results None recorded. Procedure Notes None recorded. Medical Equipment None Reported. Allergies Allergen ID Allergen Name Allergen Category Reaction Reaction Severity Criticality Documentation Date Start Date Code Code System Note Provider Name and Address Organization Details Recorded Time 39791 Product containin g penicilli n (product) medicatio n Not available Not available Not available 02/15/2023 36867 8001 SNOMED Angela lozoya, [place] - [facility] - [place] & [place] 3 09:28:03 Medications Name Sig Start Date [...] 2022 active Not Available Not Available Not Kenrick murcia Movantik 12.5 mg tablet 10/29 completed Not Available Not Available Not Available Arthritis Pain (diclofenac ) 1 % topical gel APPLY 2 GRAMS TO SINGLE ELBOW, WRIST OR HAND (INCLUDES PALM/FING ERS/BACK OF HAND) 4 TIMES A DAY active Not Available Not Available No t Available Vitals Date Recorded Body height Body mass index (BMI) Body weight Body temperature Oxygen saturation Oxygen saturation in Arterial blood by Pulse oximetry Heart rate Respiratory rate Systolic blood pressure Diastolic blood pressure Provider Name and Address Organization Details Last Updated DateTime 4 165.1 cm 22.8 kg/m2 61600.1 5 g 97.5 [degF] 96 % 96 % 68 /min 18 /min 117 mm[Hg] 70 mm[Hg] Jordan MAJOR - WILLIAMNT [facility] & [place] 4 11:36:07 Date Recorded Body height Body mass index (BMI) Body weight Body temperature Oxygen saturation Oxygen saturation in Arterial blood by Pulse oximetry Heart rate Systolic blood pressure Diastolic blood pressure Provider Name and Address Organization Details Last Updated DateTime 5 165.1 cm 22.5 kg/m2 57691.9 7 g 97.6 [degF] 96 % 96 % 71 /min 120 mm[Hg] 60 mm[Hg] Jordan Jacob LPNT [facility] & [place] 5 15:10:17 Date Recorded Body height Provider Name an d Address Organization Details Last Updated DateTime 11/06/2024 165.1 cm Leesa Byrnet [place] - [facility] & [place] 11/06/2024 15:37:39 Date Recorded Body mass index (BMI) Body weight Heart rate Oxygen saturation Oxygen saturation in Arterial blood by Pulse oximetry Body temperature Systolic blood pressure Diastolic blood pressure Provider Name and Address Organization Details Last Updated DateTime 5 23.8 kg/m2 17882.9 9 g 66 /min 97 % 97 % 97.8 [degF] 122 mm[Hg] 83 mm[Hg] Mariella Cole [facility] & [place] 5 15:42:11 Date Recorded Body height Body mass index (BMI) Body weight Body temperature Oxygen saturation Oxygen saturation in Arterial blood by Pulse oximetry Heart rate Respiratory rate Systolic blood pressure Diastolic blood pressure Provider Name and Address Organization Details Last Updated DateTime 3 165.1 cm 24 kg/m2 64026.3 g 98.1 [degF] 97 % 97 % 82 /min 18 /min 131 mm[Hg] 86 mm[Hg] Jordan Porter [facility] & [place] 3 14:30:56 Social History Question Answer Notes LastModified by Siterra Details LastModified Time Tobacco Smoking Status Former Smoker Suzy Esquivelna lozoya, [facility] & [place] 10/19/2022 14:55:16 Do You Have An Advance [...] anxious, or unable to sleep at night)? [id number] Information not available 11/29/2022 Family History Relationship Description Onset Age of this Age Resolved Age Notes LastModified by Organization Details LastModified Time Mother Essential hypertension CHART_MERGE Not available 0 10/29/2024 16:51:23 Father Malignant neoplasm of lung [facility] CHART_MERGE Not available 10/29/2024 16:51:23 Father Malignant neoplasm of liver [facility] CHART_MERGE Not available 10/29/2024 16:51:23 Father Essential hypertension CHART_MERGE Not available 0 10/29/2024 16:51:23 Medical History Condition Response None Y Depression Y Anxiety Disorder Y Arthritis Y High Cholesterol Y Fibromyalgia Y Constipation Y Diverticulitis Y Reflux/GERD Y Hypertension Y Gynecological HistoryNo gynecological history recorded. Obstetrics History GPAL:G 0 P 0 0 0 0 Immunizations Vaccine Type Date Status Note Provider Nam e and Address Organization Details Recorded Time Influenza, recombinant, quadrivalent, PF 05/06/2020 completed Angela Muñoz null, [place] - [facility] & [place] 02/15/2023 09:21:16 COVID-19, mRNA, LNP-S, PF, 30 mcg/0.3 mL dose 07/23/2020 completed Angela Muñoz [place], [place] [facility] & [place] 02/15/2023 09:21:16 COVID-19, mRNA, LNP-S, PF, 30 mcg/0.3 mL dose 08/14/2020 completed Angela Muñoz [place], [place] - [facility] & [place] 02/15/2023 09:21:16 COVID-19, mRNA, LNP-S, PF, 30 mcg/0.3 mL dose 05/25/2021 completed Angela Muñoz null, [place] - [facility] & [place] 02/15/2023 09:21:16 TST-PPD intradermal 09/13/2018 completed Angela [place] [facility] & [place] 02/15/2023 09:21:16 Influenza, split virus, quadrivalent, PF 07/05/2019 completed Angelaher Muñoz null, [place] - [facility] & [place] 02/15/2023 09:21:16 Influenza, split virus, quadrivalent, PF 04/27/2017 completed Angela Muñoz null, [place] - [facility] - [place] & [place] 02/15/2023 09:21:16 Influenza, split virus, quadrivalent, PF 05/14/2018 completed Angela Muñoz null, [place] - [facility] - [place] & [place] 02/15/2023 09:21:16 Influenza, split virus, quadrivalent, PF 05/19/2021 completed Angelaher Muñoz null, [place] - [facility] - [place] & [place] 02/15/2023 09:21:16 Past Encounters Encounter ID Performer Location Encounter Start Date Encounter Closed Date Diagnosis/Indication Diagnosis SNOMED-CT Code Diagnosis ICD10 Code Diagnosis Note [id number] IAN BREEN NP [id number] [place] [address] [place] [address] [place] [id number] 10/19/2022 14:26:14 10/19/2022 16:02:29 Essential hypertension 99239416 I10 educated on goal of less than 130/90meet ing goaladvise d low sodium diet, healthy lifestyle including exercise as ablecontin ue current medication regimenER if any symptoms such as chest pain, shortness of breath lab work obtained by roberta farmer Fatigue 17328038 R53.83 sleep hygienecar egiver burden, have own time Gastroesop hageal reflux disease 022787620 K21.9 Avoid spicy foods, carbonated beverages, lying down 30 minutes to 1 hour after eating Eat smaller portion sizes Take medication s as prescribed Weight management Depressive disorder 8748 9007 F33.1 controlled denies SI/HIconti nue medication s as prescribed Mixed hyperlipidemia 267 684376 E78.2 Patient advised to exercise, eat a prudent diet and lose weight as appropriat e. Chronic constipation 236 904740 K59.09 T40.2X5S opioid induced constipati oncontroll edcontinue as prescribed [id number] IAN BREEN NP [address] [place] [address] 11/29/2022 13:49:07 11/29/2022 14:27:44 Infection of skin 687563108 L08.9 continue antibiotic therapyrev iewed ER recordsdis cussed hibiclens, gave to pt in clinicavoi d scratching keep clean and dryf/u if symptoms persist or worsen [id number] IAN BREEN NP [address] [place] [address] 02/17/2023 14:09:49 02/17/2023 15:00:45 Loss of hair 749496624 L65.9 awaiting lab workf/u if symptoms persist or worsen consider dermatolog y referral [id number] Floyd Olmedo MD [address] [place] [address] 08/15/2023 11:22:58 08/15/2023 11:45:00 Urinary tract infectious disease 91402795 N39.0 urinalysis is abnormal Acute hemo rrhagic cystitis 86138552 N30.01 Patient having systemic symptoms with fatigue poor appetite and chills. proceed with antibiotic treatment. [id number] Mehran Simms MD [address] [place] [address] 10/02/2023 12:24:27 10/02/2023 12:30:57 Tuberculosis screening 969955993 Z11.1 [id number] IAN BREEN NP [address] [place] [address] 10/29/2024 14:46:29 10/30/2024 07:49:58 Pain in pelvis 10810819 R10.2 awaiting additional imaging Dysuria 65430004 R30.0 urine sent for culture and office will call after culture received. Take all medicines prescribed for you for the allotted time period. Push fluids especially water. If no better in 48-72 hours or if you develop abdominal or back pain, with fever chills nausea or vomiting come back or go to the emergency room immediatel y Gallstone 458669725 K80. 20 gallstones on imaging from ER, general surgery referral Mixed hyperlipidemia 267 484571 E78.2 recheck lab work today, currently on statin therapy, refill provided Depressive disorder 2725 0696 F33.1 controlled denies SI/HIconti nue medication s as prescribed Irritable bowel syndrome 89075523 K58.9 request refill, advised not something we want her using all the time, recommend GI referral Gastroesop hageal reflux disease 233430664 K21.9 Avoid spicy foods, carbonated beverages, lying down 30 minutes to 1 hour after eatingEat smaller portion sizesTake medication s as prescribed Controlled refill provided Thyroid di sorder screening 603329343 Z13.29 Diabetes m ellitus screening 560564363 Z13.1 [id number] DO Rosemarie JONES alanna General [facility] [place] - [address] [facility], [place] [address] 11/06/2024 15:17:21 11/06/2024 15:57:24 Left lower quadrant pain 935330692 R10.32 - patient with persistent left lower [...] at their earliest convenienc e Hiatal hernia 78457549 K 44.9 - patient was significan t [...] None Recorded Advance Directives Directive N: Payers Insurance Date Sequence Insurance Name Policy Number Policy Cordero Covered Member ID Cordero Member ID Guarantor Name 12/06/2024 1 [employer] [facility] (MEDICAID HMO) Jeane Bee [id number] Jeane Bee Notes Date Note Type Note Provider Name and Address Organization Details Recorded Time 02/17/2023 text/html Ms. Bee pres ents today [...] she had done different was taking one month s worth of collagen supplement for hair, [...] of tea tree shampoo and conditioner from [employer], but they were not sealed, so she threw them away. IAN BREEN NP [address] [place] [address], [phone], [facility] & [place] 02/19/2023 19:18:34 08/15/2023 text/html patient seen for acute visit. She reports 2 week history of dysuria frequency. Today she saw blood in her urine she has had some fatigue poor appetite and felt chilled. She denies any flank pain. No recent urinary tract infections. Floyd Olmedo MD [address] [place] [address], [phone], [facility] LP[facility] & [place] 08/15/2023 12:23:53 10/29/2024 text/html 59-year-old nedra salomon who presents for follow-up. She has been in the ER twice of [facility]. First time was October 25, advised x-ray showed moderate stool burden, constipation, given mineral oil, cleaned out but continued to have abdominal pain went back to the ER the next day on the [address] scan was completed advised colitis, gallstones, cyst on her liver. Recommended general surgery referral. Reports pain around her pelvic bone, unable to sit or stand without pulling, pain. Caregiver for her son but is unable to do anything without sharp pain. Needs refills on her medications. Needs her lab work recheck today. Denies any chest pain shortness of breath or swelling. Anxiety and depression overall controlled. Denies any SI/HI. IAN BREEN NP [address] [place], [address], [facility] & [place] 10/29/2024 16:41:48 11/06/2024 text/html 59-year-old nedra salomon presents to [...] moderate-sized hiatal hernia was noted on imaging ADAM FOY DO [address] [place] [address], [address], [place], [address], [facility] & [place] 11/06/2024 16:20:30 OBGyn Episode No OBEpisode recorded.
--- NOTE | 2024-12-06 15:24 | EXP.PAIN.SOA ---
[facility] Disclaimer: The information contained in this section may have been updated after the patient was seen, as this information can be updated by other users. Social History Smoking Status: Never smoker alcohol intake: never current occupational status: other Travel in the last 8 weeks?: None PM Subjective & Objective Subjective Subjective:: Patient is a pleasant 59-year-old female who presents today for medication refill and follow-up. She does rated her pain a 5 out of 10. Patient does state that she has been having some stomach and colon related issues. She is scheduled for colonoscopy coming Monday and they are trying to see what is going on. Patient is currently managed with pregabalin 75 mg twice daily and Norco7.5 mg 4 times a day. She denies any side effects. Patient does state on her last pain medication somehow the 3 times a day that she previously had been prescribed was sent 10 however she did not notice this so she has been taking it at the 4 times a day like we had last discussed. Patient states that she would like to see about getting the medication filled earlier based off this. Her Angel has been reviewed and is appropriate. Review of Systems: General: No recent weight changes, no fever, no sleep disturbances Respiratory: No cough, no shortness of air, no recurring pulmonary infections Cardiovascular/peripheral vascular: No chest pain, no palpitations, no edema, no shortness of breath Gastrointestinal: No new onset incontinence, normal bowel movements reported Genitourinary: No new onset incontinence Musculoskeletal: Low back pain Psychiatric: [Normal mood/affect] Neurological: [Denies weakness in extremities], [denies balance issues] Pain at rest (0-10 scale): 5 Objective Objective:: Physical Exam: General: Alert and oriented x3, no acute distress, pleasant and cooperative Lungs: Respirations even and unlabored, symmetrical chest expansion Eyes: PERRL Musculoskeletal: Flexion and extension of lumbar [spine] somewhat guarded secondary to pain, [antalgic gait noted] Neurological: Speech clear, no gross sensory deficit Has patient had previous pain injection?: No Conservative treatment options previously tried: Prescription medications Length of treatment: Longer than 12 weeks Meds Home Medications and Allergies Home Medications ?Medication ?Instructions ?Recorded ?Confirmed ?Type ropinirole 2 mg tablet,extended 2 mg PO HS Pain 03/27/18 10/28/24 History release 24 hr metaxalone 800 mg tablet 800 mg PO BID . 09/13/21 10/28/24 History naloxegol 12.5 mg tablet 12.5 mg PO DAILY . #30 tabs 07/10/23 10/28/24 Rx diclofenac sodium 1 % topical gel 2 g topical QID #100 grams 05/13/24 10/28/24 Rx (Arthritis Pain (diclofenac)) meloxicam 15 mg tablet See Rx Instructions .Route 10/16/24 10/28/24 Rx .COMPLEX #30 tabs hydrocodone 7.5 mg-acetaminophen 1 tab PO TID #90 tabs 10/28/24 Rx 325 mg tablet pregabalin 75 mg capsule (Lyrica) 75 mg PO BID #6 caps 12/04/24 Rx hydrocodone 7.5 mg-acetaminophen 1 tab PO QID #120 tabs 12/06/24 Rx 325 mg tablet pregabalin 75 mg capsule (Lyrica) 75 mg PO BID #60 caps 12/06/24 Rx New Prescriptions to Start Prescriptions: hydrocodone-acetaminophen Janet Blanco pregabalin [Lyrica] Janet Blanco Allergies Allergy/AdvReac Type Severity Reaction Status Date / Time penicillin G (PENICILLIN G) Allergy Unknown I-HIVES Unverified 06/20/17 14:11 Assessment and Plan *Assessment and plan (1) Lumbar radiculopathy: Status: Acute Category: Medical Code(s): M54.16 - Radiculopathy, lumbar region (2) Degenerative disc disease, lumbar: Status: Acute Category: Medical Code(s): M51.369 - Other intervertebral disc degeneration, lumbar region without mention of lumbar back pain or lower extremity pain Plan I will refill the patient's [place] and pregabalin provide 1 month supply of these medications. I did legal counsel the patient that the 3 times a day on the [place] was still in her MAR and that I have canceled that prescription out so hopefully we do not have any additional issues with this. Patient was also counseled that I do not have any problems with her filling this medication early and that if her pharmacy needs to they can call her office to confirm this. I did send in a 3-month supply of the pregabalin. Patient will return to clinic in 1 month. Risks and benefits of the medication have been explained in detail to the patient. The patient does understand the risk of dependence on the medication when given over a prolonged period. Patient has been advised of risks of oversedation with the prescribed medication. Narcan has been offered to the paitent in the event of oversedation. Patient has been advised that a family member should also be educated regarding administration of Narcan. The patient has been advised to consult with his/her primary care provider and pharmacist regarding drug-drug interaction of medications currently prescribed. Patient has been prescribed a controlled substance after being counseled on the medication, medication safety, and possible side effects. Opioid contract was reviewed and signed by the patient, and that they have agreed to all of the terms set forth by our compliance program. A UDS is needed to verify patient's compliance with our office pain contract. This is ordered based off specific treatments related to chronic pain with the potential to abuse certain medications. Patient has been instructed to contact the clinic with any concerns before the next appointment. Dr. Dennis has reviewed this note and agrees with this plan of care. This note was dictated using voice recognition software and make contain errors or omissions.
[2024-12-06 15:50] VITALS: BP 115/79; PULSE 70; RESP 14; O2SAT 95; BMI 21.9
== END 2024-12-06 23:59 | disposition home or self-care (01) ==
PROVIDERS: PCP Nurse Practitioner Family; Visit Provider Nurse Practitioner Family
DX: M51.16 Intervertebral disc disorders with radiculopathy, lumbar region (principal); Z79.899 Other long term (current) drug therapy
CPT/HCPCS: 99212; G0463

== ENCOUNTER 2025-01-08 15:14 | Outpatient (POV) | payer OTHER, SELFPAY ==
--- OUTSIDE RECORDS SUMMARY | 2024-11-19 08:00 | XMS_ITS | Encounter Summary ---
Author Organization [facility] Address [address] [place] [address] Care Team Providers Care Senior Market Intelligence Consultant Name Role Phone Ian Nelson APRN Primary Care Provider + Reason for Referral * Consultation (Routine) - Closed Specialty Diagnoses / Procedures Referred By Kalli chang Referred To Contact Oral Surgery Diagnoses Pain, dental Syed Kumari DDS [address] [address] Phone: tel: fax: [facility] [address] [address] Phone: tel: fax: Referral ID Status Reason Start Date Expiration Date V isits Requested Visits Authorized [id number] Closed Specialty Services Required 11/19/2024 05/21/2026 1 1 Scheduling Instructions Please evaluate and EXT #31. Thanks Reason for Visit * Reason Comments Dental Pain LR Pain Encounter Details Date Type Department Care Team (Late st Contact Info) Description 11/19/2024 8:00 AM EDT Office Visit [facility] [address] [place] [address] Care, Dentistry Urgent Pain, dental [...] exposing a nerve . Pt went to [facility] dental yesterday and they took an [...] pain Location: LRQ Radiographic Observations: #31 old confucianist, possible fracture Radiographic Interpretation/Diagnosis: Dental pain Assessment/Diagnosis: [...] documented as of this encounter Care Teams Senior Market Intelligence Consultant Relationship Specialty Start Date End Date Ian Nelson APRN Clinic [address], [place] [address] PCP - General 11/13/20 documented as of this encounter
--- OUTSIDE RECORDS SUMMARY | 2024-11-19 10:15 | XMS_ITS | Encounter Summary ---
Author Organization [facility] Address [address] [place] [address] Care Team Providers Care Lens Maker Name Role Phone Nathanmelodie Ian Conley APRN Primary Care Provider + Reason for Visit * Reason Comments Dental Pain I need my tooth out . * Consultation (Routine) - Closed Specialty Diagnoses / Procedures Referred By Kalli chang Referred To Contact Oral Surgery Diagnoses Pain, dental Syed Kumari, DDS [address] [facility] [address] [place] [address] Phone: tel: fax: [facility] [address] [address] Phone: tel: fax: Referral ID Status Reason Start Date Expiration Date V isits Requested Visits Authorized [id number] Closed Specialty Services Required 11/19/2024 05/21/2026 1 1 Encounter Details Date Type Department Care Team (Late st Contact Info) Description 11/19/2024 10:15 AM EDT Evaluation [facility] [address] [phone] Bruss, Ynes Pain, dental Social History Tobacco Use Types Packs/Day Years Used Date Smoking Tobacco: Never Smokeless Tobacco: Never Alcohol Use Standard Drinks/Week Comments Never 0 [...] Sign Reading Time Taken Comments Blood Pressure 127/84 11/19/2024 10:30 AM EDT Pulse 102 11/19/2024 10:30 AM EDT Temperature - - Respiratory Rate - - Oxygen Saturation 98% 11/19/2024 10:30 AM EDT Inhaled Oxygen Concentration - - Weight 63.5 kg (140 lb) 11/19/2024 10:30 AM EDT Height 167.6 cm (5' 6 ) 11/19/2024 10:30 AM EDT Body Mass Index 22.6 11/19/2024 10:30 AM EDT documented in this encounter Miscellaneous Notes * Progress Notes - Ynes Perez - 11/19/2024 10:15 AM EDT [facility] Operative Report - EXT #31 Patient presents to [facility] slinic from [facility] clinic[facility] Patient presented to [facility] in pain and wasreferred to us for treatment. Medical, Surgical, and medication history was taken by DMD student in [facility] clinic and confirmed withpatient at this appointment. Vitals: 11/19/24 1030 BP: 127/84 Pulse: 102 SpO2: 98% PMH and R/B/A's reviewed, informed consent signed. Patient taken to [facility]. Pre-op dx: Symptomatic irreversible pulpitis / Symptomatic apical periodontitis Post-op dx: Same Student/Resident/Attending: Ynes Perez/Dr. Manzano/Dr. Mayo Procedure: EXT of #31 Estimated Blood Loss: Minimal Anesthesia: 2% Lidocaine w/1:100,000 Epi 1.7mL - 2 carpules - JANA and Buccal Nerve Block, 4% Septocaine w/1:100,000 Epi 1.7 mL - 1 carpule - Infiltration and PDL, and 0.5% Marcaine w/1:200,000 Epi 1.8 mL - 2 carpules - JANA Description of Procedure EXT of #31 - Local anesthesia achieved. Throat pack and bite block placed. Used periosteal to separate PDL from tooth. Extraction attempted with elevators and forceps, but resulted in crown fracture.A full thickness mucoperiosteal flap was reflected from the buccal aspect with a 15 blade to gain access to the remaining root structure. A surgical handpiece was used to section the remaining tooth. Both root tips were delivered with elevators. A Periapical radiograph was taken to confirm the tooth was removed in total. The socket was curetted and irrigated with NS. The mucoperiosteal flap was repositioned and sutured using a single interrupted Vicryl Rapide 3-0 absorbable suture to ensure primary closure. The surgical site was evaluated for hemostasis; no further bleeding was noted. Post-operative instructions were given orally and written to the patient; patient verbalized understanding. F/U: PRN Adjunct Radiographic Interpretation Film ordered: Panoramic film Date Ordered: 11/19/24 Radiographic Indications: Dental pain Location: LRQ Radiographic Observations: #31 old restorationist, possible fracture Radiographic Interpretation/Diagnosis: Dental pain Ynes Perez Cosigned by Howard Dickens DDS at 12/03/2024 12:40 PM EDT Associated attestation - Howard Dickens DDS - 12/03/2024 12:40 PM EDT I was present during all critical and ovalles portions of the procedure(s) and immediately available [facility] services the entire duration. See resident note for details. documented in this encounter Plan of Treatment Not on file documented as of this encounter Procedures Procedure Name Priority Date/Time Associated Diagnosis Comments 31 EXTRACTION, ERUPTED TOOTH REQUIRING REMOVAL OF BONE AND/OR SECTIONING OF TOOTH, AND INCLUDING ELEVATION OF MUCOPERIOSTEAL FLAP IF INDICATED Routine 11/19/2024 10:15 AM EDT Pain, dental documented in this encounter Visit Diagnoses Diagnosis Pain, dental documented in this encounter Additional Health Concerns Assessment Noted Time A Body Mass Index follow-up plan has been documented for the patient 11/19/2024 9:07 AM EDT documented as of this encounter Care Teams Lens Maker Relationship Specialty Start Date End Date Ian Nelson APRN [address] [place], [place] [address] PCP - General 11/13/20 documented as of this encounter
--- OUTSIDE RECORDS SUMMARY | 2024-12-11 05:47 | XMS_ITS | Continuity of Care Document ---
Author Organization [facility] Phone Care Team Providers Care Form Maker Plaster Name Role Phone HALLEY SEAY Unavailable HALLEY SEAY Surgeon HALLEY SEAY Primary Attending HALLEY SEAY Admitting ZACHARY BREEN Primary Care [phone] ALLERGIES AND ADVERSE REACTIONS ALLERGIES AND ADVERSE REACTIONS Code System Allergy Substance Adverse Reaction Date Reaction (Severity) Comment Status Reported By Updated By 7984 RXNorm PENICILLIN Hives hives active [id number] on December 06, 2024 1:27:13 PM [facility] FAMILY HISTORY RELATION: Father Status: Cause of : Unknown Age at : Unknown SNOMED-CT Diagnosis Age At Onset Information not available RELATION: Mother Status: LIVING SNOMED-CT Diagnosis Age At Onset Information not available TREATMENT PLAN DISCHARGE MEDICATIONS Status RXNORM Medication Dose Route Frequency Dates Comments U pdated By Continued 790301 buPROPion HCl ER (XL) Oral Tablet Extended Release 24 Hour 300 MG 300 MG ORAL ONCE DAILY Prescri bed: December 09, 2024 12:13:4 5 PM [facility] [id number] on December 09, 2024 12:13:45 PM [facility] Continued 227423 atorvastatin calcium (LIPITOR) 40 MG ORAL ONCE DAILY Prescri bed: December 09, 2024 12:13:4 5 PM [facility] [id number] on December 09, 2024 12:13:45 PM [facility] Continued 646645 Omeprazole Oral Capsule Delayed Release 40 MG 40 MG ORAL ONCE DAILY Prescri bed: December 09, 2024 12:13:4 5 PM [facility] [id number] on December 09, 2024 12:13:45 PM [facility] Continued 294432 Meloxicam Oral Tablet 15 MG 15 MG ORAL ONCE DAILY Prescri bed: December 09, 2024 12:13:4 5 PM UTC [id number] on December 09, 2024 12:13:45 PM [facility] Continued 879692 HYDROcodone-Roscoe taminophen Oral Tablet 7.5-325 MG 1 TAB ORAL FOUR TIMES A DAY Prescri bed: December 09, 2024 12:13:4 5 PM [facility] [id number] on December 09, 2024 12:13:45 PM [facility] Continued 972898 FLUoxetine HCl Oral Capsule 40 MG 80 MG ORAL ONCE DAILY Prescri bed: December 09, 2024 12:13:4 5 PM [facility] [id number] on December 09, 2024 12:13:45 PM [facility] Continued 411275 Amitiza Oral Capsule 24 MCG 24 MCG ORAL TWICE A DAY Prescri bed: December 09, 2024 12:13:4 5 PM [facility] [id number] on December 09, 2024 12:13:45 PM [facility] Continued 868225 dicyclomine (BENTYL) 10 MG ORAL THREE TIMES A DAY NEEDED Prescri bed: December 09, 2024 12:13:4 5 PM [facility] [id number] on December 09, 2024 12:13:45 PM [facility] Continued 040809 pregabalin (LYRICA) 75 MG ORAL TWICE A DAY Prescri bed: December 09, 2024 12:13:4 5 PM [facility] [id number] on December 09, 2024 12:13:45 PM [facility] Continued 944244 busPIRone (BUSPAR) 10 MG ORAL TWICE A DAY Prescri bed: December 09, 2024 12:13:4 5 PM [facility] [id number] on December 09, 2024 12:13:45 PM [facility] PATIENT OPEN ORDERS Code System Description Frequency Occurrences Priority [place] [address] [facility] Specimen type ONE TIME 0 Routine December 09, 2024 12:10:0 0 PM [facility] GEENA HALLEY [id number] on December 09, 2024 12:10:00 PM [facility] SCHEDULED PROCEDURES Code System Description Status Scheduled Date Upd ated By Patient scheduled procedure information is not available. MEDICATIONS HOME MEDICATIONS Status RXNORM [facility] Medication Dose Route Frequency Dates Comments Reported By Updated By Active [id number] 27601 Amitiza Oral Capsule 24 MCG 24.0 MCG ORAL BID Last Dose: [id number] on December 06, 2024 5:29:37 PM [facility] Active 622327 898170 33181 atorvastatin calcium (LIPITOR) 40.0 MG ORAL DAILY Last Dose: [id number] on December 06, 2024 5:29:46 PM [facility] Active 794969 865446 31762 busPIRone (BUSPAR) 10.0 MG ORAL BID Last Dose: [id number] on December 06, 2024 5:30:00 PM [facility] Active 462695 664479 66923 buPROPion HCl ER (XL) Oral Tablet Extended Release 24 Hour 300 MG 300.0 MG ORAL DAILY Last Dose: [id number] on December 06, 2024 5:30:17 PM [facility] Active 947814 002879 01386 dicyclomine (BENTYL) 10.0 MG ORAL TIDPRN Last Dose: [id number] on December 09, 2024 12:13:35 PM [facility] Active 909092 949846 91769 FLUoxetine HCl Oral Capsule 40 MG 80.0 MG ORAL DAILY Last Dose: [id number] on December 06, 2024 5:30:42 PM [facility] Active 595462 376544 64085 HYDROcodone- Acetaminophe n Oral Tablet 7.5-325 MG 1.0 TAB ORAL QID Last Dose: [id number] on December 06, 2024 5:31:28 PM [facility] Active 444479 625243 89971 Meloxicam Oral Tablet 15 MG 15.0 MG ORAL DAILY Last Dose: [id number] on December 06, 2024 5:31:40 PM [facility] Active 900768 397385 58828 Omeprazole Oral Capsule Delayed Release 40 MG 40.0 MG ORAL DAILY Last Dose: [id number] on December 06, 2024 5:31:53 PM [facility] Active 146212 470974 19041 pregabalin (LYRICA) 75.0 MG ORAL BID Last Dose: [id number] on December 06, 2024 5:32:05 PM [facility] DISCHARGE MEDICATIONS Status RXNORM [facility] Medication Dose Route Frequency Dates Comments Physician Updated By Paul lugo [id number] [id number] 11587 0 buPROPion HCl ER (XL) Oral Tablet Extended Release 24 Hour 300 MG 300.0 MG ORAL ONCE DAILY Prescr ibed: December 09, 2024 12:13: 45 PM [facility] GEENA ROWLEY DO [id number] on December 09, 2024 12:13:45 PM UTC Continue d 925789 73598 26572 1 atorvastati n calcium (LIPITOR) 40.0 MG ORAL ONCE DAILY Prescr ibed: December 09, 2024 12:13: 45 PM [facility] GEENA ROWLEY DO [id number] on December 09, 2024 12:13:45 PM UTC Continue d 991386 39388 51818 0 Omeprazole Oral Capsule Delayed Release 40 MG 40.0 MG ORAL ONCE DAILY Prescr ibed: December 09, 2024 12:13: 45 PM [facility] GEENA ROWLEY DO [id number] on December 09, 2024 12:13:45 PM UTC Continue d 295161 15610 17559 1 Meloxicam Oral Tablet 15 MG 15.0 MG ORAL ONCE DAILY Prescr ibed: December 09, 2024 12:13: 45 PM [facility] GEENA ROWLEY DO [id number] on December 09, 2024 12:13:45 PM UTC Continue d 173957 35089 72089 0 HYDROcodone -Acetaminop hen Oral Tablet 7.5-325 MG 1.0 TAB ORAL FOUR TIMES A DAY Prescr ibed: December 09, 2024 12:13: 45 PM [place] GEENA ROWLEY DO [id number] on December 09, 2024 12:13:45 PM UTC Continue d 935487 92826 34264 6 FLUoxetine HCl Oral Capsule 40 MG 80.0 MG ORAL ONCE DAILY Prescr ibed: December 09, 2024 12:13: 45 PM [place] GEENA ROWLEY DO [id number] on December 09, 2024 12:13:45 PM UTC Continue d 217965 59222 05208 1 Amitiza Oral Capsule 24 MCG 24.0 MCG ORAL TWICE A DAY Prescr ibed: December 09, 2024 12:13: 45 PM [place] GEENA ROWLEY DO [id number] on December 09, 2024 12:13:45 PM UTC Continue d 305149 43576 17619 1 dicyclomine (BENTYL) 10.0 MG ORAL THREE TIMES A DAY NEEDED Prescr ibed: December 09, 2024 12:13: 45 PM [facility] GEENA ROWLEY DO [id number] on December 09, 2024 12:13:45 PM UTC Continue d 404756 61839 71442 1 pregabalin (LYRICA) 75.0 MG ORAL TWICE A DAY Prescr ibed: December 09, 2024 12:13: 45 PM [facility] HALLEY HSU [id number] on December 09, 2024 12:13:45 PM [facility] Continue d 483638 78622 59712 1 busPIRone (BUSPAR) 10.0 MG ORAL TWICE A DAY Prescr ibed: December 09, 2024 12:13: 45 PM [facility] GEENA ROWLEY DO [id number] on December 09, 2024 12:13:45 PM [facility] INPATIENT MEDICATIONS Status RXNORM [facility] Medication Dose Route Frequency Rat e Quantity Dates Comments Physician Updated By Lauren inued 051541 6310 4775 000 lactated ringers (LR) SOLN 1000. 0 ML INTRAV ENOUS ONE TIME ADMINISTRA TION (UNSCHEDUL ED) 25.0 ML/HR Start: December 09, 2024 10:00: 00 AM [place] End: December 09, 2024 10:43: 10 AM [facility] DANO ARIZA CRNA [id number] on December 09, 2024 10:43:00 AM [facility] Discont inued 2249483 4120 3026 977 DIPRIVAN 500 MG/50ML EMUL 50.0 ML INTRAV ENOUS ONE TIME ONLY Start: December 09, 2024 10:51: 00 AM [place] End: December 09, 2024 10:51: 00 AM [facility] HALLEY DO INTERFAC ED on December 09, 2024 10:50:00 AM [facility] Discont inued [id number] 2149 3026 977 DIPRIVAN 500 MG/50ML EMUL 50.0 ML INTRAV ENOUS ONE TIME ONLY Start: December 09, 2024 10:51: 00 AM [place] End: December 09, 2024 10:51: 00 AM [facility] HALLEY DO INTERFAC ED on December 09, 2024 10:50:00 AM [facility] SOCIAL HISTORY SOCIAL HISTORY SNOMED-CT Social History Element Description Effective Dates Offered Cessation Comment UpdatedBy [id number] Historical Tobacco smoking status Current Every Day Smoker [id number] on October 26, 2024 1:10:34 PM [facility] [id number] Historical Tobacco smoking status Never Smoked [id number] on October 25, 2024 1:31:59 PM [facility] 9175287 Historical Tobacco smoking status Former Smoker Yes [id number] on July 01, 2015 7:52:42 PM [facility] SOCIAL HISTORY - Gender Sex: Female SOCIAL [...] value for each vital sign as of December 11, 2024 9:47:56 AM [facility] Loinc Code Vital Sign Activity Date Result Updated By 8302-2 Body height December 06, 2024 5:29:10 PM UTC 165.1 cm (65.0 in) [id number] on December 06, 2024 5:29:[place] [address]-5 Body mass index (BMI ) [Ratio] December 06, 2024 5:29:10 PM UTC 23.677 kg/m2 [id number] on December 06, 2024 5:29:10 PM UT 3140-1 Body Surface Area Derived From Formula December 06, 2024 5:29:10 PM UTC 1.7116 m2 [id number] on December 06, 2024 5:29:10 PM UT 8310-5 Body temperature December 09, 2024 1:10:00 PM UTC 97.6 [degF] [id number] on December 09, 2024 3:11:34 [place] [address]-4 Body weight Measured December 06 5:29:10 PM UTC 64.54 kg (142.0 lb) [id number] on December 06, 2024 5:29:10 PM UT 8462-4 Diastolic blood pressure December 09, 2024 1:10:00 PM UTC 56.0 mm[Hg] [id number] on December 09, 2024 3:11:34 PM UTC 8867-4 Heart rate December 09, 2024 1:10:00 PM UTC 62 /min [id number] on December 09, 2024 3:11:[place] [address]-8 Oxygen saturation in Arterial blood by Pulse oximetry December 09, 2024 1:10:00 PM UTC 97.0 % [id number] on December 09, 2024 3:11:34 PM UT 9279-1 Respiratory rate December 09, 2024 1:10:00 PM UTC 16 /min [id number] on December 09, 2024 3:11:34 PM [facility] 8480-6 Systolic blood pressure December 09, 2024 1:10:00 PM UT 98.0 mm[Hg] [id number] on December 09, 2024 3:11:34 PM [facility] PEDIATRIC GROWTH CHART - VITAL SIGNS This section displays Head C ircumference Percentile, Weight for Length Percentile and BMI Percentile Loinc Code Pediatric Measure Age (Months) Result Updat ed By No Pediatric Growth Chart Pe rcentile Information Available. PROCEDURES PATIENT PROCEDURES CODE SYSTEM DESCRIPTION STATUS PERFORMED DATE UPD ATED BY [id number] SNOMED-CT ESOPHAGOGASTRODU ODENOSCOPY (EGD) completed December 09, 2024 4:00:00 AM [facility] [id number] on December 09, 2024 12:06:30 PM [facility] [id number] SNOMED-CT COLONOSCOPY completed December 09, 2024 4:00:00 AM [facility] [id number] on December 09, 2024 12:39:45 PM [facility] PROCEDURE NOTE Procedure Note information i s not available. HEALTH CONCERNS Problems Concern Status Health Concern problem infor mation not available. Smoking Status Status Years Used Consumed packs p er day Health Concern smoking histo ry information not available. Family History Concern Status Health Concern family histor y information not available. MEDICAL EQUIPMENT MEDICAL EQUIPMENT Device Status Quantity Dates Procedure Comments Updated By No implanted devices [id number] on December 09, 2024 11:40:56 AM [facility] ENCOUNTERS ENCOUNTER INFORMATION Reason for Visit R10.32 Admission December 09, 2024 10:02:[address] [address] Discharge December 09, 2024 6:02:00 PM [facility] DISC HARGED TO HOME OR SELF CARE ENCOUNTER DIAGNOSES Notes information is not erlin ilable. Code System Diagnosis Onset Date Diagnosis information is not available. 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 PQE 7261 on December 11, 2024 9:47:28 AM [place] Z86.0100 ICD10 PERSONAL HISTORY OF COLON POLYPS, UNSPECIFIED [id number] on December 11, 2024 9:47:28 AM UT Z80.0 ICD10 FAMILY HISTORY O F MALIGNANT NEOPLASM OF DIGESTIVE ORGANS [id number] on December 11, 2024 9:47:28 AM UT K20.90 ICD10 ESOPHAGITIS, UNS PECIFIED WITHOUT BLEEDING [id number] on December 11, 2024 9:47:28 AM UT K29.50 ICD10 UNSPECIFIED MANAGER STRATEGY CARLA GASTRITIS WITHOUT BLEEDING [id number] on December 11, 2024 9:47:28 AM UT K31.89 ICD10 OTHER DISEASES OF STOMACH AN D DUODENUM [id number] on December 11, 2024 9:47:28 AM UT K44.9 ICD10 DIAPHRAGMATIC HE RNIA WITHOUT OBSTRUCTION OR GANGRENE [id number] on December 11, 2024 9:47:28 AM UT K21.9 ICD10 GASTRO-ESOPHAGEA L REFLUX DISEASE WITHOUT ESOPHAGITIS [id number] on December 11, 2024 9:47:28 AM [place] I10 ICD10 ESSENTIAL (PRIMARY) HYPERTEN ALEJO [id number] on December 11, 2024 9:47:28 AM UT E78.5 ICD10 HYPERLIPIDEMIA, UNSPECIFIED [id number] on December 11, 2024 9:47:28 AM [place] Z79.899 ICD10 OTHER ANDROID IOS DEVELOPER (CURRENT) DR UG THERAPY [id number] on December 11, 2024 9:47:28 AM UT Z88.0 ICD10 ALLERGY STATUS TO PENICILLIN [id number] on December 11, 2024 9:47:28 AM [facility] CARE TEAM Care Form Maker Plaster Role HALLEY SEAY Referring HALLEY SEAY Surgeon HALLEY SEAY Primary Attending HALLEY SEAY Admitting ZACHARY BREEN 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 Role on Team Status Start Date End Date Update d By NICHOLE MIDDLETON CRNA Healthcare professional normal December 09, 2024 11:51:00 AM [facility] December 09, 2024 6:02:00 PM UTC [id number] on December 09, 2024 12:43:23 PM UTC GEENA ROWLEY DO Surgeon normal December 09, 2024 11:55:00 AM UTC December 09, 2024 6:02:00 PM UTC [id number] on December 09, 2024 12:43:23 PM UTC NUHA SEBASTIANP PCP normal December 09, 2024 10:03:45 AM UTC December 09, 2024 4:00:00 AM UTC [id number] on December 09, 2024 12:43:23 PM UTC GEENA ROWLEY DO Referring normal December 09, 2024 10:03:45 AM UTC December 09, 2024 4:00:00 AM UTC [id number] on December 09, 2024 12:43:23 PM UTC GEENA ROWLEY DO Attending normal December 06, 2024 3:36:06 PM UTC December 09, 2024 4:00:00 AM UTC [id number] on December 09, 2024 12:43:23 PM UTC GEENA ROWLEY DO Admitting normal December 06, 2024 3:36:06 PM UTC December 09, 2024 4:00:00 AM UTC [id number] on December 09, 2024 12:43:23 PM UTC
--- OUTSIDE RECORDS SUMMARY | 2025-01-08 15:18 | XMS_ITS | Data Portability ---
Author Organization [place] - [facility] & [place] [facility] ADMIN Address [address] [place] [id number] Care Team Providers Care Combine Operator Name Role Phone CHRISTY BREENGUERRERO Primary Care Provider Assessment Encounter Date Assessment Date Assessment LastModified by Organization Details LastModified Time 02/17/2023 02/17/2023 History of hypothyroidis m: Recheck thyroid level and vitamin levels. [email or web address] Not available 02/18/2023 04:12:33 Plan of Treatment Reminders Order Date Submit Date Provider Last Modified By Organization Details Last Modified Time Details Appointments None recorded. Lab culture, urine 2024 025 [facility] ([facility]atory), [address], [address], 5 07:20:19 lipid panel, serum 2024 025 [facility] ([facility]), [address] [place], [address], 5 17:52:46 CMP, serum or plasma 2024 025 [facility] ([facility]atory), [address] [place], [address], 5 17:52:44 CBC w/ auto diff 2024 025 [facility] ([facility]atory), [address] [place], [address], 5 16:27:35 TSH + free T4, serum [address] (Laboratory), [address] [place], [address], 5 06:57:32 hemoglobin A1c + average glucose, QN, blood [address] (Laboratory), [address] [place], [address], 5 06:57:32 urinalysis , dipstick 2023 024 [email or web address] [facility], [address] [place] [address] [place], [address], 4 12:54:27 vitamin B12 + folate, serum or blood [address] (Laboratory), [address], [address], 3 07:57:18 vitamin D, 25-hydroxy , total, serum [address] (Laboratory), [address], [address], 3 07:57:18 iron + TIBC + ferritin, serum [address] (Laboratory), [address], [address], 3 07:57:18 CBC w/ auto diff 2022 023 [facility] ([facility] [address], [address], 3 16:39:59 CMP, serum or plasma 2022 023 [facility] (Laboratory), [address] [place], [address], 3 17:44:44 CITLALI (antinucle ar antibodies ) screen, serum [address] (Laboratory), [address] [place], [address], 3 07:57:18 TSH + free T4, serum [address] (Laboratory), [address] [place], [address], 3 07:57:18 Referral general surgeon referral 2024 025 GIGI Foy DO, [address] [place] [address] [place], [place], [address], 5 16:23:31 Procedures None recorded. Surgeries None recorded. Imaging US, transvagin al 2024 025 [email or web address] [facility] (Scheduling), [address] [place], [address], 5 07:43:41 XR, pelvis, 1 or 2 view 2024 025 [facility] ([facility]), [address] [place], [address], 5 08:50:18 Medication Orders dicyclomin e 10 mg capsule [address]/Pharmacy #3016, [address] [place], [address], 5 10:43:30 Cipro 500 mg tablet 2024 025 [facility]/Pharmacy #3016, [address] [place], [address], 5 15:39:04 atorvastat in 40 mg tablet 2024 [facility]25 [facility] [address] [place], [address], 16:27:22 omeprazole 40 mg capsule,de layed release 2024 025 [facility] [address] [place], [address], 16:27:23 bupropion HCl XL 300 mg 24 hr tablet, extended release 2024 025 [facility] [address] [place], [address], 16:27:23 fluoxetine 40 mg capsule 2024 025 [facility] [address] [place], [address], 16:27:23 Tubersol 5 tub. unit/0.1 mL intraderma l injection solution 2023 024 [email or web address] Not available 15:11:19 Bactrim DS 800 mg-160 mg tablet 2023 024 [email or web address] [facility] [address] [place], [address], 15:11:16 Patient TargetsNo targets recorded. Patient InstructionsNo instructions recorded. Reason for Referral General Surgeon Referral for Gallstone Referring Physician: Ian Breen, Family Medicine, Encounter Date: 10/29/2024 Results Created Date Observation Date Name Description Value Unit Range Abnormal Flag Note LastModifiedBy Organization Detail LastModifiedTime 02/18/2002/17/2023 CBC AUTO W DIFF WBC 5.2 10 4.5-11 .5 Not Available [facility] (Lab Registration) [address], [place], [address], 02/17/2023 16:39:59 02/18/20 23 02/17/2023 CBC AUTO W DIFF RBC 4.49 10 4.25-5 .57 Not Available [facility] (Lab Registration) [address], [address], 02/17/2023 16:39:59 02/18/20 23 02/17/2023 CBC AUTO W DIFF HGB 13.4 g/dL 12.0-1 5.7 Not Available [facility] (Lab Registration) [address], [address], 02/17/2023 16:39:59 02/18/20 23 02/17/2023 CBC AUTO W DIFF HCT 41.2 % 36.0-4 7.0 Not Available [facility] (Lab Registration) [address], [address], 02/17/2023 16:39:59 02/18/20 23 02/17/2023 CBC AUTO W DIFF MCV 91.8 fL 80-95 Not Available [facility] (Lab Registration) [address], [address], 02/17/2023 16:39:59 02/18/20 23 02/17/2023 CBC AUTO W DIFF MCH 29.8 pg 27.0-3 4.0 Not Available [facility] (Lab Registration) [address], [address], 02/17/2023 16:39:59 02/18/20 23 02/17/2023 CBC AUTO W DIFF MCHC 32.5 g/dL 32.0-3 6.0 Not Available [facility] (Lab Registration) [address], [address], 02/17/2023 16:39:59 02/18/20 23 02/17/2023 CBC AUTO W DIFF platelet count 314 10 150-45 0 Not Available [facility] (Lab Registration) [address], [address], 02/17/2023 16:39:59 08/18/20 23 02/17/2023 CBC AUTO W DIFF RDW 11.8 % 12.3-1 5.1 low Not Available [facility] (Lab Registration) [address], [address], 02/17/2023 16:39:59 02/18/20 23 02/17/2023 CBC AUTO W DIFF MPV 10.5 fL 7.4-10 .4 high Not Available [facility] (Lab Registration) [address], [address], 02/17/2023 16:39:59 02/18/20 23 02/17/2023 CBC AUTO W DIFF granulocyte% 57.6 % 40-75 Not Available [facility] (Lab Registration) [address], [address], 02/17/2023 16:39:59 02/18/20 23 02/17/2023 CBC AUTO W DIFF lymphocyte% 33.2 % 15-57 Not Available [facility] ([facility]) [address] [address] [place], [address], 02/17/2023 16:39:59 02/18/20 23 02/17/2023 CBC AUTO W DIFF monocyte% 7.1 % 4.0-12 .0 Not Available [facility] (Lab Registration) [address], [address], 02/17/2023 16:39:59 02/18/20 23 02/17/2023 CBC AUTO W DIFF eosinophil% 1.3 % 0.0-4. 0 Not Available [facility] (Lab Registration) [address], [address], 02/17/2023 16:39:59 02/18/20 23 02/17/2023 CBC AUTO W DIFF basophil% 0.8 % 0.0-1. 0 Not Available [facility] (Lab Registration) [address], [address], 02/17/2023 16:39:59 02/18/20 23 02/17/2023 CBC AUTO W DIFF immature granulocytes % 0.0 % 0.0-0. 8 Not Available [facility] (Lab Registration) [address] [place], [address], 02/17/2023 16:39:59 02/18/20 23 02/17/2023 CBC AUTO W DIFF granulocyte# 3.02 10 Not Available [facility] (Lab Registration) [address] [place], [address], 02/17/2023 16:39:59 02/18/20 23 02/17/2023 CBC AUTO W DIFF lymphocyte# 1.74 10 Not Available [facility] (Lab Registration) [address] [place], [address], 02/17/2023 16:39:59 02/18/20 23 02/17/2023 CBC AUTO W DIFF monocyte# 0.37 10 Not Available [facility] (Lab Registration) [address] [place], [address], 02/17/2023 16:39:59 02/18/20 23 02/17/2023 CBC AUTO W DIFF eosinophil# 0.07 10 Not Available [facility] (Lab Registration) [address] [place], [address], 02/17/2023 16:39:59 02/18/20 23 02/17/2023 CBC AUTO W DIFF basophil# 0.04 10 Not Available [facility] (Lab Registration) [address] [place], [address], 02/17/2023 16:39:59 02/18/20 23 02/17/2023 CBC AUTO W DIFF immature granulocytes # 0.00 10 Not Available [facility] (Lab Registration) [address] [place], [address], 02/17/2023 16:39:59 02/18/20 23 02/17/2023 CBC AUTO W DIFF manual differential NO Not Available [facility] (Lab Registration) [address] [place], [address], 02/17/2023 16:39:59 02/18/20 23 02/17/2023 CBC AUTO W DIFF note Unles s other porras noted testi ng perfo rmed at: [facility] [facility] [address] [place] [address] [phone] Praneeth smith MD CLIA: [id number] Not Available [facility] (Lab Registration) [address] [place], [address], 02/17/2023 16:39:59 02/18/20 23 02/17/2023 THYRO ID STIMU LATIN G HORMO NE thyroid stimulating hormone 0.97 mIU/m L 0.34-4 .80 Not Available [facility] (Lab Registration) [address] [place], [address], 02/17/2023 17:44:42 02/18/20 23 02/17/2023 THYRO ID STIMU LATIN G HORMO NE note Norbertoes s other porras noted testi ng perfo rmed at: [facility] [facility] [address] [place] [address] [phone] Praneeth smith MD CLIA: [id number] Not Available [facility] (Lab Registration) [address] [place], [address], 02/17/2023 17:44:42 02/18/20 23 02/17/2023 T4 FREE T4,free 0.98 NG/dL 0.76-1 .46 Effec tive today 013 new Refer ence Range . Not Available [facility] (Lab Registration) [address] [place], [address], 02/17/2023 17:44:42 02/18/20 23 02/17/2023 T4 FREE note Norbertoes s other porras noted testi ng perfo rmed at: [facility] [facility] [address] [place] [address] [phone] Praneeth smith MD CLIA: [id number] Not Available [facility] (Lab Registration) [address] [place], [address], 02/17/2023 17:44:42 02/18/20 23 02/17/2023 VITAM IN D TOTAL (D2+D 3) vitamin D25 (D2+D3) 58.9 NG/mL 30-100 Not Available [facility] (Lab Registration) [address] [place], [address], 02/17/2023 17:44:43 02/18/20 23 02/17/2023 VITAM IN D TOTAL (D2+D 3) note Norbertoes s other porras noted testi ng perfo rmed at: [facility] [address] [facility] [place] [address] [phone] Praneeth smith MD CLIA: [id number] Not Available [facility] (Lab Registration) [address] [address] [place], [address], 02/17/2023 17:44:43 02/18/20 23 02/17/2023 VITAM IN B12 vitamin B12 918 pg/mL 193-98 6 Not Available [facility] (Lab Registration) [address] [address] [place], [address], 02/17/2023 17:44:44 02/18/20 23 02/17/2023 VITAM IN B12 folate (folic acid), serum 51.5 NG/mL 8.6-58 .9 Not Available [facility] (Lab Registration) [address] [place], [address], 02/17/2023 17:44:44 02/18/20 23 02/17/2023 VITAM IN B12 note Brandon smith other porras noted testi ng perfo rmed at: [facility] [facility] [address] [place] [address] [phone] Praneeth smith MD CLIA: [id number] Not Available [facility] (Lab Registration) [address], [address], 02/17/2023 17:44:44 02/18/20 23 02/17/2023 COMP METAB OLIC PANEL sodium 140 mmol/ L 136-14 5 Not Available [facility] (Lab Registration) [address], [address], 02/17/2023 17:44:44 02/18/20 23 02/17/2023 COMP METAB OLIC PANEL potassium 4.3 mmol/ L 3.5-5. 1 Not Available [facility] (Lab Registration) [address], [address], 02/17/2023 17:44:44 02/18/20 23 02/17/2023 COMP METAB OLIC PANEL chloride 103 mmol/ L 98-107 Not Available [facility] (Lab Registration) [address], [address], 02/17/2023 17:44:44 02/18/20 23 02/17/2023 COMP METAB OLIC PANEL carbon dioxide 28 mmol/ L 21-32 Not Available [facility] (Lab Registration) [address], [address], 02/17/2023 17:44:44 02/18/20 23 02/17/2023 COMP METAB OLIC PANEL anion gap 9.0 Not Available [facility] (Lab Registration) [address], [address], 02/17/2023 17:44:44 02/18/20 23 02/17/2023 COMP METAB OLIC PANEL glucose 85 mg/dL 70-110 Not Available [facility] (Lab Registration) [address], [address], 02/17/2023 17:44:44 02/18/20 23 02/17/2023 COMP METAB OLIC PANEL blood urea nitrogen 19 mg/dL 7-18 high Not Available [facility] (Lab Registration) [address], [address], 02/17/2023 17:44:44 02/18/20 23 02/17/2023 COMP METAB OLIC PANEL creatinine 0.9 mg/dL 0.6-1. 0 Not Available [facility] (Lab Registration) [address], [address], 02/17/2023 17:44:44 02/18/20 23 02/17/2023 COMP METAB OLIC PANEL BUN/creatini ne ratio 21.1 ratio 9-21 high Not Available [facility] (Lab Registration) [address], [address], 02/17/2023 17:44:44 02/18/20 23 02/17/2023 COMP METAB OLIC PANEL estimated glom filtration rate 68 mL/mi n >60- Not Available [facility] (Lab Registration) [address], [address], 02/17/2023 17:44:44 02/18/20 23 02/17/2023 COMP METAB OLIC PANEL total protein 7.8 g/dL 6.4-8. 2 Not Available [facility] (Lab Registration) [address], [address], 02/17/2023 17:44:44 02/18/20 23 02/17/2023 COMP METAB OLIC PANEL albumin 4.4 g/dL 3.4-5. 0 Not Available [facility] (Lab Registration) [address], [address], 02/17/2023 17:44:44 02/18/20 23 02/17/2023 COMP METAB OLIC PANEL calcium 10.9 mg/dL 8.5-10 .1 high Not Available [facility] (Lab Registration) [address] [place], [address], 02/17/2023 17:44:44 02/18/20 23 02/17/2023 COMP METAB OLIC PANEL corrected calcium 10.6 mg/dL 8.5-10 .1 high Not Available [facility] (Lab Registration) [address], [place], [address], 02/17/2023 17:44:44 02/18/20 23 02/17/2023 COMP METAB OLIC PANEL bilirubin total 0.5 mg/dL 0.4-1. 5 Not Available [facility] (Lab Registration) [address], [place], [address], 02/17/2023 17:44:44 02/18/20 23 02/17/2023 COMP METAB OLIC PANEL AST (SGOT) 25 U/L 15-37 Not Available [facility] (Lab Registration) [address] [place], [address], 02/17/2023 17:44:44 02/18/20 23 02/17/2023 COMP METAB OLIC PANEL ALT (SGPT) 30 U/L 12-78 Not Available [facility] (Lab Registration) [address], [place], [address], 02/17/2023 17:44:44 02/18/20 23 02/17/2023 COMP METAB OLIC PANEL alk phosphatase 82 U/L 50-120 Not Available [facility] (Lab Registration) [address] [place] [place], [address], 02/17/2023 17:44:44 02/18/20 23 02/17/2023 COMP METAB OLIC PANEL note Unles s other porras noted testi ng perfo rmed at: [facility] [address] [place] [address] [phone] Praneeth smith MD CLIA: [id number] Not Available [facility] (Lab Registration) [address] [place], [address], 02/17/2023 17:44:44 02/18/20 23 02/17/2023 PRINCE TIN ferritin 81 NG/mL 8-388 Not Available [facility] (Lab Registration) [address], [place], [address], 02/17/2023 17:45:40 02/18/20 23 02/17/2023 PRINCE TIN note Unles s other porras noted testi ng perfo rmed at: [facility] [address] [place] [address] [phone] Praneeth smith MD CLIA: [id number] Not Available [facility] (Lab Registration) [address], [place], [address], 02/17/2023 17:45:40 02/18/20 23 02/17/2023 IRON/ TIBC/ %SAT (IRON STUDI ES) iron 75 ug/dL 35-150 Not Available [facility] (Lab Registration) [address] [place], [address], 02/17/2023 17:45:41 02/18/20 23 02/17/2023 IRON/ TIBC/ %SAT (IRON STUDI ES) total iron bind cap (TIBC) 368 ug/dL 250-45 0 Not Available [facility] (Lab Registration) [address] [place], [address], 02/17/2023 17:45:41 02/18/20 23 02/17/2023 IRON/ TIBC/ %SAT (IRON STUDI ES) % saturation 20 % 15-55 Not Available [facility] (Lab Registration) [address] [place], [address], 02/17/2023 17:45:41 02/18/20 23 02/17/2023 IRON/ TIBC/ %SAT (IRON STUDI ES) note Unles s other porras noted testi ng perfo rmed at: [facility] [address] [employer] [place] [address] [phone] Praneeth smith MD CLIA: [id number] Not Available [facility] (Lab Registration) [address] [place], [address], 02/17/2023 17:45:41 02/18/20 23 02/17/2023 CITLALI QUAL SCREE N note Unles s other porras noted testi ng perfo rmed at: [facility] [address] [place] [address] [phone] Praneeth smith MD CLIA: [id number] Not Available [facility] (Lab Registration) [address] [place], [address], 2023 13:10:51 02/18/20 23 2023 CITLALI QUAL SCREE N CITLALI direct Negati ve negati ve Perfo rmed at: - [address], [place] [id number] Lab Direc tor: Joe andrew PhD, Phone : [phone] SENT TO REFER ENCE LAB Not Available [facility] (Lab Registration) [address] [place], [address], 2023 13:10:51 08/15/19 24 08/15/2023 urina lysis , dipst ick Leukocytes (reference range) modera te Not Available [place] [address] [place], [address], 08/15/2023 11:52:20 08/15/19 24 08/15/2023 urina lysis , dipst ick Nitrite (reference range:) negati ve Not Available [place] [address] [place], [address], 08/15/2023 11:52:20 08/15/19 24 08/15/2023 urina lysis , dipst ick Urobilinogen (reference range) 0.2 Not Available [address] [place], [address], 08/15/2023 11:52:20 08/15/19 24 08/15/2023 urina lysis , dipst ick Protein (reference range) negati ve Not Available [address] [place], [address], 08/15/2023 11:52:20 08/15/19 24 08/15/2023 urina lysis , dipst ick pH (reference range 5-8.5) 5.5 Not Available [address] [place], [address], 08/15/2023 11:52:20 08/15/19 24 08/15/2023 urina lysis , dipst ick Blood (reference range:) large Not Available [address] [place], [address], 08/15/2023 11:52:20 08/15/19 24 08/15/2023 urina lysis , dipst ick Specific [place] (reference range) 1.030 Not Available [address] [place], [address], 08/15/2023 11:52:20 08/15/19 24 08/15/2023 urina lysis , dipst ick Ketone (reference range) negati ve Not Available [address] [place], [address], 08/15/2023 11:52:20 08/15/19 24 08/15/2023 urina lysis , dipst ick Bilirubin (reference range) small Not Available [address] [place], [address], 08/15/2023 11:52:20 08/15/19 24 08/15/2023 urina lysis , dipst ick Glucose (reference range) negati ve Not Available [address], [address], 08/15/2023 11:52:20 08/15/19 24 08/15/2023 urina lysis , dipst ick Color (reference range: yellow-brown ) Dark Yellow Not Available [address] [place], [address], 08/15/2023 11:52:20 10/30/19 25 10/29/2024 CBC AUTO W DIFF WBC 5.7 10 4.5-11 .5 Not Available [facility] (Lab Registration) [address], [address], 10/29/2024 16:27:35 10/30/19 25 10/29/2024 CBC AUTO W DIFF RBC 4.12 10 4.25-5 .57 low Not Available [facility] (Lab Registration) [address], [address], 10/29/2024 16:27:35 10/30/19 25 10/29/2024 CBC AUTO W DIFF HGB 12.3 g/dL 12.0-1 5.7 Not Available [facility] (Lab Registration) [address], [address], 10/29/2024 16:27:35 10/30/19 25 10/29/2024 CBC AUTO W DIFF HCT 39.2 % 36.0-4 7.0 Not Available [facility] (Lab Registration) [address], [address], 10/29/2024 16:27:35 10/30/19 25 10/29/2024 CBC AUTO W DIFF MCV 95.1 fL 80-95 high Not Available [facility] (Lab Registration) [address], [address], 10/29/2024 16:27:35 10/30/19 25 10/29/2024 CBC AUTO W DIFF MCH 29.9 pg 27.0-3 4.0 Not Available [facility] (Lab Registration) [address], [address], 10/29/2024 16:27:35 10/30/19 25 10/29/2024 CBC AUTO W DIFF MCHC 31.4 g/dL 32.0-3 6.0 low Not Available [facility] (Lab Registration) [address], [address], 10/29/2024 16:27:35 10/30/19 25 10/29/2024 CBC AUTO W DIFF platelet count 239 10 150-45 0 Not Available [facility] (Lab Registration) [address], [address], 10/29/2024 16:27:35 10/30/19 25 10/29/2024 CBC AUTO W DIFF RDW 11.8 % 12.3-1 5.1 low Not Available [facility] (Lab Registration) [address], [address], 10/29/2024 16:27:35 10/30/19 25 10/29/2024 CBC AUTO W DIFF MPV 9.7 fL 7.4-10 .4 Not Available [facility] (Lab Registration) [address], [address], 10/29/2024 16:27:35 10/30/19 25 10/29/2024 CBC AUTO W DIFF granulocyte% 64.8 % 40-75 Not Available [facility] (Lab Registration) [address], [address], 10/29/2024 16:27:35 10/30/19 25 10/29/2024 CBC AUTO W DIFF lymphocyte% 24.5 % 15-57 Not Available [facility] (Lab Registration) [address], [address], 10/29/2024 16:27:35 10/30/19 25 10/29/2024 CBC AUTO W DIFF monocyte% 7.5 % 4.0-12 .0 Not Available [facility] (Lab Registration) [address] [address] [place], [address], 10/29/2024 16:27:35 10/30/19 25 10/29/2024 CBC AUTO W DIFF eosinophil% 2.3 % 0.0-4. 0 Not Available [facility] (Lab Registration) [address] [place], [address], 10/29/2024 16:27:35 10/30/19 25 10/29/2024 CBC AUTO W DIFF basophil% 0.7 % 0.0-1. 0 Not Available [facility] (Lab Registration) [address] [address] [place], [address], 10/29/2024 16:27:35 10/30/19 25 10/29/2024 CBC AUTO W DIFF immature granulocytes % 0.2 % 0.0-0. 8 Not Available [facility] (Lab Registration) [address] [place], [address], 10/29/2024 16:27:35 10/30/19 25 10/29/2024 CBC AUTO W DIFF granulocyte# 3.70 10 Not Available [facility] (Lab Registration) [address] [address] [place], [address], 10/29/2024 16:27:35 10/30/19 25 10/29/2024 CBC AUTO W DIFF lymphocyte# 1.40 10 Not Available [facility] (Lab Registration) [address] [address] [place], [address], 10/29/2024 16:27:35 10/30/19 25 10/29/2024 CBC AUTO W DIFF monocyte# 0.43 10 Not Available [facility] (Lab Registration) [address] [address] [place], [address], 10/29/2024 16:27:35 10/30/19 25 10/29/2024 CBC AUTO W DIFF eosinophil# 0.13 10 Not Available [facility] (Lab Registration) [address], [place], [address], 10/29/2024 16:27:35 10/30/19 25 10/29/2024 CBC AUTO W DIFF basophil# 0.04 10 Not Available [facility] (Lab Registration) [address], [address], 10/29/2024 16:27:35 10/30/19 25 10/29/2024 CBC AUTO W DIFF immature granulocytes # 0.01 10 Not Available [facility] (Lab Registration) [address] [address] [place], [address], 10/29/2024 16:27:35 10/30/19 25 10/29/2024 CBC AUTO W DIFF manual differential NO Not Available [facility] (Lab Registration) [address], [place], [address], 10/29/2024 16:27:35 10/30/19 25 10/29/2024 CBC AUTO W DIFF note Unles s other porras noted testi ng perfo rmed at: [facility] [address] [place] [address] [phone] Praneeth smith MD CLIA: [id number] Not Available [facility] (Lab Registration) [address] [place], [address], 10/29/2024 16:27:35 10/30/19 25 10/29/2024 HEMOG LOBIN A1C glycosylated hemoglobin A1C 5.5 % 4.5-6. 2 Not Available [facility] (Lab Registration) [address] [place], [address], 10/29/2024 16:39:34 10/30/19 25 10/29/2024 HEMOG LOBIN A1C estimated average glucose 111 mg/dL 82-131 Not Available [facility] (Lab Registration) [address] [place], [address], 10/29/2024 16:39:34 10/30/19 25 10/29/2024 HEMOG LOBIN A1C note Unles s other porras noted testi ng perfo rmed at: [facility] [address] [place] [address] [phone] Praneeth smith MD CLIA: [id number] Not Available [facility] (Lab Registration) [address] [place], [address], 10/29/2024 16:39:34 10/30/19 25 10/29/2024 THYRO ID STIMU LATIN G HORMO NE thyroid stimulating hormone 1.12 mIU/m L 0.34-4 .80 Not Available [facility] (Lab Registration) [address] [place] [place], [address], 10/29/2024 17:52:42 10/30/19 25 10/29/2024 THYRO ID STIMU LATIN G HORMO NE note Unles s other porras noted testi ng perfo rmed at: [facility] [address] [place] [address] [phone] Praneeth smith MD CLIA: [id number] Not Available [facility] (Lab Registration) [address] [place], [address], 10/29/2024 17:52:42 10/30/19 25 10/29/2024 T4 FREE T4,free 0.93 NG/dL 0.76-1 .46 Effec tive today 013 new Refer ence Range . Not Available [facility] (Lab Registration) [address] [place], [address], 10/29/2024 17:52:43 10/30/19 25 10/29/2024 T4 FREE note Unles s other porras noted testi ng perfo rmed at: [facility] [place] [address] [phone] Praneeth smith MD CLIA: [id number] Not Available [facility] (Lab Registration) [address] [place], [address], 10/29/2024 17:52:43 10/30/19 25 10/29/2024 COMP METAB OLIC PANEL sodium 144 mmol/ L 136-14 5 Not Available [facility] (Lab Registration) [address] [place], [address], 10/29/2024 17:52:44 10/30/19 25 10/29/2024 COMP METAB OLIC PANEL potassium 4.5 mmol/ L 3.5-5. 1 Not Available [facility] (Lab Registration) [address], [address], 10/29/2024 17:52:44 10/30/19 25 10/29/2024 COMP METAB OLIC PANEL chloride 108 mmol/ L 98-107 high Not Available [facility] (Lab Registration) [address], [address], 10/29/2024 17:52:44 10/30/19 25 10/29/2024 COMP METAB OLIC PANEL carbon dioxide 31 mmol/ L 21-32 Not Available [facility] (Lab Registration) [address], [address], 10/29/2024 17:52:44 10/30/19 25 10/29/2024 COMP METAB OLIC PANEL anion gap 5.0 Not Available [facility] (Lab Registration) [address], [address], 10/29/2024 17:52:44 10/30/19 25 10/29/2024 COMP METAB OLIC PANEL glucose 77 mg/dL 70-110 Not Available [facility] (Lab Registration) [address], [address], 10/29/2024 17:52:44 10/30/19 25 10/29/2024 COMP METAB OLIC PANEL blood urea nitrogen 15 mg/dL 7-18 Not Available [facility] (Lab Registration) [address], [place], [address], 10/29/2024 17:52:44 10/30/19 25 10/29/2024 COMP METAB OLIC PANEL creatinine 0.9 mg/dL 0.6-1. 0 Not Available [facility] (Lab Registration) [address], [place], [address], 10/29/2024 17:52:44 10/30/19 25 10/29/2024 COMP METAB OLIC PANEL BUN/creatini ne ratio 16.7 9-21 Not Available [facility] (Lab Registration) [address], [place], [address], 10/29/2024 17:52:44 10/30/19 25 10/29/2024 COMP METAB [...] wren ing kiney funct ion. Not Available [facility] (Lab Registration) [address], [place], [address], 10/29/2024 17:52:44 10/30/1910/29/2024 COMP METAB OLIC PANEL osmolality (calculated) 299 mOsm/ kg 275-30 1 OSMOL ALITY IS A CALCU LATIO N UTILI ZING THE SERUM /PLAS MA SODIU M, GLUCO SE AND UREA NITRO GEN (BUN) LEVEL S. FOR THE MOST ACCUR ATE RESUL T A MEASU RED SERUM OSMOL ALITY IS SUGGE STED. Not Available [facility] (Lab Registration) [address], [address], 10/29/2024 17:52:44 10/30/19 25 10/29/2024 COMP METAB OLIC PANEL total protein 6.8 g/dL 6.4-8. 2 Not Available [facility] (Lab Registration) [address], [address], 10/29/2024 17:52:44 10/30/19 25 10/29/2024 COMP METAB OLIC PANEL albumin 3.7 g/dL 3.4-5. 0 Not Available [facility] (Lab Registration) [address], [address], 10/29/2024 17:52:44 10/30/19 25 10/29/2024 COMP METAB OLIC PANEL calcium 10.5 mg/dL 8.5-10 .1 high Not Available [facility] (Lab Registration) [address], [address], 10/29/2024 17:52:44 10/30/19 25 10/29/2024 COMP METAB OLIC PANEL corrected calcium 10.7 mg/dL 8.5-10 .1 high Not Available [facility] (Lab Registration) [address], [address], 10/29/2024 17:52:44 10/30/19 25 10/29/2024 COMP METAB OLIC PANEL bilirubin total 0.3 mg/dL 0.4-1. 5 low Not Available [facility] (Lab Registration) [address], [address], 10/29/2024 17:52:44 10/30/19 25 10/29/2024 COMP METAB OLIC PANEL AST (SGOT) 26 U/L 15-37 Not Available [facility] (Lab Registration) [address], [address], 10/29/2024 17:52:44 10/30/19 25 10/29/2024 COMP METAB OLIC PANEL ALT (SGPT) 27 U/L 12-78 Not Available [facility] (Lab Registration) [address] [place], [address], 10/29/2024 17:52:44 10/30/19 25 10/29/2024 COMP METAB OLIC PANEL alk phosphatase 70 U/L 53-141 Not Available [facility] (Lab Registration) [address] [place] [place], [address], 10/29/2024 17:52:44 10/30/19 25 10/29/2024 COMP METAB OLIC PANEL note Unles s other porras noted testi ng perfo rmed at: [facility] [address] [place] [address] [phone] Praneeth smith MD CLIA: [id number] Not Available [facility] (Lab Registration) [address] [place], [address], 10/29/2024 17:52:44 10/30/19 25 10/29/2024 LIPID PANEL triglyceride 64 mg/dL 20-200 The Natio nal [employer] t[employer] am (NCEP ) has set the follo wing guide lines for Fasti ng Trigl yceri joseluis: LOGAN L: <150 mg/dL BORDE RLINE HIGH: 150 - 199 mg/dL HIGH: 200 - 499 mg/dL VERY HIGH: > or =500 mg/dL Not Available [facility] (Lab Registration) [address] [place] [place], [address], 10/29/2024 17:52:46 10/30/19 25 10/29/2024 LIPID PANEL cholesterol 131 mg/dL 0-200 The [employer]io n[employer] t[employer]gr am (NCEP ) has set the follo wing guide lines for Fasti ng Suzanna stero l: AME ABLE: <200 mg/dL BORDE RLINE HIGH: 200 - 239 mg/dL HIGH: > or =240 mg/dL Not Available [facility] (Lab Registration) [address], [place], [address], 10/29/2024 17:52:46 10/30/19 25 10/29/2024 LIPID PANEL HDL cholesterol 61 mg/dL 60- The [employer]io n[facility] [employer]gr am ([facility] ) has set the follo wing guide lines for Fasti ng HDL Suzanna stero l: LOW HDL: <40 mg/dL LOGAN L: 40 - 60 mg/dL AME ABLE: >60 mg/dL Not Available [facility] (Lab Registration) [address], [place], [address], 10/29/2024 17:52:46 10/30/19 25 10/29/2024 LIPID PANEL LDL calculated 57 mg/dL 100- low The [employer]io n[employer] ([facility] ) has set the follo wing guide lines for Fasti ng LDL Suzanna stero l: OPTIM AL: < 100 mg/dL LOW RISK: 100 - 129 mg/dL BORDE RLINE HIGH: 130 - 159 mg/dL HIGH: 160 - 189 mg/dL VERY HIGH: > or = 190 mg/dL Not Available [facility] (Lab Registration) [address], [place], [address], 10/29/2024 17:52:46 10/30/19 25 10/29/2024 LIPID PANEL chol/HDL ratio 2 -5 Not Available [facility] (Lab Registration) [address], [place], [address], 10/29/2024 17:52:46 10/30/19 25 10/29/2024 LIPID PANEL note Unles s other porras noted testi ng perfo rmed at: [facility] [address] [facility] [place] [address] [phone] Praneeth smith MD CLIA: [id number] Not Available [facility] (Lab Registration) [address], [place], [address], 10/29/2024 17:52:46 10/30/19 25 10/29/2024 CULTU RE URINE results MRB 10-30 718 Mixed Denisse of Three or More Organ isms Prese nt. Cultu re Indic ates Conta minat ion of Speci men Durin gColl ectio n. Sugge st Recol lecti on with Steri le Techn ique. Not Available [facility] (Lab Registration) [address] , [place], [address], 10/30/2024 07:20:19 10/30/19 25 10/29/2024 CULTU RE URINE note Unles s other porras noted testi ng perfo rmed at: [facility] [address] [facility] [place] [address] [phone] Praneeth smith MD CLIA: [id number] Not Available [facility] (Lab Registration) [address] , [place], [address], 10/30/2024 07:20:19 02/16/20 23 02/07/2018 MAMMO , scree silverio, digit al, bilat eral No observ ation record ed. [email or web address] Not Available 2022 09:32:40 02/16/20 23 07/08/2015 colon oscop y proce dure (PROC ) No observ ation record ed. [email or web address] Not Available 2022 09:31:45 03/23/20 23 03/23/2023 imagi ng inter preta tion No observ ation record ed. [email or web address] [address], [place], [address], 03/24/2023 14:41:33 03/23/20 23 03/23/2023 imagi ng inter preta tion No observ ation record ed. [email or web address] [address], [place], [address], 03/24/2023 14:41:28 09/2103/23/2023 imagi ng inter preta tion No observ ation record ed. [email or web address] [facility] [address], [place], [address], 03/24/2023 14:41:23 11/02/19 25 10/29/2024 XR, pelvi s, 1 or 2 view [facility] [address] [place] [address] Phone: Fax: Name: JEANE OMALLEY Exam Date: : [birth year] Age 59 years Gender : F Access ion: [id number] Physic jose luis: AMBURG EY, TAFFAN Y Facili ty: [facility] Facili ty HSV: Outpat ient [...] Thank you for referr JEANE Callahan to [facility]. Legall y authen ticate d by ODETTE ROBIN 2024-0 10-29 16:02: 30 CC'ed Logic: Orderi ng Provid er: AMBURG EY TAFFAN Y CC Provid er: AMBURG EY TAFFAN Y Attend ing Provid er: AMBURG EY TAFFAN Y Referr ing Provid er: AMBURG EY TAFFAN Y Admitt ing Provid er: AMBURG EY TAFFAN Y [email or web address] [facility] (Radiology) [address] [place] [address] [place], [address], 11/01/2024 11:09:28 11/20/19 25 10/26/2024 CT, abdom en + pelvi s, w/o contr ast No observ ation record ed. [facility] (Radiology) [address] [place] [address] [place], [address], 11/20/2024 12:49:23 Result Notes Documentation Provider Name and Address Organization Details Recorded Time Xr, Pelvis, 1 Or 2 View : [address] [place] [address] Name: JEANE BEE Exam Date: 10/29/2024 : 1965 Age 59 years Gender: F Physician: IAN BREEN Facility: [facility] Facility HSV: Outpatient Exam: PELVIS 1 TO 2V INDICATIONS - 59 years Female with pelvic pain TECHNIQUE: One view of the Pelvis. COMPARISON: CT abdomen/pelvis 10/26/2024 FINDINGS: Small volume of dense stool is visualized in the sigmoid and descending colon. Scattered stool visualized in the right colon with no significant stool visualized within the rectum. The bony pelvis is intact. No discrete evidence of acute fracture. No evidence of destructive change. SI joints are unremarkable. The hips appear unremarkable. IMPRESSION: Small volume of dense stool in the descending colon and rectum, likely representing residual contrast within stool. No evidence of acute osseous abnormality of the bony pelvis, nor bilateral hips. Electronically signed by: Lobito Pino MD 11/01/2024 08:44 AM EDT Dictated By: LOBITO PINO Transcribed By: Transcribed On: 10/29/2024 4:02 PM Electronically signed by: LOBITO PINO 10/29/2024 Thank you for referring JEANE BEE to [facility]. Legally authenticated by ODETTE ROBIN 2024-10-29 16:02:30 CC'ed Logic: Ordering Provider: NUHA SHARMA CC Provider: NUHA SHARMA Attending Provider: NUHA SHARMA Referring Provider: NUHA SHARMA Admitting Provider: NUHA Porter null, [place] [facility] [place] & [place] 11/01/2024 11:09:28 Problems Name Problem SNOMED Code Status Onset Date Resolution Date Notes Provider Name and Address Organization Details Recorded Time Fibromyalgia 562218330 Active 2022 Suzy lozoya, [place] [facility] [place] 3 15:45:05 Chronic pain 26236306 Active 2022 Suzy [place] 3 15:45:12 Anxiety 49020348 Active 2022 Suzy Sky null, [place] 3 15:45:17 Gastroesophage al reflux disease 408250101 Active 2022 Szuy Sky null[place] 3 15:45:24 Irritable bowel syndrome 06176547 Active 2022 Suzy Sky [place], [place] 3 15:45:30 Mixed hyperlipidemia 732026731 Active 2022 Suzy Sky [place] 3 15:45:41 Essential hypertension 98096124 Active 2022 Suzy Sky [place] 3 15:45:57 Chronic constipation 037589860 Active 2022 Suzy Sky null, [place] 3 15:46:10 Depressive disorder 92473071 Active 2022 [place] Padilla [facility] & [place] 3 15:46:20 Restless legs 12770565 Active 2022 [place] Padilla [facility] & [place] 3 15:46:29 Problem Notes None recorded. Procedures Surgical History Date Name Laterality Status Provider Name and Address Organization Details Recorded Time 07/08/19 16 colonoscopy completed Angela NAJERA [facility] & [place] 02/15/2023 09:28:53 section completed Suzy NAJERA [facility] & [place] 10/19/2022 15:47:48 Hysterectomy completed Suzy NAJERA [facility] & [place] 10/19/2022 15:47:59 Imaging Results None recorded. Procedure Notes None recorded. Medical Equipment None Reported. Allergies Allergen ID Allergen Name Allergen Category Reaction Reaction Severity Criticality Documentation Date Start Date Code Code System Note Provider Name and Address Organization Details Recorded Time 48103 Product containin g penicilli n (product) medicatio n Not available Not available Not available 02/15/2023 98707 8001 SNOMED [place] Palacio [facility] & [place] 3 09:28:03 Medications Name Sig Start Date [...] mg tablet TAKE 1 TABLET BY MOUTH 4 TIMES A DAY active Not Available Not Available No t Available ropinirole 0.5 mg tablet TAKE 1 TABLET BY MOUTH 1 TO 3 HOURS BEFORE BEDTIME ONCE A DAY 10/19 completed Not Available Not Available Not Available buspirone 10 mg tablet TAKE 1 TABLET TWICE A DAY BY ORAL ROUTE FOR 90 DAYS. active Not Available Not Available No t Available polymyxin B sulfate 10,000 unit-trimet hoprim 1 mg/mL eye drops INSTILL 1 DROP INTO AFFECTED EYE EVERY 6 HOURS 10/29 completed Not Available Not Available Not Available mupirocin 2 % topical ointment active Not Available Not Available Not Available dicyclomine 10 mg capsule TAKE 1 CAPSULE BY MOUTH THREE TIMES A DAY NEEDED active Not Available Not Available No [...] Pulse oximetry Heart rate Respiratory rate Systolic And Diastolic Provider Name and Address Organization Details Last Updated DateTime 4 165.1 cm 22.8 kg/m2 38792.1 5 g 97.5 [degF] 96 % 96 % 68 /min 18 /min 117/70 mm[Hg] Jordan MAJOR [facility] & [place] 4 11:36:07 Date Recorded Body height Body mass index (BMI) Body weight Body temperature Oxygen saturation Oxygen saturation in Arterial blood by Pulse oximetry Heart rate Systolic And Diastolic Provider Name and Address Organization Details Last Updated DateTime 5 165.1 cm 22.5 kg/m2 27439.9 7 g 97.6 [degF] 96 % 96 % 71 /min 120/60 mm[Hg] Jordan Hermanles [place] [facility] & [place] 5 15:10:17 Date Recorded Body height Provider Name an d Address Organization Details Last Updated DateTime 11/06/2024 165.1 cm Leesa Tamez [facility] & [place] 11/06/2024 15:37:39 Date Recorded Body mass index (BMI) Body weight Heart rate Oxygen saturation Oxygen saturation in Arterial blood by Pulse oximetry Body temperature Systolic And Diastolic Provider Name and Address Organization Details Last Updated DateTime 5 23.8 kg/m2 07714.9 9 g 66 /min 97 % 97 % 97.8 [degF] 122/83 mm[Hg] Mariella MAJOR [facility] & [place] 5 15:42:11 Date Recorded Body height Body mass index (BMI) Body weight Body temperature Oxygen saturation Oxygen saturation in Arterial blood by Pulse oximetry Heart rate Respiratory rate Systolic And Diastolic Provider Name and Address Organization Details Last Updated DateTime 3 165.1 cm 24 kg/m2 47847.3 g 98.1 [degF] 97 % 97 % 82 /min 18 /min 131/86 mm[Hg] Jordan Porter [place] [facility] & [place] 3 14:30:56 Social History Question Answer Notes LastModified by Organizat ion Details LastModified Time Tobacco Smoking Status Former Smoker Suzy Sky [facility], [place] [facility] & [place] 10/19/2022 14:55:16 Do You Have An Advance [...] anxious, or unable to sleep at night)? [id number] Information not available 11/29/2022 Family History Relationship [...] Depression Y Constipation Y Anxiety Disorder Y Arthritis Y Diverticulitis Y Reflux/GERD Y High Cholesterol Y Fibromyalgia Y Hypertension Y Gynecological HistoryNo gynecological history recorded. Obstetrics History GPAL:G 0 P 0 0 0 0 Immunizations Vaccine Type Date Status Note Provider Nam e and Address Organization Details Recorded Time Influenza, recombinant, quadrivalent, PF 05/06/2020 completed Angela Muñoz null, [place] [facility] [place] & [place] 02/15/2023 09:21:16 COVID-19, mRNA, LNP-S, PF, 30 mcg/0.3 mL dose 07/23/2020 completed Angela Muñoz null, [place] [facility] & [place] 02/15/2023 09:21:16 COVID-19, mRNA, LNP-S, PF, 30 mcg/0.3 mL dose 08/14/2020 completed Angela Muñoz null, [place] [facility] & [place] 02/15/2023 09:21:16 COVID-19, mRNA, LNP-S, PF, 30 mcg/0.3 mL dose 05/25/2021 completed Angela Muñ[place] null, [place] [facility] & [place] 02/15/2023 09:21:16 TST-PPD intradermal 09/13/2018 completed Angela Muñ[place], [place] [facility] & [place] 02/15/2023 09:21:16 Influenza, split virus, quadrivalent, PF 07/05/2019 completed Angela Muñ[place] 02/15/2023 09:21:16 Influenza, split virus, quadrivalent, PF 04/27/2017 completed Angela Muñ[place] [facility] & [place] 02/15/2023 09:21:16 Influenza, split virus, quadrivalent, PF 05/14/2018 completed Angela Muñ[place] null[place] [facility] & [place] 02/15/2023 09:21:16 Influenza, split virus, quadrivalent, PF 05/19/2021 completed Angela lozoya, [place] [facility] & [place] 02/15/2023 09:21:16 Past Encounters Encounter ID Performer Location Encounter Start Date Encounter Closed Date Diagnosis/Indication Diagnosis SNOMED-CT Code Diagnosis ICD10 Code Diagnosis Note [id number] IAN BREEN NP [email or web address] [address] [place] [address] 10/19/2022 14:26:14 10/19/2022 16:02:29 Essential hypertension 35917146 I10 educated on goal of less than 130/90meet ing goaladvise d low sodium diet, healthy lifestyle including exercise as ablecontin ue current medication regimenER if any symptoms such as chest pain, shortness of breath lab work obtained by roberta farmer Fatigue 09660993 R53.83 sleep hygienecar egiver burden, have own time Gastroesop hageal reflux disease 266636676 K21.9 Avoid spicy foods, carbonated beverages, lying down 30 minutes to 1 hour after eating Eat smaller portion sizes Take medication s as prescribed Weight management Depressive disorder 3548 9007 F33.1 controlled denies SI/HIconti nue medication s as prescribed Mixed hyperlipidemia 267 098229 E78.2 Patient advised to exercise, eat a prudent diet and lose weight as appropriat e. Chronic constipation 236 144356 K59.09 T40.2X5S opioid induced constipati oncontroll edcontinue as prescribed [id number] IAN BREEN NP [address] [place] [address] 11/29/2022 13:49:07 11/29/2022 14:27:44 Infection of skin 354145929 L08.9 continue antibiotic therapyrev iewed ER recordsdis cussed hibiclens, gave to pt in clinicavoi d scratching keep clean and dryf/u if symptoms persist or worsen [id number] IAN BREEN NP [address] [place] [address] 02/17/2023 14:09:49 02/17/2023 15:00:45 Loss of hair 447080116 L65.9 awaiting lab workf/u if symptoms persist or worsen consider dermatolog y referral [id number] Floyd Olmedo MD [address] [place] [address] 08/15/2023 11:22:58 08/15/2023 11:45:00 Urinary tract infectious disease 60762373 N39.0 urinalysis is abnormal Acute hemo rrhagic cystitis 54513070 N30.01 Patient having systemic symptoms with fatigue poor appetite and chills. proceed with antibiotic treatment. [id number] Mehran Simms MD [address] [place] [address] 10/02/2023 12:24:27 10/02/2023 12:30:57 Tuberculosis screening 238067920 Z11.1 [id number] IAN BREEN NP [address] [place] [address] 10/29/2024 14:46:29 10/30/2024 07:49:58 Pain in pelvis 28132762 R10.2 awaiting additional imaging Dysuria 83389303 R30.0 urine sent for culture and office will call after culture received. Take all medicines prescribed for you for the allotted time period. Push fluids especially water. If no better in 48-72 hours or if you develop abdominal or back pain, with fever chills nausea or vomiting come back or go to the emergency room immediatel y Gallstone 656359531 K80. 20 gallstones on imaging from ER, general surgery referral Mixed hyperlipidemia 267 690189 E78.2 recheck lab work today, currently on statin therapy, refill provided Depressive disorder 4908 9007 F33.1 controlled denies SI/HIconti nue medication s as prescribed Irritable bowel syndrome 80550180 K58.9 request refill, advised not something we want her using all the time, recommend GI referral Gastroesop hageal reflux disease 727524400 K21.9 Avoid spicy foods, carbonated beverages, lying down 30 minutes to 1 hour after eatingEat smaller portion sizesTake medication s as prescribed Controlled refill provided Thyroid di sorder screening 177485756 Z13.29 Diabetes m ellitus screening 471070151 Z13.1 [id number] DO Esvin JONES General Surgery [address], [address] [place] [address] 11/06/2024 15:17:21 11/06/2024 15:57:24 Left lower quadrant pain 113130653 R10.32 - patient with persistent left lower [...] at their earliest convenienc e Hiatal hernia 02393664 K 44.9 - patient was significan t [...] Member ID Cordero Member ID Guarantor Name 12/22/2024 [facility] Jeane Bee [id number] Jeane Bee Notes Date Note Type Note [...] of tea tree shampoo and conditioner from [employer], but they were not sealed, so she threw them away. IAN BREEN NP [address] [place], [address], [facility] & [place] 02/19/2023 19:18:34 08/15/2023 text/html patient seen for acute visit. She reports 2 week history of dysuria frequency. Today she saw blood in her urine she has had some fatigue poor appetite and felt chilled. She denies any flank pain. No recent urinary tract infections. Floyd Olmedo MD [address] [place], [address], [facility] & [place] 08/15/2023 12:23:53 10/29/2024 text/html 59-year-old nedra salomon who presents for follow-up. She has been in the ER twice of [facility]. First time was October 25, advised [...] Denies any SI/HI. IAN BREEN NP [address] [facility], [place], [address], [facility] & [place] 10/29/2024 16:41:48 11/06/2024 text/html 59-year-old nedra salomon [...] hiatal hernia was noted on imaging HALLEY FOY, [address], [address], [place], [address], [place] [facility] - [place] & [place] 11/06/2024 16:20:30 OBGyn Episode No OBEpisode recorded.
--- OUTSIDE RECORDS SUMMARY | 2025-01-08 15:18 | XMS_ITS | Encounter Summary ---
Author Organization [facility] Address [address] [place] [address] Care Team Providers Care Implementation Specialist Payroll Name Role Phone Ian Nelson EXCHANGE MECHANIC Primary Care Provider + Encounter Details Date [...] documented as of this encounter Care Teams Implementation Specialist Payroll Relationship Specialty Start Date End Date Ian Nelson, EXCHANGE MECHANIC [address] [place] [address] PCP - General 11/13/20 documented as of this encounter
--- OUTSIDE RECORDS SUMMARY | 2025-01-08 15:18 | XMS_ITS | Clinical Summary ---
Author Organization [facility] Address [address] [place] [address] Care Team Providers Care Vp Revenue Cycle Name Role Phone Ian Nelson APRN Primary [...] Description 11/19/2024 10:15 AM EDT Evaluation [facility] [address] [address] Bruss, Ynes Pain, dental 11/19/2024 8:00 AM EDT [facility] [address] [place] [address] Care, Dentistry Urgent Pain, dental (Primary Dx) [...] 02/19/2014 UKY-Zoster Vaccines (1 of 2) 02/19/2014 [id number] Vaccine ( season) 2024 05/25/2021, 08/14/2020, 07/23/2020 UKY-Influenza Vaccine (#1) 03/03/202505/19, 05/06/2020, 07/05/2019, Additional history exists Dental X-Ray: [...] Recently Relevant to Health Maintenance Results * [place] Hepatitis C Antibody (04/30/2019 1:47 PM EDT) [place] Hepatitis C Ab NEGATIVE Reference Range: Negative SUNQUEST 04/30/2019 1:47 PM EDT 04/30/2019 3:36 PM EDT us Dru Demarco MD LAB BLOOD ORDERABLES Final Res ult SUNQUEST from Last 3 Months or Most Recently Relevant to Health Maintenance Insurance [facility] MEDICAID [facility] MEDICAID [facility] MEDICAID DENTAL Care Teams Vp Revenue Cycle Relationship Specialty Start Date End Date Ian Nelson APRN [address] [place] [address] PCP - General 11/13/20
--- NOTE | 2025-01-08 15:22 | A.OFFVIS_ITS ---
[facility] Disclaimer: The information contained in this section may have been updated after the patient was seen, as this information can be updated by other users. Social History Smoking Status: Never smoker alcohol intake: never current occupational status: other Travel in the last 8 weeks?: None Have you lived/traveled outside US in past 30 days?: No Contact w/someone who lives/traveled outside US past 30 days?: No Exposure to someone with infectious disease in past 14 days?: No Do you have a fever (greater than 100.4 F or 38 C)?: No Have you tested positive for COVID-19?: No Exposed to someone with COVID-19 in past 14 days?: No Do you have a sore throat?: No Do you have a cough?: No Do you have any weakness?: No Do you have any diarrhea?: No Are you experiencing any unusual bleeding?: No Do you have any muscle aches/pain?: No Do you have any abdominal pain?: No Are you experiencing loss of taste or smell?: No PM Subjective & Objective Subjective Subjective:: Patient is a pleasant 59-year-old female who presents today for her medication refill. She is rating her pain today a 4out of 10. From our last visit she does state that she had her colonoscopy and everything turned out fine. She is still having pain around her groin area along the left side and having issues with her hiatal hernia. She does state that they are planning on doing additional imaging. She is currently managed with pregabalin 75 mg twice a day and [place] 7.5 mg 4 times a day. She denies any side effects. Her Angel has been reviewed and is appropriate. Review of Systems: General: No recent weight changes, no fever, no sleep disturbances Respiratory: No cough, no shortness of air, no recurring pulmonary infections Cardiovascular/peripheral vascular: No chest pain, no palpitations, no edema, no shortness of breath Gastrointestinal: No new onset incontinence, normal bowel movements reported Genitourinary: No new onset incontinence Musculoskeletal: Chronic back pain Psychiatric: [Normal mood/affect] Neurological: [Denies weakness in extremities], [denies balance issues] Pain at rest (0-10 scale): 4 Objective Objective:: Physical Exam: General: Alert and oriented x3, no acute distress, pleasant and cooperative Lungs: Respirations even and unlabored, symmetrical chest expansion Eyes: PERRL Musculoskeletal: Flexion and extension of lumbar [spine] somewhat guarded s econdary to pain, [antalgic gait noted] Neurological: Speech clear, no gross sensory deficit Has patient had previous pain injection?: No Conservative treatment options previously tried: Prescription medications Length of treatment: Longer than 12 weeks Meds Home Medications and Allergies Home Medications ?Medication ?Instructions ?Recorded ?Confirmed ?Type ropinirole 2 mg tablet,extended 2 mg PO HS Pain 12/06/24 History release 24 hr metaxalone 800 mg tablet 800 mg PO BID . 09/13/2112/25 History naloxegol 12.5 mg tablet 12.5 mg PO DAILY . #30 tabs 07/10/23 12/06/24 Rx diclofenac sodium 1 % topical gel 2 g topical QID #100 grams 05/13/24 12/06/24 Rx (Arthritis Pain (diclofenac)) meloxicam 15 mg tablet See Rx Instructions .Route 0 10/16/24 12/06/24 Rx .COMPLEX #30 tabs hydrocodone 7.5 mg-acetaminophen 1 tab PO TID #90 tabs 10/28/24 12/06/24 Rx 325 mg tablet pregabalin 75 mg capsule (Lyrica) 75 mg PO BID #6 caps 12/04/24 12/06/24 Rx hydrocodone 7.5 mg-acetaminophen 1 tab PO QID #120 tab s 12/06/24 Rx 325 mg tablet pregabalin 75 mg capsule (Lyrica) 75 mg PO BID #60 cap s 12/06/24 Rx New Prescriptions to Start Prescriptions: Allergies Allergy/AdvReac Type Severity Reaction Status Date / Time penicillin G (PENICILLIN G) Allergy Unknown I-HIVES Unverified 06/20/17 14:11 Assessment and Plan *Assessment and plan (1) Lumbar radiculopathy: Status: Acute Category: Medical Code(s): M54.16 - Radiculopathy, lumbar region (2) Degenerative disc disease, lumbar: Status: Acute Category: Medical Code(s): M51.369 - Other intervertebral disc degeneration, lumbar region without mention of lumbar back pain or lower extremity pain Plan At her last visit she was given a 3-month supply of her pregabalin and does not need refills on that medication currently. We will refill her [place] and provide a 1 month supply of this medication. Patient return to clinic in 1 month for reevaluation of symptoms and plan of care. Risks and benefits of the medication have been explained in detail to the patient. The patient does understand the risk of dependence on the medication when given over a prolonged period. Patient has been advised of risks of oversedation with the prescribed medication. Narcan has been offered to the paitent in the event of oversedation. Patient has been advised that a family member should also be educated regarding administration of Narcan. The patient has been advised to consult with his/her primary care provider and pharmacist regarding drug-drug interaction of medications currently prescribed. Patient has been prescribed a controlled substance after being counseled on the medication, medication safety, and possible side effects. Opioid contract was reviewed and signed by the patient, and that they have agreed to all of the terms set forth by our compliance program. A UDS is needed to verify patient's compliance with our office pain contract. This is ordered based off specific treatments related to chronic pain with the potential to abuse certain medications. Patient has been instructed to contact the clinic with any concerns before the next appointment. Dr. Dennis has reviewed this note and agrees with this plan of care. This note was dictated using voice recognition software and make contain errors or omissions.
[2025-01-08 15:25] VITALS: BP 104/62; PULSE 75; RESP 18; O2SAT 95; BMI 21.7
== END 2025-01-08 23:59 | disposition home or self-care (01) ==
PROVIDERS: PCP Nurse Practitioner Family; Visit Provider Nurse Practitioner Family
DX: M51.16 Intervertebral disc disorders with radiculopathy, lumbar region (principal); Z79.891 Long term (current) use of opiate analgesic; Z79.899 Other long term (current) drug therapy
CPT/HCPCS: 99212; G0463

== ENCOUNTER 2025-02-12 15:31 | Outpatient (POV) | payer OTHER, SELFPAY ==
--- OUTSIDE RECORDS SUMMARY | 2025-02-12 15:34 | XMS_ITS | Clinical Summary ---
[facility] Address [address] [place] [address] Care Team Providers Care Global Marketing Coordinator Name Role Phone Papa Thomas MD Primary Care Provider Allergies Active Allergy Reactions Criticality Noted Date Comments Penicillins Rash Low 06/29/2018 Medications atorvastatin (LIPITOR) 40 MG tablet 08/14/2018 Active diclofenac (VOLTAREN) 75 MG EC tablet Take 75 mg by mouth 2 (Two) Times a Day. 2 07/16/2018 Active FLUoxetine (PROzac) 40 MG capsule 08/16/2018 Active Omeprazole 20 MG tablet delayed-release 08/15/2018 Act grant LYRICA 75 MG capsule 08/20/2018 Active rOPINIRole (REQUIP) 0.5 MG tablet TAKE 1 TABLET BY MOUTH 1 TO 3 HOURS BEFORE BEDTIME 6 07/18/2018 Active azithromycin (ZITHROMAX Z-AZUCENA) 250 MG tablet Take 2 tablets the first day, then 1 tablet daily for 4 days. 6 tablet 12/28/2018 Active Active Problems No known active problems Immunizations Immunization Administration Dates Next Due PPD Test 09/13/2018,08/17/2016 Social History Tobacco Use Types Packs/Day Years Used Date Smoking Tobacco: Never Abuse Screen Answer Date Recorded Unsafe at Home or Work/School Not on file Feels Threatened by Someone? Not on file 03/2023 Does Anyone Keep You from Co ntacting Others or Doint Things Outside the Home? Not on file 04/10/2023 Physical Sign of Abuse Present Not on file 1 Housing Stability Answer Date Recorded Current Living Arrangements Not on file 03/2023 Potentially Unsafe Housing Conditions Not on sylvie e 04/10/2023 Family and Community Support Answer Chuy e Recorded Help with Day-to-Day Activities Not on file 04/10/2023 Lonely or Isolated Not on file 04/10/2023 Employment Answer Date Recorded Do you want help finding or keeping work or a serena b? Not on file 04/10/2023 Disabilities Answer Date Recorded Concentrating, Remembering, or Making Decisions Difficulty Not on file 04/10/2023 Doing Errands Independently Difficulty Not on fi le 04/10/2023 Education Answer Date Recorded Help with school or training? Not on file Preferred Language Not on file 04/10/2023 Comments No Sex and Gender Information Value Date Recorded Sex Assigned at Not on file Legal Sex Female 10:28 AM EDT Gender Identity Not on file Sexual Orientation Not on file Last Filed Vital Signs Vital Sign Reading Time Taken Comments Blood Pressure 122/88 12/28/2018 9:51 AM EDT Pulse 96 12/28/2018 9:51 AM EDT Temperature 37.2 C (99 F) 12/28/2018 9:51 AM EDT Respiratory Rate 15 12/28/2018 9:51 AM EDT Oxygen Saturation 99% 12/28/2018 9:51 AM EDT Inhaled Oxygen Concentration - - Weight 80.4 kg (177 lb 3.2 oz) 12/28/2018 9:51 A M EDT Height 168.9 cm (5' 6.5 ) 12/28/2018 9:51 AM EDT Body Mass Index 28.17 12/28/2018 9:51 AM EDT Plan of Treatment Health Maintenance Due Date Last Done Comments Annual Gynecologic Pelvic and Breast Exam 1965 TDAP/TD VACCINES (1 - Tdap) 02/19/1983 MAMMOGRAM 2004 COLOGUARD 02/19/2009 COLON CANCER SCREENING 5 YEAR SIGMOIDOSCOPY 02/19/2009 COLONOSCOPY 02/19/2009 COLORECTAL CANCER SCREENING 02/19/2009 CT COLONOGRAPHY 02/19/2009 FECAL OCCULT BLOOD TEST 02/19/2009 FIT Testing (1 year) 02/19/2009 Pneumococcal Vaccine 50+ (1 of 1 - PCV) 02/19/2014 ZOSTER VACCINE (1 of 2) 02/19/2014 ANNUAL PHYSICAL 06/29/2018 HEPATITIS C SCREENING 06/29/2018 COVID-19 Vaccine ( - season) 2024 INFLUENZA VACCINE 04/02/2025 Insurance Care Teams Global Marketing Coordinator Relationship Specialty Start Date End Date Papa Thomas MD [address] [place] [address] PCP - General Family Medicine 08/17/16
--- OUTSIDE RECORDS SUMMARY | 2025-02-12 15:34 | XMS_ITS | Clinical Summary ---
Author Organization [facility] Address [address] [place] [address] Care Team Providers Care Geophysical Laboratory Supervisor Name Role Phone Ian Nelson APRN Primary [...] Description 11/19/2024 10:15 AM EDT Evaluation [facility] [address] [address] Bruss, Ynes Pain, dental 11/19/2024 8:00 AM EDT Office Visit [facility] 800 [place] [address] Care, Dentistry Urgent Pain, dental (Primary Dx) [...] 02/19/2014 UKY-Zoster Vaccines (1 of 2) 02/19/2014 [id number] Vaccine ( season) 2024 05/25/2021, 08/14/2020, 07/23/2020 [...] Recently Relevant to Health Maintenance Results * [place] Hepatitis C Antibody (04/30/2019 1:47 PM EDT) [place] Hepatitis C Ab NEGATIVE Reference Range: Negative SUNQUEST 04/30/2019 1:47 PM EDT 04/30/2019 3:36 PM EDT us Dru Demarco MD LAB BLOOD ORDERABLES Final Res ult SUNQUEST from Last 3 Months or Most Recently Relevant to Health Maintenance Insurance [facility] MEDICA[facility] MEDICAID [facility] MEDICAID DENTAL Care Teams Geophysical Laboratory Supervisor Relationship Specialty Start Date End Date Ian Nelson APRN [address] [place] [address] PCP - General 11/13/20
[2025-02-12 15:58] VITALS: BP 142/81; PULSE 67; RESP 18; O2SAT 97; BMI 21.6
--- NOTE | 2025-02-12 15:59 | EXP.PAIN.SOA ---
[facility] Disclaimer: The information contained in this section may have been updated after the patient was seen, as this information can be updated by other users. Social History Smoking Status: Never smoker alcohol intake: never current occupational status: other Travel in the last 8 weeks?: None PM Subjective & Objective Subjective Subjective:: Patient is a pleasant 59-year-old female who presents today for medication refill and follow-up. Today she rates her pain a 5 out of 10. She denies any new trauma or injury however does state that she has gotten into a little bit of poison dina that she has been dealing with. Patient is currently managed with pregabalin 75 mg twice a day and [place] 7.5 mg 4 times a day. She denies any side effects. Her Angel has been reviewed and is appropriate. Review of Systems: General: No recent weight changes, no fever, no sleep disturbances Respiratory: No cough, no shortness of air, no recurring pulmonary infections Cardiovascular/peripheral vascular: No chest pain, no palpitations, no edema, no shortness of breath Gastrointestinal: No new onset incontinence, normal bowel movements reported Genitourinary: No new onset incontinence Musculoskeletal: Chronic back pain Psychiatric: [Normal mood/affect] Neurological: [Denies weakness in extremities], [denies balance issues] Pain at rest (0-10 scale): 5 Objective Objective:: Physical Exam: General: Alert and oriented x3, no acute distress, pleasant and cooperative Lungs: Respirations even and unlabored, symmetrical chest expansion Eyes: PERRL Musculoskeletal: Flexion and extension of lumbar [spine] somewhat guarded secondary to pain, [antalgic gait noted] Neurological: Speech clear, no gross sensory deficit Has patient had previous pain injection?: No Conservative treatment options previously tried: Home exercise plan Length of treatment: Longer than 12 weeks Meds Home Medications and Allergies Home Medications ?Medication ?Instructions ?Recorded ?Confirmed ?Type ropinirole 2 mg tablet,extended 2 mg PO HS Pain 03/27/18 01/08/25 History release 24 hr metaxalone 800 mg tablet 800 mg PO BID . 09/13/21 01/08/25 History naloxegol 12.5 mg tablet 12.5 mg PO DAILY . #30 tabs 01/08/24 07/09/25 Rx diclofenac sodium 1 % topical gel 2 g topical QID #100 grams 05/13/24 01/08/25 Rx (Arthritis Pain (diclofenac)) meloxicam 15 mg tablet See Rx Instructions .Route 10/16/24 01/08/25 Rx .COMPLEX #30 tabs hydrocodone 7.5 mg-acetaminophen 1 tab PO TID #90 tabs 10/28/24 01/08/25 Rx 325 mg tablet pregabalin 75 mg capsule (Lyrica) 75 mg PO BID #60 caps 12/06/24 01/08/25 Rx hydrocodone 7.5 mg-acetaminophen 1 tab PO QID #120 tabs 01/08/25 Rx 325 mg tablet New Prescriptions to Start Prescriptions: Allergies Allergy/AdvReac Type Severity Reaction Status Date / Time penicillin G (PENICILLIN G) Allergy Unknown I-HIVES Unverified 06/20/17 14:11 Assessment and Plan *Assessment and plan (1) Lumbar radiculopathy: Status: Acute Category: Medical Code(s): M54.16 - Radiculopathy, lumbar region (2) Degenerative disc disease, lumbar: Status: Acute Category: Medical Code(s): M51.369 - Other intervertebral disc degeneration, lumbar region without mention of lumbar back pain or lower extremity pain Plan I will refill her pregabalin and [place] and provide a 1 month supply of this medication. Patient will return to clinic in 1 month for reevaluation of symptoms and plan of care. Risks and benefits of the medication have been explained in detail to the patient. The patient does understand the risk of dependence on the medication when given over a prolonged period. Patient has been advised of risks of oversedation with the prescribed medication. Narcan has been offered to the paitent in the event of oversedation. Patient has been advised that a family member should also be educated regarding administration of Narcan. The patient has been advised to consult with his/her primary care provider and pharmacist regarding drug-drug interaction of medications currently prescribed. Patient has been prescribed a controlled substance after being counseled on the medication, medication safety, and possible side effects. Opioid contract was reviewed and signed by the patient, and that they have agreed to all of the terms set forth by our compliance program. A UDS is needed to verify patient's compliance with our office pain contract. This is ordered based off specific treatments related to chronic pain with the potential to abuse certain medications. Patient has been instructed to contact the clinic with any concerns before the next appointment. Dr. Dennis has reviewed this note and agrees with this plan of care. This note was dictated using voice recognition software and make contain errors or omissions.
== END 2025-02-12 23:59 | disposition home or self-care (01) ==
PROVIDERS: PCP Nurse Practitioner Family; Visit Provider Nurse Practitioner Family
DX: M51.16 Intervertebral disc disorders with radiculopathy, lumbar region (principal); Z79.1 Long term (current) use of non-steroidal anti-inflammatories (NSAID); Z79.899 Other long term (current) drug therapy
CPT/HCPCS: 99212; G0463

== ENCOUNTER 2025-04-03 14:29 | Outpatient (CLI) | payer OTHER, SELFPAY ==
--- OUTSIDE RECORDS SUMMARY | 2025-04-03 14:32 | XMS_ITS | Clinical Summary ---
Author Organization [facility] Address [address] [place] [address] Care Team Providers Care Physician Executive Name Role Phone Ian Nelson APRN Primary [...] Active Active Problems No known active problems Social History Tobacco Use Types Packs/Day Years [...] 1965 UKY-Depression Screening 1964 UKY-HIV Screening 1964 UKY-Infant/Child/Adol SDOH Screenings 1964 UKY- SDOH Screenings 02/19/1982 [...] 02/19/2014 UKY-Zoster Vaccines (1 of 2) 02/19/2014 [id number] Vaccine (4 - 2024- season) 2025 05/25/2021, 08/14/2020, 07/23/2020 UKY-Influenza Vaccine (#1) 03/03/202505/19, [...] Recently Relevant to Health Maintenance Results * [place] Hepatitis C Antibody (04/30/2019 1:47 PM EDT) [place] Hepatitis C Ab NEGATIVE Reference Range: Negative SUNQUEST 04/30/2019 1:47 PM EDT 04/30/2019 3:36 PM EDT us Dru Demarco MD LAB BLOOD ORDERABLES Final Res ult SUNQUEST from Last 3 Months or Most Recently Relevant to Health Maintenance Insurance [facility] MEDICAID [facility] MEDICAID [employer] Medicaid Dental Care Teams Physician Executive Relationship Specialty Start Date End Date Ian Nelson APRN [address] [place] [address] PCP - General 11/13/20
--- OUTSIDE RECORDS SUMMARY | 2025-04-03 14:32 | XMS_ITS | Clinical Summary ---
[facility] Organization [facility] Address [address] [place] [address] Care Team Providers Care English Composition Teacher Name Role Phone Papa Thomas MD Primary Care Provider [phone] Allergies Active Allergy Reactions Criticality Noted Date [...] ANNUAL PHYSICAL 06/29/2018 HEPATITIS C SCREENING 06/29/2018 INFLUENZA VACCINE 01/31/2025 Insurance [facility] Care Teams English Composition Teacher Relationship Specialty Start Date End Date Papa Thomas MD [address] [place] [address] PCP - General Family Medicine 08/17/16
--- NOTE | 2025-04-03 14:36 | XR_ITS ---
FINAL REPORT CLINICAL HISTORY: R hip pain COMPARISON: None FINDINGS: SACROILIAC JOINTS SERIES Three views were obtained. There is no acute fracture or dislocation. The joint spaces appear normal. The visualized bony structures are well aligned. No soft tissue abnormality is seen. IMPRESSION: No acute bony abnormality. Reviewed, Interpreted and Dictated by Redd Harris MD Transcribed by Queenie Cramer Authenticated and [facility] [place]
--- NOTE | 2025-04-03 14:36 | XR_ITS ---
FINAL REPORT CLINICAL HISTORY: R hip pain COMPARISON: None FINDINGS: RIGHT HIP Two views of the right hip with an AP view of the pelvis demonstrate no acute fracture or dislocation. There is mild narrowing of the right hip joint space. The femoral head has a normal smooth contour. No soft tissue abnormality is seen. IMPRESSION: No acute bony abnormality. Mild narrowing of the joint space. Reviewed, Interpreted and Dictated by Redd Harris MD Transcribed by Queenie Cramer Authenticated and [facility]
== END 2025-04-03 23:59 | disposition home or self-care (01) ==
LOC: RAD 14:30
PROVIDERS: PCP Nurse Practitioner Family; Visit Provider Nurse Practitioner Family
DX: M25.851 Other specified joint disorders, right hip (principal); M25.551 Pain in right hip; M46.1 Sacroiliitis, not elsewhere classified
CPT/HCPCS: 72202; 73502